=== PATIENT | female | born 1940 | race Caucasian/White ===

== ENCOUNTER → 2016-07-16 | Outpatient (CLI) | payer OTHER, MEDICARE ==
[~2016-07-16] MED LIST: AMLO-114 PO; ASPI81TA28 PO; ATOR-24 PO; CALC600T9 PO; CHOL100010 PO; CITA20TA4 PO; CYTRA PO; DIPH-437 PO; EPIN0.05 OPB; FLUT0.0529 NAE; MAGN250T16 PO; MELATAB2 PO; METO100T14 PO; MULT-506 PO; NUTR-706 PO; OXYBUTYNIN PO; OXYC7.5T78 PO; POTA2.5T PO; PRLSR20 PO
== END | disposition home or self-care (01) ==
LOC: C.LABBFT 12:59
PROVIDERS: ATTEND Internal Medicine
DX: R68.89 Other general symptoms and signs (principal)

== ENCOUNTER → 2016-07-18 | Outpatient (CLI) | payer OTHER, MEDICARE ==
[2016-07-18 13:26] LABS: URINE APPEARANCE CLEAR (CLEAR); URINE BILIRUBIN NEG (NEG); URINE COLOR YELLOW; URINE EPITHELIAL CELL AUTO 20-30 /lpf (0-5); URINE NITRITE NEG (NEG); URINE SPECIFIC GRAVITY 1.019 (1.000-1.030); UROBILINOGEN NEG (NEG); ZZUR CULT IF INDIC CLEAN CATCH YES
[2016-07-18 13:35] LABS: MANUAL MICROSCOPIC REQUIRED? NO; REVIEW REQ? NO
== END | disposition home or self-care (01) ==
LOC: C.PATHSPEC 12:20
PROVIDERS: ATTEND Internal Medicine
DX: R31.9 Hematuria, unspecified (principal); R68.89 Other general symptoms and signs

== ENCOUNTER → 2016-09-24 | Outpatient (CLI) | payer OTHER, MEDICARE ==
[~2016-09-24] MED LIST changes: -MAGN250T16 PO; -MELATAB2 PO
[2016-09-24 17:41] LABS: HEMATOCRIT 39.5 % (37-47); MEAN CELL VOLUME 92.7 fL (80-100); MEAN CORPUSCULAR HEMOGLOBIN 30.8 pg (25-34); MEAN CORPUSCULAR HGB CONC 33.2 g/dl (32-36); MEAN PLATELET VOLUME 11.7 fL (7.4-10.4); PLATELET COUNT 213 K/uL (130-400); RED BLOOD COUNT 4.26 M/uL (4.2-5.4); WHITE BLOOD COUNT 6.88 K/uL (4.8-10.8)
[2016-09-24 17:44] LABS: BLOOD UREA NITROGEN 21 mg/dl (7-18); BUN/CREATININE RATIO 16.1 (10-20); CALCIUM 9.4 mg/dl (8.5-10.1); CARBON DIOXIDE 31 mmol/L (21-32); CHLORIDE 103 mmol/L (98-107); GLUCOSE 119 mg/dl (70-99); MAGNESIUM 1.8 mg/dl (1.8-2.4); PHOSPHORUS 2.6 mg/dl (2.5-4.9); POTASSIUM 4.3 mmol/L (3.5-5.1); SODIUM 141 mmol/L (136-145); URIC ACID 5.5 mg/dl (2.6-7.2)
== END | disposition home or self-care (01) ==
LOC: C.LABBFT 13:45
PROVIDERS: ATTEND Internal Medicine Nephrology
DX: I10 Essential (primary) hypertension (principal); N18.3 Chronic kidney disease, stage 3 (moderate); N20.0 Calculus of kidney; E55.9 Vitamin D deficiency, unspecified

== ENCOUNTER → 2016-09-25 | Outpatient (CLI) | payer OTHER, MEDICARE ==
[2016-09-25 14:10] LABS: URINE APPEARANCE CLEAR (CLEAR); URINE BILIRUBIN NEG (NEG); URINE COLOR YELLOW; URINE NITRITE NEG (NEG); URINE PH 7.5 (4.5-7.5); URINE SPECIFIC GRAVITY 1.015 (1.000-1.030); UROBILINOGEN NEG (NEG)
[2016-09-25 14:14] LABS: MANUAL MICROSCOPIC REQUIRED? NO; REVIEW REQ? NO
[2016-09-25 14:31] LABS: URINE PROTIEN/CREAT RATIO 0.2 (0-0.2); URINE TOTAL PROTEIN 23.1 mg/dl (0-11.9)
== END | disposition home or self-care (01) ==
LOC: C.LABSPEC 13:12
PROVIDERS: ATTEND Internal Medicine Nephrology
DX: I12.9 Hypertensive chronic kidney disease with stage 1 through stage 4 chronic kidney disease, or unspecified chronic kidney disease (principal); N18.3 Chronic kidney disease, stage 3 (moderate); N20.0 Calculus of kidney; E55.9 Vitamin D deficiency, unspecified

== ENCOUNTER → 2016-09-28 | Day surgery (SDC) | payer OTHER, MEDICARE ==
[2016-08-30 11:46] VITALS: BMI 56.0
--- NOTE | 2016-08-30 12:36 | PAT Medication Instructions ---
Service Date Aug 30, 2016. Current Home Medication List Acetaminophen/Diphenhydramine (Tylenol Pm), 1 TAB PO HS PRN for Insomnia Amlodipine (Norvasc), 5 MG PO QAM Aspirin (Aspirin Ec), 81 MG PO HS Atorvastatin (Lipitor), 40 MG PO HS Calcium Carbonate-Vitamin D (Calcium + D), 1 TAB PO HS Cholecalciferol (Vitamin D), 2,000 INTER.UNIT PO QAM Citalopram Hydrobromide (Citalopram Hydrobromide), 20 MG PO QAM Enteral Nutrition Formula (Ensure), 1 DOSE PO QAM Epinastine Hcl (Ophth) (Elestat 0.05%), 2 DROPS OPB BID Fluticasone Propionate (Nasal) (Flonase), 2 SPRAY DANIELA QAM PRN for CONGESTION Metoprolol Tartrate (Lopressor) (Lopressor), 100 MG PO BID Multivitamin (Multivitamin), 1 TAB PO HS Omeprazole (Prilosec), 20 MG PO QAM Oxycodone/Acetaminophen 5MG/325MG (Percocet 5MG/325MG), 1-2 TABLETS PO Q4H PRN for Pain Potassium Gluconate (Potassium Gluconate), 1 TAB PO QAM [Cytra], 1 DOSE PO QID [Oxybutynin], 5 MG PO QPM Medication Instructions For Your Scheduled Surgery - Hold the following medications the morning of surgery: Potassium Gluconate (Potassium Gluconate), 1 TAB PO QAM Cytra 1 DOSE PO QID Enteral Nutrition Formula (Ensure), 1 DOSE PO QAM Cholecalciferol (Vitamin D), 2,000 INTER.UNIT PO QAM - Take the following medications the morning of surgery with a sip of water: Oxycodone/Acetaminophen 5MG/325MG (Percocet 5MG/325MG), 1-2 TABLETS PO Q4H PRN for Pain (can take up to four hours prior to surgery if needed) Omeprazole (Prilosec), 20 MG PO QAM Metoprolol Tartrate (Lopressor) (Lopressor), 100 MG PO BID Fluticasone Propionate (Nasal) (Flonase), 2 SPRAY DANIELA QAM PRN for CONGESTION Epinastine Hcl (Ophth) (Elestat 0.05%), 2 DROPS OPB BID Citalopram Hydrobromide (Citalopram Hydrobromide), 20 MG PO QAM Amlodipine (Norvasc), 5 MG PO QAM - Take the following medications as scheduled the night before surgery: Oxybutynin 5 MG PO QPM Cytra 1 DOSE PO QID Oxycodone/Acetaminophen 5MG/325MG (Percocet 5MG/325MG), 1-2 TABLETS PO Q4H PRN for Pain Multivitamin (Multivitamin), 1 TAB PO HS Metoprolol Tartrate (Lopressor) (Lopressor), 100 MG PO BID Epinastine Hcl (Ophth) (Elestat 0.05%), 2 DROPS OPB BID Aspirin (Aspirin Ec), 81 MG PO HS Atorvastatin (Lipitor), 40 MG PO HS Calcium Carbonate-Vitamin D (Calcium + D), 1 TAB PO HS Acetaminophen/Diphenhydramine (Tylenol Pm), 1 TAB PO HS PRN for Insomnia If you have any questions please call us at [phone] or [phone] ( [facility]) or [phone]
[2016-08-30 13:45] LABS: BASO % 0.4 %; BASO ABS # 0.04 K/uL (0-0.2); COMPLETE YES; HEMATOCRIT 41.5 % (37-47); IG% 0.2 %; LYMPH % 16.5 %; LYMPH ABS # 1.56 K/uL (1.2-3.4); MEAN CORPUSCULAR HEMOGLOBIN 31.6 pg (25-34); MEAN CORPUSCULAR HGB CONC 34.7 g/dl (32-36); MONO % 9.7 %; NEUT % 72.2 %; PLATELET COUNT 216 K/uL (130-400); RED BLOOD COUNT 4.56 M/uL (4.2-5.4); WHITE BLOOD COUNT 9.47 K/uL (4.8-10.8)
--- NOTE | 2016-08-30 13:52 | DIAGNOSTIC IMAGING REPORT ---
CHEST 2 VIEWS ROUTINE CLINICAL HISTORY: Preoperative chest COMPARISON STUDY: 12/31/2013 FINDINGS: Postsurgical changes are present within the cervical spine. There is a left-sided A-Port catheter. The heart is the upper limits of normal in size. There is no failure. There is no focal pulmonary consolidation. There is a prominent left cardiophrenic angle fat pad.[ IMPRESSION: No active disease in the chest. Electronically signed by: Cesar Bragg M.D. 08/30/2016 1:51 PM Dictated Date/Time: 08/30/2016 1:50 PM
[2016-08-30 14:05] LABS: BUN/CREATININE RATIO 21.5 (10-20); CALCIUM 9.5 mg/dl (8.5-10.1); POTASSIUM 4.2 mmol/L (3.5-5.1)
[2016-08-30 14:08] LABS: URINE APPEARANCE CLEAR (CLEAR); URINE BILIRUBIN NEG (NEG); URINE COLOR DK YELLOW; URINE EPITHELIAL CELL AUTO >30 /lpf (0-5); URINE NITRITE NEG (NEG); URINE PH 8.5 (4.5-7.5); URINE SPECIFIC GRAVITY 1.022 (1.000-1.030); UROBILINOGEN NEG (NEG)
[2016-08-30 14:13] LABS: ESTIMATED AVERAGE GLUCOSE 100 mg/dl; HA1C FLAG Normal (Normal)
[2016-08-30 14:16] LABS: MANUAL MICROSCOPIC REQUIRED? NO; REVIEW REQ? NO
[2016-08-30 14:17] LABS: SULFASALICYLIC ACID NEG (NEG)
--- NOTE | 2016-09-26 16:55 | HISTORY & PHYSICAL EXAMINATION ---
DATE OF ADMISSION: 09/28/2016 SUBJECTIVE AND CHIEF COMPLAINT: Left ankle pain. HISTORY OF PRESENT ILLNESS: This is a patient who has had a long history of traumatic arthritis of the left ankle after a closed reduction of a tib-fib fracture many years ago. She had been treated conservatively with bracing, anti-inflammatory medications, activity modification and corticosteroid injections. However, she has now failed all conservative management and she is being set up for a left ankle replacement. PAST MEDICAL HISTORY: Depression, history of low back pain, carotid artery stenosis, chronic kidney disease stage III, Crohn's disease, esophageal reflux, hypercholesterolemia, hypertension, urinary frequency, morbid obesity, history of kidney stones, and sleep apnea. PAST SURGICAL HISTORY: Appendectomy, cholecystectomy, history of D\T\C and exploratory laparotomy, hysterectomy, ileostomy and carpal tunnel release. FAMILY HISTORY: Noncontributory. SOCIAL HISTORY: The patient denies alcohol and tobacco use. She is retired and . CURRENT MEDICATIONS: Nasonex 50 mcg 2 sprays each nostril daily, aspirin 81 mg 1 p.o. daily, Cytra-2 at 500/334 mg per 5 mL solution 2 tablespoons by mouth after each meal at bedtime, citalopram 20 mg 1 p.o. daily, Artificial Tears 2 drops in each eye 4 times a day, epinastine 0.05% ophthalmic solution 1 drop each eye b.i.d., omeprazole 20 mg 1 p.o. daily, vitamin C 500 mg 1 p.o. daily, atorvastatin 40 mg 1 p.o. at bedtime, amlodipine 5 mg 1 p.o. daily, metoprolol 100 mg 1 p.o. b.i.d., Slow-Mag magnesium/calcium 64/106 mg 1 p.o. b.i.d., oxybutynin 5 mg 1 p.o. at bedtime, Percocet 5/325 mg 1-2 every 6 hours as needed for pain, potassium ER 50 mEq 1 p.o. daily, nitrofurantoin 100 mg 1 p.o. q. 12 hours, vitamin D 2000 units 1 p.o. daily, and melatonin tablets 1 p.o. at bedtime. ALLERGIES: BACTRIM. PHYSICAL EXAMINATION: GENERAL: The patient is alert and oriented x3. She is in no acute distress. She is a well-dressed and well-nourished 76-year-old female. Her affect is appropriate. CARDIOVASCULAR: Heart has a regular rhythm and rate without murmurs. LUNGS: Clear to auscultation bilaterally. Dorsalis pedis, posterior tib pulse +2/4. Cap refill is less than 2 seconds. LYMPHATIC: No evidence of any swollen lymph nodes. MUSCULOSKELETAL: The patient has an antalgic gait favoring the left lower extremity. On inspection of the left lower extremity, there is swelling noted at the left ankle. There is no ecchymosis and no erythema noted. The patient has decreased range of motion particularly with dorsiflexion. She also has limited plantar flexion. There is pain and crepitation noted with passive and active range of motion. On palpation, there is tenderness at the anterior and posterior aspect of the ankle joint. SKIN: There are no scars, rashes or ulcers noted. NEUROLOGIC: Sensation is normal and intact distally in the left lower extremity. X-RAY EXAM: Multiple views of left ankle demonstrate severe posttraumatic osteoarthritic changes of the tibiotalar ankle joint with complete loss of joint space and significant spurring anteriorly and posteriorly. There is an old well-healed mid shaft fracture of the tibia and fibula. ASSESSMENT AND DIAGNOSES: 1. Posttraumatic osteoarthritis of the left ankle. 2. Achilles contracture, left ankle. PLAN: Above assessment was discussed with the patient. At this time, it was recommended that the patient undergo a left ankle STAR total ankle arthroplasty with percutaneous tendo Achilles lengthening and application of platelet rich plasma. All potential risks, benefits, complications, alternatives and rehab have been discussed with the patient. At this time, she wishes to proceed with the surgery as indicated. She will be scheduled for the surgery on 09/28/2016 with aspirin 81 mg by mouth twice a day for 30 days as DVT prophylaxis.
[~2016-09-28] VITALS: Ht 152.4 cm; Wt 130.0 kg
[~2016-09-28] MED LIST changes: +ACETAMINOPHEN 500 MG TAB PO SCH; +ATROPINE SULFATE 0.1 MG/ML 5ML SYR IV PRN; +CeleBREX 200 MG CAP PO SCH; +DEXAMETHASONE 4 MG TAB PO SCH; +EpHEDrine SULFATE INJ 50 MG/ML AMP IV PRN; +FAMOTIDINE 20 MG TAB PO SCH; +FENTANYL CITRATE INJ 50 MCG/1 ML 2 ML VIAL ONE; +GABAPENTIN 300 MG CAP PO SCH; +GENERAL ORDER PROBLEM SCH; +HYDROmorphone INJ 2 MG/ML SYR/VIAL IV PRN; +KETAMINE HCL INJ 50 MG/ML 10 ML VIAL ONE; +LACTATED RINGER'S 1000ML 1,000 ML IV SCH; +LACTATED RINGER'S 1000ML IV SCH; +METOCLOPRAMIDE HCL 10 MG TAB PO SCH; +MIDAZOLAM HCL 1 MG/ML 2ML VIAL ONE; +ONDANSETRON INJ 2 MG/ML 2 ML VIAL IV PRN; +PHENYLEPHRINE 100MCG/ML 5ML SYR IV PRN; +ROPIVACAINE 0.5% 5 MG/ML 30 ML VIAL ONE; +ROPIVACAINE 5MG/ML 30 ML 150 MG, BUPIVACAINE/EPINEPHR 0.5% MPF 30 ML, KETOROLAC TROMETH... INFIL SCH; +SODIUM CHLORIDE 0.9% IV SCH; +VANCOMYCIN 1GM/270ML NSS 270 ML IV SCH; +VANCOMYCIN IV SCH
[2016-09-28 07:50] VITALS: BP 180/64; PULSE 59; TEMP 36.4; O2SAT 100; Ht 152.4 cm; Wt 130.0 kg
[2016-09-28 08:35] LABS: PROTHROMBIN TIME (PATIENT) 10.6 SECONDS (9.0-12.0)
--- NOTE | 2016-09-28 11:05 | History & Physical Bridge Note ---
H&P Re-Evaluation Bridge Note: I have examined the patient, reviewed the History & Physical and in the interval since the performance of the History & Physical I have noted the following changes of clinical significance: Patient attended physical therapy over the past few weeks for Pre-hab training. She had a significant reduction in her previously unrelenting ankle pain with a concomitant slight improvement in her ankle ROM. I suggested that the patient cancel her surgery today due to her unexpected improvement in symptoms. The patient and her were in agreement. Surgery cancelled.
--- NOTE | 2016-11-09 08:14 | CODING QUERY MEDICAL NECESSITY ---
CQSUPPORTING DIAGNOSIS NEEDED A supporting diagnosis is required for the test/procedure performed on this patient in order for us to be reimbursed by the patient's insurance. Please provide a supporting diagnosis for the following test/procedure listed below next to the test name along with your signature. *If there is no additional diagnosis for this patient that would support the following test/procedure please document that below next to the test/procedure. Test(s)/Procedure(s) that require a supporting diagnosis: DOS 08/30/16 GLYCATED HEMOGLOBIN TEST (ORDERED FOR PRESURGERY) Provider Signature: Date: Thank you Emma Machuca Health Information Management Once completed, please kindly fax back to [phone] For questions please call [phone]
== END | disposition home or self-care (01) ==
LOC: C.ACU 06:53
PROVIDERS: ATTEND Orthopaedic Surgery Sports Medicine
DX: M12.572 Traumatic arthropathy, left ankle and foot (principal); M67.02 Short Achilles tendon (acquired), left ankle; Z53.20 Procedure and treatment not carried out because of patient's decision for unspecified reasons; I65.29 Occlusion and stenosis of unspecified carotid artery; K21.9 Gastro-esophageal reflux disease without esophagitis; I10 Essential (primary) hypertension; E66.01 Morbid (severe) obesity due to excess calories; R35.0 Frequency of micturition; Z79.899 Other long term (current) drug therapy; Z01.812 Encounter for preprocedural laboratory examination

== ENCOUNTER → 2017-04-11 | Outpatient (CLI) | payer OTHER, MEDICARE ==
[~2017-04-11] MED LIST changes: -ACETAMINOPHEN 500 MG TAB PO SCH; -ATROPINE SULFATE 0.1 MG/ML 5ML SYR IV PRN; -CeleBREX 200 MG CAP PO SCH; -DEXAMETHASONE 4 MG TAB PO SCH; -EpHEDrine SULFATE INJ 50 MG/ML AMP IV PRN; -FAMOTIDINE 20 MG TAB PO SCH; -FENTANYL CITRATE INJ 50 MCG/1 ML 2 ML VIAL ONE; -GABAPENTIN 300 MG CAP PO SCH; -GENERAL ORDER PROBLEM SCH; -HYDROmorphone INJ 2 MG/ML SYR/VIAL IV PRN; -KETAMINE HCL INJ 50 MG/ML 10 ML VIAL ONE; -LACTATED RINGER'S 1000ML 1,000 ML IV SCH; -LACTATED RINGER'S 1000ML IV SCH; -METOCLOPRAMIDE HCL 10 MG TAB PO SCH; -MIDAZOLAM HCL 1 MG/ML 2ML VIAL ONE; -ONDANSETRON INJ 2 MG/ML 2 ML VIAL IV PRN; -PHENYLEPHRINE 100MCG/ML 5ML SYR IV PRN; -ROPIVACAINE 0.5% 5 MG/ML 30 ML VIAL ONE; -ROPIVACAINE 5MG/ML 30 ML 150 MG, BUPIVACAINE/EPINEPHR 0.5% MPF 30 ML, KETOROLAC TROMETH... INFIL SCH; -SODIUM CHLORIDE 0.9% IV SCH; -VANCOMYCIN 1GM/270ML NSS 270 ML IV SCH; -VANCOMYCIN IV SCH
[2017-04-11 17:31] LABS: HEMATOCRIT 43.6 % (37-47); MEAN CELL VOLUME 91.4 fL (80-100); MEAN CORPUSCULAR HEMOGLOBIN 30.4 pg (25-34); MEAN CORPUSCULAR HGB CONC 33.3 g/dl (32-36); MEAN PLATELET VOLUME 11.6 fL (7.4-10.4); PLATELET COUNT 220 K/uL (130-400); RED BLOOD COUNT 4.77 M/uL (4.2-5.4); WHITE BLOOD COUNT 6.77 K/uL (4.8-10.8)
[2017-04-11 18:04] LABS: ALKALINE PHOSPHATASE 92 U/L (45-117); AST/SGOT 23 U/L (15-37); BLOOD UREA NITROGEN 18 mg/dl (7-18); BUN/CREATININE RATIO 16.3 (10-20); CALCIUM 9.2 mg/dl (8.5-10.1); CARBON DIOXIDE 28 mmol/L (21-32); CHLORIDE 104 mmol/L (98-107); GLUCOSE 110 mg/dl (70-99); POTASSIUM 4.4 mmol/L (3.5-5.1); SODIUM 140 mmol/L (136-145)
[2017-04-11 18:07] LABS: ALB/GLOB RATIO 0.9 (0.9-2); ALT/SGPT 32 U/L (12-78); URIC ACID 5.9 mg/dl (2.6-7.2)
== END | disposition home or self-care (01) ==
LOC: C.LABBFT 13:37
PROVIDERS: ATTEND Internal Medicine Nephrology
DX: I12.9 Hypertensive chronic kidney disease with stage 1 through stage 4 chronic kidney disease, or unspecified chronic kidney disease (principal); N18.3 Chronic kidney disease, stage 3 (moderate); N20.0 Calculus of kidney; E55.9 Vitamin D deficiency, unspecified

== ENCOUNTER → 2017-04-12 | Outpatient (CLI) | payer OTHER, MEDICARE ==
[2017-04-12 12:30] LABS: URINE APPEARANCE CLEAR (CLEAR); URINE BILIRUBIN NEG (NEG); URINE COLOR YELLOW; URINE EPITHELIAL CELL AUTO >30 /lpf (0-5); URINE NITRITE NEG (NEG); URINE PH 7.5 (4.5-7.5); URINE SPECIFIC GRAVITY 1.019 (1.000-1.030); UROBILINOGEN NEG (NEG)
[2017-04-12 12:33] LABS: MANUAL MICROSCOPIC REQUIRED? NO; REVIEW REQ? NO
[2017-04-12 13:53] LABS: URINE PROTIEN/CREAT RATIO 0.1 (0-0.2); URINE TOTAL PROTEIN 8.1 mg/dl (0-11.9)
== END | disposition home or self-care (01) ==
LOC: C.LABSPEC 09:07
PROVIDERS: ATTEND Internal Medicine Nephrology
DX: I12.9 Hypertensive chronic kidney disease with stage 1 through stage 4 chronic kidney disease, or unspecified chronic kidney disease (principal); N18.3 Chronic kidney disease, stage 3 (moderate); N20.0 Calculus of kidney; E55.9 Vitamin D deficiency, unspecified

== ENCOUNTER → 2017-07-26 | Outpatient (CLI) | payer OTHER, MEDICARE ==
[~2017-07-26] MED LIST changes: +AMLO-110 PO; +CHOL20009 PO; +CYTRA 2 PO; +FLUT50SP45 NAE; +MAGN250T3 PO; +OXYB5TAB PO; +OXYC-643 PO
[2017-07-26 12:49] LABS: HEMOGLOBIN A1C 5.3 % (4.5-5.6)
== END | disposition home or self-care (01) ==
LOC: C.LABBFT 10:24
PROVIDERS: ATTEND Internal Medicine
DX: I65.29 Occlusion and stenosis of unspecified carotid artery (principal); R31.9 Hematuria, unspecified; R73.9 Hyperglycemia, unspecified; E78.00 Pure hypercholesterolemia, unspecified

== ENCOUNTER → 2017-07-29 | Day surgery (SDC) | payer OTHER, MEDICARE ==
[2017-07-26 11:42] VITALS: Ht 156.2 cm; Wt 129.6 kg
[~2017-07-29] VITALS: Ht 156.2 cm; Wt 129.6 kg
[~2017-07-29] MED LIST changes: -AMLO-114 PO; -CHOL100010 PO; -CYTRA PO; -DIPH-437 PO; -FLUT0.0529 NAE; +LIDOCAINE HCL 2% 2 ML VIAL (20MG/ML) ONE; -MULT-506 PO; -OXYBUTYNIN PO; -OXYC7.5T78 PO; +PROPOFOL IV EMULSION 10 MG/ML 20 ML VIAL IV ONE; +SODIUM CHLORIDE 0.9% 500ML 500 ML IV ONE
--- NOTE | 2017-07-29 09:10 | Endo History and Physical ---
History & Physical Date of Service: Jul 29, 2017. Chief Complaint: Dysphagia Referring Physician: Dr. Orourke History of Present Illness dysphagia Past Medical History Gastrointestinal Disorder, Anxiety, Reflux, Cancer, High Cholesterol, Sleep Apnea, Hypertension, Kidney Disease, Depression Past Surgical History Hx Cardiac Surgery: No Hx Internal Defibrillator: No Hx Pacemaker: No Hx Abdominal Surgery: Yes (MULTIPLE BOWEL RESECTIONS AND BLOCKAGES, ILEOSTOMY 1992, HERNIA REPAIR) Hx of Implantable Prosthesis: No Hx Post-Op Nausea and Vomiting: No Hx Cancer Surgery: No Hx Thoracic Surgery: No Hx Orthopedic: Yes (RT HAND GROWTH REMOVAL (BENIGN), TRIGGER FINGER REPAIR X3, LT/RT TKA) Hx Urinary Tract Surgery: No Family History None Social History Smoking Status: Never Smoker Hx Substance Use: No Hx Alcohol Use: No Allergies Coded Allergies: Dexamethasone (Verified Allergy, Unknown, ITCHING, 07/29/17) Sulfamethoxazole w/Trimethoprim (Verified Allergy, Unknown, ITCHING (?), ) Tobramycin (Verified Allergy, Unknown, ITCHING, 07/29/17) Current Medications Reported Home Medications Medications Dose Route/Sig Max Daily Dose Days Date Category Oxybutynin Chloride Er (Oxybutynin Chloride) 5 Mg Tab 1 Tab PO HS 07/26/17 Reported Oxycodone/Acetaminophen 5MG/325MG (Oxycodone/Acetaminophen) 1 Tab Tab 1 Tablet PO Q4H PRN 07/26/17 Reported [Cytra 2] 2 Tbs PO QID 07/26/17 Reported Allergy Nasal [place] [address] (Fluticasone Propionate (Nasal)) 50 Mcg/Act Spr 2 [place] DANIELA DAILY PRN 07/26/17 Reported Vitamin D (Cholecalciferol) 2,000 Unit Tab 1 Tab PO DAILY 07/26/17 Reported Magnesium 250 mg (Magnesium) 1 Tab Tab 1 Tab PO BID 07/26/17 Reported Norvasc (Amlodipine Besylate) 5 Mg Tab 5 Mg PO QPM 07/26/17 Reported Potassium Gluconate 550 Mg Tab 1 Tab PO QAM 08/30/16 Reported Ensure (Enteral Nutritional Formula) Liq 1 Dose PO QAM 10/20/15 Reported Calcium + D (Calcium Carbonate-Vitamin D) 1 Tab Tab 1 Tab PO DAILY 10/20/15 Reported Lopressor (Metoprolol Tartrate) 100 Mg Tab 100 Mg PO BID 10/20/15 Reported Elestat 0.05% (Epinastine Hcl (Ophth)) 0.05 % [place] 2 Drops OPB BID 04/20/14 Reported Prilosec (Omeprazole) 20 Mg Capcr 20 Mg PO QAM 04/20/14 Reported Lipitor (Atorvastatin Calcium) 40 Mg Tab 40 Mg PO QPM 04/20/14 Reported Citalopram Hydrobromide 20 Mg Tab 20 Mg PO QAM 12/31/13 Reported Aspirin Ec (Aspirin) 81 Mg Tab 81 Mg PO QPM 12/13/13 Reported Vital Signs Weight (Kilograms): 129.55 Height (Feet): 5 Height (Inches): 1.5 Date Time Temp Pulse Resp B/P (MAP) Pulse Ox O2 Delivery O2 Flow Rate FiO2 07/29/17 08:55 36.8 64 20 173/59 (97) 97 Room Air Physical Exam General Appearance: WD/WN, no apparent distress Assessment and Plan EGD today. Possible dilation.
--- NOTE | 2017-07-29 09:47 | GI REPORT ---
Procedure Date: 07/29/2017 9:36 AM Procedure: Upper GI endoscopy Indications: Dysphagia Medicines: Propofol per Anesthesia Complications: No immediate complications. Estimated blood loss: None. Estimated Blood Loss: Estimated blood loss: none. Procedure: Pre-Anesthesia Assessment: - Prior to the procedure, a History and Physical was performed, and patient medications, allergies and sensitivities were reviewed. The patient's tolerance of previous anesthesia was reviewed. - The risks and benefits of the procedure and the sedation options and risks were discussed with the patient. All questions were answered and informed consent was obtained. - Patient identification and proposed procedure were verified prior to the procedure by the physician and the nurse. The procedure was verified in the pre-procedure area in the procedure room. - Mental Status Examination: alert and oriented. Airway Examination: normal oropharyngeal airway and neck mobility. Respiratory Examination: clear to auscultation. CV Examination: normal. Abdominal Examination: bowel sounds present, abdomen soft and non-tender, no masses or organomegaly noted. - ASA Grade Assessment: III - A patient with severe systemic disease. After obtaining informed consent, the endoscope was passed under direct vision. Throughout the procedure, the patient's blood pressure, pulse, and oxygen saturations were monitored continuously. The Scope was introduced through the mouth, and advanced to the second part of duodenum. The upper GI endoscopy was accomplished without difficulty. The patient tolerated the procedure well. Findings: The examined esophagus was normal. A guidewire was placed and the scope was withdrawn. Dilation was performed with a Savary dilator with mild resistance at 54 Fr. The stomach was normal. The examined duodenum was normal. Impression: - Normal esophagus. No esophagitis. No stricture. Empirically dilated. - Normal stomach. - Normal examined duodenum. - No specimens collected. Recommendation: - Follow an antireflux regimen. - Continue present medications. - If symptoms persist, consider a video swallow evaluation. - Return to primary care physician as previously scheduled. - Discharge patient to home. Shanell Norman D.O. Shanell Norman, 07/29/2017 9:47:15 AM This report has been signed electronically. Note Initiated On: 07/29/2017 9:36 AM I attest to the content of the Intraoperative Record and orders documented therein, exceptions below
--- NOTE | 2017-07-29 09:48 | Discharge Instructions ---
Endoscopy Patient Instructions Date / Procedure(s) Performed Jul 29, 2017. EGD Allergy Information Coded Allergies: Dexamethasone (Verified Allergy, Unknown, ITCHING, 07/29/17) Sulfamethoxazole w/Trimethoprim (Verified Allergy, Unknown, ITCHING (?), ) Tobramycin (Verified Allergy, Unknown, ITCHING, 07/29/17) Discharge Date / Findings Jul 29, 2017. normal EGD; esophagus was dilated today Medication Instructions Stopped Medication(s): 81mg Aspirin taken on 07/28/16 Restart Stopped Medication(s): OK to resume all medications as above Provider Instructions Activity Restrictions - No exercising or heavy lifting for 24 hours. - Do not drink alcohol the day of the procedure. - Do not drive a car or operate machinery until the day after the procedure. - Do not make any important decisions or sign important papers in 24 hours after the procedure. Following Day: - Return to full activity which may include returning to work/school. Diet Start your diet with liquids and light foods (jello, soup, juice, toast). Then eat your usual diet if not nauseated. Treatment For Common After Affects For mild abdominal pain, bloating, or excessive gas: - Rest - Eat lightly - Lie on right side Follow-Up Information Follow-up with Dr. Orourke as scheduled Anesthesia Information What You Should Know You have had a procedure that required some medicine to reduce anxiety and discomfort. This treatment is called moderate sedation. After receiving the treatment, you may be sleepy, but you will be able to breathe on your own. The effects of the treatment may last for several hours. Follow these instructions along with Activity/Diet recommendations noted above: * Do NOT do anything where dizziness or clumsiness would be dangerous. * Rest quietly at home today, then you can be up and about tomorrow. * Have a responsible person stay with you the rest of today. * You may have had an I.V. today. If so, you may take the dressing off later today. Recommendations Call your doctor if: * Trouble breathing * Continuous vomiting for more than 24 hours * Temperature above 101 degrees * Severe abdominal pain or bloating * Pain not relieved by pain medicine ordered * There is increased drainage or redness from any incision * A large amount of rectal bleeding greater than 2-3 tablespoons. (If you had a polyp/s removed or have hemorrhoids, a small amount of blood - from the rectum is to be expected.) * You have any unanswered questions or concerns. IN THE EVENT OF A SERIOUS EMERGENCY, GO TO THE NEAREST EMERGENCY ROOM Your discharge instructions were prepared by provider Shanell Norman. Patient Instructions Signature Page Priya Tapia Patient (or Guardian) Signature/Date: I have read and understand the instructions given to me by my caregivers. Caregiver/RN/Doctor Signature/Date: The above-named patient and/or guardian has received patient instructions on this date. + Original Patient Signature Page (only) stays with chart. Please make copy for patient.
--- NOTE | 2017-07-29 10:15 | Anesthesiology Progress Note ---
Anesthesia Post Op Note Date & Time Jul 29, 2017 at 10:15 Vital Signs Pain Intensity: 0 Vital Signs Past 12 Hours Date Time Temp Pulse Resp B/P (MAP) Pulse Ox O2 Delivery O2 Flow Rate FiO2 07/29/17 10:04 60 20 150/60 (90) 96 Room Air 07/29/17 09:49 63 20 92/64 (73) 96 Room Air 07/29/17 08:55 36.8 64 20 173/59 (97) 97 Room Air Notes Mental Status: alert / awake / arousable, participated in evaluation Pt Amnestic to Procedure: Yes Nausea / Vomiting: adequately controlled Pain: adequately controlled Airway Patency, RR, SpO2: stable & adequate BP & HR: stable & adequate Hydration State: stable & adequate Anesthetic Complications: no major complications apparent
== END | disposition home or self-care (01) ==
LOC: C.GI 08:25
PROVIDERS: ATTEND Internal Medicine
DX: R13.10 Dysphagia, unspecified (principal); N18.3 Chronic kidney disease, stage 3 (moderate); I12.9 Hypertensive chronic kidney disease with stage 1 through stage 4 chronic kidney disease, or unspecified chronic kidney disease; G47.33 Obstructive sleep apnea (adult) (pediatric); E66.01 Morbid (severe) obesity due to excess calories; Z98.890 Other specified postprocedural states; E78.00 Pure hypercholesterolemia, unspecified; Z90.89 Acquired absence of other organs; Z96.653 Presence of artificial knee joint, bilateral; Z68.43 Body mass index [BMI] 50.0-59.9, adult; Z88.2 Allergy status to sulfonamides; Z88.1 Allergy status to other antibiotic agents

== ENCOUNTER → 2017-09-04 | Outpatient (CLI) | payer OTHER, MEDICARE ==
[~2017-09-04] MED LIST changes: -LIDOCAINE HCL 2% 2 ML VIAL (20MG/ML) ONE; -PROPOFOL IV EMULSION 10 MG/ML 20 ML VIAL IV ONE; -SODIUM CHLORIDE 0.9% 500ML 500 ML IV ONE
--- NOTE | 2017-09-04 14:29 | DIAGNOSTIC IMAGING REPORT ---
CERVICAL SPINE 2 OR 3 VIEWS HISTORY: Pain. Neuropathy. R20.0 COMPARISON: 08/30/2012 FINDINGS: The cervical spine is visualized from C1 through the superior endplate of T1. There is no fracture. No subluxation. Evidence for an anterior fusion from C4 through C7 with associated corpectomy. Alignment is anatomic. Prevertebral soft tissues are unremarkable. Prevertebral soft tissues and the atlantodens interval are intact. IMPRESSION: 1. Degenerative and postoperative change of the cervical spine. 2. Findings consistent with an anterior fusion from C4 through C5 C7 with an associated corpectomy. 3. No acute process. The above report was generated using voice recognition software. It may contain grammatical, syntax or spelling errors. Electronically signed by: Sai Harden M.D. 09/04/2017 2:28 PM Dictated Date/Time: 09/04/2017 2:26 PM
== END | disposition home or self-care (01) ==
LOC: C.RAD1850 14:03
PROVIDERS: ATTEND Physician Assistant Medical
DX: R20.0 Anesthesia of skin (principal); M47.812 Spondylosis without myelopathy or radiculopathy, cervical region

== ENCOUNTER → 2017-10-22 | Outpatient (CLI) | payer OTHER, MEDICARE ==
[2017-10-22 12:40] LABS: HEMATOCRIT 45.3 % (37-47); HEMOGLOBIN 15.5 g/dL (12.0-16.0); MEAN CELL VOLUME 91.3 fL (80-100); MEAN CORPUSCULAR HEMOGLOBIN 31.3 pg (25-34); MEAN CORPUSCULAR HGB CONC 34.2 g/dl (32-36); MEAN PLATELET VOLUME 11.6 fL (7.4-10.4); PLATELET COUNT 201 K/uL (130-400); RED CELL DISTRIBUTION WIDTH CV 13.2 % (11.5-14.5); RED CELL DISTRIBUTION WIDTH SD 43.9 fL (36.4-46.3); WHITE BLOOD COUNT 6.92 K/uL (4.8-10.8)
[2017-10-22 13:04] LABS: ALBUMIN 3.6 gm/dl (3.4-5.0); ALT/SGPT 27 U/L (12-78); AST/SGOT 20 U/L (15-37); BLOOD UREA NITROGEN 16 mg/dl (7-18); CALCIUM 9.6 mg/dl (8.5-10.1); CARBON DIOXIDE 29 mmol/L (21-32); CREATININE 1.12 mg/dl (0.60-1.20); GLUCOSE 133 mg/dl (70-99); POTASSIUM 4.2 mmol/L (3.5-5.1); SODIUM 140 mmol/L (136-145); URIC ACID 5.8 mg/dl (2.6-7.2)
[2017-10-22 13:07] LABS: ALKALINE PHOSPHATASE 97 U/L (45-117); TOTAL PROTEIN 7.8 gm/dl (6.4-8.2)
== END | disposition home or self-care (01) ==
LOC: C.LABBFT 09:57
PROVIDERS: ATTEND Internal Medicine Nephrology
DX: I12.9 Hypertensive chronic kidney disease with stage 1 through stage 4 chronic kidney disease, or unspecified chronic kidney disease (principal); E55.9 Vitamin D deficiency, unspecified; N18.3 Chronic kidney disease, stage 3 (moderate); R31.9 Hematuria, unspecified; K50.90 Crohn's disease, unspecified, without complications

== ENCOUNTER 2022-01-30 17:25 | Inpatient (IN) ==
--- NOTE | 2022-01-30 17:32 | ED Triage Note ---
Date of Service January 30, 2022 History of Present Illness This patient was briefly evaluated while in triage. An abbreviated physical exam was performed. This patient is a 81-year-old Female that presents to ED today with abd pain. Started about 2 hours ago. She feels as though the abdomen is hard. She notes dry heaves and nausea. No vomiting. She has a stoma. Last output this AM. Physical Exam GENERAL: 81 year old female. SKIN: No lesions or rashes. HEART: Regular rate and rhythm. LUNGS: Clear to auscultation. ABDOMEN: Bowel sounds normoactive. Mid and R sided abd TTP noted. Stoma without abnormality to inspection. Brown output noted. NEURO: Alert and oriented. No deficits. MUSCULOSKELETAL: No deformities to inspection of the extremities. PSYCH: Patient is pleasant and answers all questions appropriately. Initial orders for labs and / or imaging were placed and patient was placed in the waiting area until a bed is available. Please see further documentation for the full ED course.
[2022-01-30 18:55] LABS: Albumin Globulin Ratio 1.2 (0.9-2); Albumin Level 4.1 gm/dl (3.4-5.0); BUN Creatinine Ratio 19.6 (10-20); Bilirubin,Total 0.9 mg/dl (0.2-1.0); Calcium 9.7 mg/dl (8.5-10.1); Est GFR (African American) 40.3 ml/min; Est GFR (Non-African American) 34.7 ml/min; Globulin 3.4 gm/dl (2.5-4.0); Magnesium 1.4 mg/dl (1.7-2.4); Potassium 3.9 mmol/L (3.5-5.1); Total Protein 7.5 gm/dl (6.0-8.3); Troponin I High Sensitivity 17.9 pg/ml (0-14)
[2022-01-30] MEDS ORDERED: SODIUM CHLORIDE 0.9% 1000ML 1,000 ML IV ONE ×2 (18:58→20:38)
[2022-01-30] MEDS ORDERED: MoRPHine SULFATE 4 MG/ML 1 ML CARP\\VIAL IV STA (18:58)
[2022-01-30] MEDS ORDERED: MAGNESIUM SULFATE / D5W 1 GM/100 ML BAG IV STA (18:58)
[2022-01-30] MEDS ORDERED: ONDANSETRON INJ 2 MG/ML 2 ML VIAL IV STA ×2 (18:58→20:39)
[2022-01-30 19:08] LABS: Basophils # (auto) 0.02 K/uL (0-0.2); Basophils % (auto) 0.6 %; Eosinophils % (auto) 3.1 %; Hematocrit (blood only) 42.6 % (34.1-44.9); Immature Granulocytes # (auto) 0.17 K/uL (0.00-0.02); Immature Granulocytes % (auto) 5.2 %; Lymphocytes # (auto) 0.33 K/uL (1.2-3.4); Lymphocytes % (auto) 10.1 %; Mean Corpuscular Hemoglobin 30.6 pg (25.0-34.0); Mean Corpuscular Hgb Conc 32.9 g/dL (32.0-36.0); Mean Platelet Volume 10.8 fL (9.4-12.3); Monocytes # (auto) 0.02 K/uL (0.24-0.82); Monocytes % (auto) 0.6 %; Neutrophils # (auto) 2.63 K/uL (1.4-6.5); Neutrophils % (auto) 80.4 %; Nucleated RBC # (auto) 0.02 K/uL (0-0); Nucleated RBC % (auto) 0.6 %; Platelet Count 137 K/uL (130-400); RDW Coefficient of Variation 12.6 % (11.5-14.5); RDW Standard Deviation 42.8 fL (36.4-46.3); Red Blood Count 4.58 M/uL (3.93-5.22); Toxic Vacuolation 1+; White Blood Count 3.27 K/ul (4.8-10.8)
[2022-01-30] MEDS ORDERED: MoRPHine SULFATE 4 MG/ML 1 ML CARP\\VIAL IV PRN (19:08)
--- NOTE | 2022-01-30 19:13 | Emergency Department Note ---
Impression & Plan Right sided abdominal pain, Renal colic, Hydronephrosis, Elevated lactic acid level ED Provider Note NAME: HERO MELENDEZ AGE: 81 SEX: F : 1940 ARRIVES VIA: Walk-In INFORMANT: [Patient][] ED PROVIDER(S): [Jeremy Hair MD] CHIEF COMPLAINT: Abdominal pain HISTORY OF PRESENT ILLNESS: The patient is a 81-year-old female presents with 4 hours of severe abdominal pain. The patient states that she had a stomachache earlier today but it got severe in nature around 4 hours ago. She has had some nausea without vomiting. 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 She believes the pain is more so on the right and she did think she had a little bit of right lateral abdominal/flank discomfort as well. The patient denies any fever or chills. She did notice some urinary burning today, she thought maybe she had a UTI or was passing a kidney stone. The patient has had bowel obstructions before. This feels a bit similar to previous obstructions. Her pain is a 10/10. The patient states the pain is severe and then she seems to get spasms of even more intense discomfort. REVIEW OF SYSTEMS: See HPI for pertinent positives and negatives. A total of ten systems were reviewed and were otherwise negative. PMHx/PSHx: See Below SOCIAL HISTORY: See Below. PHYSICAL EXAM: GENERAL: Patient is in moderate distress from pain. HEENT: No acute trauma, normocephalic atraumatic, mucous membranes moist, no nasal congestion, no scleral icterus. NECK: No stridor, no adenopathy, no meningismus, trachea is midline. LUNGS: Clear to auscultation bilaterally, no wheeze, no rhonchi, breath sounds equal. HEART: Without murmurs gallops or rubs, regular rate and rhythm. ABDOMEN: Soft, obese. There is an ileostomy in the right upper quadrant. There is some dark liquidy stool present in the bag. She is tender about the e pigastric area and to the RUQ. There is some abdominal distention. Old surgical scars noted. EXTREMITIES: No cyanosis, moderate bilateral pedal edema, full range of motion of all the joints without pain or difficulty, no signs for acute trauma. NEUROLOGIC: Oriented x 3, no acute motor or sensory deficits, no focal weakness. SKIN: No rash, no jaundice, no diaphoresis. Pale. DIFFERENTIAL DIAGNOSIS: Appendicitis, ovarian cyst, ovarian torsion, diverticulitis, UTI, obstruction, mesenteric ischemia, aortic pathology, inflammatory bowel disease, renal colic, PUD, pancreatitis, biliary pathology, hernia, volvulus, constipation, as well as other pathologies. EMERGENCY DEPARTMENT COURSE/PROCEDURES: ECG: Indication was abdominal pain. The ECG shows a normal sinus rhythm with a rate of 87. There is no ST elevation, no PVCs. 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 QTC is 466. Continuous Cardiac Monitoring: An order was placed for continuous cardiac monitoring. The monitor shows a rate of 83 with normal sinus rhythm. MEDICAL DECISION MAKING: There is no leukocytosis. The patient does not have any anemia. There is a normal platelet count. Creatinine mildly elevated at 1.43. Lactic acid level was elevated at 4.3. This is consistent with dehydration and/or potentially infection. Bowel ischemia certainly was also thought possible with the higher lactic acid value. Magnesium was low at 1.4. Troponin very mildly elevated, this elevation could be consistent with demand mismatch and/or potentially cardiac ischemia. Cardiac enzyme testing x1 did not show any evidence for acute SC or for ST elevation. There was no pancreatitis. Urinalysis showed white cells and red cells, no bacteria was seen. COVID test returned negative. Abdominal and pelvis CT did not show any bowel obstruction or free air. There was a mid right ureteral stone with hydronephrosis. On exam, the patient appeared to be in significant pain. The patient and her were upset that they had to wait to be seen. He had presented at a time when the ED rooms were all full and there were multiple patients waiting to be seen in the ED waiting room. The patient was aggressively managed once seen. She received IV saline, 2 L. She was given IV Zofran for nausea, a second dose of Zofran was given. She received IV morphine for pain. She received IV Toradol for pain. She was given IV magnesium, she received IV ceftriaxone as empiric antibiotic coverage. Because of the findings on urinalysis and because of the right ureteral stone, I did speak with urology. No emergent urologic intervention felt necessary tonight. The patient is feeling improved, she is much more comfortable. I did speak with her and her , I spoke with case management. The on-call hospitalist was consulted. Past Med/Surg History Medical History Chronic kidney disease, stage II (mild) Hypertension Kidney stones Surgical History H/O colectomy H/O neck surgery History of creation of ostomy History of knee replacement Family History Mother Kidney failure Denies family history of Ovarian cancer Prostate cancer Myocardial infarction Breast cancer Colorectal cancer Social History Smoking Status: Never smoker Tobacco Type: Cigarettes Hx Alcohol Use: No Hx Substance Use: No Preferred Language: Bulgarian Visual Impairment: No Limitations Hearing Ability: Normal Feels Safe at Home: Yes Physical Activity Frequency: Does not Exercise Seatbelt Use: always Allergies Allergies Allergy/AdvReac Type Severity Reaction Status Date / Time dexamethasone Allergy Intermediate EYES Verified 01/30/22 20:32 BECAME RED AND ITCHY sulfamethoxazole Allergy Intermediate ITCHING Verified 01/30/22 20:32 tobramycin Allergy Intermediate EYES Verified 01/30/22 20:32 BECAME RED AND ITCHY trimethoprim Allergy Intermediate ITCHING Verified 01/30/22 20:32 Home Meds Home Medications Medication Instructions Recorded Confirmed ammonium lactate 12 % topical cream 1 appln topical BID PRN Skin 03/16/19 0 01/30/22 Cleansing cholecalciferol (vitamin D3) 50 2,000 units PO DAILY 03/16/19 01/30/22 mcg (2,000 unit) capsule clotrimazole-betamethasone 1 1 appln topical .COMPLEX 03/16/19 01/30/22 %-0.05 % topical cream aspirin 81 mg tablet,delayed 81 mg PO DAILY 12/23/19 01/30/22 release (Gallo Low Dose Aspirin) oxycodone-acetaminophen 5 mg-325 1 tab PO Q4H PRN Pain 12/23/19 01/30/22 mg tablet magnesium 250 mg tablet 250 mg PO BID 11/21/20 01/30/22 albuterol sulfate 90 mcg/actuation 1 inh inhalation QID PRN Shortness 12/04/21 01/30/22 aerosol inhaler (Ventolin HFA) Of Breath Or Wheezing meclizine 25 mg tablet 25 mg PO DAILY PRN Dizziness 12/04/21 01/30/22 melatonin 5 mg capsule 5 mg PO HS PRN Sleep 12/04/21 01/30/22 nystatin 100,000 unit/gram topical 1 applic topical TID PRN Skin 12/04/21 01/30/22 powder Irritation triamcinolone acetonide 0.1 % 1 applic topical DAILY PRN Skin 12/04/21 01/30/22 topical cream Irritation amlodipine 5 mg tablet 5 mg PO DAILY 01/30/22 01/30/22 camphor-methyl salicylate-menthol 1 patch topical DAILY PRN Pain 01/30/22 01/30/22 topical patch oxybutynin chloride 5 mg tablet 5 mg PO QPM 01/30/22 01/30/22 Previous Rx's Medication Instructions Recorded artifi.tears(hypromellose)(PF) 0.3 1 drp ophthalmic (eye) DAILY PRN 02/28/ % eye drops dry eye(s) #10 mL citalopram 20 mg tablet 20 mg PO DAILY #90 tabs 03/31/20 fluticasone propionate 50 2 spray intranasal DAILY PRN 05/06/20 mcg/actuation nasal allergy symptoms #48 grams spray,suspension atorvastatin 40 mg tablet 40 mg PO HS #90 tabs 05/19/20 omeprazole 20 mg capsule,delayed 20 mg PO DAILY #90 caps 06/16/20 release metoprolol tartrate 100 mg tablet 100 mg PO BID #60 tabs 02/14/21 sodium citrate-citric acid 500 45 ml PO BID #3,000 mL 10/19/21 mg-334 mg/5 mL oral solution Results & Data (ED) Vital Signs Vital Signs - 24 hr 01/30/22 17:28 01/30/22 18:36 01/30/22 20:00 Temperature 36.9 C Temperature Source Temporal Artery Scan Pulse Rate 88 Pulse Rate [Apical] 83 107 H Pulse Rhythm Regular Pulse Rhythm [Apical] Regular Regular Pulse Strength Normal Pulse Strength [Apical] Normal Respiratory Rate 24 18 16 Respiratory Effort / Characteristics Non-Labored Spontaneous Non-Labored Spontaneous Non-Labored Respiratory Depth Normal Normal Normal Respiratory Pattern Regular Regular Blood Pressure 159/73 H Blood Pressure [Right Arm] 202/90 H 192/102 H Blood Pressure Mean 101 Blood Pressure Mean [Right Arm] 127 132 Blood Pressure Position Sitting Blood Pressure Position [Right Arm] Lying Pulse Oximetry 98 96 96 Oxygen Delivery Method Room Air Room Air Room Air Sepsis Recent Fever Within 48 Hours No Sepsis New/Unexplained Change in Mental Status No Sepsis Action Taken by Nursing No Action Required 01/30/22 22:00 Temperature Temperature Source Pulse Rate Pulse Rate [Apical] 97 H Pulse Rhythm Pulse Rhythm [Apical] Regular Pulse Strength Pulse Strength [Apical] Respiratory Rate 16 Respiratory Effort / Characteristics Non-Labored Respiratory Depth Normal Respiratory Pattern Blood Pressure Blood Pressure [Right Arm] 132/60 Blood Pressure Mean Blood Pressure Mean [Right Arm] 84 Blood Pressure Position Blood Pressure Position [Right Arm] Pulse Oximetry 96 Oxygen Delivery Method Room Air Sepsis Recent Fever Within 48 Hours Sepsis New/Unexplained Change in Mental Status Sepsis Action Taken by Usp Medications Current Medication List: was personally reviewed by me Laboratory Data Attestation: I reviewed the patient's lab results. Result diagrams: 01/30/22 18:07 01/30/22 18:07 Lab Results 01/30/22 01/30/22 01/30/22 Range/Units 18:07 18:07 19:51 WBC 3.27 L (4.8-10.8) K/ul RBC 4.58 (3.93-5.22) M/uL Hgb 14.0 (12.0-16.0) g/dl Hct 42.6 (34.1-44.9) % MCV 93.0 (80.0-100.0) fL MCH 30.6 (25.0-34.0) pg MCHC 32.9 (32.0-36.0) g/dL RDW Std Deviation 42.8 (36.4-46.3) fL RDW Coeff of Nino 12.6 (11.5-14.5) % Plt Count 137 (130-400) K/uL MPV 10.8 (9.4-12.3) fL Immature Gran % (Auto) 5.2 % Neut % (Auto) 80.4 % Lymph % (Auto) 10.1 % [place] % (Auto) 0.6 % Eos % (Auto) 3.1 % Baso % (Auto) 0.6 % Neut # (Auto) 2.63 (1.4-6.5) K/uL Lymph # (Auto) 0.33 L (1.2-3.4) K/uL [place] # (Auto) 0.02 L (0.24-0.82) K/uL Eos # (Auto) 0.10 (0-0.50) K/uL Baso # (Auto) 0.02 (0-0.2) K/uL Immature Gran # (Auto) 0.17 H (0.00-0.02) K/uL Absolute Nucleated RBC 0.02 H (0-0) K/uL Nucleated RBC % (auto) 0.6 % Toxic Vacuolation 1+ Sodium 137 (136-145) mmol/L Potassium 3.9 (3.5-5.1) mmol/L Chloride 99 (98-107) mmol/L Carbon Dioxide 24 (21-32) mmol/L Anion Gap 14 H (3-11) BUN 28 H (6-23) mg/dl Creatinine 1.43 H (0.6-1.2) mg/dl Est Cr Clr Drug Dosing 41.0 ml/min Est GFR ( Amer) 40.3 ml/min Est GFR (Non-Af Amer) 34.7 ml/min BUN/Creatinine Ratio 19.6 (10-20) Glucose 117 H (70-99(Fasting)) mg/dl Lactate 4.3 H* (0.4-2.0) mmol/L Calcium 9.7 (8.5-10.1) mg/dl Magnesium 1.4 L (1.7-2.4) mg/dl Total Bilirubin 0.9 (0.2-1.0) mg/dl AST 18 (13-39) U/L ALT 17 (7-52) U/L Alkaline Phosphatase 80 (34-104) U/L Troponin I High Sens 17.9 H (0-14) pg/ml Total Protein 7.5 (6.0-8.3) gm/dl Albumin 4.1 (3.4-5.0) gm/dl Globulin 3.4 (2.5-4.0) gm/dl Albumin/Globulin Ratio 1.2 (0.9-2) Lipase 22 (11-82) U/L Urine Color Urine Appearance (Clear) Urine pH (4.5-7.5) Ur Specific [place] (1.000-1.030) Urine Protein (Negative) Urine Glucose (UA) (Negative) Urine Ketones (Negative) Urine Blood (Negative) Urine Nitrite (Negative) Urine Bilirubin (Negative) Urine Urobilinogen (Negative) Ur Leukocyte Esterase (Negative) Urine WBC (Auto) (0-5) /hpf Urine RBC (Auto) (0-4) /hpf U Hyaline Cast (Auto) (0-5) /lpf U Epithel Cells (Auto) (0-5) /lpf Urine Bacteria (Auto) (Negative) SARS-CoV-2, RNA, NAAT (NEGATIVE) 01/30/22 01/30/22 01/30/22 Range/Units 20:00 21:43 Unknown WBC (4.8-10.8) K/ul RBC (3.93-5.22) M/uL Hgb (12.0-16.0) g/dl Hct (34.1-44.9) % MCV (80.0-100.0) fL MCH (25.0-34.0) pg MCHC (32.0-36.0) g/dL RDW Std Deviation (36.4-46.3) fL RDW Coeff of Nino (11.5-14.5) % Plt Count (130-400) K/uL MPV (9.4-12.3) fL Immature Gran % (Auto) % Neut % (Auto) % Lymph % (Auto) % [place] % (Auto) % Eos % (Auto) % Baso % (Auto) % Neut # (Auto) (1.4-6.5) K/uL Lymph # (Auto) (1.2-3.4) K/uL [place] # (Auto) (0.24-0.82) K/uL Eos # (Auto) (0-0.50) K/uL Baso # (Auto) (0-0.2) K/uL Immature Gran # (Auto) (0.00-0.02) K/uL Absolute Nucleated RBC (0-0) K/uL Nucleated RBC % (auto) % Toxic Vacuolation Sodium (136-145) mmol/L Potassium (3.5-5.1) mmol/L Chloride (98-107) mmol/L Carbon Dioxide (21-32) mmol/L Anion Gap (3-11) BUN (6-23) mg/dl Creatinine (0.6-1.2) mg/dl Est Cr Clr Drug Dosing ml/min Est GFR ( Amer) ml/min Est GFR (Non-Af Amer) ml/min BUN/Creatinine Ratio (10-20) Glucose (70-99(Fasting)) mg/dl Lactate 3.7 H* (0.4-2.0) mmol/L Calcium (8.5-10.1) mg/dl Magnesium (1.7-2.4) mg/dl Total Bilirubin (0.2-1.0) mg/dl AST (13-39) U/L ALT (7-52) U/L Alkaline Phosphatase (34-104) U/L Troponin I High Sens (0-14) pg/ml Total Protein (6.0-8.3) gm/dl Albumin (3.4-5.0) gm/dl Globulin (2.5-4.0) gm/dl Albumin/Globulin Ratio (0.9-2) Lipase (11-82) U/L Urine Color Yellow Urine Appearance Cloudy A (Clear) Urine pH 5.0 (4.5-7.5) Ur Specific [place] 1.020 (1.000-1.030) Urine Protein 2+ H (Negative) Urine Glucose (UA) Negative (Negative) Urine Ketones Negative (Negative) Urine Blood 3+ H (Negative) Urine Nitrite Negative (Negative) Urine Bilirubin Negative (Negative) Urine Urobilinogen Negative (Negative) Ur Leukocyte Esterase 2+ H (Negative) Urine WBC (Auto) >30 H (0-5) /hpf Urine RBC (Auto) >30 H (0-4) /hpf U Hyaline Cast (Auto) 1-5 (0-5) /lpf U Epithel Cells (Auto) 5-10 H (0-5) /lpf Urine Bacteria (Auto) Negative (Negative) SARS-CoV-2, RNA, NAAT NEGATIVE (NEGATIVE) Administered Medications Morphine Sulfate (Morphine Sulfate 4 Mg/Ml 1 Ml Carp\Vial) 4 mg IV Q15M PRN PRN Reason: Pain Stop: 02/13/22 19:07 Last Admin: 01/30/22 19:36 Dose: 4 mg Documented By: KV Discontinued Medications Sodium Chloride (Nss 1000ml) 1,000 mls @ 999 mls/hr IV .Q1H1M ONE Stop: 01/30/22 19:58 Last Infusion: 01/30/22 20:40 Dose: 0 mls/hr Documented By: Admin: 01/30/22 19:04 Dose: 999 mls/hr Documented By: IRLANDA Magnesium Sulfate/Dextrose (Magnesium Sulfate / D5w) 1 gm in 100 mls @ 100 mls/hr IV NOW STA Stop: 01/30/22 19:57 Last Infusion: 01/30/22 20:40 Dose: 0 mls/hr Documented By: Admin: 01/30/22 19:04 Dose: 100 mls/hr Documented By: IRLANDA Sodium Chloride (Nss 1000ml) 1,000 mls @ 999 mls/hr IV .Q1H1M ONE Stop: 01/30/22 21:38 Last Infusion: 01/30/22 22:33 Dose: 0 mls/hr Documented By: Admin: 01/30/22 20:49 Dose: 999 mls/hr Documented By: IRLANDA Ceftriaxone Sodium (Rocephin) 2,000 mg in 70 mls @ 140 mls/hr IV NOW STA Stop: 01/30/22 21:56 Last Admin: 01/30/22 22:32 Dose: 140 mls/hr Documented By: IRLANDA Ioversol (Optiray 320 100ml) 92 ml IV ONCE ONE Stop: 01/30/22 19:28 Last Admin: 01/30/22 19:31 Dose: 92 ml Documented By: APOLONIA Ketorolac Tromethamine (Ketorolac Tromethamine 15 Mg/Ml Vial) 10 mg IV NOW ONE Stop: 01/30/22 20:27 Last Admin: 01/30/22 20:50 Dose: 10 mg Documented By: IRLANDA Morphine Sulfate (Morphine Sulfate 4 Mg/Ml 1 Ml Carp\Vial) 4 mg IV NOW STA Stop: 01/30/22 18:59 Last Admin: 01/30/22 19:04 Dose: 4 mg Documented By: IRLANDA Ondansetron HCl (Ondansetron Inj 2 Mg/Ml 2 Ml Vial) 4 mg IV NOW STA Stop: 01/30/22 18:59 Last Admin: 01/30/22 19:04 Dose: 4 mg Documented By: IRLANDA Ondansetron HCl (Ondansetron Inj 2 Mg/Ml 2 Ml Vial) 4 mg IV NOW STA Stop: 01/30/22 20:40 Last Admin: 01/30/22 20:50 Dose: 4 mg Documented By: Imaging Data Radiologist's Impression: Abdomen/Pelvis CT 01/30/22 18:58 CT SCAN OF THE ABDOMEN AND PELVIS WITH IV CONTRAST CLINICAL HISTORY: Generalized abdominal pain. COMPARISON STUDY: Abdominal CT dated 10/18/2015. TECHNIQUE: Following the IV administration of 92 cc of Optiray 320, CT scan of the abdomen and pelvis is performed from the lung bases to the proximal femora. Images are reviewed in the axial, sagittal, and coronal planes. IV contrast was administered without complication. A dose lowering technique was utilized adhering to the principles of ALARA. CT DOSE: 1512.34 mGy.cm FINDINGS: Lung bases: The heart is normal in size and without pericardial effusion. There are coronary artery calcifications. The mitral annulus is densely calcified. A tiny hiatal hernia is noted. The lung bases are clear noting bibasilar scarring/atelectasis. Liver: The contrast-enhanced liver is normal in size, contour, and attenuation. There is minimal central intrahepatic biliary ductal dilatation. The hepatic veins and portal veins are patent. Gallbladder: Surgically absent. Spleen: Normal in size and attenuation. Pancreas: Moderately atrophic and grossly unremarkable. Adrenal glands: Unremarkable. Kidneys: The contrast enhanced kidneys demonstrate cortical atrophy. There is a 4 mm obstructing calculus in the mid right ureter seen on image #224 at the level of L5. This causes moderate right hydroureteronephrosis. There is associated right-sided perinephric stranding and trace fluid. Urothelial thickening and enhancement is noted in the right proximal ureter. There are least 4 additional nonobstructing right renal calculi which measure up to 5 mm. There are least 2 nonobstructing left renal calculi which measure up to 4 mm. There is no left-sided hydronephrosis. A 1.6 cm cyst is noted in the interpolar right kidney. Additional subcentimeter cortical hypodensities also likely represent cysts but are too small for definitive characterization. Renal sinus cysts are noted on the left. Abdominal vasculature: The abdominal aorta is normal in course and caliber noting moderate atherosclerotic calcification. Bowel: There is postoperative change from proctocolectomy with right lower quadrant ileostomy. No bowel obstruction is identified. A small parastomal hernia contains nonobstructed small bowel loops. Peritoneum: There is no intraperitoneal free air or abdominal ascites. Postsurgical change is noted in the ventral abdominal wall with diastases of the rectus musculature. Lymphadenopathy: None. Pelvic viscera: Submucosal fat deposition is noted in the bladder wall. The bladder wall is mildly thickened with surrounding infiltration. The uterus and adnexa are normal as visualized. Skeletal structures: The skeletal structures are osteopenic. There is moderate lumbosacral spondylosis. Sclerotic change is noted in the sacroiliac joints. No lytic or blastic lesions are seen. IMPRESSION: 1. There is a 4 mm obstructing calculus in mid right ureter. This causes moderate right hydroureteronephrosis. 2. Additional nonobstructing calculi are seen in both kidneys. 3. There is postoperative change from proctocolectomy with right lower quadrant ileostomy. No bowel obstruction is seen. 4. The bladder wall appears mildly thickened and there is pericystic infiltration. Correlate with clinical findings and urinalysis. 5. Additional findings as above. ACT 112: Negative or not required by law. Electronically signed by: Jeremy Carr M.D. 01/30/2022 8:54 PM Discharge Plan Visit Data Chief Complaint: Abdominal Pain Stated Complaint: ABDOMINAL PAIN ED Provider: Jeremy Hair Discharge Problem: Right sided abdominal pain, Renal colic, Hydronephrosis, Elevated lactic acid level Patient Disposition: Admitted As Inpatient Condition: Fair Forms Stand Alone Forms: [facility] [employer] [place] [employer] Prescriptions Prescriptions: No Action citalopram 20 mg tablet 20 mg PO DAILY Qty: 90 3RF fluticasone propionate 50 mcg/actuation spray,suspension 2 spray intranasal DAILY PRN (Reason: allergy symptoms) Qty: 48 1RF atorvastatin 40 mg tablet 40 mg PO HS Qty: 90 1RF omeprazole 20 mg capsule,delayed release(DR/EC) 20 mg PO DAILY Qty: 90 1RF metoprolol tartrate 100 mg tablet 100 mg PO BID Qty: 60 0RF sodium citrate-citric acid 500-334 mg/5 mL solution 45 ml PO BID Qty: 3000 5RF magnesium 250 mg tablet 250 mg PO BID meclizine 25 mg tablet 25 mg PO DAILY PRN (Reason: Dizziness) melatonin 5 mg capsule 5 mg PO HS PRN (Reason: Sleep) nystatin 100,000 unit/gram powder 1 applic topical TID PRN (Reason: Skin Irritation) triamcinolone acetonide 0.1 % cream 1 applic topical DAILY PRN (Reason: Skin Irritation) albuterol sulfate [Ventolin HFA] 90 mcg/actuation HFA aerosol inhaler 1 inh inhalation QID PRN (Reason: Shortness Of Breath Or Wheezing) artifi.tears(hypromellose)(PF) 0.3 % drops 1 drp ophthalmic (eye) DAILY PRN (Reason: dry eye(s)) Qty: 10 0RF ammonium lactate 12 % cream 1 appln topical BID PRN (Reason: Skin Cleansing) clotrimazole-betamethasone 1-0.05 % cream 1 appln topical .COMPLEX Label Comments: 1 applic topical apply and rub in a thin film to affected areas 2-3 times daily Rx Instructions: 1 applic topical apply and rub in a thin film to affected areas 2-3 times daily cholecalciferol (vitamin D3) 2,000 unit capsule 2,000 units PO DAILY aspirin [Gallo Low Dose Aspirin] 81 mg Tablet,Delayed Release (Dr/Ec) 81 mg PO DAILY oxycodone-acetaminophen 5-325 mg Tablet 1 tab PO Q4H PRN (Reason: Pain) amlodipine 5 mg tablet 5 mg PO DAILY Salonpas Adhesive Patch,Medicated 1 patch TOPICAL DAILY PRN (Reason: Pain) oxybutynin chloride 5 mg tablet 5 mg PO QPM Rx Instructions: 5 mg PO 1-2 hours before bedtime Referrals Referrals: Sai Soler MD [Primary Care Provider] -
[2022-01-30] MEDS ORDERED: OPTIRAY 320 100ml IV ONE (19:27)
[2022-01-30] MEDS ORDERED: KETOROLAC TROMETHAMINE 15 MG/ML VIAL IV ONE (20:26)
--- NOTE | 2022-01-30 20:57 | CT Scan Report ---
CT SCAN OF THE ABDOMEN AND PELVIS WITH IV CONTRAST CLINICAL HISTORY: Generalized abdominal pain. COMPARISON STUDY: Abdominal CT dated 10/18/2015. TECHNIQUE: Following the IV administration of 92 cc of Optiray 320, CT scan of the abdomen and pelvi s is performed from the lung bases to the proximal femora. Images are reviewed in the axial, sagittal , and coronal planes. IV contrast was administered without complication. A dose lowering technique wa s utilized adhering to the principles of ALARA. CT DOSE: 1512.34 mGy.cm FINDINGS: Lung bases: The heart is normal in size and without pericardial effusion. There are coronary artery c alcifications. The mitral annulus is densely calcified. A tiny hiatal hernia is noted. The lung bases are clear noting bibasilar scarring/atelectasis. Liver: The contrast-enhanced liver is normal in size, contour, and attenuation. There is minimal cent ral intrahepatic biliary ductal dilatation. The hepatic veins and portal veins are patent. Gallbladder: Surgically absent. Spleen: Normal in size and attenuation. Pancreas: Moderately atrophic and grossly unremarkable. Adrenal glands: Unremarkable. Kidneys: The contrast enhanced kidneys demonstrate cortical atrophy. There is a 4 mm obstructing calc ulus in the mid right ureter seen on image #224 at the level of L5. This causes moderate right hydrou reteronephrosis. There is associated right-sided perinephric stranding and trace fluid. Urothelial th ickening and enhancement is noted in the right proximal ureter. There are least 4 additional nonobstr ucting right renal calculi which measure up to 5 mm. There are least 2 nonobstructing left renal calc eula which measure up to 4 mm. There is no left-sided hydronephrosis. A 1.6 cm cyst is noted in the in terpolar right kidney. Additional subcentimeter cortical hypodensities also likely represent cysts bu t are too small for definitive characterization. Renal sinus cysts are noted on the left. Abdominal vasculature: The abdominal aorta is normal in course and caliber noting moderate atheroscle rotic calcification. Bowel: There is postoperative change from proctocolectomy with right lower quadrant ileostomy. No bow el obstruction is identified. A small parastomal hernia contains nonobstructed small bowel loops. Peritoneum: There is no intraperitoneal free air or abdominal ascites. Postsurgical change is noted i n the ventral abdominal wall with diastases of the rectus musculature. Lymphadenopathy: None. Pelvic viscera: Submucosal fat deposition is noted in the bladder wall. The bladder wall is mildly th ickened with surrounding infiltration. The uterus and adnexa are normal as visualized. Skeletal structures: The skeletal structures are osteopenic. There is moderate lumbosacral spondylosi s. Sclerotic change is noted in the sacroiliac joints. No lytic or blastic lesions are seen. IMPRESSION: 1. There is a 4 mm obstructing calculus in mid right ureter. This causes moderate right hydroureteron ephrosis. 2. Additional nonobstructing calculi are seen in both kidneys. 3. There is postoperative change from proctocolectomy with right lower quadrant ileostomy. No bowel o bstruction is seen. 4. The bladder wall appears mildly thickened and there is pericystic infiltration. Correlate with cli nical findings and urinalysis. 5. Additional findings as above. ACT 112: Negative or not required by law. Electronically signed by: Jeremy Carr M.D. 01/30/2022 8:54 PM
[2022-01-30 21:24] LABS: Appearance Urine Cloudy (Clear); Bacteria Urine Automated Negative (Negative); Bilirubin Urine Negative (Negative); Blood Urine 3+ (Negative); Color Urine Yellow; Glucose Urine UA Negative (Negative); Ketones Urine Negative (Negative); Leukocyte Esterase Urine 2+ (Negative); Nitrite Urine Negative (Negative); Protein Urine 2+ (Negative); RBC Urine Automated >30 /hpf (0-4); Urobilinogen Urine Negative (Negative); WBC Urine Automated >30 /hpf (0-5)
[2022-01-30] MEDS ORDERED: cefTRIAXone SODIUM 2,000 MG/70 ML BAG IV STA (21:27)
[2022-01-31] MEDS ORDERED: POLYETHYLENE (MIRALAX) 17 GM PACK PO PRN (00:14)
[2022-01-31] MEDS ORDERED: CLOTRIMAZOLE/BETAMETHASONE CR 15 GM TUBE EXT PRN (00:14)
[2022-01-31] MEDS ORDERED: HYDROmorphone INJ 0.5 MG/0.5 ML SYR IV PRN (00:14)
[2022-01-31] MEDS ORDERED: NYSTATIN POWDER 15GM BTL EXT PRN (00:14)
[2022-01-31] MEDS ORDERED: NITROGLYCERIN SL 0.4 MG/TAB TAB SL PRN (00:14)
[2022-01-31] MEDS ORDERED: ALBUTEROL HFA 8 GM INHALER INH PRN (00:14)
[2022-01-31] MEDS ORDERED: FLUTICASONE PROPIONATE NA SPR 16 GM BTL PRN (00:14)
[2022-01-31] MEDS ORDERED: MECLIZINE HCL 25 MG TAB PO PRN (00:14)
[2022-01-31] MEDS ORDERED: ONDANSETRON INJ 2 MG/ML 2 ML VIAL IV PRN ×2 (00:14→12:18)
[2022-01-31] MEDS ORDERED: ARTIFICIAL TEARS OP PRN (00:34)
[2022-01-31] MEDS: SODIUM CHLORIDE 0.9% 1000ML 1,000 ML IV SCH ×2 (01:28→15:13)
--- NOTE | 2022-01-31 02:26 | History and Physical Report ---
DATE OF ADMISSION: 01/30/2022. CHIEF COMPLAINT: Abdominal pain. HISTORY OF PRESENT ILLNESS: This is a 81-year-old female with past medical history significant for prediabetes, chronic rhinitis, hypertension, history of questionable Crohn's disease, status post colectomy with ileostomy, history of pulmonary sarcoidosis, lesion on chest CT, no hypercalcemia, not on therapy urge incontinence, stress incontinence, chronic kidney disease stage III, history of sicca syndrome, history of nonmelanoma skin cancer, who lives at home, presents with abdominal pain. The patient states her pain got worse around 4 p.m., mostly in the right lower abdomen around the colostomy bag associated with some dry heaves. In the ER, she was given pain medications and CAT scan showed a 4 mm obstructing calculus in the mid right ureter with moderate right hydroureteronephrosis. No small bowel obstruction seen. Currently, resting comfortably, says she has a burning micturition earlier. She says that she had severe headache earlier that has resolved now. Denies any blurred visions, no runny nose, no sore throat, no cough, no earaches, no chest pain, no shortness of breath, afebrile. Ambulates with a walker. Ileostomy is working okay. ALLERGIES: DEXAMETHASONE, SULFAMETHOXAZOLE, TOBRAMYCIN, TRIMETHOPRIM. PAST MEDICAL HISTORY: As mentioned above. PAST SURGICAL HISTORY: Bilateral knee replacements, bilateral carpal tunnel surgery, colonoscopy, cystoscopy, dilatation and curettage, EGDs, exploration of abdomen, neck surgery, revision of ileostomy, lysis of adhesions and repair of parastomal hernia, colectomy with ileostomy in 1991. MEDICATIONS: The patient is on albuterol inhalation one inhalation q.i.d. p.r.n., amlodipine 5 mg p.o. daily, artificial tears ophthalmic daily p.r.n., aspirin 81 mg p.o. daily, atorvastatin 40 mg p.o. at bedtime, vitamin D 2000 units p.o. daily, citalopram 20 mg p.o. daily, Flonase 2 sprays intranasally daily p.r.n., magnesium 250 mg p.o. b.i.d., meclizine 25 mg p.o. daily p.r.n., melatonin 5 mg p.o. at bedtime p.r.n., metoprolol tartrate 100 mg p.o. b.i.d., nystatin topical t.i.d. p.r.n., omeprazole 20 mg p.o. daily, oxybutynin chloride 5 mg p.o. p.m., oxycodone/acetaminophen 1 tablet p.o. q. 4 hours p.r.n., triamcinolone p.r.n. FAMILY HISTORY: Significant for father has heart disorder, AAA. Mother has kidney failure. SOCIAL HISTORY: . No smoking, no alcohol, no drug use. REVIEW OF SYSTEMS: As per HPI. Rest of the review of systems is negative. PHYSICAL EXAMINATION: GENERAL: The patient is obese, not in acute distress. VITAL SIGNS: Temperature 36.9, pulse 97, respiratory rate 16, blood pressure 132/60, oxygen 96% on room air. HEENT: Pupils equal, round and reactive to light. Oral mucosa moist. NECK: No JVD. No neck masses. CARDIOVASCULAR: S1 and S2 heard. Regular rate and rhythm. No murmur, no gallop. RESPIRATORY SYSTEM: Normal AP diameter. No accessory muscle use. No wheezing, no crackles. ABDOMEN: Soft, bowel sounds present. Mild discomfort. Ileostomy site is okay. CENTRAL NERVOUS SYSTEM: Cranial nerves II through XII grossly intact, nonfocal. EXTREMITIES: Lower extremity edema present, no erythema seen. LABORATORY DATA: WBC 3.2, hemoglobin 14, hematocrit 42.6, platelets 137. Sodium 137, potassium 3.9, chloride 99, bicarbonate 24, BUN 20, creatinine 1.4, serum glucose 117, lactate 4.3, repeat is 3.7, calcium 9.7, magnesium 1.4, total bilirubin 0.9, AST 18, ALT 17, alkaline phosphatase 80. Troponin I high sensitivity 17.9 Lipase 20. Urinalysis, +2 leukocyte esterase. SARS-CoV-2 rapid test negative. IMAGING DATA: CT of abdomen and pelvis with IV contrast, 4 mm obstructing calculus in the mid right ureter. This causes a moderate right hydroureteronephrosis. No bowel obstruction seen. Bladder wall appears mildly thickened and there is pericystic infiltration. EKG: Normal sinus rhythm at a rate of 87, nonspecific T-wave abnormality in lateral leads. ASSESSMENT AND PLAN: This is a 81-year-old female who presents with abdominal pain and found to have 4 mm right kidney stone. 1. Right renal colic. A 4 mm obstructing mid ureteral kidney stone with hydroureteronephrosis. Urology notified by ER. Alin, IV fluids. Follow the cultures. 2. Possible UTI. Follow the cultures. Continue Rocephin. Keep n.p.o. 3. Lactic acidosis, improving, which was 4.3, repeat is 3.7. Getting fluids and antibiotics. We will follow the repeat labs. 4. Hypomagnesemia. We will replace. 5. Acute kidney injury. Creatinine 1.4, baseline serum creatinine 1.2. Getting fluids, avoid nephrotoxins and follow the repeat labs in the a.m. 6. History of chronic kidney disease, stage III. Follow repeat labs. 7. History of pulmonary sarcoidosis. Follow up with pulmonology. 8. Prediabetes: Follow HbA1c levels. 9. Hypertension: On amlodipine with holding parameters. 10. Hyperlipidemia. On statin. 11. Depression. Citalopram. 12. Urge incontinence. Continue oxybutynin. 13.Ileostomy status. 14. Deep venous thrombosis prophylaxis: Sequential compression devices for now. DISPOSITION: Closely monitor in the med tele. PT/OT prior to discharge. Social service to help with discharge planning. Job ID: [id number] [facility]ITAL[facility]ane
[2022-01-31] MEDS: oxyCODONE/ACETAMINOPHEN 5mg/325mg TAB PO PRN ×2 (03:43→16:22)
--- NOTE | 2022-01-31 05:56 | Urology Consultation ---
Date of Consultation January 31, 2022 Assessment & Plan (1) Renal colic: Patient has been admitted on the hospitalist service. Recommend proceeding as follows: Provide analgesics Provide antiemetics Continue resuscitation with intravenous fluids Follow serial labs Patient has been started on Rocephin due to concern for urinary tract infection. Urine culture has been sent and the results should be followed at which time antibiotics can be tailored based on the results of this We will keep the patient n.p.o. the patient will be reevaluated later this morning to determine if she will require cystoscopic intervention History of Present Illness Reason for Consultation: Nephrolithiasis Attending Physician: Lou Walls MD History of Present Illness This is a 81-year-old female who presented to the emergency department secondary to right-sided abdominal pain along with right-sided flank pain. She notes that the pain began yesterday evening. She reports that she did have a history of kidney stones in the past but did not require any surgical intervention and is always passed them on her own. She felt as though the pain was similar to that and thought she may have been passing a kidney stone. She had nausea without vomiting. She denied any fevers but did have occasional chills. She notes dysuria and urinary frequency but denies hematuria. She does have a history of a proctocolectomy and has an ostomy which she says is functioning appropriately. Because of her symptoms she presented to the emergency department. In the emergency department the patient had labs and imaging which I independent reviewed. She had a CT scan of the abdomen and pelvis that showed the patient had a 4 mm obstructing stone in the mid right ureter causing right hydronephrosis. She did have several other nonobstructing calculi noted in both kidneys. No evidence of bowel obstruction. Pericystic inflammation as well as thickened bladder wall. Labs include a CBC her white blood cell count was 3.2. Hemoglobin, hematocrit, and platelet count were normal. Chemistry profile showed sodium and potassium were normal. Her BUN and creatinine were both elevated at 28 and 1.4. (Her baseline creatinine appears to run between 1.0 and 1.2) lactic acid level was initially elevated at 3.7. Magnesium was 1.4. Uri nalysis revealed cloudy urine which was negative for nitrites. It was noted to have 2+ leukocyte esterase, greater than 30 white blood cells per high-power field, but no bacteria. A COVID test was noted be negative. At the time of my interview the patient was resting comfortably in bed and she was in no distress. Allergies Allergy/AdvReac Type Severity Reaction Status Date / Time dexamethasone Allergy Intermediate EYES Verified 01/30/22 20:32 BECAME RED AND ITCHY sulfamethoxazole Allergy Intermediate ITCHING Verified 01/30/22 20:32 tobramycin Allergy Intermediate EYES Verified 01/30/22 20:32 BECAME RED AND ITCHY trimethoprim Allergy Intermediate ITCHING Verified 01/30/22 20:32 Home Medications Medication Instructions Recorded Confirmed Type ammonium lactate 12 % topical cream 1 appln topical BID PRN Skin 03/16/19 01/30/22 History Cleansing cholecalciferol (vitamin D3) 50 2,000 units PO DAILY 03/16/19 01/30/22 History mcg (2,000 unit) capsule clotrimazole-betamethasone 1 1 appln topical .COMPLEX 03/16/19 01/30/22 History %-0.05 % topical cream aspirin 81 mg tablet,delayed 81 mg PO DAILY 12/23/19 01/30/22 History release (Gallo Low Dose Aspirin) oxycodone-acetaminophen 5 mg-325 1 tab PO Q4H PRN Pain 12/23/19 01/30/22 History mg tablet artifi.tears(hypromellose)(PF) 0.3 1 drp ophthalmic (eye) DAILY PRN 02/29/20 01/30/22 Rx % eye drops dry eye(s) #10 mL citalopram 20 mg tablet 20 mg PO DAILY #90 tabs 03/31/20 01/30/22 Rx fluticasone propionate 50 2 spray intranasal DAILY PRN 05/06/20 01/30/22 Rx mcg/actuation nasal allergy symptoms #48 grams spray,suspension atorvastatin 40 mg tablet 40 mg PO HS #90 tabs 05/19/20 01/30/22 Rx omeprazole 20 mg capsule,delayed 20 mg PO DAILY #90 caps 06/16/20 01/30/22 Rx release magnesium 250 mg tablet 250 mg PO BID 11/21/20 01/30/22 History metoprolol tartrate 100 mg tablet 100 mg PO BID #60 tabs 02/14/21 01/30/22 Rx sodium citrate-citric acid 500 45 ml PO BID #3,000 mL 10/19/21 01/30/22 Rx mg-334 mg/5 mL oral solution albuterol sulfate 90 mcg/actuation 1 inh inhalation QID PRN Shortness 12/04/21 01/30/22 History aerosol inhaler (Ventolin HFA) Of Breath Or Wheezing meclizine 25 mg tablet 25 mg PO DAILY PRN Dizziness 12/04/21 01/30/22 History melatonin 5 mg capsule 5 mg PO HS PRN Sleep 12/04/21 01/30/22 History nystatin 100,000 unit/gram topical 1 applic topical TID PRN Skin 12/04/21 01/30/22 History powder Irritation triamcinolone acetonide 0.1 % 1 applic topical DAILY PRN Skin 12/04/21 01/30/22 History topical cream Irritation amlodipine 5 mg tablet 5 mg PO DAILY 01/30/22 01/30/22 History camphor-methyl salicylate-menthol 1 patch topical DAILY PRN Pain 01/30/22 01/30/22 History topical patch oxybutynin chloride 5 mg tablet 5 mg PO QPM 01/30/22 01/30/22 History Patient History Medical History Chronic kidney disease, stage II (mild) Hypertension Kidney stones Surgical History H/O colectomy H/O neck surgery History of creation of ostomy History of knee replacement Family History Mother Kidney failure Denies family history of Ovarian cancer Prostate cancer Myocardial infarction Breast cancer Colorectal cancer Social History Smoking Status: Never smoker Tobacco Type: Cigarettes Hx Alcohol Use: No Hx Substance Use: No Preferred Language: Congolese Visual Impairment: No Limitations Hearing Ability: Normal Feels Safe at Home: Yes Physical Activity Frequency: Does not Exercise Seatbelt Use: always Review of Systems Constitutional: + chills; no fever Eyes: + corrective lenses Ear, Nose, Mouth, Throat: no ear pain Respiratory: no cough and no dyspnea Cardiovascular: no chest pain Gastrointestinal: + abdominal pain and + nausea; no vomiting Genitourinary: as per Subjective / HPI and + dysuria Musculoskeletal: + back pain (Right flank) Integumentary: no rash Neurologic: no localized weakness Physical Exam Constitutional: WD/WN, vitals as above Eyes: no conjunctival abnormality ENMT: Ears: no hearing impairment and no external ear abnormality Mouth: no oropharynx abnormality Neck: trachea midline Respiratory: normal respiratory effort; no respiratory distress and no labored breathing Cardiovascular: Rate/Rhythm: regular rate and regular rhythm Gastrointestinal (Abdomen): Abdomen is rotund. It is soft and nondistended. There is pain with palpation noted in the right side of her abdomen near her stoma. Her stoma appears to be patent with a large amount of liquid material in the collection bag. No rebound tenderness or guarding is noted on abdominal exam. Musculoskeletal: No calf tenderness Skin: no rashes Neurologic: moves all extremities Psychiatric: A+Ox3, euthymic affect Genitourinary: no CVA tenderness Results & Data ([facility]) Vital Signs (Past 12 Hours) Vital Signs Pulse Resp BP Pulse Ox Pulse Ox O2 Del Method O2 Del Method 01/31/22 03:19 95 Room Air 01/31/22 03:18 80 16 98/50 L 95 01/30/22 23:00 91 H 16 93/50 L 93 01/30/22 22:00 97 H 16 132/60 96 Room Air 01/30/22 20:00 107 H 16 192/102 H 96 Room Air 01/30/22 18:36 83 18 202/90 H 96 Room Air PG Care Time/CCT Total # of Minutes Spent Total Time Spent with Patient: Total time spent is greater than 50% in coordination of care (as documented) at patient's floor/unit and/or counseling patient: Coding Level of Care Code 94153 Inpt Consult Level 5 Diagnoses Renal colic N23
[2022-01-31 07:19] LABS: Hematocrit (blood only) 39.2 % (34.1-44.9); Hemoglobin 12.8 g/dl (12.0-16.0); Mean Corpuscular Hemoglobin 30.5 pg (25.0-34.0); Mean Corpuscular Hgb Conc 32.7 g/dL (32.0-36.0); Mean Corpuscular Volume 93.6 fL (80.0-100.0); Mean Platelet Volume 10.8 fL (9.4-12.3); Platelet Count 87 K/uL (130-400); RDW Coefficient of Variation 13.3 % (11.5-14.5); RDW Standard Deviation 45.3 fL (36.4-46.3); Red Blood Count 4.19 M/uL (3.93-5.22); White Blood Count 22.05 K/ul (4.8-10.8)
[2022-01-31 07:21] LABS: Basophils # (auto) 0.05 K/uL (0-0.2); Basophils % (auto) 0.2 %; Eosinophils # (auto) 0.01 K/uL (0-0.50); Immature Granulocytes # (auto) 0.77 K/uL (0.00-0.02); Immature Granulocytes % (auto) 3.5 %; Lymphocytes # (auto) 0.16 K/uL (1.2-3.4); Lymphocytes % (auto) 0.7 %; Monocytes # (auto) 0.64 K/uL (0.24-0.82); Monocytes % (auto) 2.9 %; Neutrophils # (auto) 20.42 K/uL (1.4-6.5); Neutrophils % (auto) 92.7 %; Platelet Estimate Decreased (Normal)
[2022-01-31 07:22] LABS: Estimated Average Glucose 108 mg/dl; Hemoglobin A1C 5.4 % (4.5-5.6)
[2022-01-31 07:41] LABS: Calcium 7.9 mg/dl (8.5-10.1); Creatinine Clr Calc Pharmacy 27.4 ml/min; Est GFR (African American) 24.7 ml/min; Est GFR (Non-African American) 21.3 ml/min; Magnesium 1.5 mg/dl (1.7-2.4); Potassium 3.8 mmol/L (3.5-5.1)
--- NOTE | 2022-01-31 08:57 | Urology Progress Note ---
Date of Service January 31, 2022 Assessment & Plan (1) Renal colic: (2) Hydronephrosis: (3) Elevated lactic acid level: Plan Although urinalysis is not floridly positive, her clinical picture raises concern for urinary tract infection superimposed on an obstructing ureteral stone. I recommended right ureteral stent placement to allow decompression of the right kidney. We discussed the risks and benefits of the surgery including risk of bleeding, infection, injury to the urinary tract, inability to place a stent, need for additional procedures to manage the stone in the future. She expressed understanding and would like to proceed with surgery. Plan: To the OR for right ureteral stent placement Admission and Anticipated Discharge Date Admission Date: January 30, 2022 Subjective Feeling okay this morning, still feels some bloating of the abdomen. Having some right-sided flank pain and urinary symptoms. No fevers. Reports having some shaking chills over the last 2 days. Using some supplemental oxygen because she was hypoxic overnight. Review of Systems Review of Systems: 14 point review of systems negative except for otherwise indicated. Physical Exam Physical Exam: NAD, resting in bed Respiratory: Supplemental oxygen by nasal cannula Gastrointestinal (Abdomen): Obese, ostomy in right upper quadrant with dark brown output. Results & Data ([facility]) Vital Signs (Past 12 Hours) Vital Signs Pulse Resp BP Pulse Ox Pulse Ox O2 Del Method O2 Del Method 01/31/22 06:14 75 16 94/52 L 94 01/31/22 03:19 95 Room Air 01/31/22 03:18 80 16 98/50 L 95 01/30/22 23:00 91 H 16 93/50 L 93 01/30/22 22:00 97 H 16 132/60 96 Room Air PG Care Time/CCT Total # of Minutes Spent Total Time Spent with Patient: Total time spent is greater than 50% in coordination of care (as documented) at patient's floor/unit and/or counseling patient: Coding Level of Care Code None Diagnoses Renal colic N23 Hydronephrosis N13.2 Hydronephrosis type: with renal calculous obstruction Elevated lactic acid level R79.89 (1) Hydronephrosis Hydronephrosis type: with renal calculous obstruction Qualified Code(s): N13.2 - Hydronephrosis with renal and ureteral calculous obstruction
--- NOTE | 2022-01-31 10:19 | Electrocardiogram Report ---
Test Reason : Blood Pressure : / mmHG Vent. Rate : 087 BPM Atrial Rate : 087 BPM P-R Int : 186 ms QRS Dur : 080 ms QT Int : 388 ms P-R-T Axes : 076 022 054 degrees QTc Int : 466 ms Normal sinus rhythm Incomplete right bundle branch block Abnormal ECG When compared with ECG of 30-AUG-2016 13:27, Vent. rate has increased BY 29 BPM Nonspecific T wave abnormality now evident in Anterior leads Confirmed by Sawyer Hendrickson ([id number]) on 01/31/2022 10:19:12 AM Referred By: REFERRED SELF Confirmed By:Akil Hendrickson
[2022-01-31] MEDS: amLODIPine BESYLATE 5 MG TAB PO SCH (10:30)
[2022-01-31] MEDS: CHOLECALCIFEROL 1,000 UNITS 25 MCG TAB PO SCH (10:30)
[2022-01-31] MEDS: PANTOprazole 40 MG TAB PO SCH (10:30)
[2022-01-31] MEDS: METOPROLOL TARTRATE 100 MG TAB PO SCH ×2 (10:30→20:48)
[2022-01-31] MEDS: MAGNESIUM OXIDE 400 MG TAB PO SCH ×2 (10:30→20:47)
[2022-01-31] MEDS: ASPIRIN 81 MG ECTAB PO SCH (10:30)
[2022-01-31] MEDS: CITALOPRAM 20 MG TAB PO SCH (10:30)
--- NOTE | 2022-01-31 11:47 | XRay Report ---
TWO VIEW CHEST CLINICAL HISTORY: Preoperative examination. Nephrolithiasis. FINDINGS: AP semierect and lateral chest radiographs are compared to study dated 09/02/2012. A left sub clavian central venous infusion port is unchanged in position. The cardiomediastinal silhouette is to p normal for projection. There is bibasilar scarring/atelectasis. The lungs and pleural spaces are ot herwise clear. There is no pneumothorax. The skeletal structures are osteopenic. The bony thorax appe ars intact. Degenerative change is noted in the shoulders and thoracic spine. Fusion hardware is note d in the lower cervical spine. IMPRESSION: No active disease in the chest. ACT 112: Negative or not required by law. Electronically signed by: Jeremy Carr M.D. 01/31/2022 11:45 AM
[2022-01-31] MEDS ORDERED: LIDOCAINE 2% MPF LOCAL 5 ML VIAL INFIL ONE (12:01)
[2022-01-31] MEDS ORDERED: PROPOFOL IV EMULSION 10 MG/ML 20 ML VIAL IV ONE ×2 (12:01→12:46)
[2022-01-31] MEDS ORDERED: fentaNYL citrate 100 MCG/2 ML VIAL ONE (12:03)
--- NOTE | 2022-01-31 12:15 | Anesthesiology Consultation ---
Date of Service January 31, 2022 Assessment & Plan Chart Review Chart Review: Acceptable Risk for Surgery Consults Requested none ASA ASA3 Proposed Anesthesia Anesthesia Type: MAC (with GA if needed) History Surgery Operation Date: 01/31/22 07:00 Proposed Procedures p Cystoscopy Retrograde Pyelogram Right Stent Placement - Tejas Bruce MD Height/Weight Height: 5 ft 1 in Weight: 132 kg Allergies Allergy/AdvReac Type Severity Reaction Status Date / Time dexamethasone Allergy Intermediate EYES Verified 01/30/22 20:32 BECAME RED AND ITCHY sulfamethoxazole Allergy Intermediate ITCHING Verified 01/30/22 20:32 tobramycin Allergy Intermediate EYES Verified 01/30/22 20:32 BECAME RED AND ITCHY trimethoprim Allergy Intermediate ITCHING Verified 01/30/22 20:32 Medications Home Medications Medication Instructions Recorded Confirmed Last Taken ammonium lactate 12 % topical cream 1 appln topical BID PRN Skin 03/16/19 01/30/22 Unknown Cleansing cholecalciferol (vitamin D3) 50 2,000 units PO DAILY 03/16/19 01/30/22 01/30/22 mcg (2,000 unit) capsule clotrimazole-betamethasone 1 1 appln topical .COMPLEX 03/16/19 01/30/22 01/30/22 %-0.05 % topical cream aspirin 81 mg tablet,delayed 81 mg PO DAILY 12/23/19 01/30/22 01/30/22 release (Gallo Low Dose Aspirin) oxycodone-acetaminophen 5 mg-325 1 tab PO Q4H PRN Pain 12/23/19 01/30/22 12/23/19 mg tablet artifi.tears(hypromellose)(PF) 0.3 1 drp ophthalmic (eye) DAILY PRN 02/29/20 01/30/22 Unknown % eye drops dry eye(s) #10 mL citalopram 20 mg tablet 20 mg PO DAILY #90 tabs 03/31/20 01/30/22 01/30/22 fluticasone propionate 50 2 spray intranasal DAILY PRN 05/06/20 01/30/22 Unknown mcg/actuation nasal allergy symptoms #48 grams spray,suspension atorvastatin 40 mg tablet 40 mg PO HS #90 tabs 05/19/20 01/30/22 01/29/22 omeprazole 20 mg capsule,delayed 20 mg PO DAILY #90 caps 06/16/20 01/30/22 01/30/22 release magnesium 250 mg tablet 250 mg PO BID 11/21/20 01/30/22 01/30/22 08:00 metoprolol tartrate 100 mg tablet 100 mg PO BID #60 tabs 02/14/21 01/30/22 01/30/22 08:00 sodium citrate-citric acid 500 45 ml PO BID #3,000 mL 10/19/21 01/30/22 01/30/22 08:00 mg-334 mg/5 mL oral solution albuterol sulfate 90 mcg/actuation 1 inh inhalation QID PRN Shortness 12/04/21 01/30/22 Unknown aerosol inhaler (Ventolin HFA) Of Breath Or Wheezing meclizine 25 mg tablet 25 mg PO DAILY PRN Dizziness 12/04/21 01/30/22 Unknown melatonin 5 mg capsule 5 mg PO HS PRN Sleep 12/04/21 01/30/22 Unknown nystatin 100,000 unit/gram topical 1 applic topical TID PRN Skin 12/04/21 01/30/22 Unknown powder Irritation triamcinolone acetonide 0.1 % 1 applic topical DAILY PRN Skin 12/04/21 01/30/22 Unknown topical cream Irritation amlodipine 5 mg tablet 5 mg PO DAILY 01/30/22 01/30/22 01/30/22 camphor-methyl salicylate-menthol 1 patch topical DAILY PRN Pain 01/30/22 01/30/22 Unknown topical patch oxybutynin chloride 5 mg tablet 5 mg PO QPM 01/30/22 01/30/22 01/29/22 Active Medications Generic Name Dose Route Start Last Admin Trade Name Freq PRN Reason Stop Dose Admin Amlodipine Besylate 5 mg 01/31/22 09:00 01/31/22 10:30 Amlodipine Besylate 5 Mg Tab PO 03/02/22 08:59 Not Given DAILY CRISTINA Aspirin 81 mg 01/31/22 09:00 01/31/22 10:30 Aspirin 81 Mg Ectab PO 03/02/22 08:59 Not Given DAILY CRISTINA Citalopram Hydrobromide 20 mg 01/31/22 09:00 01/31/22 10:30 Citalopram 20 Mg Tab PO 03/02/22 08:59 Not Given DAILY CRISTINA Sodium Chloride 1,000 mls @ 100 mls/hr 01/31/22 00:14 01/31/22 01:28 Nss 1000ml IV 03/02/22 00:13 100 mls/hr .Q10H CRISTINA Administration Magnesium Oxide 400 mg 01/31/22 09:00 01/31/22 10:30 Magnesium Oxide 400 Mg Tab PO 03/02/22 08:59 Not Given BID CRISTINA Metoprolol Tartrate 100 mg 01/31/22 09:00 01/31/22 10:30 Metoprolol Tartrate 100 Mg Tab PO 03/02/22 08:59 Not Given BID CRISTINA Oxycodone/Acetaminophen 1 tab 01/31/22 00:14 01/31/22 03:43 Oxycodone/Acetaminophen 5mg/325mg Tab PO 02/14/22 00:13 1 tab Q4H PRN Administration Pain Pantoprazole Sodium 40 mg 01/31/22 09:00 01/31/22 10:30 Pantoprazole 40 Mg Tab PO 03/02/22 08:59 Not Given DAILY CRISTINA Vitamin D 2,000 units 01/31/22 09:00 01/31/22 10:30 Cholecalciferol 1,000 Units 25 Mcg Tab PO 03/02/22 08:59 Not Given DAILY CRISTINA NPO Date Last Intake of Fluids: 01/30/22 Time Last Intake of Fluids: 08:00 Date Last Intake of Solids: 01/30/22 Time Last Intake of Solids: 14:00 Past Medical History Medical History Chronic kidney disease, stage II (mild) Hypertension Kidney stones Past Family History Family History Mother Kidney failure Denies family history of Ovarian cancer Prostate cancer Myocardial infarction Breast cancer Colorectal cancer Past Surgical History Surgical History H/O colectomy H/O neck surgery History of creation of ostomy History of knee replacement Social History Smoking Status: Never smoker Do You Dip or Chew Tobacco: No Hx Alcohol Use: No Hx Substance Use: No Physical Exam Vital Signs Last Vital Signs Temp 37.3 C 01/31/22 10:56 Pulse 92 H 01/31/22 12:07 Resp 18 01/31/22 12:07 BP 89/50 L 01/31/22 12:07 Pulse Ox 93 01/31/22 12:07 O2 Del Method 01/31/22 12:07 O2 Flow Rate 2 01/31/22 12:07 Testing Laboratory Results 01/31/22 06:43 01/31/22 06:43 Hemoglobin A1c 5.4 % (4.5-5.6) 01/31/22 06:43 Urine Color Yellow 01/30/22 20:00 Urine Appearance Cloudy (Clear) A 01/30/22 20:00 Urine pH 5.0 (4.5-7.5) 01/30/22 20:00 Ur Specific [place] 1.020 (1.000-1.030) 01/30/22 20:00 Urine Protein 2+ (Negative) H 01/30/22 20:00 Urine Glucose (UA) Negative (Negative) 01/30/22 20:00 Urine Ketones Negative (Negative) 01/30/22 20:00 Urine Nitrite Negative (Negative) 01/30/22 20:00 Ur Leukocyte Esterase 2+ (Negative) H 01/30/22 20:00 Urine WBC (Auto) >30 /hpf (0-5) H 01/30/22 20:00 Urine RBC (Auto) >30 /hpf (0-4) H 01/30/22 20:00 U Hyaline Cast (Auto) 1-5 /lpf (0-5) 01/30/22 20:00 U Epithel Cells (Auto) 5-10 /lpf (0-5) H 01/30/22 20:00 Urine Bacteria (Auto) Negative (Negative) 01/30/22 20:00
[2022-01-31] MEDS ORDERED: fentaNYL citrate 100 MCG/2 ML VIAL IV PRN ×2 (12:18→13:21)
[2022-01-31] MEDS ORDERED: PROMETHAZINE HCL 12.5 MG in SODIUM CHLORIDE 0.9% 50 ML IV PRN (12:18)
[2022-01-31] MEDS ORDERED: ATROPINE SULFATE 0.1 MG/ML 10ML SYR IV PRN ×2 (12:18→13:21)
[2022-01-31] MEDS ORDERED: HYDROmorphone INJ 2 MG/ML SYR/VIAL IV PRN (12:18)
[2022-01-31] MEDS ORDERED: ePHEDrine sulfate 50 MG/ML AMP IV PRN ×2 (12:18→13:21)
[2022-01-31] MEDS ORDERED: ONDANSETRON INJ 2 MG/ML 2 ML VIAL ONE (12:37)
[2022-01-31] MEDS ORDERED: DIATRIZOATE MEGLUMINE 30% 100ML VIAL INSTIL ONE (12:44)
--- NOTE | 2022-01-31 12:54 | Operative Report ---
PG Post Operative Report Pre & Post Diagnosis Operation Date: 01/31/22 07:00 Pre-Op Diagnosis: Right ureteral stone Post-Op Diagnosis: Right ureteral stone I identified the patient and participated in the time-out.: Yes Procedure Operation Date: 01/31/22 07:00 Actual Procedures p Cystoscopy, Retrograde Pyelogram, Right Stent Placement(Right) - Tejas Bruce MD Surgeon Tejas Bruce MD [employer] none Estimated Blood Loss 0 Findings Consistent with Post-Op Diagnosis Specimens none Drains 6 Fr x 24 cm double-J ureteral stent in right ureter Anesthesia Type MAC Complications none Disposition Disposition: Recovery Room Indications This is a 81 yo female who presented to the ED on 01/30/22 with right flank pain and was found to have a right ureteral stone as well as suspicion for a UTI. She is being brought to the OR for right ureteral stent placement for maximal renal drainage. Description of Procedure The patient was identified in the holding area and informed consent was confirmed. She was marked on the right side, then were taken to the operating room where anesthesia was initiated. She was placed in the dorsal lithotomy position with all pressure points appropriately padded. She was prepped and draped in the usual sterile fashion and a preoperative timeout was performed. A well-lubricated cystoscope was inserted per urethra and panendoscopy was performed. The urethra was normal in appearance. The bladder was of normal size with ureteral orifices in orthotopic position. The bladder appeared irrit ated and friable. The right ureteral orifice was identified and cannulated with a 5 Portuguese open- ended catheter. A retrograde pyelogram was performed demonstrating mild hydronephrosis of the right kidney. A 0.038" ZIPwire was advanced to the level of the kidney under fluoroscopic guidance. The stone seen on CT scan was not clearly visualized. Over the wire, a 6 Portuguese x 24 centimeter double-J ureteral stent was advanced. When the wire was removed, the proximal curl was visualized in the kidney with x-ray, and the distal curl visualized in the bladder with the cystoscope. At this point the bladder was drained and all instrumentation was removed. The patient was then awakened from anesthesia and was brought to the PACU in stable condition. I attest to the content of the Intraoperative Record and any orders documented therein. Any exceptions are noted below.
--- NOTE | 2022-01-31 14:18 | Anesthesiology Progress Note ---
Date of Service January 31, 2022 Anesthesia Post Procedure Vital Signs Vital Signs: Temp Pulse Pulse Resp BP BP Pulse Ox 01/31/22 13:50 95 H 22 94/40 L 98 01/31/22 13:40 38.1 C H 97 H 18 109/49 L 93 01/31/22 13:30 89 24 109/49 L 93 01/31/22 13:20 91 H 19 103/53 L 99 01/31/22 13:10 95 H 15 93/60 L 99 01/31/22 14:00 92 H 17 92/43 L 97 01/31/22 13:00 36.5 C 99 H 12 112/48 L 99 01/31/22 12:07 92 H 18 89/50 L 93 01/31/22 11:00 84 15 93 01/31/22 11:00 106/50 L 01/31/22 10:51 108/45 L 01/31/22 10:51 85 19 96 01/31/22 10:56 37.3 C 84 20 108/45 L 96 01/31/22 10:00 81 15 94 01/31/22 10:00 100/42 L 01/31/22 09:51 107/50 L 01/31/22 09:51 86 97 01/31/22 02:00 80 16 01/31/22 02:00 98/50 L 01/31/22 01:05 72/51 L 01/31/22 10:00 37.3 C 01/31/22 06:14 75 16 94/52 L 94 01/31/22 03:19 01/31/22 03:18 80 16 98/50 L 95 01/30/22 23:00 91 H 16 93/50 L 93 01/30/22 22:00 97 H 16 132/60 96 01/30/22 20:00 107 H 16 192/102 H 96 01/30/22 18:36 83 18 202/90 H 96 01/30/22 17:28 36.9 C 88 24 159/73 H 98 Pulse Ox O2 Del Method O2 Del Method O2 Flow Rate 01/31/22 13:50 Nasal Cannula 2 01/31/22 13:40 Nasal Cannula 2 01/31/22 13:30 Nasal Cannula 2 01/31/22 13:20 Oxymask 4 01/31/22 13:10 Oxymask 6 01/31/22 14:00 Nasal Cannula 2 01/31/22 13:00 Oxymask 6 01/31/22 12:07 Nasal Cannula 2 01/31/22 11:00 01/31/22 11:00 01/31/22 10:51 01/31/22 10:51 01/31/22 10:56 Nasal Cannula 2 01/31/22 10:00 01/31/22 10:00 01/31/22 09:51 01/31/22 09:51 01/31/22 02:00 01/31/22 02:00 01/31/22 01:05 01/31/22 10:00 01/31/22 06:14 01/31/22 03:19 95 Room Air 01/31/22 03:18 01/30/22 23:00 01/30/22 22:00 Room Air 01/30/22 20:00 Room Air 01/30/22 18:36 Room Air 01/30/22 17:28 Room Air Pain Intensity Left Lower Abdomen: Pain Intensity: 7 Transfer of Care Handoff Completed per policy Notes Mental Status: alert / awake / arousable and participated in evaluation Patient Amnestic to Procedure: Yes Nausea / Vomiting: adequately controlled Pain: adequately controlled Airway Patency, RR, SpO2: stable & adequate BP & HR: stable & adequate Hydration State: stable & adequate Anesthetic Complications: no major complications apparent
--- NOTE | 2022-01-31 15:58 | Fluoroscopy Report ---
INTRAOPERATIVE RADIOGRAPHS CLINICAL HISTORY: Right ureteral stent placement. Fluoroscopy time: 11 seconds. FINDINGS: 3 spot fluoroscopic views of the right abdomen are correlated with abdominal CT dated 022. The initial images show contrast opacification of the distal right ureter which is normal in richard iber. The final image shows the proximal end of a right ureteral stent projecting over the right jermaine l pelvis. IMPRESSION: Intraoperative images from a right ureteral stent placement procedure as above. Electronically signed by: Jeremy Carr M.D. 01/31/2022 3:57 PM
[2022-01-31] MEDS: LIDOCAINE 5% 1 PATCH TD SCH (16:46)
[2022-01-31] MEDS ORDERED: HEPARIN 100 UNIT/ML 5ML FLUSH FLUSH PRN (16:58)
--- NOTE | 2022-01-31 17:04 | Hospitalist Progress Note ---
Date of Service January 31, 2022 Assessment & Plan (1) Right sided abdominal pain: (2) Renal colic: (3) Hydronephrosis: (4) Elevated lactic acid level: (5) Nephrolithiasis: Plan: MILI on CKD 3 CT abd/Pelvis showed 4mm obstructing calculus in mid ureter, moderate right hydroureteronephrosis. Other nonobstructing renal calculi b/l Cr 1.43 on admission, increased 2.14 today UA suggestive of possible UTI WBC increased from 3 to 22K Elevated lactate Hence sepsis is a possibility Continue ceftriaxone Follow up Urine culture Blood culture Monitor renal function Continue IVF. Monitor UO S/p cystoscopy and right stent placement today by urology Incentive spirometry Wean off oxygen (6) Hypertension: Plan: BP stable Continue amlodipine Plan Depression Continue citalopram DVT ppx-SCD for today. Plan to start pharmacological agent tomorrow Admission and Anticipated Discharge Date Admission Date: January 30, 2022 Subjective Patient seen and examined on return from OR Report right-sided neck pain and back pain [chronic] Reports right-sided abdominal pain is improved as above for 10, not referred. Denies nausea, vomiting, diarrhea constipation Per RN, had 5 days urine in recovery after procedure Patient denies any chest pain, cough, shortness of breath. Physical Exam Constitutional: + well hydrated and + obese; no acute distress Eyes: PERRL, conjunctivae normal, anicteric sclerae ENMT: external ear and nose normal, oropharynx normal Respiratory: normal respiratory effort, lungs clear to auscultation Cardiovascular: Rate/Rhythm: regular rate and regular rhythm S1 S2 Gastrointestinal (Abdomen): Soft, no tenderness, normal bowel sounds, Ileostomy bag in situ Musculoskeletal: +trace pedal edema Neurologic: PERRL, EOMI, accommodation nl, no face palsy, no dysarthria Psychiatric: A+Ox3, euthymic affect Results & Data Results & Data ([facility]) Vital Signs (Past 12 Hours) Vital Signs Temp Pulse Pulse Resp BP BP Pulse Ox 01/31/22 16:00 36.7 C 109 H 20 119/64 91 01/31/22 15:00 93 H 01/31/22 15:30 36.8 C 94 H 22 121/77 97 01/31/22 15:09 36.8 C 94 H 18 108/64 99 01/31/22 14:30 95 H 20 119/67 94 01/31/22 13:50 95 H 22 94/40 L 98 01/31/22 13:40 38.1 C H 97 H 18 109/49 L 93 01/31/22 13:30 89 24 109/49 L 93 01/31/22 13:20 91 H 19 103/53 L 99 01/31/22 13:10 95 H 15 93/60 L 99 01/31/22 14:15 94 H 15 100/53 L 99 01/31/22 14:00 92 H 17 92/43 L 97 01/31/22 13:00 36.5 C 99 H 12 112/48 L 99 01/31/22 12:07 92 H 18 89/50 L 93 01/31/22 11:00 84 15 93 01/31/22 11:00 106/50 L 01/31/22 10:51 108/45 L 01/31/22 10:51 85 19 96 01/31/22 10:56 37.3 C 84 20 108/45 L 96 01/31/22 10:00 81 15 94 01/31/22 10:00 100/42 L 01/31/22 09:51 107/50 L 01/31/22 09:51 86 97 01/31/22 10:00 37.3 C 01/31/22 06:14 75 16 94/52 L 94 O2 Del Method O2 Flow Rate 01/31/22 16:00 Nasal Cannula 2 01/31/22 15:00 01/31/22 15:30 Nasal Cannula 2 01/31/22 15:09 Nasal Cannula 1 01/31/22 14:30 Nasal Cannula 2 01/31/22 13:50 Nasal Cannula 2 01/31/22 13:40 Nasal Cannula 2 01/31/22 13:30 Nasal Cannula 2 01/31/22 13:20 Oxymask 4 01/31/22 13:10 Oxymask 6 01/31/22 14:15 Nasal Cannula 2 01/31/22 14:00 Nasal Cannula 2 01/31/22 13:00 Oxymask 6 01/31/22 12:07 Nasal Cannula 2 01/31/22 11:00 01/31/22 11:00 01/31/22 10:51 01/31/22 10:51 01/31/22 10:56 Nasal Cannula 2 01/31/22 10:00 01/31/22 10:00 01/31/22 09:51 01/31/22 09:51 01/31/22 10:00 01/31/22 06:14 Laboratory Results Abnormal lab results 01/30/22 01/30/22 01/30/22 Range/Units 18:07 18:07 19:51 WBC 3.27 L (4.8-10.8) K/ul Plt Count (130-400) K/uL Neut # (Auto) (1.4-6.5) K/uL Lymph # (Auto) 0.33 L (1.2-3.4) K/uL Lucas # (Auto) 0.02 L (0.24-0.82) K/uL Immature Gran # (Auto) 0.17 H (0.00-0.02) K/uL Absolute Nucleated RBC 0.02 H (0-0) K/uL Platelet Estimate (Normal) Carbon Dioxide (21-32) mmol/L Anion Gap 14 H (3-11) BUN 28 H (6-23) mg/dl Creatinine 1.43 H (0.6-1.2) mg/dl Glucose 117 H (70-99(Fasting)) mg/dl Lactate 4.3 H* (0.4-2.0) mmol/L Calcium (8.5-10.1) mg/dl Magnesium 1.4 L (1.7-2.4) mg/dl Troponin I High Sens 17.9 H (0-14) pg/ml Urine Appearance (Clear) Urine Protein (Negative) Urine Blood (Negative) Ur Leukocyte Esterase (Negative) Urine WBC (Auto) (0-5) /hpf Urine RBC (Auto) (0-4) /hpf U Epithel Cells (Auto) (0-5) /lpf 01/30/22 01/30/22 01/31/22 Range/Units 20:00 21:43 06:43 WBC 22.05 H D (4.8-10.8) K/ul Plt Count 87 L (130-400) K/uL Neut # (Auto) 20.42 H (1.4-6.5) K/uL Lymph # (Auto) 0.16 L (1.2-3.4) K/uL Lucas # (Auto) (0.24-0.82) K/uL Immature Gran # (Auto) 0.77 H (0.00-0.02) K/uL Absolute Nucleated RBC (0-0) K/uL Platelet Estimate Decreased L (Normal) Carbon Dioxide (21-32) mmol/L Anion Gap (3-11) BUN (6-23) mg/dl Creatinine (0.6-1.2) mg/dl Glucose (70-99(Fasting)) mg/dl Lactate 3.7 H* (0.4-2.0) mmol/L Calcium (8.5-10.1) mg/dl Magnesium (1.7-2.4) mg/dl Troponin I High Sens (0-14) pg/ml Urine Appearance Cloudy A (Clear) Urine Protein 2+ H (Negative) Urine Blood 3+ H (Negative) Ur Leukocyte Esterase 2+ H (Negative) Urine WBC (Auto) >30 H (0-5) /hpf Urine RBC (Auto) >30 H (0-4) /hpf U Epithel Cells (Auto) 5-10 H (0-5) /lpf 01/31/22 01/31/22 01/31/22 Range/Units 06:43 06:43 06:43 WBC (4.8-10.8) K/ul Plt Count (130-400) K/uL Neut # (Auto) (1.4-6.5) K/uL Lymph # (Auto) (1.2-3.4) K/uL Lucas # (Auto) (0.24-0.82) K/uL Immature Gran # (Auto) (0.00-0.02) K/uL Absolute Nucleated RBC (0-0) K/uL Platelet Estimate (Normal) Carbon Dioxide 20 L (21-32) mmol/L Anion Gap (3-11) BUN 32 H (6-23) mg/dl Creatinine 2.14 H D (0.6-1.2) mg/dl Glucose (70-99(Fasting)) mg/dl Lactate 3.4 H* (0.4-2.0) mmol/L Calcium 7.9 L (8.5-10.1) mg/dl Magnesium 1.5 L (1.7-2.4) mg/dl Troponin I High Sens 29.7 H D (0-14) pg/ml Urine Appearance (Clear) Urine Protein (Negative) Urine Blood (Negative) Ur Leukocyte Esterase (Negative) Urine WBC (Auto) (0-5) /hpf Urine RBC (Auto) (0-4) /hpf U Epithel Cells (Auto) (0-5) /lpf (1) Hydronephrosis Hydronephrosis type: with renal calculous obstruction Qualified Code(s): N13.2 - Hydronephrosis with renal and ureteral calculous obstruction
[2022-01-31] MEDS: OXYBUTYNIN CHLORIDE 5 MG TAB PO SCH (20:47)
[2022-01-31] MEDS: ATORVASTATIN 40 MG TAB PO SCH (20:48)
[2022-01-31] MEDS: cefTRIAXone SODIUM 2,000 MG in DEXTROSE 5% 50 ML IV SCH (20:48)
[2022-01-31] MEDS: ACETAMINOPHEN 325 MG TAB PO PRN (20:51)
[2022-01-31] MEDS ORDERED: SODIUM CHLORIDE 0.9% 500 ML IV SCH (23:45)
[2022-02-01] MEDS: SODIUM CHLORIDE 0.9% 1000ML 1,000 ML IV SCH ×2 (01:11→11:21)
[2022-02-01] MEDS: ACETAMINOPHEN 325 MG TAB PO PRN (06:14)
[2022-02-01] MEDS: amLODIPine BESYLATE 5 MG TAB PO SCH (08:05)
[2022-02-01] MEDS: PANTOprazole 40 MG TAB PO SCH (08:05)
[2022-02-01] MEDS: CHOLECALCIFEROL 1,000 UNITS 25 MCG TAB PO SCH (08:05)
[2022-02-01] MEDS: ASPIRIN 81 MG ECTAB PO SCH (08:05)
[2022-02-01] MEDS: CITALOPRAM 20 MG TAB PO SCH (08:05)
[2022-02-01] MEDS: MAGNESIUM OXIDE 400 MG TAB PO SCH ×2 (08:06→20:43)
[2022-02-01] MEDS: METOPROLOL TARTRATE 100 MG TAB PO SCH ×2 (08:06→20:44)
[2022-02-01] MEDS: LIDOCAINE 5% 1 PATCH TD SCH (08:06)
[2022-02-01 08:19] LABS: Hematocrit (blood only) 32.7 % (34.1-44.9); Hemoglobin 10.7 g/dl (12.0-16.0); Mean Corpuscular Hemoglobin 30.8 pg (25.0-34.0); Mean Corpuscular Hgb Conc 32.7 g/dL (32.0-36.0); Mean Corpuscular Volume 94.2 fL (80.0-100.0); Mean Platelet Volume 11.5 fL (9.4-12.3); Platelet Count 61 K/uL (130-400); RDW Coefficient of Variation 13.8 % (11.5-14.5); RDW Standard Deviation 47.1 fL (36.4-46.3); Red Blood Count 3.47 M/uL (3.93-5.22); White Blood Count 19.84 K/ul (4.8-10.8)
[2022-02-01 09:19] LABS: Albumin Globulin Ratio 1.1 (0.9-2); Albumin Level 2.8 gm/dl (3.4-5.0); BUN Creatinine Ratio 19.2 (10-20); Bilirubin,Total 0.7 mg/dl (0.2-1.0); Calcium 7.2 mg/dl (8.5-10.1); Creatinine Clr Calc Pharmacy 25.1 ml/min; Est GFR (African American) 22.2 ml/min; Est GFR (Non-African American) 19.2 ml/min; Globulin 2.5 gm/dl (2.5-4.0); Potassium 4.5 mmol/L (3.5-5.1); Total Protein 5.3 gm/dl (6.0-8.3)
--- NOTE | 2022-02-01 10:02 | Hospitalist Progress Note ---
Date of Service February 01, 2022 Assessment & Plan (1) Right sided abdominal pain: (2) Renal colic: (3) Hydronephrosis: (4) Elevated lactic acid level: (5) Nephrolithiasis: Plan: MILI on CKD 3 CT abd/Pelvis showed 4mm obstructing calculus in mid ureter, moderate right hydroureteronephrosis. Other nonobstructing renal calculi b/l Cr 1.43 on admission S/p cystoscopy and right stent placement by urology on 01/31/22 Cr still trending up With increasing Cr and reduced urine output, will get renal USS and consult nephrology Continue IVF for now UA suggestive of possible UTI though urine culture from 01/30/22 is negative Leukocytosis Elevated lactate. Repeat today Hence sepsis is a possibility Continue ceftriaxone for now Follow up blood culture (6) Hypertension: Plan: BP stable Continue amlodipine Plan Depression Continue citalopram DVT ppx-Hep sq PT/OT eval Admission and Anticipated Discharge Date Admission Date: January 30, 2022 Subjective Patient seen and examined Reports neck and back pain are significantly improved Reports abd pain has significantly improved since after procedure. Just occasional mild discomfort. Denied any fevers, chills, nausea, vomiting Denied any dysuria, freq,urgency Very low urine output since yesterday despite being on IVF Physical Exam Constitutional: + well hydrated and + obese; no acute distress Eyes: PERRL, conjunctivae normal, anicteric sclerae ENMT: external ear and nose normal, oropharynx normal Respiratory: normal respiratory effort, lungs clear to auscultation Cardiovascular: Rate/Rhythm: regular rate and regular rhythm S1 S2 Gastrointestinal (Abdomen): normal bowel sounds, soft, nontender, no hepatosplenomegaly Ileostomy in situ Musculoskeletal: Trace pedal edema Neurologic: PERRL, EOMI, accommodation nl, no face palsy, no dysarthria Psychiatric: A+Ox3, euthymic affect Results & Data Results & Data ([facility]) Vital Signs (Past 12 Hours) Vital Signs Temp Pulse Pulse Resp BP Pulse Ox O2 Del Method 02/01/22 08:05 37.3 C 108 H 16 114/47 L 96 Room Air 02/01/22 07:39 102 H 02/01/22 03:39 36.8 C 101 H 18 110/66 93 Nasal Cannula 01/31/22 23:21 37 C 102 H 20 101/44 L 96 Nasal Cannula 01/31/22 22:20 104 H O2 Flow Rate 02/01/22 08:05 02/01/22 07:39 02/01/22 03:39 1 01/31/22 23:21 1 01/31/22 22:20 Laboratory Results Abnormal lab results 02/01/22 02/01/22 Range/Units 07:30 07:30 WBC 19.84 H (4.8-10.8) K/ul RBC 3.47 L (3.93-5.22) M/uL Hgb 10.7 L (12.0-16.0) g/dl Hct 32.7 L (34.1-44.9) % RDW Std Deviation 47.1 H (36.4-46.3) fL Plt Count 61 L (130-400) K/uL Sodium 134 L (136-145) mmol/L BUN 45 H (6-23) mg/dl Creatinine 2.34 H (0.6-1.2) mg/dl Calcium 7.2 L (8.5-10.1) mg/dl AST 53 H (13-39) U/L ALT 65 H (7-52) U/L Total Protein 5.3 L D (6.0-8.3) gm/dl Albumin 2.8 L (3.4-5.0) gm/dl (1) Hydronephrosis Hydronephrosis type: with renal calculous obstruction Qualified Code(s): N13.2 - Hydronephrosis with renal and ureteral calculous obstruction
--- NOTE | 2022-02-01 13:41 | Ultrasound Report ---
ULTRASOUND KIDNEYS AND BLADDER CLINICAL HISTORY: Nephrolithiasis. COMPARISON STUDY: Abdominal CT dated 01/30/2022. TECHNIQUE: Real-time, grayscale, and color flow sonography of the kidneys and bladder is performed. I mages are reviewed in the transverse and longitudinal planes. The examination is degraded by large katie dy habitus and inability of the patient to breath-hold. FINDINGS: Kidneys: The kidneys demonstrate cortical atrophy. Echotexture is normal. The right kidney measures 1 1.1 cm in length and the left kidney measures 11.4 cm in length. There is no hydronephrosis. Small r enal calculi seen by CT were not visualized. There is no sonographic evidence of contour deforming re nal mass lesion. No perinephric fluid is identified. Bladder: The bladder is decompressed and could not be assessed. IMPRESSION: 1. The kidneys are atrophic and without hydronephrosis. 2. The bladder was decompressed and could not be assessed. ACT 112: Negative or not required by law. Electronically signed by: Jeremy Carr M.D. 02/01/2022 1:38 PM
[2022-02-01] MEDS: HEPARIN SOD 5,000 UNIT/0.5 ML VIAL SQ SCH ×2 (15:18→20:42)
--- NOTE | 2022-02-01 15:19 | Urology Progress Note ---
Date of Service February 01, 2022 Assessment & Plan (1) Renal colic: (2) Hydronephrosis: Plan 81yo F admitted with intractable right flank pain and suspected UTI and found to have a 4mm obstructing calculus in mid ureter, moderate right hydroureteronephrosis. POD #1 s/p cystoscopy, retrograde pyelogram, right ureteral stent placement. Afebrile and hemodynamically stable. Labs reviewedWBC 19.84, creatinine 2.34 - Continue to trend. Urine culture 01/30 final no growth; blood cultures pending. Continues on IV ceftriaxone, follow cultures. Voiding spontaneously, continue to monitor. Bladder scan as needed. Continue supportive care and antibiotic therapy. Urology will follow. Admission and Anticipated Discharge Date Admission Date: January 30, 2022 Supervising Physician Co-Signing Physician Notes Rounded with RADHA on patient. Agree with the note above. Subjective Pt examined at bedside this afternoon. Awake, resting in bed on arrival. No acute distress. Reports feeling "very tired." Denies significant pain. Voiding spontaneously, has external catheter in place. Offered no additional complaints at time of exam. Review of Systems Constitutional: as per Subjective / HPI Genitourinary: as per Subjective / HPI Physical Exam Constitutional: + obese; no acute distress Respiratory: no respiratory distress and no labored breathing Neurologic: awake Psychiatric: Orientation: alert and oriented x 3 Results & Data ([facility]) Vital Signs (Past 12 Hours) Vital Signs Temp Pulse Pulse Resp BP Pulse Ox O2 Del Method 02/01/22 12:03 02/01/22 08:05 37.3 C 108 H 16 114/47 L 96 Room Air 02/01/22 07:39 102 H 02/01/22 03:39 36.8 C 101 H 18 110/66 93 Nasal Cannula O2 Flow Rate 02/01/22 12:03 2 02/01/22 08:05 02/01/22 07:39 02/01/22 03:39 1 PG Care Time/CCT Total # of Minutes Spent Total Time Spent with Patient: Total time spent is greater than 50% in coordination of care (as documented) at patient's floor/unit and/or counseling patient: Coding Level of Care Code 83531 Subseq Hosp Care Lvl 2 Diagnoses Renal colic N23 Hydronephrosis N13.2 Hydronephrosis type: with renal calculous obstruction (1) Hydronephrosis Hydronephrosis type: with renal calculous obstruction Qualified Code(s): N13.2 - Hydronephrosis with renal and ureteral calculous obstruction
--- NOTE | 2022-02-01 16:36 | Nephrology Consultation ---
Date of Consultation February 01, 2022 Assessment & Plan (1) Acute kidney injury: * MILI/CKD likely due to obstruction and IV contrast administration * Patient is not on any nephrotoxic medication * Patient is nonoliuric * Agree w/ cystoscopy and R ureteral stent * Continue supportive care, monitor PRP (2) Chronic kidney disease, stage II (mild): * CKD stage G2/A2 (mild impairment) w/ baseline Cr 1.1 w/ EGFR 67 cc/minute. Urinalysis has been positive for blood (kidney stones), UPCR 0.1. Renal impairment is due to chronic intravascular volume contraction associated with Crohn's disease/chronic diarrhea (3) Kidney stones: * Outpatient evaluation has revealed low free water intake, low urinary citrate, low urine pH and high ss Uric Acid * Await formal stone analysis * Lithotripsy may be necessary due to bilateral kidney stones and difficulty maintaining adequate hydration related to Crohn's disease/chronic diarrhea * Await further input from Urology History of Present Illness Reason for Consultation: MILI/CKD Attending Physician: Lou Walls MD History of Present Illness Mrs. Tapia is a 81 year old white female who is seen at the request of the hospitalist service to assist in the evaluation and management of MILI/CKD. Medical records in the EMR were reviewed today and are summarized as follows: Mrs. Tapia has CKD stage G2/A2 (mild impairment) w/ baseline Cr 1.1 w/ EGFR 67 cc/minute. Urinalysis has been positive for blood (kidney stones), UPCR 0.1. Renal impairment is due to chronic intravascular volume contraction associated with Crohn's disease/chronic diarrhea. Mrs. Tapia's medical history is also significant for colectomy w/ ileostomy, pulmonary sarcoidosis (granulomatous lesions on chest CT, no hypercalcemia, not on steroid therapy), obesity, HTN, h/o long-standing NSAID use (discontinued due to renal impairment). Mrs. Tapia also has a h/o kidney stones. Prior evaluation revealed low urine citrate, low pH and increased risk of uric acid stones. She has difficulty absorbing tablets. She has been on oral citrate solution 3 TBS po BID but sometimes misses doses. She has difficulty maintaining 2.5 - 3 L free water intake/day due to diarrhea. Mrs. Tapia presented to [facility] yesterday for evaluation of R flank discomfort. Abdominal CT with IV contrast revealed an obstructing R mid- ureteral stone, 4 R renal calculi and 2 L renal calculi. Cystoscopy w/ R ureteral stent placement was performed. Cr has risen to 2.3. Patient is nonoliguric. She is receiving IV hydration and empiric IV Ceftriaxone. Allergies Allergy/AdvReac Type Severity Reaction Status Date / Time dexamethasone Allergy Intermediate EYES Verified 01/30/22 20:32 BECAME RED AND ITCHY sulfamethoxazole Allergy Intermediate ITCHING Verified 01/30/22 20:32 tobramycin Allergy Intermediate EYES Verified 01/30/22 20:32 BECAME RED AND ITCHY trimethoprim Allergy Intermediate ITCHING Verified 01/30/22 20:32 Home Medications Medication Instructions Recorded Confirmed Type ammonium lactate 12 % topical cream 1 appln topical BID PRN Skin 03/16/19 01/30/22 History Cleansing cholecalciferol (vitamin D3) 50 2,000 units PO DAILY 03/16/19 01/30/22 History mcg (2,000 unit) capsule clotrimazole-betamethasone 1 1 appln topical .COMPLEX 03/16/19 01/30/22 History %-0.05 % topical cream aspirin 81 mg tablet,delayed 81 mg PO DAILY 12/23/19 01/30/22 History release (Gallo Low Dose Aspirin) oxycodone-acetaminophen 5 mg-325 1 tab PO Q4H PRN Pain 12/23/19 01/30/22 History mg tablet artifi.tears(hypromellose)(PF) 0.3 1 drp ophthalmic (eye) DAILY PRN 02/29/20 01/30/22 Rx % eye drops dry eye(s) #10 mL citalopram 20 mg tablet 20 mg PO DAILY #90 tabs 03/31/20 01/30/22 Rx fluticasone propionate 50 2 spray intranasal DAILY PRN 05/06/20 01/30/22 Rx mcg/actuation nasal allergy symptoms #48 grams spray,suspension atorvastatin 40 mg tablet 40 mg PO HS #90 tabs 05/19/20 01/30/22 Rx omeprazole 20 mg capsule,delayed 20 mg PO DAILY #90 caps 06/16/20 01/30/22 Rx release magnesium 250 mg tablet 250 mg PO BID 11/21/20 01/30/22 History metoprolol tartrate 100 mg tablet 100 mg PO BID #60 tabs 02/14/21 01/30/22 Rx sodium citrate-citric acid 500 45 ml PO BID #3,000 mL 10/19/21 01/30/22 Rx mg-334 mg/5 mL oral solution albuterol sulfate 90 mcg/actuation 1 inh inhalation QID PRN Shortness 12/04/21 01/30/22 History aerosol inhaler (Ventolin HFA) Of Breath Or Wheezing meclizine 25 mg tablet 25 mg PO DAILY PRN Dizziness 12/04/21 01/30/22 History melatonin 5 mg capsule 5 mg PO HS PRN Sleep 12/04/21 01/30/22 History nystatin 100,000 unit/gram topical 1 applic topical TID PRN Skin 12/04/21 01/30/22 History powder Irritation triamcinolone acetonide 0.1 % 1 applic topical DAILY PRN Skin 12/04/21 01/30/22 History topical cream Irritation amlodipine 5 mg tablet 5 mg PO DAILY 01/30/22 01/30/22 History camphor-methyl salicylate-menthol 1 patch topical DAILY PRN Pain 01/30/22 01/30/22 History topical patch oxybutynin chloride 5 mg tablet 5 mg PO QPM 01/30/22 01/30/22 History Patient History Medical History Chronic kidney disease, stage II (mild) Hypertension Kidney stones Surgical History H/O colectomy H/O neck surgery History of creation of ostomy History of knee replacement Family History Mother Kidney failure Denies family history of Ovarian cancer Prostate cancer Myocardial infarction Breast cancer Colorectal cancer Social History Smoking Status: Never smoker Tobacco Type: Cigarettes Second Hand Exposure: No; Hx Alcohol Use: No Hx Substance Use: No Preferred Language: Greek Communication Ability: Effective Visual Impairment: No Limitations Hearing Ability: Normal Ski Patrol Director Required: No Beliefs That Will Affect Care: None marital status: Current Living Situation: Spouse Feels Safe at Home: Yes Physical Activity Frequency: Does not Exercise Seatbelt Use: always Assistive Devices: Cane, Scooter/Electric Scooter and Walker Review of Systems Constitutional: no fever Eyes: no problem reported Respiratory: no dyspnea Cardiovascular: no chest pain Gastrointestinal: no abdominal pain Genitourinary: + dysuria Physical Exam Constitutional: + overweight Eyes: PERRL, conjunctivae normal, anicteric sclerae ENMT: external ear and nose normal, oropharynx normal Neck: trachea midline, no thyromegaly Respiratory: normal respiratory effort, lungs clear to auscultation Cardiovascular: RRR, no murmur, no edema Gastrointestinal (Abdomen): normal bowel sounds, soft, nontender, no hepatosplenomegaly Musculoskeletal: Extremities: no cyanosis Skin: no rashes, warm and dry Neurologic: awake; not confused Results & Data ([facility]) Vital Signs (Past 12 Hours) Vital Signs Temp Pulse Pulse Resp BP Pulse Ox O2 Del Method 02/01/22 15:42 36.7 C 102 H 16 103/62 92 Room Air 02/01/22 12:03 02/01/22 08:05 37.3 C 108 H 16 114/47 L 96 Room Air 02/01/22 07:39 102 H O2 Flow Rate 02/01/22 15:42 02/01/22 12:03 2 02/01/22 08:05 02/01/22 07:39 Laboratory Results Laboratory Tests 12/18/21 01/30/22 01/31/22 00:00 20:00 06:43 WBC 22.05 H D Hgb 12.8 Hct Plt Count Sodium Potassium Chloride Carbon Dioxide BUN Creatinine 1.2 Glucose Calcium Albumin Urine Color Yellow Urine Appearance Cloudy A Ur Specific [place] 1.020 Urine Protein 2+ H Urine Blood 3+ H Urine WBC (Auto) >30 H Urine RBC (Auto) >30 H Urine Bacteria (Auto) Negative 01/31/22 02/01/22 02/01/22 06:43 07:30 07:30 WBC 19.84 H Hgb 10.7 L Hct 32.7 L Plt Count 61 L Sodium 134 L Potassium 4.5 Chloride 106 Carbon Dioxide 21 BUN 45 H Creatinine 2.14 H D 2.34 H Glucose 77 Calcium 7.2 L Albumin 2.8 L Urine Color Urine Appearance Ur Specific [place] Urine Protein Urine Blood Urine WBC (Auto) Urine RBC (Auto) Urine Bacteria (Auto) 01/30/22 Urine culture: NGTD Diagnostic Findings 01/31/[address]: The contrast enhanced kidneys demonstrate cortical atrophy. There is a 4 mm obstructing calculus in the mid right ureter seen on image #[id number] at the level of L5. This causes moderate right hydroureteronephrosis. There is associated right-sided perinephric stranding and trace fluid. Urothelial thickening and enhancement is noted in the right proximal ureter. There are least 4 additional nonobstructing right renal calculi which measure up to 5 mm. There are least 2 nonobstructing left renal calculi which measure up to 4 mm. There is no left-sided hydronephrosis. A 1.6 cm cyst is noted in the interpolar right kidney. Additional subcentimeter cortical hypodensities also likely represent cysts but are too small for definitive characterization. Renal sinus cysts are noted on the left. 02/01/22 Renal US: Kidneys: The kidneys demonstrate cortical atrophy. Echotexture is normal. The right kidney measures 11.1 cm in length and the left kidney measures 11.4 cm in length. There is no hydronephrosis. Small renal calculi seen by CT were not visualized. There is no sonographic evidence of contour deforming renal mass lesion. No perinephric fluid is identified. Bladder: The bladder is decompressed and could not be assessed. PG Care Time/CCT Total # of Minutes Spent Total Time Spent with Patient: Total time spent is greater than 50% in coordination of care (as documented) at patient's floor/unit and/or counseling patient: Coding Level of Care Code 31856 Inpt Consult Level 5 Diagnoses Acute kidney injury N17.9 Chronic kidney disease, stage II (mild) N18.2 Kidney stones N20.0
[2022-02-01] MEDS: OXYBUTYNIN CHLORIDE 5 MG TAB PO SCH (20:43)
[2022-02-01] MEDS: ATORVASTATIN 40 MG TAB PO SCH (20:43)
[2022-02-01] MEDS: cefTRIAXone SODIUM 2,000 MG in DEXTROSE 5% 50 ML IV SCH (20:50)
[2022-02-02] MEDS: SODIUM CHLORIDE 0.9% 1000ML 1,000 ML IV SCH ×2 (00:04→10:12)
[2022-02-02] MEDS ORDERED: QUEtiapine FUMARATE 25 MG TABLET PO STA (00:11)
[2022-02-02] MEDS ORDERED: OLANZapine ZYDIS 5 MG ORALLY DIS. TAB PO STA (00:12)
[2022-02-02] MEDS ORDERED: OLANZapine 10 MG/2.1 ML SDV IM STA (00:14)
[2022-02-02] MEDS: HEPARIN SOD 5,000 UNIT/0.5 ML VIAL SQ SCH ×2 (06:09→13:18)
--- NOTE | 2022-02-02 08:40 | Nephrology Progress Note ---
Date of Service February 02, 2022 Assessment & Plan (1) Acute kidney injury: Plan: * MILI/CKD likely due to obstruction and IV contrast administration * Agree w/ cystoscopy and R ureteral stent * Patient is not on any nephrotoxic medication * Patient is nonoliuric * Heplock IV and encourage oral hydration * Cr is nearing baseline and electrolyte balance is acceptable. No further Nephrology testing is indicated. Will sign off. Please have patient follow up in my office 1 - 2 weeks following discharge from the hospital (Dr. Cintron ) (2) Chronic kidney disease, stage II (mild): Plan: * CKD stage G2/A2 (mild impairment) w/ baseline Cr 1.1 w/ EGFR 67 cc/minute. Urinalysis has been positive for blood (kidney stones), UPCR 0.1. Renal impairment is due to chronic intravascular volume contraction associated with Crohn's disease/chronic diarrhea (3) Kidney stones: Plan: * Outpatient evaluation has revealed low free water intake, low urinary citrate, low urine pH and high ss Uric Acid * Await formal stone analysis * Lithotripsy may be necessary due to bilateral kidney stones and difficulty m aintaining adequate hydration related to Crohn's disease/chronic diarrhea * Await further input from Urology (4) Delirium: Plan: * Advance activity, minimize pain medications/sedatives Admission and Anticipated Discharge Date Admission Date: January 30, 2022 Subjective Mrs. Tapia was evaluated in her hospital room this morning. She was delirious ("spent the night in the basement of the hospital near the fish tank") and repeatedly requested to go home Review of Systems Constitutional: no fever Eyes: no problem reported Respiratory: no dyspnea Cardiovascular: no chest pain Gastrointestinal: no abdominal pain Genitourinary: + dysuria Physical Exam Constitutional: + overweight Eyes: PERRL, conjunctivae normal, anicteric sclerae ENMT: external ear and nose normal, oropharynx normal Neck: trachea midline, no thyromegaly Respiratory: normal respiratory effort, lungs clear to auscultation Cardiovascular: RRR, no murmur, no edema Gastrointestinal (Abdomen): normal bowel sounds, soft, nontender, no hepatosplenomegaly Musculoskeletal: Extremities: no cyanosis Skin: no rashes, warm and dry Neurologic: awake; not confused Results & Data ([facility]) Vital Signs (Past 12 Hours) Vital Signs Temp Pulse Pulse Resp BP Pulse Ox O2 Del Method 02/02/22 08:15 36.8 C 116 H 17 118/64 94 Nasal Cannula 02/02/22 08:05 116 H 02/01/22 22:15 100 H 02/02/22 04:00 94 Nasal Cannula 02/02/22 03:59 37.4 C 111 H 24 132/75 86 L Room Air 02/02/22 03:07 36.6 C 74 18 141/69 H 91 Room Air 02/01/22 21:00 Room Air O2 Flow Rate 02/02/22 08:15 2 02/02/22 08:05 02/01/22 22:15 02/02/22 04:00 2 02/02/22 03:59 02/02/22 03:07 02/01/22 21:00 Laboratory Results Laboratory Tests 02/02/22 08:20 Sodium 138 Potassium 4.2 Chloride 110 H Carbon Dioxide 21 BUN 43 H Creatinine 1.63 H D Glucose 78 Calcium 8.1 L Albumin 2.9 L PG Care Time/CCT Total # of Minutes Spent Total Time Spent with Patient: Total time spent is greater than 50% in coordination of care (as documented) at patient's floor/unit and/or counseling patient: Coding Level of Care Code 43125 Subseq Hosp Care Lvl 3 Diagnoses Acute kidney injury N17.9 Chronic kidney disease, stage II (mild) N18.2 Kidney stones N20.0 Delirium R41.0
[2022-02-02] MEDS: amLODIPine BESYLATE 5 MG TAB PO SCH (08:43)
[2022-02-02] MEDS: ASPIRIN 81 MG ECTAB PO SCH (08:44)
[2022-02-02] MEDS: CITALOPRAM 20 MG TAB PO SCH (08:44)
[2022-02-02] MEDS: MAGNESIUM OXIDE 400 MG TAB PO SCH ×2 (08:44→20:14)
[2022-02-02] MEDS: PANTOprazole 40 MG TAB PO SCH (08:44)
[2022-02-02] MEDS: METOPROLOL TARTRATE 100 MG TAB PO SCH ×2 (08:44→20:13)
[2022-02-02] MEDS: CHOLECALCIFEROL 1,000 UNITS 25 MCG TAB PO SCH (08:44)
[2022-02-02] MEDS: LIDOCAINE 5% 1 PATCH TD SCH (08:45)
[2022-02-02 09:03] LABS: Hemoglobin 11.2 g/dl (12.0-16.0); Mean Corpuscular Hemoglobin 30.1 pg (25.0-34.0); Mean Corpuscular Volume 94.1 fL (80.0-100.0); Mean Platelet Volume 12.5 fL (9.4-12.3); Platelet Count 72 K/uL (130-400); RDW Coefficient of Variation 13.7 % (11.5-14.5); RDW Standard Deviation 46.5 fL (36.4-46.3); Red Blood Count 3.72 M/uL (3.93-5.22); White Blood Count 21.01 K/ul (4.8-10.8)
[2022-02-02 09:30] LABS: Albumin Level 2.9 gm/dl (3.4-5.0); BUN Creatinine Ratio 26.4 (10-20); Bilirubin,Total 0.8 mg/dl (0.2-1.0); Calcium 8.1 mg/dl (8.5-10.1); Creatinine Clr Calc Pharmacy 35.9 ml/min; Est GFR (African American) 34.4 ml/min; Est GFR (Non-African American) 29.7 ml/min; Potassium 4.2 mmol/L (3.5-5.1); Total Protein 5.9 gm/dl (6.0-8.3)
--- NOTE | 2022-02-02 11:32 | Hospitalist Progress Note ---
Date of Service February 02, 2022 Assessment & Plan (1) Right sided abdominal pain: (2) Renal colic: (3) Hydronephrosis: (4) Elevated lactic acid level: (5) Nephrolithiasis: Plan: MILI on CKD 3 CT abd/Pelvis showed 4mm obstructing calculus in mid ureter, moderate right hydroureteronephrosis. Other nonobstructing renal calculi b/l Cr 1.43 on admission S/p cystoscopy and right stent placement by urology on 01/31/22 Cr went up to 2.34 yesterday and trending down today. Cr is 1.63 MILI likely from obstructive uropathy with other contributors including dehydration and contrast patient got on admission with CT ab/P Financial Aid Officer on board UA suggestive of possible UTI though urine culture from 01/30/22 is negative Leukocytosis persists Elevated lactate on admission now resolved Hence sepsis is a possibility Continue ceftriaxone for now Follow up blood culture Get peripheral smear (6) Afib: Plan: Patient flipped into Afib yesterday from sinus Per chart review, I did not see h/o Afib CHADVASC is 4. Will start hep gtt for now. Monitor Hb and platelet Cardiology consulted. Get TTE Had delirium overnight. Was confused at the time of my evaluation No focal neurological deficit on exam. However, will get CT head w/o co prior to starting hep gtt. (7) Hypertension: Plan: BP stable Continue amlodipine Plan Depression Continue citalopram PT/OT eval Admission and Anticipated Discharge Date Admission Date: January 30, 2022 Subjective Patient seen and examined Patient is alert, oriented to person, knows she is in a hospital but does not recall name However, she was confused stating she was taken to the basement Patient was reported to have been delirious overnight and required zyprexa. Denied any headache, blurry vision Denied any shortness of breath, cough, palpitations, chest pain Reports abd pain is almost completely resolved Denied any focal weakness Physical Exam Constitutional: + well hydrated and + obese; no acute distress Eyes: PERRL, conjunctivae normal, anicteric sclerae ENMT: external ear and nose normal, oropharynx normal Cardiovascular: Rate/Rhythm: + irregularly irregular S1 S2 Gastrointestinal (Abdomen): normal bowel sounds, soft, nontender, no hepatosplenomegaly Neurologic: PERRL, EOMI, accommodation nl, no face palsy, no dysarthria Psychiatric: Confused Results & Data Results & Data ([facility]) Vital Signs (Past 12 Hours) Vital Signs Temp Pulse Pulse Resp BP Pulse Ox O2 Del Method 02/02/22 08:15 36.8 C 116 H 17 118/64 94 Nasal Cannula 02/02/22 08:05 116 H 02/02/22 04:00 94 Nasal Cannula 02/02/22 03:59 37.4 C 111 H 24 132/75 86 L Room Air 02/02/22 03:07 36.6 C 74 18 141/69 H 91 Room Air O2 Flow Rate 02/02/22 08:15 2 02/02/22 08:05 02/02/22 04:00 2 02/02/22 03:59 02/02/22 03:07 Laboratory Results Abnormal lab results 02/02/22 02/02/22 Range/Units 08:20 08:20 WBC 21.01 H (4.8-10.8) K/ul RBC 3.72 L (3.93-5.22) M/uL Hgb 11.2 L (12.0-16.0) g/dl RDW Std Deviation 46.5 H (36.4-46.3) fL Plt Count 72 L (130-400) K/uL MPV 12.5 H (9.4-12.3) fL Chloride 110 H (98-107) mmol/L BUN 43 H (6-23) mg/dl Creatinine 1.63 H D (0.6-1.2) mg/dl BUN/Creatinine Ratio 26.4 H (10-20) Calcium 8.1 L (8.5-10.1) mg/dl Alkaline Phosphatase 112 H (34-104) U/L Total Protein 5.9 L (6.0-8.3) gm/dl Albumin 2.9 L (3.4-5.0) gm/dl (1) Hydronephrosis Hydronephrosis type: with renal calculous obstruction Qualified Code(s): N13.2 - Hydronephrosis with renal and ureteral calculous obstruction
--- NOTE | 2022-02-02 12:13 | Urology Progress Note ---
Date of Service February 02, 2022 Assessment & Plan (1) Renal colic: (2) Hydronephrosis: Plan 81yo F admitted with intractable right flank pain and suspected UTI and found to have a 4mm obstructing calculus in mid ureter, moderate right hydroureteronephrosis. POD #2 s/p cystoscopy, retrograde pyelogram, right ureteral stent placement. Afebrile, Labs reviewedWBC 21.01, creatinine down to 1.63 - Continue to trend. Urine culture 8/2 negative; blood cultures NGTD. Continues on IV ceftriaxone, follow cultures. External urinary catheter in place. Continue to monitor, bladder scan as needed. Continue supportive care and antibiotic therapy. Will arrange outpatient follow-up with our service for definitive stone treatment. Urology will sign-off for now. Please contact us with any further questions, concerns, or changes in patient status. Admission and Anticipated Discharge Date Admission Date: January 30, 2022 Subjective Patient examined at bedside this AM. Awake, resting comfortably in bed on arrival. No acute distress. External urinary catheter in place. Denied any significant pain. Reports feeling tired. Review of Systems Constitutional: as per Subjective / HPI Genitourinary: as per Subjective / HPI Physical Exam Constitutional: + obese; no acute distress Respiratory: no respiratory distress and no labored breathing Neurologic: awake Psychiatric: Orientation: alert and oriented to person Genitourinary: Pure[place] external urinary catheter in place Results & Data ([facility]) Vital Signs (Past 12 Hours) Vital Signs Temp Pulse Pulse Resp BP Pulse Ox O2 Del Method 02/02/22 08:15 36.8 C 116 H 17 118/64 94 Nasal Cannula 02/02/22 08:05 116 H 02/02/22 04:00 94 Nasal Cannula 02/02/22 03:59 37.4 C 111 H 24 132/75 86 L Room Air 02/02/22 03:07 36.6 C 74 18 141/69 H 91 Room Air O2 Flow Rate 02/02/22 08:15 2 02/02/22 08:05 02/02/22 04:00 2 02/02/22 03:59 02/02/22 03:07 PG Care Time/CCT Total # of Minutes Spent Total Time Spent with Patient: Total time spent is greater than 50% in coordination of care (as documented) at patient's floor/unit and/or counseling patient: Coding Level of Care Code 89199 Subseq Hosp Care Lvl 2 Diagnoses Renal colic N23 Hydronephrosis N13.2 Hydronephrosis type: with renal calculous obstruction (1) Hydronephrosis Hydronephrosis type: with renal calculous obstruction Qualified Code(s): N13.2 - Hydronephrosis with renal and ureteral calculous obstruction
[2022-02-02] MEDS ORDERED: Heparin IV Adult Wt-Based Low-Dose WITH Bolus Protocol IV SCH (14:15)
[2022-02-02] MEDS ORDERED: HEPARIN SOD (PORCINE) 1000 UNIT/ML IV ONE (14:30)
[2022-02-02 14:55] LABS: Hematocrit (blood only) 33.9 % (34.1-44.9); Hemoglobin 11.3 g/dl (12.0-16.0); Mean Corpuscular Hgb Conc 33.3 g/dL (32.0-36.0); Mean Corpuscular Volume 92.9 fL (80.0-100.0); Mean Platelet Volume 12.5 fL (9.4-12.3); Platelet Count 68 K/uL (130-400); RDW Coefficient of Variation 13.8 % (11.5-14.5); RDW Standard Deviation 46.8 fL (36.4-46.3); Red Blood Count 3.65 M/uL (3.93-5.22); White Blood Count 22.29 K/ul (4.8-10.8)
--- NOTE | 2022-02-02 15:07 | CT Scan Report ---
CT head/brain wo con CLINICAL HISTORY: 81 years-old Female with Altered mental status. Rule out CVA. Acutely altered ment al status TECHNIQUE: Multiple axial CT images of the head were obtained without contrast. A dose lowering tech nique was utilized adhering to the principles of ALARA. CT DOSE: 1624.50 mGy.cm COMPARISON: 12/31/2013 FINDINGS: No acute intracranial hemorrhage, midline shift, intra-axial mass, hydrocephalus, territorial ischemi a or abnormal extra-axial collection. Mild white matter hypodensities suggestive of chronic microvasc ular ischemic disease. Lipoma of the falx cerebri. Study is mildly motion degraded. The calvarium is intact. Hyperostosis frontalis interna. The paranasal sinuses, mastoid air cells, an d middle ear cavities are clear. IMPRESSION: No acute intracranial abnormality. ACT 112: Negative or not required by law. The above report was generated using voice recognition software. It may contain grammatical, syntax o r spelling errors. Electronically signed by: Isai Charles M.D. 02/02/2022 3:06 PM
[2022-02-02 15:08] LABS: INR 1.1 (0.9-1.1); Partial Thromboplastin Ratio 1.4; Partial Thromboplastin Time 37.7 Seconds (21.0-31.0); Prothrombin Time 11.4 Seconds (9.0-12.0)
[2022-02-02 15:16] LABS: Basophils # (auto) 0.07 K/uL (0-0.2); Basophils % (auto) 0.3 %; Dohle Bodies 1+; Eosinophils # (auto) 0.35 K/uL (0-0.50); Eosinophils % (auto) 1.6 %; Immature Granulocytes # (auto) 0.08 K/uL (0.00-0.02); Immature Granulocytes % (auto) 0.4 %; Lymphocytes # (auto) 0.65 K/uL (1.2-3.4); Lymphocytes % (auto) 2.9 %; Monocytes # (auto) 0.53 K/uL (0.24-0.82); Monocytes % (auto) 2.4 %; Neutrophils # (auto) 20.61 K/uL (1.4-6.5); Neutrophils % (auto) 92.4 %
[2022-02-02] MEDS: HEPARIN SODIUM/DEXTROSE 25,000 UNITS/500 ML BAG IV SCH (15:25)
--- NOTE | 2022-02-02 15:29 | Cardiology Consultation ---
Date of Consultation February 02, 2022 Assessment & Plan (1) Renal colic: (2) Acute kidney injury: (3) Hydronephrosis: (4) Nephrolithiasis: (5) Afib: Plan I agree with the current treatment. Patient is asymptomatic in regard to the atrial fibrillation. Currently it is rate controlled with metoprolol. I will continue this medication. She is also on IV heparin for anticoagulation. The best case scenario would be if she spontaneously converted back to normal sinus rhythm. Uncertain if that will occur. Patient will have an echocardiogram which we we will review. History of Present Illness Attending Physician: Lou Walls MD History of Present Illness This is a morbidly obese 81-year-old female with no significant cardiac history. She was admitted with renal colic and found to have hydronephrosis and renal calculi of the right kidney. She had a ureteral stent placed to clear the obstruction. She was admitted in sinus rhythm but sometime late yesterday she developed persistent atrial fibrillation with a controlled heart rate. The arrhythmia is completely asymptomatic. She has a history of hypertension. No history of diabetes. Allergies Allergy/AdvReac Type Severity Reaction Status Date / Time dexamethasone Allergy Intermediate EYES Verified 01/30/22 20:32 BECAME RED AND ITCHY sulfamethoxazole Allergy Intermediate ITCHING Verified 01/30/22 20:32 tobramycin Allergy Intermediate EYES Verified 01/30/22 20:32 BECAME RED AND ITCHY trimethoprim Allergy Intermediate ITCHING Verified 01/30/22 20:32 Home Medications Medication Instructions Recorded Confirmed Type ammonium lactate 12 % topical cream 1 appln topical BID PRN Skin 03/16/19 01/30/22 History Cleansing cholecalciferol (vitamin D3) 50 2,000 units PO DAILY 03/16/19 01/30/22 History mcg (2,000 unit) capsule clotrimazole-betamethasone 1 1 appln topical .COMPLEX 03/16/19 01/30/22 History %-0.05 % topical cream aspirin 81 mg tablet,delayed 81 mg PO DAILY 12/23/19 01/30/22 History release (Gallo Low Dose Aspirin) oxycodone-acetaminophen 5 mg-325 1 tab PO Q4H PRN Pain 12/23/19 01/30/22 History mg tablet artifi.tears(hypromellose)(PF) 0.3 1 drp ophthalmic (eye) DAILY PRN 02/29/20 01/30/22 Rx % eye drops dry eye(s) #10 mL citalopram 20 mg tablet 20 mg PO DAILY #90 tabs 03/31/20 01/30/22 Rx fluticasone propionate 50 2 spray intranasal DAILY PRN 05/06/20 01/30/22 Rx mcg/actuation nasal allergy symptoms #48 grams spray,suspension atorvastatin 40 mg tablet 40 mg PO HS #90 tabs 05/19/20 01/30/22 Rx omeprazole 20 mg capsule,delayed 20 mg PO DAILY #90 caps 06/16/20 01/30/22 Rx release magnesium 250 mg tablet 250 mg PO BID 11/21/20 01/30/22 History metoprolol tartrate 100 mg tablet 100 mg PO BID #60 tabs 02/14/21 01/30/22 Rx sodium citrate-citric acid 500 45 ml PO BID #3,000 mL 10/19/21 01/30/22 Rx mg-334 mg/5 mL oral solution albuterol sulfate 90 mcg/actuation 1 inh inhalation QID PRN Shortness 12/04/21 01/30/22 History aerosol inhaler (Ventolin HFA) Of Breath Or Wheezing meclizine 25 mg tablet 25 mg PO DAILY PRN Dizziness 12/04/21 01/30/22 History melatonin 5 mg capsule 5 mg PO HS PRN Sleep 12/04/21 01/30/22 History nystatin 100,000 unit/gram topical 1 applic topical TID PRN Skin 12/04/21 01/30/22 History powder Irritation triamcinolone acetonide 0.1 % 1 applic topical DAILY PRN Skin 12/04/21 01/30/22 History topical cream Irritation amlodipine 5 mg tablet 5 mg PO DAILY 01/30/22 01/30/22 History camphor-methyl salicylate-menthol 1 patch topical DAILY PRN Pain 01/30/22 01/30/22 History topical patch oxybutynin chloride 5 mg tablet 5 mg PO QPM 01/30/22 01/30/22 History Patient History Medical History Chronic kidney disease, stage II (mild) Hypertension Kidney stones Surgical History H/O colectomy H/O neck surgery History of creation of ostomy History of knee replacement Family History Mother Kidney failure Denies family history of Ovarian cancer Prostate cancer Myocardial infarction Breast cancer Colorectal cancer Social History Smoking Status: Never smoker Tobacco Type: Cigarettes Second Hand Exposure: No; Hx Alcohol Use: No Hx Substance Use: No Preferred Language: Iraqi Communication Ability: Effective Visual Impairment: No Limitations Hearing Ability: Normal Production Sorter Required: No Beliefs That Will Affect Care: None marital status: Current Living Situation: Spouse Feels Safe at Home: Yes Physical Activity Frequency: Does not Exercise Seatbelt Use: always Assistive Devices: Cane, Scooter/Electric Scooter and Walker Review of Systems Review of Systems: Review of Systems: See HPI for pertinent positives. All other 10 point review of systems are negative. Physical Exam Physical Exam: General: no acute distress and stated age Head: normocephalic, no masses, lesions, tenderness or abnormalities Eyes: conjunctiva are pink and non-injected, sclera clear Neck: supple, no adenopathy, no bruits, normal jugular venous pulse, no hepatojugular reflux Chest: normal shape and normal respiratory effort Lungs: clear to auscultation and percussion Cardiac Exam: - irregular rate & rhythm, no murmurs gallops or rubs - normal S1, normal S2 Pulses: 2(+) throughout Abdomen: abdomen soft, non-tender, no abnormal masses and no hepatosplenomegaly Musculoskeletal: no gait disturbance, no joint inflammation, no deforming arthritis Extremities: no edema and no cyanosis Neuro: grossly normal exam Results & Data ([facility]) Vital Signs (Past 12 Hours) Vital Signs Temp Pulse Pulse Resp BP Pulse Ox O2 Del Method 02/02/22 13:25 68 20 93 Nasal Cannula 02/02/22 12:12 36.8 C 99 H 18 115/59 L 93 Nasal Cannula 02/02/22 08:15 36.8 C 116 H 17 118/64 94 Nasal Cannula 02/02/22 08:05 116 H 02/02/22 04:00 94 Nasal Cannula 02/02/22 03:59 37.4 C 111 H 24 132/75 86 L Room Air O2 Flow Rate 02/02/22 13:25 2 02/02/22 12:12 3 02/02/22 08:15 2 02/02/22 08:05 02/02/22 04:00 2 02/02/22 03:59 Laboratory Results Laboratory Results - last 24 hr 02/02/22 02/02/22 02/02/22 08:20 08:20 14:40 WBC 21.01 H RBC 3.72 L Hgb 11.2 L Hct 35.0 MCV 94.1 MCH 30.1 MCHC 32.0 RDW Std Deviation 46.5 H RDW Coeff of Nino 13.7 Plt Count 72 L MPV 12.5 H Immature Gran % (Auto) Neut % (Auto) Lymph % (Auto) [place] % (Auto) Eos % (Auto) Baso % (Auto) Neut # (Auto) Lymph # (Auto) [place] # (Auto) Eos # (Auto) Baso # (Auto) Immature Gran # (Auto) Dohle Bodies Peripher Smr Path Cons PT 11.4 INR 1.1 APTT 37.7 H PTT Ratio 1.4 Sodium 138 Potassium 4.2 Chloride 110 H Carbon Dioxide 21 Anion Gap 7 BUN 43 H Creatinine 1.63 H D Est Cr Clr Drug Dosing 35.9 Est GFR ( Amer) 34.4 Est GFR (Non-Af Amer) 29.7 BUN/Creatinine Ratio 26.4 H Glucose 78 Calcium 8.1 L Total Bilirubin 0.8 AST 35 ALT 50 Alkaline Phosphatase 112 H Total Protein 5.9 L Albumin 2.9 L Globulin 3.0 Albumin/Globulin Ratio 1.0 02/02/22 14:40 WBC 22.29 H RBC 3.65 L Hgb 11.3 L Hct 33.9 L MCV 92.9 MCH 31.0 MCHC 33.3 RDW Std Deviation 46.8 H RDW Coeff of Nino 13.8 Plt Count 68 L MPV 12.5 H Immature Gran % (Auto) 0.4 Neut % (Auto) 92.4 Lymph % (Auto) 2.9 [place] % (Auto) 2.4 Eos % (Auto) 1.6 Baso % (Auto) 0.3 Neut # (Auto) 20.61 H Lymph # (Auto) 0.65 L [place] # (Auto) 0.53 Eos # (Auto) 0.35 Baso # (Auto) 0.07 Immature Gran # (Auto) 0.08 H Dohle Bodies 1+ Peripher Smr Path Cons Pending PT INR APTT PTT Ratio Sodium Potassium Chloride Carbon Dioxide Anion Gap BUN Creatinine Est Cr Clr Drug Dosing Est GFR ( Amer) Est GFR (Non-Af Amer) BUN/Creatinine Ratio Glucose Calcium Total Bilirubin AST ALT Alkaline Phosphatase Total Protein Albumin Globulin Albumin/Globulin Ratio Medications Administered Current Inpatient Medications Acetaminophen (Acetaminophen 325 Mg Tab) 650 mg PO Q4H PRN PRN Reason: Pain or Fever Stop: 03/02/22 00:13 Last Admin: 02/01/22 06:14 Dose: 650 mg Albuterol (Albuterol Hfa 8 Gm Inhaler) 1 puffs INH QID PRN PRN Reason: Shortness Of Breath Or Wheezing Stop: 03/02/22 00:13 Last Admin: 02/02/22 13:25 Dose: 1 puffs Amlodipine Besylate (Amlodipine Besylate 5 Mg Tab) 5 mg PO DAILY [facility] Stop: 03/02/22 08:59 Last Admin: 02/02/22 08:43 Dose: 5 mg Artificial Tears (Artificial Tears) 1 drops OP DAILY PRN PRN Reason: dry eye(s) Stop: 03/02/22 00:33 Aspirin (Aspirin 81 Mg Ectab) 81 mg PO DAILY [facility] Stop: 03/02/22 08:59 Last Admin: 02/02/22 08:44 Dose: 81 mg Atorvastatin Calcium (Atorvastatin 40 Mg Tab) 40 mg PO HS [facility] Stop: 03/02/22 20:59 Last Admin: 02/01/22 20:43 Dose: 40 mg Betamethasone/Clotrimazole (Clotrimazole/Betamethasone Cr 15 Gm Tube) 1 appln EXT TID PRN PRN Reason: DIRECTED Stop: 03/02/22 00:13 Citalopram Hydrobromide (Citalopram 20 Mg Tab) 20 mg PO DAILY [facility] Stop: 03/02/22 08:59 Last Admin: 02/02/22 08:44 Dose: 20 mg Fluticasone Propionate (Fluticasone Propionate Na Spr 16 Gm Btl) 2 sprays NA DAILY PRN PRN Reason: allergy symptoms Stop: 03/02/22 00:13 Heparin Sodium (Porcine) (Heparin 100 Unit/Ml 5ml Flush) 5 ml FLUSH PRN PRN PRN Reason: Flush Stop: 03/02/22 16:57 Heparin Sodium (Porcine) (Heparin Sod 5,000 Unit/0.5 Ml Vial) 5,000 units SQ Q8 [facility] Stop: 03/03/22 13:59 Last Admin: 02/02/22 13:18 Dose: 5,000 units Ceftriaxone Sodium 2,000 mg/ (Dextrose) 70 mls @ 100 mls/hr IV Q24H [facility]; Protocol Stop: 02/10/22 20:59 Last Infusion: 02/01/22 21:35 Dose: Infused Heparin Sodium/Dextrose (Heparin Sodium/Dextrose) 25,000 units in 500 mls @ 19 mls/hr IV .Q24H [facility]; Protocol Stop: 03/04/22 14:29 Lidocaine (Lidocaine 5% 1 Patch) 1 patch TD QAM [facility] Stop: 03/02/22 16:29 Last Admin: 02/02/22 08:45 Dose: 1 patch Magnesium Oxide (Magnesium Oxide 400 Mg Tab) 400 mg PO BID [facility] Stop: 03/02/22 08:59 Last Admin: 02/02/22 08:44 Dose: 400 mg Meclizine HCl (Meclizine Hcl 25 Mg Tab) 25 mg PO DAILY PRN PRN Reason: Dizziness Stop: 03/02/22 00:13 Melatonin (Melatonin 3 Mg Tab) 4.5 mg PO HS PRN PRN Reason: Sleep Stop: 03/02/22 00:13 Metoprolol Tartrate (Metoprolol Tartrate 100 Mg Tab) 100 mg PO BID [facility] Stop: 03/02/22 08:59 Last Admin: 02/02/22 08:44 Dose: 100 mg Miscellaneous (Remove Lidoderm Patch) 1 each N/A DAILY@2100 [facility] Stop: 03/02/22 20:59 Last Admin: 02/01/22 20:44 Dose: 1 each Nitroglycerin (Nitroglycerin Sl 0.4 Mg/Tab Tab) 0.4 mg SL UD PRN PRN Reason: Chest Pain Stop: 03/02/22 00:13 Nystatin (Nystatin Powder 15gm Btl) 1 appln EXT TID PRN PRN Reason: Skin Irritation Stop: 03/02/22 00:13 Ondansetron HCl (Ondansetron Inj 2 Mg/Ml 2 Ml Vial) 4 mg IV Q6H PRN PRN Reason: Nausea Stop: 03/02/22 00:13 Oxybutynin Chloride (Oxybutynin Chloride 5 Mg Tab) 5 mg PO QPM [facility] Stop: 03/02/22 20:59 Last Admin: 02/01/22 20:43 Dose: 5 mg Oxycodone/Acetaminophen (Oxycodone/Acetaminophen 5mg/325mg Tab) 1 tab PO Q4H PRN PRN Reason: Pain Stop: 02/14/22 00:13 Last Admin: 01/31/22 16:22 Dose: 1 tab Pantoprazole Sodium (Pantoprazole 40 Mg Tab) 40 mg PO DAILY [facility] Stop: 03/02/22 08:59 Last Admin: 02/02/22 08:44 Dose: 40 mg Polyethylene Glycol (Polyethylene (Miralax) 17 Gm Pack) 17 gm PO DAILY PRN PRN Reason: Constipation Stop: 03/02/22 00:13 Vitamin D (Cholecalciferol 1,000 Units 25 Mcg Tab) 2,000 units PO DAILY [facility] Stop: 03/02/22 08:59 Last Admin: 02/02/22 08:44 Dose: 2,000 units (1) Hydronephrosis Hydronephrosis type: with renal calculous obstruction Qualified Code(s): N13.2 - Hydronephrosis with renal and ureteral calculous obstruction
--- NOTE | 2022-02-02 17:06 | XRay Report ---
XR chest 1V portable HISTORY: 81 years-old Female Shortness of breath acute shortness of breath COMPARISON: Chest radiograph 01/31/2022 TECHNIQUE: Portable AP view the chest FINDINGS: Cardiac silhouette is enlarged. Pulmonary vascular congestion. Left subclavian [id number] catheter is unchanged in positioning. No pneumothorax, large pleural effusion or lobar airspace consolidation . Cervical spinal fusion hardware. Degenerative changes of the shoulders and spine. IMPRESSION: Cardiomegaly with pulmonary vascular congestion. ACT 112: Negative or not required by law. The above report was generated using voice recognition software. It may contain grammatical, syntax o r spelling errors. Electronically signed by: Isai Charles M.D. 02/02/2022 5:04 PM
[2022-02-02] MEDS ORDERED: ALBUTEROL 0.083% NEBU SOLN 3 ML VIAL NEB PRN (17:37)
[2022-02-02] MEDS ORDERED: methylPREDNISolone 20 MG in SYRINGE 0 ML IV STA (19:43)
[2022-02-02 19:57] LABS: Base Excess ABG -6.6 mEq/L (-9-1.8); HCO3 ABG 19 mmol/L (19-24); Oxygen Saturation ABG 98.4 % (90-95); PCO2 ABG 35 mmHg (35-46); PO2 ABG 83 mmHg (80-95); pH ABG 7.33 (7.35-7.45)
[2022-02-02 19:59] LABS: Allen Test POS (Pos)
[2022-02-02] MEDS: cefTRIAXone SODIUM 2,000 MG in DEXTROSE 5% 50 ML IV SCH (20:12)
[2022-02-02] MEDS: ATORVASTATIN 40 MG TAB PO SCH (20:13)
[2022-02-02] MEDS: OXYBUTYNIN CHLORIDE 5 MG TAB PO SCH (20:13)
[2022-02-02] MEDS: oxyCODONE/ACETAMINOPHEN 5mg/325mg TAB PO PRN (20:14)
[2022-02-02] MEDS: MELATONIN 3 MG TAB PO PRN (20:14)
[2022-02-02 22:09] LABS: Partial Thromboplastin Ratio 4.1
[2022-02-02 22:15] LABS: Partial Thromboplastin Time 113.7 Seconds (21.0-31.0)
[2022-02-03] MEDS ORDERED: OLANZapine 10 MG/2.1 ML SDV IM STA (00:05)
[2022-02-03] MEDS ORDERED: OLANZapine 10 MG/2.1 ML SDV IM ONE (00:27)
[2022-02-03 05:46] LABS: Hematocrit (blood only) 35.2 % (34.1-44.9); Hemoglobin 11.4 g/dl (12.0-16.0); Mean Corpuscular Hemoglobin 30.4 pg (25.0-34.0); Mean Corpuscular Hgb Conc 32.4 g/dL (32.0-36.0); Mean Corpuscular Volume 93.9 fL (80.0-100.0); Mean Platelet Volume 12.6 fL (9.4-12.3); Platelet Count 78 K/uL (130-400); RDW Coefficient of Variation 13.8 % (11.5-14.5); RDW Standard Deviation 47.8 fL (36.4-46.3); Red Blood Count 3.75 M/uL (3.93-5.22); White Blood Count 13.81 K/ul (4.8-10.8)
[2022-02-03 05:58] LABS: Partial Thromboplastin Ratio 1.4; Partial Thromboplastin Time 38.7 Seconds (21.0-31.0)
[2022-02-03 06:04] LABS: BUN Creatinine Ratio 26.3 (10-20); Calcium 8.3 mg/dl (8.5-10.1); Creatinine Clr Calc Pharmacy 38.5 ml/min; Est GFR (African American) 37.4 ml/min; Est GFR (Non-African American) 32.3 ml/min
[2022-02-03] MEDS: ASPIRIN 81 MG ECTAB PO SCH (08:36)
[2022-02-03] MEDS: CHOLECALCIFEROL 1,000 UNITS 25 MCG TAB PO SCH (08:36)
[2022-02-03] MEDS: MAGNESIUM OXIDE 400 MG TAB PO SCH ×2 (08:36→21:06)
[2022-02-03] MEDS: METOPROLOL TARTRATE 100 MG TAB PO SCH ×2 (08:36→21:06)
[2022-02-03] MEDS: amLODIPine BESYLATE 5 MG TAB PO SCH (08:36)
[2022-02-03] MEDS: CITALOPRAM 20 MG TAB PO SCH (08:36)
[2022-02-03] MEDS: PANTOprazole 40 MG TAB PO SCH (08:37)
[2022-02-03] MEDS: LIDOCAINE 5% 1 PATCH TD SCH (08:37)
[2022-02-03 11:43] LABS: Partial Thromboplastin Ratio 1.6; Partial Thromboplastin Time 44.5 Seconds (21.0-31.0)
--- NOTE | 2022-02-03 12:03 | Hospitalist Progress Note ---
Date of Service February 03, 2022 Assessment & Plan (1) Right sided abdominal pain: (2) Renal colic: (3) Hydronephrosis: (4) Elevated lactic acid level: (5) Nephrolithiasis: Plan: MILI on CKD 3 CT abd/Pelvis showed 4mm obstructing calculus in mid ureter, moderate right hydroureteronephrosis. Other nonobstructing renal calculi b/l Cr 1.43 on admission S/p cystoscopy and right stent placement by urology on 01/31/22 Cr peaked 2.34 and trending down. 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 Rate controlled on metoprolol Continue hep drip Cards eval noted. TTE noted mild conc LVH, EF 60-65, LA mild dilated, mild MR Had delirium overnight. Was confused at the time of my evaluation No focal neurological deficit on exam. However, will get CT head w/o co prior to starting hep gtt. (7) Delirium: Plan: Delirious episodes who was at bedside reported she has had similar episodes in the past CT head is negative for any acute abnormalities Redirect as needed also reports patient has h/o CARISSA but quit using CPAP a while ago. Patient stated she is willing to try it in the hospital. CPAP HS (8) Hypertension: Plan: BP stable Continue amlodipine Plan Depression Continue citalopram PT/OT eval- rehab recommended Admission and Anticipated Discharge Date Admission Date: January 30, 2022 Subjective Patient seen and examined Patient is alert, oriented to person and time, not sure where she is Some confusion Was agitated overnight Currently denied any chest pain, shortness of breath Denied any shortness of breath, cough, palpitations, chest pain Reports right sided abd pain only when she coughs. Denied any fevers, chills, nausea, vomiting Physical Exam Constitutional: + well hydrated and + obese; no acute distress Eyes: PERRL, conjunctivae normal, anicteric sclerae ENMT: external ear and nose normal, oropharynx normal Respiratory: normal respiratory effort; no respiratory distress +wheeze Cardiovascular: Rate/Rhythm: + irregularly irregular S1 S2 Gastrointestinal (Abdomen): normal bowel sounds, soft, nontender, no hepatosplenomegaly Musculoskeletal: No pedal edema Neurologic: PERRL, EOMI, accommodation nl, no face palsy, no dysarthria Psychiatric: Alert and oriented to person and date, not to place. +confused Results & Data Results & Data ([facility]) Vital Signs (Past 12 Hours) Vital Signs Temp Pulse Pulse Resp BP Pulse Ox O2 Del Method 02/03/22 09:00 Nasal Cannula 02/03/22 11:24 36.5 C 71 19 134/85 97 Nasal Cannula 02/03/22 08:51 77 02/03/22 06:44 36.5 C 77 20 138/80 95 02/03/22 00:09 36.6 C 56 L 18 177/67 H 96 Room Air O2 Flow Rate 02/03/22 09:00 2 02/03/22 11:24 2 02/03/22 08:51 02/03/22 06:44 2 02/03/22 00:09 Laboratory Results Abnormal lab results 02/02/22 02/02/22 02/02/22 Range/Units 14:40 14:40 19:48 WBC 22.29 H (4.8-10.8) K/ul RBC 3.65 L (3.93-5.22) M/uL Hgb 11.3 L (12.0-16.0) g/dl Hct 33.9 L (34.1-44.9) % RDW Std Deviation 46.8 H (36.4-46.3) fL Plt Count 68 L (130-400) K/uL MPV 12.5 H (9.4-12.3) fL Neut # (Auto) 20.61 H (1.4-6.5) K/uL Lymph # (Auto) 0.65 L (1.2-3.4) K/uL Immature Gran # (Auto) 0.08 H (0.00-0.02) K/uL APTT 37.7 H (21.0-31.0) Seconds ABG pH 7.33 L (7.35-7.45) ABG O2 Saturation 98.4 H (90-95) % Chloride (98-107) mmol/L BUN (6-23) mg/dl Creatinine (0.6-1.2) mg/dl BUN/Creatinine Ratio (10-20) Glucose (70-99(Fasting)) mg/dl Calcium (8.5-10.1) mg/dl 02/02/22 02/03/22 02/03/22 Range/Units 21:24 05:29 05:29 WBC 13.81 H (4.8-10.8) K/ul RBC 3.75 L (3.93-5.22) M/uL Hgb 11.4 L (12.0-16.0) g/dl Hct (34.1-44.9) % RDW Std Deviation 47.8 H (36.4-46.3) fL Plt Count 78 L (130-400) K/uL MPV 12.6 H (9.4-12.3) fL Neut # (Auto) (1.4-6.5) K/uL Lymph # (Auto) (1.2-3.4) K/uL Immature Gran # (Auto) (0.00-0.02) K/uL APTT 113.7 H* 38.7 H (21.0-31.0) Seconds ABG pH (7.35-7.45) ABG O2 Saturation (90-95) % Chloride (98-107) mmol/L BUN (6-23) mg/dl Creatinine (0.6-1.2) mg/dl BUN/Creatinine Ratio (10-20) Glucose (70-99(Fasting)) mg/dl Calcium (8.5-10.1) mg/dl 02/03/22 02/03/22 Range/Units 05:29 11:11 WBC (4.8-10.8) K/ul RBC (3.93-5.22) M/uL Hgb (12.0-16.0) g/dl Hct (34.1-44.9) % RDW Std Deviation (36.4-46.3) fL Plt Count (130-400) K/uL MPV (9.4-12.3) fL Neut # (Auto) (1.4-6.5) K/uL Lymph # (Auto) (1.2-3.4) K/uL Immature Gran # (Auto) (0.00-0.02) K/uL APTT 44.5 H (21.0-31.0) Seconds ABG pH (7.35-7.45) ABG O2 Saturation (90-95) % Chloride 111 H (98-107) mmol/L BUN 40 H (6-23) mg/dl Creatinine 1.52 H (0.6-1.2) mg/dl BUN/Creatinine Ratio 26.3 H (10-20) Glucose 139 H (70-99(Fasting)) mg/dl Calcium 8.3 L (8.5-10.1) mg/dl (1) Hydronephrosis Hydronephrosis type: with renal calculous obstruction Qualified Code(s): N13.2 - Hydronephrosis with renal and ureteral calculous obstruction
--- NOTE | 2022-02-03 12:28 | Cardiology Progress Note ---
Date of Service February 03, 2022 Assessment & Plan (1) Afib: (2) Acute kidney injury: Plan: 81 year old chronically ill female. BMI 55 kg/m2. Has port (chronically) for IV access, h/o difficulty finding veins for blood draws. s/p cystoscopy, Retrograde Pyelogram, Right Stent Placement 01/31/22. Creatinine of 2.14 on admission 01/31 , down to 1.52. Atrial fibrillation is a new diagnosis for her. Continue chronic metoprolol for rate control. On heparin infusion for stroke prophylaxis. Transition to oral medication complicated by factors of acute kidney injury , obesity, and difficulty with obtaining blood samples. Continue heparin infusion for now. Admission and Anticipated Discharge Date Admission Date: January 30, 2022 Subjective Patient seen in follow up. Resting comfortably. Son, Pola, is at bedside and state she was agitated yesterday. He spoke to her on the phone this am and felt she was much improved. Telemetry reveals rate controlled AF in the 70s. Review of Systems Review of Systems: Unobtainable due to reduced consciousness Physical Exam Physical Exam: Temp Pulse Resp BP Pulse Ox O2 Del Method O2 Flow Rate 36.5 C 71 19 134/85 97 2 02/03/22 11:24 02/03/22 11:24 02/03/22 11:24 02/03/22 11:24 02/03/22 11:24 02/03/22 11:24 02/03/22 11:24 Constitutional: + morbidly obese Respiratory: normal respiratory effort, lungs clear to auscultation Cardiovascular: irregular rhythm, no murmurs, exam limited due to patient characteristics Gastrointestinal (Abdomen): normal bowel sounds, soft, nontender, no hepatosplenomegaly Results & Data ([facility]) Vital Signs (Past 12 Hours) Vital Signs Temp Pulse Pulse Resp BP Pulse Ox O2 Del Method 02/03/22 09:00 Nasal Cannula 02/03/22 11:24 36.5 C 71 19 134/85 97 Nasal Cannula 02/03/22 08:51 77 02/03/22 06:44 36.5 C 77 20 138/80 95 O2 Flow Rate 02/03/22 09:00 2 02/03/22 11:24 2 02/03/22 08:51 02/03/22 06:44 2 Laboratory Results Coagulation 02/02/22 02/02/2222 Range/Units 14:40 21:24 05:29 PT 11.4 (9.0-12.0) Seconds APTT 37.7 H 113.7 H* 38.7 H (21.0-31.0) Seconds 02/03/22 Range/Units 11:11 PT (9.0-12.0) Seconds APTT 44.5 H (21.0-31.0) Seconds CBC 02/02/22 02/03/22 Range/Units 14:40 05:29 WBC 22.29 H 13.81 H (4.8-10.8) K/ul RBC 3.65 L 3.75 L (3.93-5.22) M/uL Hgb 11.3 L 11.4 L (12.0-16.0) g/dl Hct 33.9 L 35.2 (34.1-44.9) % Plt Count 68 L 78 L (130-400) K/uL Neut # (Auto) 20.61 H (1.4-6.5) K/uL Lymph # (Auto) 0.65 L (1.2-3.4) K/uL [place] # (Auto) 0.53 (0.24-0.82) K/uL Eos # (Auto) 0.35 (0-0.50) K/uL Baso # (Auto) 0.07 (0-0.2) K/uL Comprehensive Metabolic Panel 02/03/22 Range/Units 05:29 Sodium 138 (136-145) mmol/L Potassium 5.0 (3.5-5.1) mmol/L Chloride 111 H (98-107) mmol/L Carbon Dioxide 21 (21-32) mmol/L BUN 40 H (6-23) mg/dl Creatinine 1.52 H (0.6-1.2) mg/dl Glucose 139 H (70-99(Fasting)) mg/dl Calcium 8.3 L (8.5-10.1) mg/dl Diagnostic Findings Echocardiogram performed 02/02: mild concentric LVH Normal wall motion LVEF 60-65% Moderate mitral annular calcification mild MR
[2022-02-03] MEDS: HEPARIN SODIUM/DEXTROSE 25,000 UNITS/500 ML BAG IV SCH ×2 (15:27→21:04)
[2022-02-03 20:37] LABS: Partial Thromboplastin Ratio 1.7
[2022-02-03 20:43] LABS: Partial Thromboplastin Time 46.4 Seconds (21.0-31.0)
[2022-02-03] MEDS: ATORVASTATIN 40 MG TAB PO SCH (21:06)
[2022-02-03] MEDS: OXYBUTYNIN CHLORIDE 5 MG TAB PO SCH (21:06)
[2022-02-03] MEDS: cefTRIAXone SODIUM 2,000 MG in DEXTROSE 5% 50 ML IV SCH (21:13)
[2022-02-04 07:01] LABS: Basophils # (auto) 0.05 K/uL (0-0.2); Basophils % (auto) 0.3 %; Eosinophils # (auto) 0.03 K/uL (0-0.50); Eosinophils % (auto) 0.2 %; Hematocrit (blood only) 33.9 % (34.1-44.9); Hemoglobin 11.4 g/dl (12.0-16.0); Immature Granulocytes # (auto) 0.33 K/uL (0.00-0.02); Immature Granulocytes % (auto) 2.2 %; Lymphocytes # (auto) 1.11 K/uL (1.2-3.4); Lymphocytes % (auto) 7.3 %; Mean Corpuscular Hemoglobin 30.9 pg (25.0-34.0); Mean Corpuscular Hgb Conc 33.6 g/dL (32.0-36.0); Mean Corpuscular Volume 91.9 fL (80.0-100.0); Mean Platelet Volume 12.8 fL (9.4-12.3); Monocytes # (auto) 1.19 K/uL (0.24-0.82); Monocytes % (auto) 7.9 %; Neutrophils # (auto) 12.42 K/uL (1.4-6.5); Neutrophils % (auto) 82.1 %; Platelet Count 101 K/uL (130-400); RDW Coefficient of Variation 13.4 % (11.5-14.5); RDW Standard Deviation 45.5 fL (36.4-46.3); Red Blood Count 3.69 M/uL (3.93-5.22); White Blood Count 15.13 K/ul (4.8-10.8)
[2022-02-04 07:17] LABS: Partial Thromboplastin Ratio 1.5; Partial Thromboplastin Time 41.4 Seconds (21.0-31.0)
[2022-02-04] MEDS: amLODIPine BESYLATE 5 MG TAB PO SCH (08:47)
[2022-02-04] MEDS: CHOLECALCIFEROL 1,000 UNITS 25 MCG TAB PO SCH (08:49)
[2022-02-04] MEDS: MAGNESIUM OXIDE 400 MG TAB PO SCH ×2 (08:49→21:26)
[2022-02-04] MEDS: LIDOCAINE 5% 1 PATCH TD SCH (08:49)
[2022-02-04] MEDS: CITALOPRAM 20 MG TAB PO SCH (08:49)
[2022-02-04] MEDS: METOPROLOL TARTRATE 100 MG TAB PO SCH ×2 (08:49→21:25)
[2022-02-04] MEDS: ASPIRIN 81 MG ECTAB PO SCH (08:49)
[2022-02-04] MEDS: PANTOprazole 40 MG TAB PO SCH (08:50)
[2022-02-04 09:31] LABS: BUN Creatinine Ratio 33.9 (10-20); Calcium 9.1 mg/dl (8.5-10.1); Creatinine Clr Calc Pharmacy 46.1 ml/min; Est GFR (African American) 46.5 ml/min; Est GFR (Non-African American) 40.1 ml/min; Potassium 4.3 mmol/L (3.5-5.1)
--- NOTE | 2022-02-04 10:22 | Hospitalist Progress Note ---
Date of Service February 04, 2022 Assessment & Plan (1) Right sided abdominal pain: (2) Renal colic: (3) Hydronephrosis: (4) Elevated lactic acid level: (5) Nephrolithiasis: Plan: MILI on CKD 3 CT abd/Pelvis showed 4mm obstructing calculus in mid ureter, moderate right hydroureteronephrosis. Other nonobstructing renal calculi b/l Cr 1.43 on admission S/p cystoscopy and right stent placement by urology on 01/31/22 MILI likely from obstructive uropathy with other contributors including dehydration and contrast patient got on admission with CT ab/P Radiation Therapy Technician eval/recs noted Cr peaked 2.34 and trending down. Cr is 1.27 today UA suggestive of possible UTI though urine culture from 01/30/22 is negative Leukocytosis improving Elevated lactate on admission now resolved Hence sepsis is a possibility Continue ceftriaxone to complete treatment Blood culture negative so far (6) Afib: Plan: Patient flipped into Afib on 02/01/22 from sinus New Afib CHADVASC is 4. Rate controlled on metoprolol Currently on hep drip Cards eval noted. TTE noted mild conc LVH, EF 60-65, LA mild dilated, mild MR Renal function improving. Warfarin v DOAC. Will assess affordability and coverage of eliquis tomorrow (7) Delirium: Plan: Delirious episodes Improved who was at bedside reported she has had similar episodes in the past CT head is negative for any acute abnormalities Redirect as needed also reports patient has h/o CARISSA but quit using CPAP a while ago. Trial of CPAP HS if patient agrees (8) Hypertension: Plan: BP trending up Monitor Continue amlodipine Plan Depression Continue citalopram PT/OT eval- rehab recommended CM notified Admission and Anticipated Discharge Date Admission Date: January 30, 2022 Subjective Patient seen and examined Patient is alert, oriented to person, place or time Currently not confused and has better insight than past 2 days Denied any shortness of breath, cough, palpitations, chest pain Denied any fevers, chills, nausea, vomiting, abd pain Denied any headache, dizziness Physical Exam Constitutional: + well hydrated and + obese; no acute distress Eyes: PERRL, conjunctivae normal, anicteric sclerae ENMT: external ear and nose normal, oropharynx normal Respiratory: normal respiratory effort; no respiratory distress Diminished breath sounds Cardiovascular: Rate/Rhythm: + irregularly irregular S1 S2 Gastrointestinal (Abdomen): normal bowel sounds, soft, nontender, no hepatosplenomegaly Ileostomy bag in place Musculoskeletal: No pedal edema Neurologic: PERRL, EOMI, accommodation nl, no face palsy, no dysarthria Psychiatric: A+Ox3, euthymic affect Results & Data Results & Data ([facility]) Vital Signs (Past 12 Hours) Vital Signs Temp Pulse Pulse Resp BP BP Pulse Ox 02/04/22 08:49 36.9 C 81 18 153/71 H 98 02/04/22 07:49 78 02/04/22 04:20 36.8 C 85 20 152/86 H 99 02/03/22 23:57 85 02/03/22 23:57 36.4 C L 92 H 20 157/81 H 99 O2 Del Method O2 Flow Rate 02/04/22 08:49 Nasal Cannula 2 02/04/22 07:49 02/04/22 04:20 Nasal Cannula 2 02/03/22 23:57 02/03/22 23:57 Nasal Cannula 2 Laboratory Results Abnormal lab results 02/03/22 02/04/22 02/04/22 Range/Units 20:00 06:26 06:26 WBC 15.13 H (4.8-10.8) K/ul RBC 3.69 L (3.93-5.22) M/uL Hgb 11.4 L (12.0-16.0) g/dl Hct 33.9 L (34.1-44.9) % Plt Count 101 L (130-400) K/uL MPV 12.8 H (9.4-12.3) fL Neut # (Auto) 12.42 H (1.4-6.5) K/uL Lymph # (Auto) 1.11 L (1.2-3.4) K/uL [place] # (Auto) 1.19 H (0.24-0.82) K/uL Immature Gran # (Auto) 0.33 H (0.00-0.02) K/uL APTT 46.4 H* 41.4 H (21.0-31.0) Seconds Chloride (98-107) mmol/L BUN (6-23) mg/dl Creatinine (0.6-1.2) mg/dl BUN/Creatinine Ratio (10-20) // Range/Units 06:34 WBC (4.8-10.8) K/ul RBC (3.93-5.22) M/uL Hgb (12.0-16.0) g/dl Hct (34.1-44.9) % Plt Count (130-400) K/uL MPV (9.4-12.3) fL Neut # (Auto) (1.4-6.5) K/uL Lymph # (Auto) (1.2-3.4) K/uL [place] # (Auto) (0.24-0.82) K/uL Immature Gran # (Auto) (0.00-0.02) K/uL APTT (21.0-31.0) Seconds Chloride 113 H (98-107) mmol/L BUN 43 H (6-23) mg/dl Creatinine 1.27 H (0.6-1.2) mg/dl BUN/Creatinine Ratio 33.9 H (10-20) (1) Hydronephrosis Hydronephrosis type: with renal calculous obstruction Qualified Code(s): N13.2 - Hydronephrosis with renal and ureteral calculous obstruction
--- NOTE | 2022-02-04 12:56 | Cardiology Progress Note ---
Date of Service February 04, 2022 Assessment & Plan (1) Afib: (2) Delirium: (3) Acute kidney injury: (4) Hydronephrosis: Plan: (1) Afib: -Pt noted to develop rate controlled AF after cystocopy. -Continue metoprolol and heparin. -Creatinine down to 1.27. No symptoms of AF. Choosing an oral anticoagulant complicated in the setting of morbid obesity and MILI. Also longstanding h/o difficulty with blood draws and therefore has an indwelling port for access. Given obesity with BMI of 55 kg/m2 warfarin favored over DOAC. Anticipate however that obtaining routine INRs will be challenging. Perhaps Eliquis would be acceptable if renal function continues to improve and is affordable. (2) Delirium: -Mental status improved today, 02/04. (3) Acute kidney injury: Improving (4) Hydronephrosis: s/p cystoscopy, Retrograde Pyelogram, Right Stent Placement 01/31/22. Creatinine of 2.14 on admission 01/31 , down to 1.27 mg/dl. (5) HTN BP has trended up. Continue amlodipine, metoprolol, Will follow up repeat BP. Admission and Anticipated Discharge Date Admission Date: January 30, 2022 Subjective Pt seen in cardiology follow up of newly recognized atrial fibrillation. She is more alert today and is conversant. No subjective complaints. Telemetry reveals rate controlled atrial fibrillation in the 70s. Physical Exam Physical Exam: Temp Pulse Resp BP Pulse Ox O2 Del Method O2 Flow Rate 36.8 C 70 96 H 190/80 H 96 2 02/04/22 11:39 02/04/22 11:39 02/04/22 11:39 02/04/22 11:39 02/04/22 11:39 02/04/22 11:39 02/04/22 11:39 Constitutional: + morbidly obese Respiratory: normal respiratory effort, lungs clear to auscultation Gastrointestinal (Abdomen): normal bowel sounds, soft, nontender, no hepatosplenomegaly Results & Data ([facility]) Vital Signs (Past 12 Hours) Vital Signs Temp Pulse Pulse Resp BP BP Pulse Ox 02/04/22 11:39 36.8 C 70 96 H 190/80 H 96 02/04/22 08:49 36.9 C 81 18 153/71 H 98 02/04/22 07:49 78 02/04/22 04:20 36.8 C 85 20 152/86 H 99 O2 Del Method O2 Flow Rate 02/04/22 11:39 Nasal Cannula 2 02/04/22 08:49 Nasal Cannula 2 02/04/22 07:49 02/04/22 04:20 Nasal Cannula 2 Laboratory Results Coagulation 02/03/22 02/03/22 02/04/22 Range/Units 17:55 20:00 06:26 APTT Cancelled 46.4 H* 41.4 H CBC 02/04/22 Range/Units 06:26 WBC 15.13 H (4.8-10.8) K/ul RBC 3.69 L (3.93-5.22) M/uL Hgb 11.4 L (12.0-16.0) g/dl Hct 33.9 L (34.1-44.9) % Plt Count 101 L (130-400) K/uL Neut # (Auto) 12.42 H (1.4-6.5) K/uL Lymph # (Auto) 1.11 L (1.2-3.4) K/uL [place] # (Auto) 1.19 H (0.24-0.82) K/uL Eos # (Auto) 0.03 (0-0.50) K/uL Baso # (Auto) 0.05 (0-0.2) K/uL Comprehensive Metabolic Panel 02/04/22 Range/Units 06:34 Sodium 141 (136-145) mmol/L Potassium 4.3 (3.5-5.1) mmol/L Chloride 113 H (98-107) mmol/L Carbon Dioxide 21 (21-32) mmol/L BUN 43 H (6-23) mg/dl Creatinine 1.27 H (0.6-1.2) mg/dl Glucose 95 (70-99(Fasting)) mg/dl Calcium 9.1 (8.5-10.1) mg/dl Intake and Output 02/03/22 02/04/22 02/04/22 22:59 06:59 14:59 Intake Total 367.133 / 558.600 100 / 558.600 188.7 / 188.7 Output Total 750 / 1600 550 / 1600 Balance -382.867 / -1041.400 -450 / -1041.400 188.7 / 188.7 Intake: IV 217.133 / 308.600 188.7 / 188.7 Heparin Sodium/Dextrose 25,000 163.8 / 255.267 188.7 / 188.7 units In 500 ml @ 900 UNITS/HR 18 mls/hr IV .Q24H [facility] Rx#: [id number] cefTRIAXone SODIUM 2,000 mg In 53.333 / 53.333 Dextrose 5% 50 ml @ 100 mls/hr IV Q24H [facility] Rx#:[id number] Oral 150 / 250 100 / 250 Output: Urine Amount (Catheter) 450 / 1200 450 / 1200 External 450 / 1200 450 / 1200 Gastric Drainage 300 / 400 100 / 400 Ileostomy/Colostomy 300 / 400 100 / 400 (1) Hydronephrosis Hydronephrosis type: with renal calculous obstruction Qualified Code(s): N13.2 - Hydronephrosis with renal and ureteral calculous obstruction
[2022-02-04 18:02] LABS: Partial Thromboplastin Ratio 1.2; Partial Thromboplastin Time 33.6 Seconds (21.0-31.0)
[2022-02-04] MEDS ORDERED: HEPARIN SOD (PORCINE) 1000 UNIT/ML IV ONE (18:15)
[2022-02-04] MEDS: OXYBUTYNIN CHLORIDE 5 MG TAB PO SCH (21:25)
[2022-02-04] MEDS: ATORVASTATIN 40 MG TAB PO SCH (21:26)
[2022-02-04] MEDS: cefTRIAXone SODIUM 2,000 MG in DEXTROSE 5% 50 ML IV SCH (21:26)
[2022-02-04] MEDS: MELATONIN 3 MG TAB PO PRN (21:35)
[2022-02-04] MEDS: ACETAMINOPHEN 325 MG TAB PO PRN (22:04)
[2022-02-05 01:00] LABS: Partial Thromboplastin Ratio 1.4; Partial Thromboplastin Time 37.7 Seconds (21.0-31.0)
[2022-02-05] MEDS: HEPARIN SODIUM/DEXTROSE 25,000 UNITS/500 ML BAG IV SCH (01:04)
[2022-02-05] MEDS ORDERED: HEPARIN SOD (PORCINE) 1000 UNIT/ML IV ONE (01:30)
[2022-02-05 08:23] LABS: Hematocrit (blood only) 37.4 % (34.1-44.9); Hemoglobin 12.1 g/dl (12.0-16.0); Mean Corpuscular Hemoglobin 30.1 pg (25.0-34.0); Mean Corpuscular Hgb Conc 32.4 g/dL (32.0-36.0); RDW Coefficient of Variation 13.7 % (11.5-14.5); RDW Standard Deviation 47.1 fL (36.4-46.3); Red Blood Count 4.02 M/uL (3.93-5.22); White Blood Count 10.62 K/ul (4.8-10.8)
[2022-02-05] MEDS: MAGNESIUM OXIDE 400 MG TAB PO SCH (08:27)
[2022-02-05] MEDS: PANTOprazole 40 MG TAB PO SCH (08:27)
[2022-02-05] MEDS: CHOLECALCIFEROL 1,000 UNITS 25 MCG TAB PO SCH (08:27)
[2022-02-05] MEDS: METOPROLOL TARTRATE 100 MG TAB PO SCH (08:27)
[2022-02-05] MEDS: ASPIRIN 81 MG ECTAB PO SCH (08:27)
[2022-02-05] MEDS: CITALOPRAM 20 MG TAB PO SCH (08:27)
[2022-02-05] MEDS: amLODIPine BESYLATE 5 MG TAB PO SCH (08:27)
[2022-02-05] MEDS: LIDOCAINE 5% 1 PATCH TD SCH (08:28)
[2022-02-05 08:47] LABS: Mean Platelet Volume 13.2 fL (9.4-12.3); Platelet Count 118 K/uL (130-400)
[2022-02-05 08:51] LABS: Partial Thromboplastin Ratio 2.1
[2022-02-05 08:53] LABS: Partial Thromboplastin Time 57.5 Seconds (21.0-31.0)
--- NOTE | 2022-02-05 08:58 | Cardiology Progress Note ---
Date of Service February 05, 2022 Assessment & Plan (1) Afib: (2) Delirium: (3) Acute kidney injury: (4) Hydronephrosis: (5) HTN (hypertension): Plan Atrial fibrillation. Develop rate controlled atrial fibrillation after cystoscopy. Asymptomatic, chronically prescribed metoprolol tartrate 100 mg twice a day. Continue metoprolol tartrate as prescribed for rate control. Recommend transitioning IV heparin to oral Coumadin. Coumadin recommended over a DOAC due to GI history, obesity, renal impairment. Patient notably lives [address] Soler's Office and the [facility] for fingerstick INR's Hypertension. Blood pressure uncontrolled. LVH on echo this admission. Continue metoprolol and amlodipine. ? OK to add ACEI/ARB at this point. Delirium: Seemingly much improved. Back to baseline. Acute kidney injury: Improved. Followed by Nephrology Hydronephrosis:Status post cystoscopy, retrograde pyelogram, right stent placement 01/31/22. Creatinine improved. Sleep apnea. Untreated. Obesity: BMI 56.0 Admission and Anticipated Discharge Date Admission Date: January 30, 2022 Supervising Physician Co-Signing Physician Notes Supervising Physician Attestation: I have personally performed a history and physical examination on the patient. I agree with the physician assistant field hockey coach's findings and plan as documented with the following additions. Subjective: No subjective complaints from a cardiology perspective. Rate controlled atrial fibrillation noted on telemetry. Exam: Cardiovascular: Irregular rhythm, rate controlled Data: Hemoglobin 12. 1 Assessment and Plan: Persistent atrial fibrillation -As noted, rate controlled metoprolol -Start Coumadin, which is felt to be anticoagulant of choice given recent renal insufficiency, and obesity. Patient with difficulty with regards to phlebotomy, difficulty obtaining samples, but as an outpatient, lives close by to the [facility] anticoagulation clinic for fingerstick INR measurements can be obtained. Patient stable from a cardiology perspective to transition to rehab. Can complete Coumadin loading there. Continue heparin infusion while hospitali zed. DVT prophylaxis: On heparin to Coumadin Abilio Underwood, Subjective Patient seen and examined. Chart, medications, and telemetry reviewed. at bedside. Mild right sided epistaxis earlier this morning. Blood pressure elevated the last two days. Patient unaware of the atrial fibrillation (new diagnosis this admission). Chronic intermittent lower extremity edema, on amlodipine Patient specifically denies palpitations, new or worsening shortness of breath, chest pain, PND, dizziness, or near syncope. Review of Systems Review of Systems: Complete Review of Systems is as stated above, negative, or noncontributory. Physical Exam Physical Exam: Examined in a bed with the head elevated at 45 degrees General: A&Ox3. NAD. Elevated BMI HENT: Oxygen via NC. Mild blood right nares. Normocephalic. Atraumatic. Eyes: PER. Conjunctiva pink, sclera clear. Neck: No carotid bruits. No JVD. Chest: Left sided port Heart: Distant heart sounds. Irregularly irregular in the 70's. No murmur appreciated. Lungs: Clear to auscultation. Abdomen: +iliostomy. Extremities: Thick. Lymphedematous changes. Mild edema. No clubbing. No cyanosis. Limited neurological examination is without focal deficits. Pulses: 1/4. Results & Data ([facility]) Vital Signs (Past 12 Hours) Vital Signs Temp Pulse Pulse Resp BP Pulse Ox O2 Del Method 02/05/22 07:36 73 02/05/22 07:34 36.8 C 20 144/75 H 95 02/05/22 04:00 37.0 C 82 20 144/79 H 92 Nasal Cannula 02/04/22 22:25 84 02/04/22 23:00 37.1 C 93 H 20 161/84 H 95 Nasal Cannula O2 Flow Rate 02/05/22 07:36 02/05/22 07:34 2 02/05/22 04:00 2 02/04/22 22:25 02/04/22 23:00 2 Laboratory Results Laboratory Results - last 24 hr 02/04/22 02/04/22 02/05/22 06:34 17:36 00:20 WBC RBC Hgb Hct MCV MCH MCHC RDW Std Deviation RDW Coeff of Nino Plt Count MPV APTT 33.6 H 37.7 H PTT Ratio 1.2 1.4 Sodium 141 Potassium 4.3 Chloride 113 H Carbon Dioxide 21 Anion Gap 7 BUN 43 H Creatinine 1.27 H Est Cr Clr Drug Dosing 46.1 Est GFR ( Amer) 46.5 Est GFR (Non-Af Amer) 40.1 BUN/Creatinine Ratio 33.9 H Glucose 95 Calcium 9.1 02/05/22 02/05/22 02/05/22 06:47 07:01 07:01 WBC 10.62 RBC 4.02 Hgb 12.1 Hct 37.4 MCV 93.0 MCH 30.1 MCHC 32.4 RDW Std Deviation 47.1 H RDW Coeff of Nino 13.7 Plt Count 118 L MPV 13.2 H APTT 57.5 H* PTT Ratio 2.1 Sodium 141 Potassium 4.7 Chloride 112 H Carbon Dioxide 22 Anion Gap 7 BUN 41 H Creatinine 1.16 Est Cr Clr Drug Dosing 51.2 Est GFR ( Amer) 51.9 Est GFR (Non-Af Amer) 44.7 BUN/Creatinine Ratio 35.3 H Glucose 84 Calcium 9.0 Diagnostic Findings Telemetry: Atrial fibrillation with a controlled ventricular response, rates typically in the 60's and 70's. February 03, 2022 TTE Interpretation Summary ([facility], Dr. Underwood): Technically adequate. Atrial fibrillation with mildly elevated ventricular rate was present at the time of the echocardiogram. There is mild concentric left ventricular hypertrophy. No regional wall motion abnormalities noted. The LV ejection fraction is 60-65%. The left atrial is mildly dilated. There is moderate mitral annular calcification. There is mild mitral regurgitation. (1) Hydronephrosis Hydronephrosis type: with renal calculous obstruction Qualified Code(s): N13.2 - Hydronephrosis with renal and ureteral calculous obstruction
[2022-02-05 08:59] LABS: BUN Creatinine Ratio 35.3 (10-20); Creatinine Clr Calc Pharmacy 51.2 ml/min; Est GFR (African American) 51.9 ml/min; Est GFR (Non-African American) 44.7 ml/min; Potassium 4.7 mmol/L (3.5-5.1)
--- NOTE | 2022-02-05 12:46 | Hospitalist Progress Note ---
Date of Service February 05, 2022 Assessment & Plan Admission and Anticipated Discharge Date Admission Date: January 30, 2022 Results & Data Results & Data ([facility]) Vital Signs (Past 12 Hours) Vital Signs Temp Pulse Pulse Resp BP Pulse Ox O2 Del Method 02/05/22 11:43 Nasal Cannula 02/05/22 11:00 36.4 C L 83 20 147/72 H 98 Nasal Cannula 02/05/22 07:36 73 02/05/22 07:34 36.8 C 20 144/75 H 95 02/05/22 04:00 37.0 C 82 20 144/79 H 92 Nasal Cannula O2 Flow Rate 02/05/22 11:43 2 02/05/22 11:00 2 02/05/22 07:36 02/05/22 07:34 2 02/05/22 04:00 2
--- NOTE | 2022-02-05 15:02 | Discharge Summary ---
Date of Service February 05, 2022 Admission HPI Per Admitting Provider This is a 81-year-old female with past medical history significant for prediabetes, chronic rhinitis, hypertension, history of questionable Crohn's disease, status post colectomy with ileostomy, history of pulmonary sarcoidosis, lesion on chest CT, no hypercalcemia, not on therapy urge incontinence, stress incontinence, chronic kidney disease stage III, history of sicca syndrome, history of nonmelanoma skin cancer, who lives at home, presents with abdominal pain. The patient states her pain got worse around 4 p.m., mostly in the right lower abdomen around the colostomy bag associated with some dry heaves. In the ER, she was given pain medications and CAT scan showed a 4 mm obstructing calculus in the mid right ureter with moderate right hydroureteronephrosis. No small bowel obstruction seen. Currently, resting comfortably, says she has a burning micturition earlier. She says that she had severe headache earlier that has resolved now. Denies any blurred visions, no runny nose, no sore throat, no cough, no earaches, no chest pain, no shortness of breath, afebrile. Ambulates with a walker. Ileostomy is working okay Admission Exam Per Admitting Provider GENERAL: The patient is obese, not in acute distress. VITAL SIGNS: Temperature 36.9, pulse 97, respiratory rate 16, blood pressure 132/60, oxygen 96% on room air. HEENT: Pupils equal, round and reactive to light. Oral mucosa moist. NECK: No JVD. No neck masses. CARDIOVASCULAR: S1 and S2 heard. Regular rate and rhythm. No murmur, no gallop. RESPIRATORY SYSTEM: Normal AP diameter. No accessory muscle use. No wheezing, no crackles. ABDOMEN: Soft, bowel sounds present. Mild discomfort. Ileostomy site is okay. CENTRAL NERVOUS SYSTEM: Cranial nerves II through XII grossly intact, nonfocal. EXTREMITIES: Lower extremity edema present, no erythema seen. Principal Diagnosis Acute on chronic kidney disease stage II Kidney stones and Ureteric stone status post stent placement New onset Atrial fibrillation Delirium Discharge Exam Constitutional + well hydrated and + obese; no acute distress Eyes PERRL, conjunctivae normal, anicteric sclerae ENMT external ear and nose normal, oropharynx normal Respiratory normal respiratory effort, lungs clear to auscultation Cardiovascular Rate/Rhythm: + irregularly irregular S1 S2 Gastrointestinal (Abdomen) normal bowel sounds, soft, nontender, no hepatosplenomegaly Ileostomy bag in situ Musculoskeletal Trace pedal edema Neurologic PERRL, EOMI, accommodation nl, no face palsy, no dysarthria Psychiatric A+Ox3, euthymic affect Discharge Data Allergies Allergy/AdvReac Type Severity Reaction Status Date / Time dexamethasone Allergy Intermediate EYES Verified 01/30/22 20:32 BECAME RED AND ITCHY sulfamethoxazole Allergy Intermediate ITCHING Verified 01/30/22 20:32 tobramycin Allergy Intermediate EYES Verified 01/30/22 20:32 BECAME RED AND ITCHY trimethoprim Allergy Intermediate ITCHING Verified 01/30/22 20:32 Consultations 01/30/22 21:53 ED Decision to Admit Stat 01/31/22 08:00 Consult Urology Routine 02/01/22 11:56 Consult Nephrology Routine 02/02/22 13:59 Consult Cardiology Routine Procedures Performed Operation Date: 01/31/22 07:00 Actual Procedures p Cystoscopy Retrograde Pyelogram Right Stent Placement(Right) - Tejas Bruce MD Ordered Studies 01/30/22 18:58 CT abd pelvis IV con only Stat Lung bases: The heart is normal in size and without pericardial effusion. There are coronary artery calcifications. The mitral annulus is densely calcified. A tiny hiatal hernia is noted. The lung bases are clear noting bibasilar scarring/atelectasis. Liver: The contrast-enhanced liver is normal in size, contour, and attenuation. There is minimal central intrahepatic biliary ductal dilatation. The hepatic veins and portal veins are patent. Gallbladder: Surgically absent. Spleen: Normal in size and attenuation. Pancreas: Moderately atrophic and grossly unremarkable. Adrenal glands: Unremarkable. Kidneys: The contrast enhanced kidneys demonstrate cortical atrophy. There is a 4 mm obstructing calculus in the mid right ureter seen on image #224 at the level of L5. This causes moderate right hydroureteronephrosis. There is associated right-sided perinephric stranding and trace fluid. Urothelial thickening and enhancement is noted in the right proximal ureter. There are least 4 additional nonobstructing right renal calculi which measure up to 5 mm. There are least 2 nonobstructing left renal calculi which measure up to 4 mm. There is no left-sided hydronephrosis. A 1.6 cm cyst is noted in the interpolar right kidney. Additional subcentimeter cortical hypodensities also likely represent cysts but are too small for definitive characterization. Renal sinus cysts are noted on the left. Abdominal vasculature: The abdominal aorta is normal in course and caliber noting moderate atherosclerotic calcification. Bowel: There is postoperative change from proctocolectomy with right lower quadrant ileostomy. No bowel obstruction is identified. A small parastomal hernia contains nonobstructed small bowel loops. Peritoneum: There is no intraperitoneal free air or abdominal ascites. Postsurgical change is noted in the ventral abdominal wall with diastases of the rectus musculature. Lymphadenopathy: None. Pelvic viscera: Submucosal fat deposition is noted in the bladder wall. The bladder wall is mildly thickened with surrounding infiltration. The uterus and adnexa are normal as visualized. Skeletal structures: The skeletal structures are osteopenic. There is moderate lumbosacral spondylosis. Sclerotic change is noted in the sacroiliac joints. No lytic or blastic lesions are seen. IMPRESSION: 1. There is a 4 mm obstructing calculus in mid right ureter. This causes moderate right hydroureteronephrosis. 2. Additional nonobstructing calculi are seen in both kidneys. 3. There is postoperative change from proctocolectomy with right lower quadrant ileostomy. No bowel obstruction is seen. 4. The bladder wall appears mildly thickened and there is pericystic infiltration. Correlate with clinical findings and urinalysis. 5. Additional findings as above. 01/31/22 FL retrograde includes kub Routine 02/01/22 11:56 US Renal Bladder [US renal/blad retro comp] Urgent Kidneys: The kidneys demonstrate cortical atrophy. Echotexture is normal. The right kidney measures 11.1 cm in length and the left kidney measures 11.4 cm in length. There is no hydronephrosis. Small renal calculi seen by CT were not visualized. There is no sonographic evidence of contour deforming renal mass lesion. No perinephric fluid is identified. Bladder: The bladder is decompressed and could not be assessed. IMPRESSION: 1. The kidneys are atrophic and without hydronephrosis. 2. The bladder was decompressed and could not be assessed. 02/02/22 14:11 CT head/brain wo con Stat No acute intracranial hemorrhage, midline shift, intra-axial mass, hydrocephalus, territorial ischemia or abnormal extra-axial collection. Mild white matter hypodensities suggestive of chronic microvascular ischemic disease. Lipoma of the falx cerebri. Study is mildly motion degraded. The calvarium is intact. Hyperostosis frontalis interna. The paranasal sinuses, mastoid air cells, and middle ear cavities are clear. IMPRESSION: No acute intracranial abnormality. Hospital Course (1) Right sided abdominal pain: (2) Renal colic: (3) Hydronephrosis: (4) Elevated lactic acid level: (5) Nephrolithiasis: Patient presented with abdominal pain and was found to have acute kidney injury MILI on CKD 3 CT abd/Pelvis showed 4mm obstructing calculus in mid ureter, moderate right hydroureteronephrosis. Other nonobstructing renal calculi b/l Cr 1.43 on admission S/p cystoscopy and right stent placement by urology on 01/31/22 MILI likely from obstructive uropathy Cr peaked 2.34 and trending down. Cr is 1.16 today UA suggestive of possible UTI though urine culture from 01/30/22 is negative Elevated lactate on admission now resolved Hence sepsis is a possibility Was treated with empirical ceftriaxone while inpatient Infectious workup negative. (6) Afib: Patient flipped into Afib on 02/01/22 from sinus rhythm New Afib CHADVASC is 4. Rate controlled on metoprolol Was started on heparin drip and evaluated by Cardiology TTE noted mild conc LVH, EF 60-65, LA mild dilated, mild MR Was started on warfarin 5mg daily today for anticoagulation Educated patient and about warfarin and need to monitor INR with goal of 2-3 Patient to follow up with anticoagulation MTM (7) Delirium: Had delirious episodes while inpatient who was at bedside reported she has had similar episodes in the past CT head is negative for any acute abnormalities also reports patient has h/o CARISSA but quit using CPAP a while ago. Required oxygen while inpatient. Does not use oxygen at home. Will continue to wean off at rehab (8) Hypertension: Continue home antihypertensives Depression Continue citalopram Patient discharged to [facility] for rehab She is to follow up with PCP, Nephrology and Urology Total Time Total Time Spent Total Time Spent (In Minutes): 60 Total Time Includes: Examination of the Patient, Discharge Planning and Medication Reconciliation Discharge Plan Discharge Items Patient Disposition: Transfer Inpatient Rehab Fac Reason For Visit: ABDOMINAL PAIN Discharge Diagnosis: Acute on chronic kidney disease stage II Kidney stones and Ureteric stone status post stent placement New onset Atrial fibrillation Delirium Condition on Discharge: Fair Activity: As commented below Activity Comment: Per Physical therapist recommendations Non-emergency contact: Primary Care Provider, Pocket Setter and Urologist Call non-emergency contact if: you have any medication questions and your symptoms worsen Follow-up/Referrals: Ambrosio Cintron MD [Physician] - 02/06/22 1:00 pm Sai Soler MD [Primary Care Provider] - ( ) Diet: Heart Healthy Ambulatory Orders: Prothrombin Time INR (Routine) Timeframe: 2 Days Location: Determined by Patient Ordered By: Lou Reno Attending Provider Instructions: Mrs Tapia You came to the hospital complaining of abdominal pain. You were evaluated and found to have obstructing kidney stone and acute kidney injury. You had a procedure by the Urologist with stent placement. Your acute kidney injury resolved. You also developed an abnormal heart rhythm called Atrial fibrillation while in the hospital. You were started on a blood thinner called warfarin or coumadin to reduce the risk of stroke associated with this abnormal rhythm. Warfarin increases the risk of bleeding. Hence you have to be mindful of this with any surgical or dental procedure in the future. While one is on warfarin, you will require regular blood test called INR which shows how thin your blood is. Your goal INR is 2-3 as we discussed. INR levels can be affected by medications (such as antibiotics) and diet. Please ensure your doctors know you are on warfarin when being prescribed any new medications. You are being discharged to rehab. They will continue to monitor your INR over there and wean you off oxygen if possible. Please ensure follow up with your Primary Doctor, Pocket Setter and Urologist. It was a pleasure taking care of you. Pending Studies at Discharge: No Stand-Alone Forms: My [facility] Skilled Items Patient informed of condition?: Yes DNR: No Discharge Level of Care: Acute rehab Communicable Disease: No Discharge Prognosis: Stable Lines: None Urinary Catheter: No Medications and DC Order Prescriptions: New warfarin 5 mg Tablet 5 mg PO DAILY@1600 Qty: 30 0RF Continued citalopram 20 mg tablet 20 mg PO DAILY Qty: 90 3RF fluticasone propionate 50 mcg/actuation spray,suspension 2 spray intranasal DAILY PRN (Reason: allergy symptoms) Qty: 48 1RF atorvastatin 40 mg tablet 40 mg PO HS Qty: 90 1RF omeprazole 20 mg capsule,delayed release(DR/EC) 20 mg PO DAILY Qty: 90 1RF metoprolol tartrate 100 mg tablet 100 mg PO BID Qty: 60 0RF sodium citrate-citric acid 500-334 mg/5 mL solution 45 ml PO BID Qty: 3000 5RF magnesium 250 mg tablet 250 mg PO BID meclizine 25 mg tablet 25 mg PO DAILY PRN (Reason: Dizziness) melatonin 5 mg capsule 5 mg PO HS PRN (Reason: Sleep) nystatin 100,000 unit/gram powder 1 applic topical TID PRN (Reason: Skin Irritation) triamcinolone acetonide 0.1 % cream 1 applic topical DAILY PRN (Reason: Skin Irritation) albuterol sulfate [Ventolin HFA] 90 mcg/actuation HFA aerosol inhaler 1 inh inhalation QID PRN (Reason: Shortness Of Breath Or Wheezing) artifi.tears(hypromellose)(PF) 0.3 % drops 1 drp ophthalmic (eye) DAILY PRN (Reason: dry eye(s)) Qty: 10 0RF ammonium lactate 12 % cream 1 appln topical BID PRN (Reason: Skin Cleansing) clotrimazole-betamethasone 1-0.05 % cream 1 appln topical .COMPLEX Label Comments: 1 applic topical apply and rub in a thin film to affected areas 2-3 times daily Rx Instructions: 1 applic topical apply and rub in a thin film to affected areas 2-3 times daily cholecalciferol (vitamin D3) 2,000 unit capsule 2,000 units PO DAILY aspirin [Gallo Low Dose Aspirin] 81 mg Tablet,Delayed Release (Dr/Ec) 81 mg PO DAILY oxycodone-acetaminophen 5-325 mg Tablet 1 tab PO Q4H PRN (Reason: Pain) amlodipine 5 mg tablet 5 mg PO DAILY oxybutynin chloride 5 mg tablet 5 mg PO QPM Rx Instructions: 5 mg PO 1-2 hours before bedtime Discontinued Salonpas Adhesive Patch,Medicated 1 patch TOPICAL DAILY PRN (Reason: Pain) Discharge Orders: Discharge Order (Routine); Ordered 02/05/22 Ordered By: Lou Rivera/Other Patient Handouts: What to Know When TakingWarfarin Admission Data Admit Date/Time: 01/30/22 22:55 Attending Provider: Lou Walls I. Admit Provider: Augustus Medellin Primary Care Provider: Sai Soler Other Providers: Augustus Medellin ; Sawyer Stanford ; Abmrosio Cintron ; Curry Carter ; [facility] Other Interventions: Discharge Summary Assessment (RN) Last Done: 02/05/22 14:44
[2022-02-05] MEDS ORDERED: WARFARIN SOD 5 MG TAB PO SCH (16:00)
--- NOTE | 2022-02-12 06:34 | Coding Query ---
SEPSIS To promote full compliance with coding requirements relating to patient care, physician participation is requested in all cases of wire border assembler uncertainty. Please assist us with the question(s) below: In responding to this query, please exercise your independent professional judgement. The fact that a question is asked does not imply that any particular answer is desired or expected. We appreciate your clarification on this issue. Throughout the medical record, you have clearly documented a localized infection and your patient has clinical evidence of a generalized sepsis or severe sepsis. The term urosepsis is a nonspecific entity and is coded as an UTI. If the patient has sepsis, severe sepsis, from an urinary source or some other source, please clarify in your response below. The medical record reflects the following clinical findings: Pt adm with obstructive calculus of kidney/ureter. Ureteral stent during admission. Discharge Summary :" Sepsis possible, elevation of lactic acid "- antibiotic given during IP stay. WBC 02/02 22 02/03 13 , 02/04 15 . Please document below, if applicable. Thanks for your help. [facility] ____ ( )Bacteremia (Nonspecific laboratory finding of bacteria in the blood) Specify Organism ( ) Present on Admission ( ) Not present on admission ( ) Unable to clinically determine ( ) Septicemia (Systemic disease associated with the presence of pathogenic microorganisms in the blood): Specify Organism ( ) Present on Admission ( ) Not present on admission ( ) Unable to clinically determine ( ) Sepsis Specify Organism Specify Associated Condition/Diagnosis ( ) Present on Admission ( ) Not present on admission ( ) Unable to clinically determine ( ) Severe Sepsis (Sepsis associated with acute organ dysfunction) Specify Organism Specify Associated Condition/Diagnosis ( ) Present on Admission ( ) Not present on admission ( ) Unable to clinically determine ( ) Septic Shock (Severe sepsis with acute circulatory failure, unexplained by other causes) ( ) Present on Admission ( ) Not present on admission ( ) Unable to clinically determine ( x) Other, patient has: Patient did meet SIRS criteria at some point during her stay. Hence Sepsis is possible. Possible etiology may be urinary tract. Though urinary culture is negative, patient was treated with antibiotics MTDD
== END 2022-02-05 16:50 | DRG 659 ==
LOC: ED 17:25 → EDINP 22:55 → 2N 01-31 14:58
DX: E86.0 Dehydration; E87.2 Acidosis; I12.9 Hypertensive chronic kidney disease with stage 1 through stage 4 chronic kidney disease, or unspecified chronic kidney disease; N39.41 Urge incontinence; Z88.2 Allergy status to sulfonamides; E83.42 Hypomagnesemia; R73.03 Prediabetes; N18.30 Chronic kidney disease, stage 3 unspecified; Z79.82 Long term (current) use of aspirin; Z68.43 Body mass index [BMI] 50.0-59.9, adult; D86.0 Sarcoidosis of lung; N13.6 Pyonephrosis; A41.9 Sepsis, unspecified organism; Z93.2 Ileostomy status; I48.19 Other persistent atrial fibrillation; N17.9 Acute kidney failure, unspecified; R41.0 Disorientation, unspecified; E66.01 Morbid (severe) obesity due to excess calories

== ENCOUNTER 2024-04-01 20:49 | Inpatient (IN) ==
[2024-04-01] MEDS: HYDROmorphone INJ 0.5 MG/0.5 ML SYR IV PRN (21:16)
[2024-04-01] MEDS: ONDANSETRON INJ 2 MG/ML 2 ML VIAL IV STA (21:16)
[2024-04-01 21:22] LABS: Basophils # (auto) 0.04 K/uL (0.00-0.20); Basophils % (auto) 0.4 %; Eosinophils # (auto) 0.17 K/uL (0.00-0.50); Eosinophils % (auto) 1.5 %; Hematocrit (blood only) 38.4 % (37.0-47.0); Hemoglobin 12.4 g/dl (12.0-16.0); Immature Granulocytes # (auto) 0.04 K/uL (0.01-0.20); Immature Granulocytes % (auto) 0.4 %; Lymphocytes # (auto) 1.45 K/uL (1.20-3.40); Mean Corpuscular Hemoglobin 30.5 pg (25.0-34.0); Mean Corpuscular Hgb Conc 32.3 g/dL (32.0-36.0); Mean Corpuscular Volume 94.3 fL (80.0-100.0); Mean Platelet Volume 11.6 fL (9.4-12.4); Monocytes # (auto) 0.99 K/uL (0.11-0.59); Monocytes % (auto) 8.9 %; Neutrophils # (auto) 8.47 K/uL (1.40-6.50); Neutrophils % (auto) 75.8 %; Platelet Count 177 K/uL (130-400); RDW Coefficient of Variation 13.2 % (11.5-14.5); RDW Standard Deviation 45.6 fL (36.4-46.3); Red Blood Count 4.07 M/uL (4.20-5.40); White Blood Count 11.16 K/ul (4.8-10.8)
[2024-04-01 21:38] LABS: Albumin Globulin Ratio 1.2 (0.9-2); Albumin Level 3.8 gm/dl (3.4-5.0); BUN Creatinine Ratio 20.1 (10-20); Bilirubin,Total 0.5 mg/dl (0.2-1.0); Calcium 9.1 mg/dl (8.6-10.3); Creatinine Clr Calc Pharmacy 33.1 ml/min; Globulin 3.1 gm/dl (2.5-4.0); Potassium 4.1 mmol/L (3.5-5.1); Total Protein 6.9 gm/dl (6.0-8.3)
[2024-04-01 21:49] LABS: INR 4.7 (0.9-1.1); Prothrombin Time 44.8 Seconds (9.0-12.0)
[2024-04-02] MEDS: ACETAMINOPHEN 500 MG TAB PO STA (00:09)
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
[2024-04-02] MEDS ORDERED: HYDROmorphone INJ 0.5 MG/0.5 ML SYR IV PRN (01:31)
[2024-04-02] MEDS ORDERED: PROMETHAZINE 6.25 MG/50.25 ML BAG IV PRN (01:31)
--- NOTE | 2024-04-02 01:34 | History & Physical Report ---
Date of Service April 02, 2024 Assessment & Plan (1) Ambulatory dysfunction: Plan: Secondary to bilateral lower extremity trauma secondary to fall Bilateral LE bruising secondary to Coumadin coagulopathy, history of A-fib chronic diastolic heart failure, patient euvolemic hypertension, stable hyperlipidemia, on statin Rx hx PVD pulmonary sarcoidosis, no [place] [facility] [place] Crohn's disease status post surgery, patient with ostomy CRI, creatinine at baseline prediabetes, hemoglobin A1c of 5.03 October 2023 [facility] Follow official LE x-ray results Appropriate to hold aspirin and Coumadin for now given LE ecchymosis, oral vitamin K 2.5 mg given coagulopathy with LE/mucosal bruising PT OT eval DVT prophylaxis. SCDs while Coumadin on hold if INR less than 2 Full code Patient daughter requesting updates providers. Shy Tapia, contact #[phone]. Text document was generated using [employer] voice recognition software. It may contain grammatical or spelling errors. Kindly contact undersigned for clarification of any documentation item in question. History of Present Illness Chief Complaint: Fall Primary Care Provider: Sai Soler MD History obtained from patient, family, and records. Medical history significant for chronic diastolic heart failure, PAF on Coumadin, hypertension, hyperlipidemia, PVD, pulmonary sarcoidosis, CARISSA, GERD, Crohn's disease status post surgery, CRI (baseline creatinine 1.6), prediabetes, skin cancer status post surgery, urge incontinence as per records, mood disorder, sicca syndrome. 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 Patient found to have new onset A-fib during confinement. Discharged on Coumadin course. Patient was riding her scooter when she fell off her porch. Patient landed on both knees. No head trauma. Achy knee pain and leg bruising. No unusual headache symptoms. Denies chest pain, SOB, abdominal pain. Patient brought to ER for evaluation. Spontaneous bleeding from the lips noted at the ER as per daughter. 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 Allergies Allergy/AdvReac Type Severity Reaction Status Date / Time dexamethasone Allergy Intermediate EYES Verified 09/25/23 11:01 BECAME RED AND ITCHY sulfamethoxazole Allergy Intermediate ITCHING Verified 09/25/23 11:01 tobramycin Allergy Intermediate EYES Verified 09/25/23 11:01 BECAME RED AND ITCHY trimethoprim Allergy Intermediate ITCHING Verified 09/25/23 11:01 Home Medications Medication Instructions Recorded Confirmed Type ammonium lactate 12 % topical cream 1 appln topical BID PRN Skin 03/16/19 04/02/24 History Cleansing cholecalciferol (vitamin D3) 50 2,000 units PO QAM 03/16/19 09/25/23 History mcg (2,000 unit) capsule clotrimazole-betamethasone 1 1 appln topical .COMPLEX 03/16/19 09/25/23 History %-0.05 % topical cream aspirin 81 mg tablet,delayed 81 mg PO QAM 12/23/19 04/02/24 History release (Gallo Low Dose Aspirin) oxycodone-acetaminophen 5 mg-325 1 tab PO Q4H PRN Pain 12/23/19 04/02/24 History mg tablet artifi.tears(hypromellose)(PF) 0.3 1 drp ophthalmic (eye) DAILY PRN 02/29/20 09/25/23 Rx % eye drops dry eye(s) #10 mL fluticasone propionate 50 2 spray intranasal DAILY PRN 05/06/20 09/25/23 Rx mcg/actuation nasal allergy symptoms #48 grams spray,suspension atorvastatin 40 mg tablet 40 mg PO HS #90 tabs 05/19/20 04/02/24 Rx magnesium 250 mg tablet 250 mg PO QAM 11/21/20 09/25/23 History albuterol sulfate 90 mcg/actuation 1 inh inhalation QID PRN Shortness 12/04/21 04/02/24 History aerosol inhaler (Ventolin HFA) Of Breath Or Wheezing meclizine 25 mg tablet 25 mg PO DAILY PRN Dizziness 12/04/21 09/25/23 History melatonin 5 mg capsule 5 mg PO HS PRN Sleep 12/04/21 09/25/23 History nystatin 100,000 unit/gram topical 1 applic topical TID PRN Skin 12/04/21 09/25/23 History powder Irritation triamcinolone acetonide 0.1 % 1 applic topical DAILY PRN Skin 12/04/21 09/25/23 History topical cream Irritation amlodipine 5 mg tablet 5 mg PO QAM 01/30/22 04/02/24 History oxybutynin chloride 5 mg tablet 5 mg PO QPM 01/30/22 04/02/24 History citalopram 20 mg tablet 30 mg PO QAM 02/20/22 04/02/24 History metoprolol tartrate 100 mg tablet 100 mg PO BID 02/20/22 04/02/24 History omeprazole 20 mg capsule,delayed 20 mg PO QAM 02/20/22 04/02/24 History release warfarin 5 mg tablet 5 mg PO DIRECTED 02/20/22 04/02/24 History sodium citrate-citric acid 500 45 ml PO BID #3,000 mL 08/21/23 04/02/24 Rx mg-334 mg/5 mL oral solution buspirone 10 mg tablet 10 mg PO BID 04/02/24 04/02/24 History Past Med/Surg History Problem List (Updated 04/02/24 @ 00:51 by Amol Pierre MD) Supratherapeutic INR (Acute) Ambulatory dysfunction (Acute) Right ankle sprain (Acute) Contusion of left knee (Acute) Contusion of right knee (Acute) Fall (Acute) Chronic kidney disease with active medical management without dialysis, stage 3 (moderate) Encounter for pre-operative examination Cervical strain (Acute) Head injury (Acute) Fall (Acute) Cervical strain (Acute) Fall (Acute) Obese (Chronic) Lumbar strain (Acute) Lumbar strain (Acute) Vitamin D deficiency (Acute) Urinary incontinence (Acute) Trigger ring finger of left hand (Acute) Spinal stenosis (Acute) Sleep apnea (Acute) Shortness of breath (Acute) Pyelonephritis, unspecified (Acute) Postmenopausal bleeding (Acute) Peritoneal adhesions (Acute) Numbness of fingers of both hands (Acute) Nephrolithiasis (Acute) Morbid obesity (Acute) Intestinal occlusion (Acute) Intertrigo (Acute) Hypomagnesemia (Acute) Hypocalcemia (Acute) Hypertension (Acute) Hyperlipemia (Acute) Hypercholesterolemia (Acute) Right sided abdominal pain (Acute) Renal colic (Acute) Hydronephrosis (Acute) Elevated lactic acid level (Acute) Acute kidney injury Delirium Afib HTN (hypertension) Kidney stones (Chronic) Hypertension (Chronic) Chronic kidney disease, stage II (mild) (Chronic) Medical History Crohn's disease Encounter for insertion of venous access port Atrial fibrillation Sleep apnea Kidney stones Hypertension Chronic kidney disease, stage II (mild) Surgical History History of knee replacement History of creation of ostomy H/O neck surgery H/O colectomy Family History Mother Kidney failure Denies family history of Ovarian cancer Prostate cancer Myocardial infarction Breast cancer Colorectal cancer Social History Smoking Status: Never smoker Tobacco Type: Cigarettes Second Hand Exposure: No; Do You Dip or Chew Tobacco: No; Hx Alcohol Use: No Hx Substance Use: No Preferred Language: Pashto Communication Ability: Effective Visual Impairment: No Limitations Hearing Ability: Normal [facility] Licensed Practical Nurse Required: No Beliefs That Will Affect Care: None marital status: Current Living Situation: Spouse current occupational status: retired Other Information That Helps Us Care for You: No Feels Safe at Home: Yes Safety Concerns: Feels Safe At This Time Diet: other Diet Comment: watching calories and portions caffeine: No Physical Activity Frequency: Does not Exercise Seatbelt Use: always Assistive Devices: Cane, Glasses, Scooter/Electric Scooter and Walker Review of Systems Review of Systems: As per HPI, all other systems reviewed and negative Physical Exam Physical Exam: GENERAL: Comfortable, slightly anxious, morbidly obese, no respiratory distress SKIN: Normal color, warm HEENT: [place] palpebral conjunctivae, no ptosis, dried blood over lip NECK : Supple, short neck, no tenderness CHEST : Decreased breath sounds, no tenderness HEART : RRR, no obvious murmurs ABDOMEN: Some distention, ostomy in place EXTREMITIES : Bilateral LE swelling with ecchymoses with minimal tenderness, no other conspicuous deformities noted NEUROLOGIC : Coherent, no facial asymmetry, no other gross focality Results & Data Results & Data Vital Signs (Past 12 Hours) Vital Signs Temp Pulse Pulse Resp BP BP Pulse Ox 04/02/24 00:52 66 18 128/53 L 97 04/02/24 00:00 66 18 124/84 98 04/01/24 22:07 66 16 154/97 H 100 04/01/24 21:13 74 18 98 04/01/24 20:57 82 04/01/24 20:55 36.8 C 73 23 170/103 H 97 04/01/24 20:55 96 04/01/24 20:55 36.8 C 71 22 170/103 H 96 04/01/24 20:55 36.8 C 74 15 170/103 H 97 04/01/24 20:55 36.8 C 78 24 170/103 H 98 O2 Del Method 04/02/24 00:52 Room Air 04/02/24 00:00 Room Air 04/01/24 22:07 Room Air 04/01/24 21:13 Room Air 04/01/24 20:57 04/01/24 20:55 Room Air 04/01/24 20:55 Room Air 04/01/24 20:55 Room Air 04/01/24 20:55 Room Air 04/01/24 20:55 Room Air Laboratory Results Laboratory Results WBC 11.16 K/ul (4.8-10.8) H 04/01/24 21:03 RBC 4.07 M/uL (4.20-5.40) L 04/01/24 21:03 Hgb 12.4 g/dl (12.0-16.0) 04/01/24 21:03 Hct 38.4 % (37.0-47.0) 04/01/24 21:03 MCV 94.3 fL (80.0-100.0) 04/01/24 21:03 MCH 30.5 pg (25.0-34.0) 04/01/24 21:03 MCHC 32.3 g/dL (32.0-36.0) 04/01/24 21:03 RDW Std Deviation 45.6 fL (36.4-46.3) 04/01/24 21:03 RDW Coeff of Nino 13.2 % (11.5-14.5) 04/01/24 21:03 Plt Count 177 K/uL (130-400) 04/01/24 21:03 MPV 11.6 fL (9.4-12.4) 04/01/24 21:03 Immature Gran % (Auto) 0.4 % 04/01/24 21: Neut % (Auto) 75.8 % 04/01/24 21:03 Lymph % (Auto) 13.0 % 04/01/24 21:03 [place] % (Auto) 8.9 % 04/01/24 21:03 Eos % (Auto) 1.5 % 04/01/24 21:03 Baso % (Auto) 0.4 % 04/01/24 21:03 Neut # (Auto) 8.47 K/uL (1.40-6.50) H 04/01/24 21:03 Lymph # (Auto) 1.45 K/uL (1.20-3.40) 04/01/24 21:03 [place] # (Auto) 0.99 K/uL (0.11-0.59) H 04/01/24 21:03 Eos # (Auto) 0.17 K/uL (0.00-0.50) 04/01/24 21:03 Baso # (Auto) 0.04 K/uL (0.00-0.20) 04/01/24 21:03 Immature Gran # (Auto) 0.04 K/uL (0.01-0.20) 04/01/24 21: PT 44.8 Seconds (9.0-12.0) H 04/01/24 21:03 INR 4.7 (0.9-1.1) H 04/01/24 21:03 Sodium 142 mmol/L (136-145) 04/01/24 21: Potassium 4.1 mmol/L (3.5-5.1) 04/01/24 21: Chloride 107 mmol/L (98-107) 04/01/24 21:03 Carbon Dioxide 27 mmol/L (21-32) 04/01/24 21:03 Anion Gap 8 (3-11) 04/01/24 21: BUN 32 mg/dl (6-23) H 04/01/24 21:03 Creatinine 1.59 mg/dl (0.6-1.2) H 04/01/24 21:03 Est Cr Clr Drug Dosing 33.1 ml/min 04/01/24 21:03 eGFR 32.44 04/01/24 21:03 BUN/Creatinine Ratio 20.1 (10-20) H 04/01/24 21:03 Glucose 131 mg/dl (70-99(Fasting)) H 04/01/24 21:03 Calcium 9.1 mg/dl (8.6-10.3) 04/01/24 21:03 Total Bilirubin 0.5 mg/dl (0.2-1.0) 04/01/24 21:03 AST 17 U/L (13-39) 04/01/24 21:03 ALT 16 U/L (7-52) 04/01/24 21:03 Alkaline Phosphatase 67 U/L (34-104) 04/01/24 21:03 Total Protein 6.9 gm/dl (6.0-8.3) 04/01/24 21:03 Albumin 3.8 gm/dl (3.4-5.0) 04/01/24 21:03 Globulin 3.1 gm/dl (2.5-4.0) 04/01/24 21:03 Albumin/Globulin Ratio 1.2 (0.9-2) 04/01/24 21:03 Diagnostic Findings Chest x-ray as per my interpretation cardiomegaly, atelectasis Code Status & VTE Plan VTE Prophylaxis Plan VTE Prophylaxis will be ordered: Yes
[2024-04-02] MEDS: PHYTONADIONE 5 MG TAB PO STA (02:41)
[2024-04-02] MEDS: traMADol HCL 50 MG TABLET PO PRN (03:56)
[2024-04-02] MEDS: ACETAMINOPHEN 325 MG TAB PO PRN (05:27)
--- NOTE | 2024-04-02 06:48 | XRay Report ---
XR knee RT 1 or 2V routine HISTORY: 83 years-old Female fall acute right knee pain status post fall COMPARISON: None TECHNIQUE: 2 views of the right knee FINDINGS: Total joint arthroplasty and patellar resurfacing. Moderate size joint effusion. Prominent marginal s purring of the knee. No acute fracture, dislocation or osseous erosion. Arterial calcifications. IMPRESSION: Joint effusion without acute fracture or dislocation identified. ACT 112: Negative or not required by law. The above report was generated using voice recognition software. It may contain grammatical, syntax o r spelling errors. Electronically signed by: Isai Charles M.D. 04/02/2024 6:47 AM
--- NOTE | 2024-04-02 06:56 | XRay Report ---
XR ankle RT min 3V routine HISTORY: 83 years-old Female fall acute pain of the right ankle status post fall COMPARISON: None TECHNIQUE: 3 views of the right ankle FINDINGS: Osteoarthritis of the foot and ankle. There is moderate circumferential soft tissue swelling of the a nkle. No acute fracture, dislocation or osteochondral defect. Cortical thickening of the posterior an d medial malleoli appears chronic. Arterial calcifications. IMPRESSION: Soft tissue swelling without acute fracture or dislocation. ACT 112: Negative or not required by law. The above report was generated using voice recognition software. It may contain grammatical, syntax o r spelling errors. Electronically signed by: Isai Charles M.D. 04/02/2024 6:54 AM
[2024-04-02 07:08] LABS: Basophils # (auto) 0.03 K/uL (0.00-0.20); Basophils % (auto) 0.3 %; Eosinophils # (auto) 0.17 K/uL (0.00-0.50); Eosinophils % (auto) 1.7 %; Hematocrit (blood only) 31.9 % (37.0-47.0); Hemoglobin 10.5 g/dl (12.0-16.0); Immature Granulocytes # (auto) 0.02 K/uL (0.01-0.20); Immature Granulocytes % (auto) 0.2 %; Lymphocytes # (auto) 1.51 K/uL (1.20-3.40); Lymphocytes % (auto) 15.4 %; Mean Corpuscular Hemoglobin 31.1 pg (25.0-34.0); Mean Corpuscular Hgb Conc 32.9 g/dL (32.0-36.0); Mean Corpuscular Volume 94.4 fL (80.0-100.0); Mean Platelet Volume 11.5 fL (9.4-12.4); Monocytes % (auto) 12.2 %; Neutrophils # (auto) 6.87 K/uL (1.40-6.50); Neutrophils % (auto) 70.2 %; Platelet Count 143 K/uL (130-400); RDW Coefficient of Variation 13.2 % (11.5-14.5); RDW Standard Deviation 45.4 fL (36.4-46.3); Red Blood Count 3.38 M/uL (4.20-5.40)
--- NOTE | 2024-04-02 07:08 | XRay Report ---
LEFT KNEE 2 VIEWS CLINICAL HISTORY: Fall. FINDINGS: AP and crosstable lateral views of the left knee are obtained. No prior studies are availab le for comparison at the time of dictation. The skeletal structures are osteopenic. There is no radio graphic evidence of acute fracture. Chronic deformity of the distal tibial shaft is partially visuali zed. A left knee arthroplasty is in near anatomic alignment. No periprosthetic lucency is seen. There has been undersurface remodeling of the patella. No large joint effusion is seen. There is suprapate llar bony overgrowth along the course of the hamstrings tendon. A calcified fabella is incidentally n oted. Mild soft tissue swelling is suggested in the distal thigh. IMPRESSION: 1. No acute bony abnormality is identified. 2. A left knee arthroplasty is in near anatomic alignment. Electronically signed by: Jeremy Carr M.D. 04/02/2024 7:06 AM
[2024-04-02 07:33] LABS: Calcium 8.8 mg/dl (8.6-10.3); Potassium 4.2 mmol/L (3.5-5.1)
[2024-04-02 07:34] LABS: INR 4.8 (0.9-1.1); Prothrombin Time 45.5 Seconds (9.0-12.0)
--- NOTE | 2024-04-02 07:35 | XRay Report ---
SINGLE VIEW CHEST CLINICAL HISTORY: Acute renal failure. FINDINGS: An AP, portable, upright chest radiograph is compared to study dated 02/02/2022. A left subcl sosa central venous infusion port is unchanged in position. The heart is enlarged noting atheroscler otic calcification of the thoracic aorta. The pulmonary vasculature is noncongested. Chronic intersti tial thickening is similar to previous. There is bibasilar scarring/atelectasis. No airspace consolid ation or large pleural effusion is identified. No pneumothorax is seen. The skeletal structures are o steopenic. The bony thorax is grossly intact. Arthritic change is seen in the shoulders and spine. Fu gianna hardware is noted in the lower cervical spine. IMPRESSION: Cardiomegaly with no active disease in the chest. ACT 112: Negative or not required by law. Electronically signed by: Jeremy Carr M.D. 04/02/2024 7:34 AM
[2024-04-02 07:39] LABS: BUN Creatinine Ratio 24.3 (10-20); Creatinine Clr Calc Pharmacy 36.5 ml/min
--- NOTE | 2024-04-02 07:48 | XRay Report ---
LEFT ANKLE 3 VIEWS CLINICAL HISTORY: Fall. Left ankle pain. FINDINGS: 3 views of the left ankle are compared to study dated 12/14/2011. The skeletal structures ar e osteopenic. There is chronic posttraumatic deformity of the tibial and fibular shafts. No acute fra cture is seen at the ankle joint. The ankle mortise is intact noting moderate to severe osteoarthriti c change at the tibiotalar articulation. There is also arthritic change of the subtalar joints. Degen erative spurring is seen along the dorsal osteophyte of the tarsal bones. There is a large plantar he el spur. Soft tissue edema is seen throughout the left lower extremity. There are soft tissue calcifi cations in the posterior calf, as well as along the course of the Achilles tendon. Atherosclerotic ca lcification is observed in the regional arteries. IMPRESSION: 1. Soft tissue swelling with no radiographic evidence of acute fracture. 2. Osteopenia with chronic posttraumatic and degenerative changes as above. Electronically signed by: Jeremy Carr M.D. 04/02/2024 7:46 AM
[2024-04-02] MEDS: CITRIC ACID/SODIUM CITRATE 15 ML UDC PO SCH (09:11)
[2024-04-02] MEDS: busPIRone 5 MG TAB PO SCH (09:11)
[2024-04-02] MEDS: CITALOPRAM 20 MG TAB PO SCH (09:12)
[2024-04-02] MEDS: PANTOprazole 40 MG TAB PO SCH (09:12)
--- OUTSIDE RECORDS SUMMARY | 2024-04-02 10:28 | External Medical Summary | Summary of Care ---
Author Name Unknown Organization [facility] Address [address] [place] [address] Phone [phone] Care Team Providers Care Recharger Name Role Phone Sai Soler MD Primary Care Provider [phone] Reason for Visit * Reason Comments Follow Up Encounter Details Date Type Department Care Team (Late st Contact Info) Description 04/01/2024 8:15 AM EDT [facility] [address] [place], [place] [id number] Amol Espino MD [address] [place] [address] Parastomal hernia without obstruction or gangrene* Allergies Active Allergy Reactions Criticality Noted Date Comments Dexamethasone High 01/30/2022 Other reaction(s): EYES BECAME RED AND ITCHY Other - Drugs 07/04/2007 An eye ointment for blephritis, name unknown Sulfamethoxazole-Trimethoprim High 2015 Other reaction(s): Itching Tobramycin-Dexamethasone 09/04/2012 Eyes become red and itchy documented as of this encounter (statuses as of 04/01/2024) Medications Medication Sig Dispensed Refills Start Date End Date Status ASPIRIN 81 MG PO TABS 1 x daily Active Cholecalciferol (VITAMIN D) 2000 UNITS Tablet 1 tablet daily Active Ostomy Supplies (OSTOMY DRAINABLE POUCH/FLANGE) MISC Ostomy Drainable Pouch/Flange Miscellaneous USE DIRECTED. Quantity: 30; Refills: 12 Sawyer Orourke M.D.; Started 18-May-2011 Active 05/18/2011 Active Magnesium 250 MG Tablet Take by mouth daily. 1 twice daily Active Artificial Tear Solution (SOOTHE XP XTRA PROTECTION) SOLN Instill into eye. 1-2 drops per eye as needed Active Clotrimazole 1 % External Cream (Lotrimin)Indicatio ns:Yeast dermatitis Apply to affected areas (suspect for yeast infection) once or twice daily until resolved 45 g 5 07/21/2020 Active Additional Information Patient not taking.Reported on 09/10/2023 Triamcinolone Acetonide 0.1 % External Cream (Aristocort)Indicat ions:Venous stasis dermatitis of left lower extremity Apply to rash on the left lower leg twice daily as needed for flares and itching. 80 g 3 11/11/2020 Active Melatonin 5 MG Oral Tablet Chewable Take 10 mg by mouth daily as needed. Active Fluticasone Propionate 50 MCG/ACT Nasal Suspension (Flonase)Indication s:Seasonal allergic rhinitis, unspecified trigger 1 spray each nopstril 2 times daily 48 mL 3 05/15/2021 Active Meclizine HCl 25 MG Oral Tablet (Antivert)Indicatio ns:Benign paroxysmal positional vertigo, unspecified laterality Take 0.5-1 Tablets by mouth 3 times a day as needed for Dizziness. 30 Tablet 1 05/15/2021 Active Sod Citrate-Citric Acid 500-334 MG/5ML Oral Solution (Bicitra) 45 ML BY MOUTH TWICE DAILY 10/20/2021 Active Potassium 99 MG Oral Tablet Take 1 Tablet by mouth in the morning. Active oxyCODONE-Acetamino phen 5-325 MG Oral Tablet (Percocet)Indicatio ns:Generalized osteoarthritis Take 1 Tablet by mouth every 4 hours as needed for Pain, Moderate. 20 Tablet 05/14/2023 Active Ventolin HFA 108 (90 Base) MCG/ACT Inhalation Aerosol SolutionIndications :Acute URI,SOB (shortness of breath),Wheezing Inhale 2 Puffs by mouth every 4 hours as needed for Wheezing or Dyspnea. 1 g 1 07/12/2023 Active oxyBUTYnin Chloride 5 MG Oral Tablet (Ditropan)Indicatio ns:PERCY (stress urinary incontinence, female) TAKE 1 TABLET AT BEDTIME 90 Tablet 3 09/04/2023 Active Warfarin Sodium 5 MG Oral Tablet (Coumadin)Indicatio ns:Paroxysmal atrial fibrillation (HCC) Take 1/2 tablet by mouth every day or as directed by anticoagulation clinic 15 Tablet 5 11/01/2023 Active Tylenol PM Extra Strength 500-25 MG Oral Tablet (diphenhydrAMINE-AP AP (sleep)) Take 2 Tablets by mouth at bedtime as needed for Sleep. Active amLODIPine Besylate 5 MG Oral Tablet (Norvasc)Indication s:HTN, goal below 140/90 TAKE 1 TABLET EVERY DAY 90 Tablet 1 01/27/2024 Active Atorvastatin Calcium 40 MG Oral Tablet (Lipitor) TAKE 1 TABLET EVERY EVENING 90 Tablet 1 01/27/2024 Active Metoprolol Tartrate 100 MG Oral Tablet (Lopressor)Indicati ons:Paroxysmal atrial fibrillation (HCC) TAKE 1 TABLET IN THE MORNING AND 1 TABLET BEFORE BEDTIME. 180 Tablet 1 01/27/2024 Active Citalopram Hydrobromide 20 MG Oral Tablet (CeleXA)Indications :JO ANN (generalized anxiety disorder) TAKE 1 AND 1/2 TABLETS EVERY DAY 135 Tablet 1 01/27/2024 Active Heparin Sod (Pork) Lock Flush 10 UNIT/ML Intravenous Solution Administer intravenously. 02/14/2024 Active busPIRone HCl 10 MG Oral Tablet (Buspar)Indications :Adjustment disorder with anxiety Take 1 Tablet by mouth 2 times a day as needed for Anxiety. 30 Tablet 5 03/10/2024 Active LORazepam 0.5 MG Oral Tablet (Ativan)Indications :Grief Take 1 Tablet by mouth at bedtime as needed for Anxiety or Sleep. 20 Tablet 03/10/2024 Active Additional Information Patient not taking.Reported on 03/13/2024 Ammonium Lactate 12 % External Lotion (Lac-Hydrin)Indicat ions:Dermatitis Apply topically to affected area as needed for Dry Skin. Apply to body twice daily 222 mL 11 03/13/2024 Active Nystatin 590591 UNIT/GM External Powder (Nystop)Indications :Cutaneous candidiasis Apply topically to affected area 3 times a day. 30 g 3 03/13/2024 Active Omeprazole 20 MG Oral Capsule Delayed Release (PriLOSEC)Indicatio ns:Gastroesophageal reflux disease without esophagitis Take 1 Capsule by mouth in the morning. 90 Capsule 2 03/20/2024 Active documented as of this encounter (statuses as of 04/01/2024) Active Problems Problem Noted Date Diagnosed Date Chronic kidney disease, stage 3b 11/11/2023 Overview: Per CKD protocol Anticoagulation management encounter 10/21/2023 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 LDL less than 100 05/2024 supervisor intermediates current use of anticoagulant therapy 0 09/10/2023 Paroxysmal atrial fibrillation 02/16/2022 Pulmonary sarcoidosis 06/23/2020 Chronic rhinitis 06/23/2020 Sicca syndrome 06/23/2020 History of nonmelanoma skin cancer 05/31/2016 Overview: BCC right hand 04/13 Linh right knuckle 12/14 Controlled substance agreement signed 05/15/2016 Morbid obesity with BMI of 50.0-59.9, adult 01/29 Urge incontinence of urine 02/15/2016 Urinary incontinence without sensory awareness 0 02/15/2016 PERCY (stress urinary incontinence, female) 2015 Parastomal hernia with obstruction and without g angrene 12/22/2013 HTN, GOAL BELOW 140/90 05/23/2009 Overview: Modified per HTN protocol #16. Abdominal pain, other specified site 07/18/2007 Dehydration 07/18/2007 Ileostomy status 05/19/2007 Allergic rhinitis other Overview: obessive compulsive thoughts Regional enteritis of small intestine with large intestine documented as of this encounter (statuses as of 04/01/2024) Resolved Problems Problem Noted Date Diagnosed Date Resolved Date Chronic kidney disease, stage 3a 06/12/2021 11/13/2023 Overview: Per CKD protocol Chronic diastolic heart failure 06/23/2020 11/13/2021 Prediabetes 04/11/2020 12/13/2022 Overview: Per Prediabetes protocol HTN, goal to be determined 07/23/2008 Overview: Modified per HTN protocol #16. documented as of this encounter (statuses as of 04/01/2024) Immunizations Name Administration Dates Next Due COVID-19 mRNA, LNP-s, No Pre serve, 2-Dose Series (Moderna) 08/31/2020,08/04/2020 COVID-19, mRNA, LNP-s, PF, B ooster, 100mcg/0.5mg (Moderna) 01/11/2022,06/01/2021 H1N1 2009 Influenza, IM 09/28/2009 Pneumococcal Conjugate Vacc, 13 Valent (Prevnar) 05/18/2015 Pneumococcal Polysaccharide PPV23 (Pneumovax) Seasonal Influenza, PF, 6 M & above, IM , (FluLaval or Fluzone) 03/15/2020 Seasonal Influenza, Quadrivalent Hd (Fluzone Hd) 05/09/2022,03/18/2021 Seasonal Influenza, Trivalent, (IIV3), PF, (Fluz one) 05/18/2015 Seasonal Influenza, Trivalen t, Adjuvanted, 65+ YRS, PF, (Fluad) 04/13/2019 TD, Preservative Free 08/10/1996 TDAP (age 10 and older)(Boostrix) 07/12/2020 Varicella Zoster Vaccine (Adult) 10/30/2008 documented as of this encounter Social History Tobacco Use Types Packs/Day Years Used Date Smoking Tobacco: Never Smokeless Tobacco: Never Alcohol Use Standard Drinks/Week Comments No 0 (1 standard drink = 0.6 oz pur e alcohol) PHQ-2 Answer Date Recorded PHQ Adult Total Score 4 02/19/2022 Hunger Vital Sign Answer Date Recorded Within the past 12 months, y ou worried that your food would run out before you got the money to buy more. Never true 02/20/20 22 Within the past 12 months, t he food you bought just didn't last and you didn't have money to get more. Never true 02/19/2022 Sex and Gender Information Value Date Recorded Sex Assigned at Not on file Gender Identity Female 02/19/2022 1:41 PM EDT Sexual Orientation Straight 10/20/2021 2: 53 PM EDT Job Start Date Occupation Industry Not on file Not on file Not on file documented as of this encounter Functional Status Functional Status Response Date of Assess ment Are you deaf or do you have serious difficulty h earing? No 10/09/2015 Are you blind or do you have serious difficulty seeing, even when wearing glasses? No 10/09/2015 Do you have serious difficul ty walking or climbing stairs? (5 years old or older) No 10/09/2015 Do you have difficulty dress ing or bathing? (5 years old or older) No 10/09/2015 Because of a physical, menta l, or emotional condition, do you have difficulty doing errands alone such as visiting a doctor s office or shopping? (15 years old or older) No 10/09/19 16 Cognitive Status Response Date of Assessm ent Because of a physical, menta l, or emotional condition, do you have serious difficulty concentrating, remembering, or making decisions? (5 years old or older) No 10/09/2015 documented as of this encounter Progress Notes * Amol Espino MD - 04/01/2024 8:12 AM EDT After connecting to the patient via telephone, the patient was identified by name and date of . Patient was then informed that this was a telephone call only visit. The patient agreed to participate. Visit Disposition: Routine follow-up Total call duration was 5 minutes. The patient's committed suicide. Her ostomy is functioning. She denies any pain. The ostomyis functioning. PLAN- will follow up in 3 months. Amol Espino MD documented in this encounter Plan of Treatment Upcoming Encounters Date Type Department Care Team (Late st Contact Info) Description 04/06/2024 9:30 AM EDT [facility] [place] [address] [facility] [address] [facility] [address] [facility] [address] 04/08/2024 3:00 PM EDT Cardiac Studies Cardiac Studies, [address] [place] [address] 07/31/2024 2:00 PM EST Office Visit Cardiology, [address] [place] [address] Sai Lovelace PA-C [address] [place] [address] 09/23/2024 2:00 PM EDT Office Visit [facility] [address] [facility], [place] [phone] Sai Soler MD [address] [facility], [place] [address] Health Maintenance Due Date Last Done Comments Zoster Vaccines (2 of 3) 12/25/2008 10/30/2008 Adult Wellness Visit 02/19/2023 02/19/2022, 02/17/20 21 COVID-19 Vaccine ( season) 2024 05/09/2023, 01/11/2022, 06/01/2021, Additional history exists Influenza Vaccine (FLU shot) (#1) 2024 04/10/2023, 05/09/2022, 03/18/2021, Additional history exists GFR 04/21/2024 10/21/2023, 04/01, 10/22/2022, Additional history exists Depression Screening 09/09/2024 09/10/2023 Albumin/Creatinine Ratio 10/20/2024 10/21/2023 CKD HGB USE SMARTSET 02271 10/20/202410/20, 04/25/2023, 10/22/2022, Additional history exists CKD PHOS USE SMARTSET 19922 10/20/202409/30, 12/28/2013, 12/27/2013, Additional history exists DXA Scan 08/01/2026 08/01/2022, 08/01/2022 DTap/Tdap Vaccines (2 - Td or Tdap) 07/12/2030 07/12/2020, 08/10/1996 Pneumococcal Vaccine: 65+ Years Completed 01/11/2022, 05/18/2015, 07/27/2014 HPV (Gardasil) Vaccine Aged Out No lo nger eligible based on patient's age to complete this topic Hepatitis B Vaccine Aged Out No longe r eligible based on patient's age to complete this topic MENINGOCOCCAL (MENACTRA/MENVEO) Aged Out No longer eligible based on patient's age to complete this topic documented as of this encounter Medical Devices Not on filedocumented as of this encounter Visit Diagnoses Diagnosis Parastomal hernia without obstruction or gangrene- Primary Hernia of unspecified site of abdominal cavity without mention of obstruction or gangrene documented in this encounter Advance Directives * Full Code (Latest Code Status on File) Date Activated Date Inactivated Comments 01/05/2015 12:44 PM 01/05/2015 6:36 PM This order re flects the patients wishes and were consensually agreed upon. * Full Code Date Activated Date Inactivated Comments 01/05/2015 10:38 AM 01/05/2015 12:44 PM This order r eflects the patients wishes and were consensually agreed upon. * Full Code Date Activated Date Inactivated Comments 12/16/2013 7:43 AM 12/28/2013 4:24 PM This order r eflects the patients wishes and were consensually agreed upon. Question Answer Comments Discussion of Advance Directives occurred with: Not Discussed Does the patient have a Living Will? No Does the patient have Health Care Power of Attor pk? No * No Code Date Activated Date Inactivated Comments 09/03/2012 12:21 AM 09/08/2012 9:58 PM This order r eflects the patients wishes and were consensually agreed upon. Question Answer Comments Discussion of Advance Directives occurred with: Patient Does the patient have a Living Will? No Does the patient have Health Care Power of Attor pk? No * Full Code Date Activated Date Inactivated Comments 07/09/2007 2:42 PM 07/11/2007 2:07 PM Care Teams Recharger Relationship Specialty Start Date End Date Sai Soler MD [address] [place] [address] PCP - General Family Medicine 03/15/20 documented as of this encounter
--- OUTSIDE RECORDS SUMMARY | 2024-04-02 10:28 | External Medical Summary | Summary of Care ---
Author Name Unknown Organization [facility] Address [address] [place] [address] Phone [phone] Care Team Providers Care Group Controller Name Role Phone Sai Soler MD Primary Care Provider [phone] Reason for Visit * Reason Onset Date Comments Advice 03/26/2024 Handicap form ne eded Forms Request 03/26/2024 Encounter Details Date Type Department Care Team (Late st Contact Info) Description 03/26/2024 Telephone [facility] [address] [place] [address] Sai Soler MD [address] [place] [address] Advice (Handicap form needed ); Forms Request Allergies Active Allergy Reactions Criticality Noted Date Comments Dexamethasone High 01/30/2022 Other reaction(s): EYES BECAME RED AND ITCHY Other - Drugs 07/04/2007 An eye ointment for blephritis, name unknown Sulfamethoxazole-Trimethoprim High 2015 Other reaction(s): Itching Tobramycin-Dexamethasone 09/04/2012 Eyes become red and itchy documented as of this encounter (statuses as of 03/27/2024) Medications Medication Sig Dispensed Refills Start Date End Date Status ASPIRIN 81 MG PO TABS 1 x daily Active Cholecalciferol (VITAMIN D) 2000 UNITS Tablet 1 tablet daily Active Ostomy Supplies (OSTOMY DRAINABLE POUCH/FL[facility]) [facility]/Flange Miscellaneous USE DIRECTED. Quantity: [...] daily 222 mL 11 03/13/2024 Active Nystatin 514082 UNIT/GM External Powder (Nystop)Indications :Cutaneous candidiasis Apply topically to affected area 3 times a day. 30 g 3 03/13/2024 Active Omeprazole 20 MG Oral Capsule Delayed Release (PriLOSEC)Indicatio ns:Gastroesophageal reflux disease without esophagitis Take 1 Capsule by mouth in the morning. 90 Capsule 2 03/20/2024 Active documented as of this encounter (statuses as of 03/27/2024) Active Problems Problem Noted Date Diagnosed Date Chronic kidney disease, stage 3b 11/11/2023 Overview: Per CKD protocol Anticoagulation management encounter 10/21/2023 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 LDL less than 100 05/2024 alf current use of anticoagulant therapy 0 09/10/2023 [...] as of this encounter (statuses as of 03/27/2024) Resolved Problems Problem Noted Date Diagnosed Date Resolved Date Chronic kidney disease, stage 3a 06/12/2021 11/13/2023 Overview: Per CKD protocol Chronic diastolic heart failure 06/23/2020 11/13/2021 Prediabetes 04/11/2020 12/13/2022 Overview: Per Prediabetes protocol HTN, goal to be determined 1 07/23/2008 Overview: Modified per HTN protocol #16. documented as of this encounter (statuses as of 03/27/2024) Immunizations Name Administration Dates Next Due COVID-19 [...] No 10/09/2015 documented as of this encounter Miscellaneous Notes * Telephone Encounter - Gabi Melchor LPN - 03/27/2024 10:22 AM EDT Called and spoke with patient and informed her patient the form is here ready for leaf size picker. Placed out front for leaf size picker. * Telephone Encounter - Vivian Nguyen LPN - 03/26/2024 6:05 PM EDT Placed disability parking placard in provider's folder to review and sign if appreciate. * Telephone Encounter - Christin Guthrie OSA - 03/26/2024 3:31 PM EDT Shy is calling for her mother Priya. Can she get a handicap sign for her mother? Please call either Shy at [phone] or Priya [phone] documented in this encounter Plan of Treatment Upcoming Encounters Date Type Department Care Team (Late st Contact Info) Description 04/01/2024 8:15 AM EDT Telemedicine General Surgery, [place] [address] [place] [address] Amol Espino MD [address] [place] [address] 04/06/2024 9:30 AM EDT Anticoagulation Pharmacy, [place] [address] [place] [address] [facility] [address] [place] [address] 04/08/2024 3:00 PM EDT Cardiac Studies Cardiac Studies, [facility] [address] [place] [address] 07/31/2024 2:00 PM EST Office Visit Cardiology, [facility] [address] [place] [address] Sai Lovelace PA-C [address] [place] [address] 09/23/2024 2:00 PM EDT Office Visit Family Practice, [place] [address] [place] [phone] Sai Soler MD [address] [place] [address] Health Maintenance Due Date Last Done Comments [...] Ratio 10/20/2024 10/21/2023 CKD HGB USE SMARTSET 65175 10/20/202410/20, 04/25/2023, 10/22/2022, Additional history exists CKD PHOS USE SMARTSET 58290 10/20/202409/30, 12/28/2013, 12/27/2013, Additional history exists DXA [...] Not on filedocumented as of this encounter Advance Directives * Full Code [...] 2:42 PM 07/11/2007 2:07 PM Care Teams Group Controller Relationship Specialty Start Date End Date Sai Soler MD [address] [place] [address] PCP - General Family Medicine 03/15/20 documented as of this encounter
--- OUTSIDE RECORDS SUMMARY | 2024-04-02 10:28 | External Medical Summary | Summary of Care ---
Author Name Unknown Organization [facility] Address [address] [place] [address] Phone [phone] Care Team Providers Care Campus Safety Officer Name Role Phone Kassie Soler MD Primary Care Provider [phone] Reason for Visit * Reason Onset Date Comments Medication Refill 03/19/2024 Encounter Details Date Type Department Care Team (Late st Contact Info) Description 03/19/2024 Refill [facility] [address] [place] [address] Kassie Soler MD [address] [place] [address] Gastroesophageal reflux disease without esophagitis Allergies Active Allergy Reactions Criticality Noted Date Comments Dexamethasone High 01/30/2022 Other reaction(s): EYES BECAME RED AND ITCHY Other - Drugs 07/04/2007 An eye ointment for blephritis, name unknown Sulfamethoxazole-Trimethoprim High 2015 Other reaction(s): Itching Tobramycin-Dexamethasone 09/04/2012 Eyes become red and itchy documented as of this encounter (statuses as of 03/20/2024) Medications Medication Sig Dispensed Refills Start Date End Date Status ASPIRIN 81 MG PO TABS 1 x daily Active Cholecalciferol (VITAMIN D) 2000 UNITS Tablet 1 tablet daily Active Ostomy Supplies (OSTOMY DRAINABLE POUCH/FLANGE) MISC Ostomy Drainable Pouch/Flange Miscellaneous USE DIRECTED. Quantity: 30; Refills: 12 Sawyer Orourke M.D.; Started 18-May-2011 Active 1 Active Magnesium 250 MG Tablet Take by mouth daily. 1 twice daily Active Artificial Tear Solution (SOOTHE XP XTRA PROTECTION) SOLN Instill into eye. 1-2 drops per eye as needed Active Clotrimazole 1 % External Cream (Lotrimin)Indicati ons:Yeast dermatitis Apply to affected areas (suspect for yeast infection) once or twice daily until resolved 45 g 5 1 Active Additional Information Patient not taking.Reported on 09/10/2023 Triamcinolone Acetonide 0.1 % External Cream (Aristocort)Indica tions:Venous stasis dermatitis of left lower extremity Apply to rash on the left lower leg twice daily as needed for flares and itching. 80 g 3 1 Active Melatonin 5 MG Oral Tablet Chewable Take 10 mg by mouth daily as needed. Active Fluticasone Propionate 50 MCG/ACT Nasal Suspension (Flonase)Indicatio ns:Seasonal allergic rhinitis, unspecified trigger 1 spray each nopstril 2 times daily 48 mL 3 1 Active Meclizine HCl 25 MG Oral Tablet (Antivert)Indicati ons:Benign paroxysmal positional vertigo, unspecified laterality Take 0.5-1 Tablets by mouth 3 times a day as needed for Dizziness. 30 Tablet 1 1 Active Sod Citrate-Citric Acid 500-334 MG/5ML Oral Solution (Bicitra) 45 ML BY MOUTH TWICE DAILY 2 Active Potassium 99 MG Oral Tablet Take 1 Tablet by mouth in the morning. Active oxyCODONE-Acetamin ophen 5-325 MG Oral Tablet (Percocet)Indicati ons:Generalized osteoarthritis Take 1 Tablet by mouth every 4 hours as needed for Pain, Moderate. 20 Tablet 3 Active Ventolin HFA 108 (90 Base) MCG/ACT Inhalation Aerosol SolutionIndication s:Acute URI,SOB (shortness of breath),Wheezing Inhale 2 Puffs by mouth every 4 hours as needed for Wheezing or Dyspnea. 1 g 1 4 Active oxyBUTYnin Chloride 5 MG Oral Tablet (Ditropan)Indicati ons:PERCY (stress urinary incontinence, female) TAKE 1 TABLET AT BEDTIME 90 Tablet 3 4 Active Warfarin Sodium 5 MG Oral Tablet (Coumadin)Indicati ons:Paroxysmal atrial fibrillation (HCC) Take 1/2 tablet by mouth every day or as directed by anticoagulation clinic 15 Tablet 5 4 Active Tylenol PM Extra Strength 500-25 MG Oral Tablet (diphenhydrAMINE-A PAP (sleep)) Take 2 Tablets by mouth at bedtime as needed for Sleep. Active amLODIPine Besylate 5 MG Oral Tablet (Norvasc)Indicatio ns:HTN, goal below 140/90 TAKE 1 TABLET EVERY DAY 90 Tablet 1 4 Active Atorvastatin Calcium 40 MG Oral Tablet (Lipitor) TAKE 1 TABLET EVERY EVENING 90 Tablet 1 4 Active Metoprolol Tartrate 100 MG Oral Tablet (Lopressor)Indicat ions:Paroxysmal atrial fibrillation (HCC) TAKE 1 TABLET IN THE MORNING AND 1 TABLET BEFORE BEDTIME. 180 Tablet 1 4 Active Citalopram Hydrobromide 20 MG Oral Tablet (CeleXA)Indication s:JO ANN (generalized anxiety disorder) TAKE 1 AND 1/2 TABLETS EVERY DAY 135 Tablet 1 4 Active Heparin Sod (Pork) Lock Flush 10 UNIT/ML Intravenous Solution Administer intravenously. 4 Active busPIRone HCl 10 MG Oral Tablet (Buspar)Indication s:Adjustment disorder with anxiety Take 1 Tablet by mouth 2 times a day as needed for Anxiety. 30 Tablet 5 4 Active LORazepam 0.5 MG Oral Tablet (Ativan)Indication s:Grief Take 1 Tablet by mouth at bedtime as needed for Anxiety or Sleep. 20 Tablet 4 Active Additional Information Patient not taking.Reported on 03/13/2024 Ammonium Lactate 12 % External Lotion (Lac-Hydrin)Indica tions:Dermatitis Apply topically to affected area as needed for Dry Skin. Apply to body twice daily 222 mL 11 4 Active Nystatin 376292 UNIT/GM External Powder (Nystop)Indication s:Cutaneous candidiasis Apply topically to affected area 3 times a day. 30 g 3 4 Active Omeprazole 20 MG Oral Capsule Delayed Release (PriLOSEC)Indicati ons:Gastroesophage al reflux disease without esophagitis Take 1 Capsule by mouth in the morning. 90 Capsule 2 4 Active Omeprazole 20 MG Oral Capsule Delayed Release (PriLOSEC)Indicati ons:Gastroesophage al reflux disease without esophagitis TAKE 1 CAPSULE EVERY MORNING ONE HOUR BEFORE THE FIRST MEAL OF THE DAY 90 Capsule 2 3 03/19/20 Discontinu ed(Refill) documented as of this encounter (statuses as of 03/20/2024) Active Problems Problem Noted Date Diagnosed Date Chronic kidney disease, stage 3b 11/11/2023 Overview: Per CKD protocol Anticoagulation management encounter 10/21/2023 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 LDL less than 100 05/2024 custodial current use of anticoagulant therapy 0 09/10/2023 [...] as of this encounter (statuses as of 03/20/2024) Resolved Problems Problem Noted Date Diagnosed Date Resolved Date Chronic kidney disease, stage 3a 06/12/2021 11/13/2023 Overview: Per CKD protocol Chronic diastolic heart failure 06/23/2020 11/13/2021 Prediabetes 04/11/2020 12/13/2022 Overview: Per Prediabetes protocol HTN, goal to be determined 1 07/23/2008 Overview: Modified per HTN protocol #16. documented as of this encounter (statuses as of 03/20/2024) Immunizations Name Administration Dates Next Due COVID-19 [...] money to buy more. Never true 02/20/20 Within the past 12 months, t he [...] encounter Miscellaneous Notes * Telephone Encounter - Tejas Mcmahon RP - 03/20/2024 9:47 AM EDT Signed Prescriptions: Disp Refills Omeprazole 20 MG Oral Capsule Delayed Rele*90 Cap*2 Sig: Take 1 Capsule by mouth in the morning. Authorizing Provider: KASSIE SOLER Ordering User: TEJAS MCMAHON * Telephone Encounter - Ketty Persaud CPhT - 03/19/2024 10:06 AM EDT Did you pend patient's preferred pharmacy and medication before forwarding?yes Pharmacy: [facility] Pending Prescriptions: Disp Refills Omeprazole 20 MG Oral Capsule Delayed Rel*90 Cap*2 Sig: Take 1 Capsule by mouth in the morning. Last Visit: 03/13/2024 (in office), Visit date not found (telemedicine) Next Visit: 09/23/2024 If no future appointments scheduled, and last appointment is greater than a year ago, please schedule patient for a follow-up appointment Last date the medication was ordered: 09/30/22 Is this request for a controlled substance?No Urine Drug Screen:No results found for this or any previous visit. Patient Phone Numbers Labs: Lab Results Component Value Date/Time CREAT 1.5 (H) 10/21/2023 09:56 AM CREAT 1.69 (A) 04/25/2023 12:00 AM CREAT 1.1 (H) 03/15/2020 10:38 AM POTASSIUM 4.4 10/21/2023 09:56 AM POTASSIUM 4.8 04/25/2023 12:00 AM POTASSIUM 4.7 03/15/2020 10:38 AM TSH 2.76 11/11/2020 02:59 PM TSH 1.67 03/15/2020 10:38 AM LDL 67 10/21/2023 09:56 AM LDL 100 03/15/2020 10:38 AM ALT 23 10/21/2023 09:56 AM ALT 26 03/15/2020 10:38 AM HGBA1C 5.4 10/21/2023 09:56 AM HGBA1C 5.8 (H) 03/15/2020 10:38 AM documented in this encounter Plan of Treatment Upcoming Encounters Date Type Department Care Team (Late st Contact Info) Description 04/01/2024 8:15 AM EDT Telemedicine General Surgery, [place] [address] [place] [address] Amol Espino MD [address] [place] [facility] [place] [place] [address] 04/06/2024 9:30 AM EDT Anticoagulation Pharmacy, [address] [id number] [facility] [address] [place] [address] 04/08/2024 3:00 PM EDT Cardiac Studies Cardiac Studies, [facility] [address] [facility] [place] [address] 07/31/2024 2:00 PM EST Office Visit Cardiology, [facility] [address] [facility] [place] [address] Kassie Lovelace, PA-C [address] [place] [address] 09/23/2024 2:00 PM EDT Office Visit Family [facility], [place] [address] [place] [facility] [place] [phone] Kassie Soler MD [address] [place] [address] Health Maintenance Due Date Last Done Comments [...] Ratio 10/20/2024 10/21/2023 CKD HGB USE SMARTSET 95902 10/20/202410/20, 04/25/2023, 10/22/2022, Additional history exists CKD PHOS USE SMARTSET 38263 10/20/202409/30, 12/28/2013, 12/27/2013, Additional history exists DXA [...] as of this encounter Visit Diagnoses Diagnosis Gastroesophageal reflux disease without esophagitis Esophageal reflux documented in this encounter Advance Directives * [...] 2:42 PM 07/11/2007 2:07 PM Care Teams Campus Safety Officer Relationship Specialty Start Date End Date Kassie Soler MD [address] [place] [address] PCP - General Family Medicine 03/15/20 documented as of this encounter
--- OUTSIDE RECORDS SUMMARY | 2024-04-02 10:28 | External Medical Summary | Summary of Care ---
Author Name Unknown Organization [facility] Address [address] [place] [address] Phone [phone] Care Team Providers Care Carbon Plant Grinder Name Role Phone Sai Soler MD Primary Care Provider [phone] Reason for Visit * Reason Onset Date Comments Advice 03/26/2024 Handicap form ne eded Forms Request 03/26/2024 Encounter Details Date Type Department Care Team (Late st Contact Info) Description 03/26/[address] [facility] [address] [place] [address] Sai Soler MD [address] [place] [address] Advice (Handicap form needed ); [...] daily Active Ostomy Supplies (OSTOMY DRAINABLE POUCH/FLANGE) [facility] Ost[facility] Drainable Pouch/Flange Miscellaneous USE DIRECTED. Quantity: [...] daily 222 mL 11 03/13/2024 Active Nystatin 904935 UNIT/GM External Powder (Nystop)Indications :Cutaneous candidiasis Apply [...] with target LDL less than 100 05/2024 jail current use of anticoagulant therapy 0 09/10/2023 [...] encounter Miscellaneous Notes * Telephone Encounter - Vivian Nguyen LPN - 03/26/2024 6:05 PM EDT Placed disability parking placard in provider's folder to review and sign if appreciate. * Telephone Encounter - Christin Guthrie OSA - 03/26/2024 3:31 PM EDT Shy is calling for her mother Priya. Can she get a handicap sign for her mother? Please call either Shy at [phone] or Priya [phone] documented in this encounter Plan of Treatment Upcoming Encounters Date Type Department Care Team (Late st Contact Info) Description 04/01/2024 8:15 AM EDT Telemedicine General Surgery, [place] [address] [place] [address] Amol Espino MD [address] [place] [address] 04/06/2024 9:30 AM EDT Anticoagulation [address] [place] [address] [facility] [address] [place] [facility] [place] [address] 04/08/2024 3:00 PM EDT Cardiac Studies Card[facility] Studies, [facility] [address] [facility] [address] 07/31/2024 2:00 PM EST Office Visit Cardiology, [facility] [address] [facility] [address] Sai Lovelace PA-C [address] [facility] [place] [address] 09/23/2024 2:00 PM EDT Office Visit Family [facility] [place] [address] [place] [facility] [place] [address] Sai Soler MD [address] [place] [facility] [place] [address] Health Maintenance Due Date Last Done Comments [...] Ratio 10/20/2024 10/21/2023 CKD HGB USE SMARTSET 24597 10/20/202410/20, 04/25/2023, 10/22/2022, Additional history exists CKD PHOS USE SMARTSET 43525 10/20/202409/30, 12/28/2013, 12/27/2013, Additional history exists DXA [...] 2:42 PM 07/11/2007 2:07 PM Care Teams Carbon Plant Grinder Relationship Specialty Start Date End Date Sai Soler MD [address] [facility] [place] [id number] PCP - General Family Medicine 03/15/20 documented as of this encounter
--- OUTSIDE RECORDS SUMMARY | 2024-04-02 10:28 | External Medical Summary | Summary of Care ---
Author Name Unknown Organization [facility] Address [address] [place] [address] Phone [phone] Care Team Providers Care Supervisor Spinning Name Role Phone Sai Soler MD Primary Care Provider [phone] Reason for Visit * Reason Onset Date Comments Advice 03/26/2024 Handicap form ne eded Forms Request 03/26/2024 Encounter Details Date Type Department Care Team (Late st Contact Info) Description 03/26/2024 Telephone [facility] [address] [place] [address] Sai Soler MD [address] [place] [address] Advice (Handicap form needed ); Forms Request Allergies Active Allergy Reactions Criticality Noted Date Comments Dexamethasone High 01/30/2022 Other reaction(s): EYES BECAME RED AND ITCHY Other - Drugs 07/04/2007 An eye ointment for blephritis, name unknown Sulfamethoxazole-Trimethoprim High 2015 Other reaction(s): Itching Tobramycin-Dexamethasone 09/04/2012 Eyes become red and itchy documented as of this encounter (statuses as of 03/26/2024) Medications Medication Sig Dispensed Refills Start Date End Date Status ASPIRIN 81 MG PO TABS 1 x daily Active Cholecalciferol (VITAMIN D) 2000 UNITS Tablet 1 tablet daily Active Ostomy Supplies (OSTOMY DRAINABLE POUCH/FLANGE) [facility] Ost[facility] Drainable Pouch/Flange Miscellaneous USE DIRECTED. [...] daily 222 mL 11 03/13/2024 Active Nystatin 737365 UNIT/GM External Powder (Nystop)Indications :Cutaneous candidiasis Apply topically to affected area 3 times a day. 30 g 3 03/13/2024 Active Omeprazole 20 MG Oral Capsule Delayed Release (PriLOSEC)Indicatio ns:Gastroesophageal reflux disease without esophagitis Take 1 Capsule by mouth in the morning. 90 Capsule 2 03/20/2024 Active documented as of this encounter (statuses as of 03/26/2024) Active Problems Problem Noted Date Diagnosed Date Chronic kidney disease, stage 3b 11/11/2023 Overview: Per CKD protocol Anticoagulation management encounter 10/21/2023 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 LDL less than 100 05/2024 [facility]DC current use of anticoagulant therapy 0 09/10/2023 [...] as of this encounter (statuses as of 03/26/2024) Resolved Problems Problem Noted Date Diagnosed Date Resolved Date Chronic kidney disease, stage 3a 06/12/2021 11/13/2023 Overview: Per CKD protocol Chronic diastolic heart failure 06/23/2020 11/13/2021 Prediabetes 04/11/2020 12/13/2022 Overview: Per Prediabetes protocol HTN, goal to be determined 1 07/23/2008 Overview: Modified per HTN protocol #16. documented as of this encounter (statuses as of 03/26/2024) Immunizations Name Administration Dates Next Due COVID-19 [...] encounter Miscellaneous Notes * Telephone Encounter - Christin Guthrie OSA - 03/26/2024 3:31 PM EDT Shy is calling for her mother Priya. Can she get a handicap sign for her mother? Please call either Shy at [phone] or Priya [phone] documented in this encounter Plan of Treatment Upcoming Encounters Date Type Department Care Team (Late st Contact Info) Description 04/01/2024 8:15 AM EDT Telemedicine General Surgery, [place] [address] [place] [address] Amol Espino MD [address] [place] [address] 04/06/2024 9:30 AM EDT Anticoagulation Pharmacy, [place] [address] [place] [address] [facility] [address] [place] [address] 04/08/2024 3:00 PM EDT Cardiac Studies Cardiac Studies, [facility] [address] [facility] [place] [address] 07/31/2024 2:00 PM EST Office Visit Cardiology, [facility] [address] [facility] [place] [address] Sai Lovelace, PA-C [address] [place] [address] 09/23/2024 2:00 PM EDT Office Visit [facility] [address] [place] [phone] Sai Soler MD [address] [place] [address] Health Maintenance Due Date Last Done Comments [...] Ratio 10/20/2024 10/21/2023 CKD HGB USE SMARTSET 08771 10/20/202410/20, 04/25/2023, 10/22/2022, Additional history exists CKD PHOS USE SMARTSET 91134 10/20/202409/30, 12/28/2013, 12/27/2013, Additional history exists DXA [...] 2:42 PM 07/11/2007 2:07 PM Care Teams Supervisor Spinning Relationship Specialty Start Date End Date Sai Soler MD [address] [place] [address] PCP - General Family Medicine 03/15/20 documented as of this encounter
--- OUTSIDE RECORDS SUMMARY | 2024-04-02 10:28 | External Medical Summary | Summary of Care ---
Author Name Unknown Organization [facility] Address [address] [place] [address] Phone [phone] Care Team Providers Care Behavioral Services Tech Name Role Phone Sai Soler MD Primary Care Provider [phone] Reason for Visit * Reason Onset Date Comments Advice 03/26/2024 Handicap form ne eded Forms Request 03/26/2024 Encounter Details Date Type Department Care Team (Late st Contact Info) Description 03/26/2024 Telephone [facility] [address] [place] [address] Sai Soler MD [address] [place] [address] Advice (Handicap form needed ); [...] daily Active Ostomy Supplies (OSTOMY DRAINABLE POUCH/FLANGE) [facility] Ostomy Drainable Pouch/Flange Miscellaneous USE DIRECTED. [...] daily 222 mL 11 03/13/2024 Active Nystatin 678103 UNIT/GM External Powder (Nystop)Indications :Cutaneous candidiasis Apply [...] her mother? Please call either Shy at [phone] or Priya [phone] documented in this encounter Plan of Treatment Upcoming Encounters Date Type Department Care Team (Late st Contact Info) Description 04/01/2024 8:15 AM EDT Telemedicine General Surgery, [place] [address] [place] [address] Amol Espino MD [address] [place] [address] 04/06/2024 9:30 AM EDT Anticoagulation [address] [place] [address] [facility] [address] [place] [facility] [place] [address] 04/08/2024 3:00 PM EDT Cardiac Studies Cardiac Studies, [facility] [address] [facility] [address] 07/31/2024 2:00 PM EST Office Visit Cardiology, [facility] [address] [facility] [place] [address] Sai Lovelace PA-C [address] [facility] [place] [address] 09/23/2024 2:00 PM EDT Office Visit Family [facility] [place] [address] [place] [facility] [place] [phone] Sai Soler MD [address] [place] [address] Health Maintenance Due Date Last Done Comments [...] Ratio 10/20/2024 10/21/2023 CKD HGB USE SMARTSET 43814 10/20/202410/20, 04/25/2023, 10/22/2022, Additional history exists CKD PHOS USE SMARTSET 26767 10/20/202409/30, 12/28/2013, 12/27/2013, Additional history exists DXA [...] 2:42 PM 07/11/2007 2:07 PM Care Teams Behavioral Services Tech Relationship Specialty Start Date End Date Sai Soler MD [address] [facility] [place] [phone] PCP - General Family Medicine 03/15/20 documented as of this encounter
--- OUTSIDE RECORDS SUMMARY | 2024-04-02 10:28 | External Medical Summary | Summary of Care ---
Author Name Unknown Organization [facility] Address [address] [place] [address] Phone [phone] Care Team Providers Care Supervisor Research Kennel Name Role Phone Sai Soler MD Primary Care Provider [phone] Reason for Visit * Reason Onset Date Comments Advice 03/26/2024 Handicap form ne eded Forms Request 03/26/2024 Encounter Details Date Type Department Care Team (Late st Contact Info) Description 03/26/2024 Telephone [facility] [address] [place] [address] Sai Sloer MD [address] [place] [address] Advice (Handicap form needed ); [...] daily Active Ostomy Supplies (OSTOMY DRAINABLE POUCH/FLANGE) [facility] Ostomy Drainable Pouch/Flange Miscellaneous USE DIRECTED. Quantity: [...] daily 222 mL 11 03/13/2024 Active Nystatin 625740 UNIT/GM External Powder (Nystop)Indications :Cutaneous candidiasis Apply [...] with target LDL less than 100 05/2024 correction current use of anticoagulant therapy 0 09/10/2023 [...] her mother? Please call either Shy at [phone] or Priya [phone] documented in this encounter Plan of Treatment Upcoming Encounters Date Type Department Care Team (Late st Contact Info) Description 04/01/2024 8:15 AM EDT Telemedicine General Surgery, [place] [address] [place] [address] Amol Espino MD [address] [place] [address] 04/06/2024 9:30 AM EDT Anticoagulation Pharmacy, [place] [address] [place] [address] [facility] [address] [place] [address] 04/08/2024 3:00 PM EDT Cardiac Studies Cardiac Studies, [facility] [address] [facility] [place] [address] 07/31/2024 2:00 PM EST Office Visit Cardiology, [facility] [address] [facility] [place] [address] Sai Lovelace, PA-C [address] [place] [address] 09/23/2024 2:00 PM EDT Office Visit [facility] [address] [place] [phone] Sai Soler MD [address] [place] [address] Health Maintenance Due Date Last Done Comments [...] Ratio 10/20/2024 10/21/2023 CKD HGB USE SMARTSET 35226 10/20/202410/20, 04/25/2023, 10/22/2022, Additional history exists CKD PHOS USE SMARTSET 14702 10/20/202409/30, 12/28/2013, 12/27/2013, Additional history exists DXA [...] PM 07/11/2007 2:07 PM Care Teams Supervisor Research Kennel Relationship Specialty Start Date End Date Sai Soler MD [address] [place] [address] PCP - General Family Medicine 03/15/20 documented as of this encounter
--- OUTSIDE RECORDS SUMMARY | 2024-04-02 10:29 | External Medical Summary | Summary of Care ---
Author Name Unknown Organization [facility] Address [address] [place] [address] Phone [phone] Care Team Providers Care Sheet Metal Worker Name Role Phone Sai Soler MD Primary Care Provider [phone] Reason for Visit * Reason Comments Follow Up Encounter Details Date Type Department Care Team (Late st Contact Info) Description 02/13/2024 11:15 AM EDT [facility] [address], [place] [id number] Amol Espino MD [address] [place] [address] Parastomal hernia without obstruction or gangrene* Allergies Active Allergy Reactions Criticality Noted Date Comments Dexamethasone High 01/30/2022 Other reaction(s): EYES BECAME RED AND ITCHY Other - Drugs 07/04/2007 An eye ointment for blephritis, name unknown Sulfamethoxazole-Trimethoprim High 2015 Other reaction(s): Itching Tobramycin-Dexamethasone 09/04/2012 Eyes become red and itchy documented as of this encounter (statuses as of 02/13/2024) Medications Medication Sig Dispensed Refills Start Date [...] 1-2 drops per eye as needed Active Nystatin 528026 UNIT/GM External Powder (Nystop)Indications :Cutaneous candidiasis Apply topically to affected area 3 times a day. 30 g 3 07/12/2020 Active Clotrimazole 1 % External Cream (Lotrimin)Indicatio [...] ML BY MOUTH TWICE DAILY 10/20/2021 Active Omeprazole 20 MG Oral Capsule Delayed Release (PriLOSEC)Indicatio ns:Gastroesophageal reflux disease without esophagitis TAKE 1 CAPSULE EVERY MORNING ONE HOUR BEFORE THE FIRST MEAL OF THE DAY 90 Capsule 2 09/30/2022 Active Potassium 99 MG Oral Tablet Take 1 Tablet by mouth in the morning. Active oxyCODONE-Acetamino phen 5-325 MG Oral Tablet (Percocet)Indicatio ns:Generalized osteoarthritis Take 1 Tablet by mouth every 4 hours as needed for Pain, Moderate. 20 Tablet 05/14/2023 Active busPIRone HCl 10 MG Oral Tablet (Buspar)Indications :Adjustment disorder with anxiety Take 1 Tablet by mouth 2 times a day as needed for Anxiety. 30 Tablet 5 05/14/2023 Active Ammonium Lactate 12 % External Lotion (Lac-Hydrin) Apply topically to affected area as needed for Dry Skin. 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 documented as of this encounter (statuses as of 02/13/2024) Immunizations Name Administration Dates Next Due COVID-19 mRNA, LNP-s, No Pre serve, 2-Dose Series (Moderna) 08/31/2020,08/04/2020 COVID-19, mRNA, LNP-s, PF, B ooster, 100mcg/0.5mg (Moderna) 01/11/2022,06/01/2021 H1N1 2009 Influenza, IM 09/28/2009 Pneumococcal Conjugate Vacc, 13 Valent (Prevnar) 05/18/2015 Pneumococcal Polysaccharide PPV23 (Pneumovax) Seasonal Influenza, PF, 6 M & above, IM , (FluLaval or Fluzone) 03/15/2020 Seasonal Influenza, Quadrivalent Hd (Fluzone Hd) 05/09/2022,03/18/2021 Seasonal Influenza, Split, IIV3, No Preserve, In j 05/18/2015 Seasonal Influenza, Trivalent, Adjuvanted, 65+ y rs 04/13/2019 TD, Preservative Free 08/10/1996 TDAP (age [...] Progress Notes * Amol Espino MD - 02/13/2024 11:01 AM EDT After connecting to the patient via telephone, the patient was identified by name and date of . Patient was then informed that this was a telephone call only visit. The patient agreed to participate. Visit Disposition: Routine follow-up Total call duration was 5 minutes. The patient is following up for a parastomal hernia. She notes her stool is thicker. She denies anypain. Her is in the hospital. PLAN- will follow up in 2 months. Amol Espino MD documented in this encounter Plan of Treatment Upcoming Encounters Date Type Department Care Team (Late st Contact Info) Description 02/24/2024 9:30 AM EDT Anticoagulation Pharmacy, [place] [address] [place] [address] [place] [facility] [address] [place] [address] 03/13/2024 2:00 PM EDT Office Visit [facility] [place] [address] [address] Sai Soler MD [address] [place] [facility] [place] [address] 04/08/2024 3:00 PM EDT Cardiac Studies Cardiac Studies, [facility] [address] [facility] [place] [address] 07/31/2024 2:00 PM EST Office Visit Cardiology, [facility] [address] [place] [address] Sai Lovelace PA-C [address] [place] [address] Health Maintenance Due Date Last Done Comments Zoster Vaccines (2 of 3) 12/25/2008 10/30/2008 Adult Wellness Visit 02/19/2023 02/19/2022, 02/17/20 21 COVID-19 Vaccine ( season) 2023 05/09/2023, 01/11/2022, 06/01/2021, Additional history exists Influenza Vaccine (FLU shot) (#1) 2024 04/10/2023, 05/09/2022, 03/18/2021, Additional history exists GFR 04/21/2024 10/21/2023, 04/01, 10/22/2022, Additional history exists Depression Screening 09/09/2024 09/10/2023 Albumin/Creatinine Ratio 10/20/2024 10/21/2023 CKD HGB USE SMARTSET 07972 10/20/202410/20, 04/25/2023, 10/22/2022, Additional history exists CKD PHOS USE SMARTSET 95845 10/20/202409/30, 12/28/2013, 12/27/2013, Additional history exists DXA Scan 08/01/2026 08/01/2022, 08/01/2022 DTaP,Tdap,and Td Vaccines (2 - Td or Tdap) 07/12/2030 [...] 2:42 PM 07/11/2007 2:07 PM Care Teams Sheet Metal Worker Relationship Specialty Start Date End Date Sai Soler MD [address] [place] [address] PCP - General Family Medicine 03/15/20 documented as of this encounter
--- OUTSIDE RECORDS SUMMARY | 2024-04-02 10:29 | External Medical Summary | Summary of Care ---
Author Name Unknown Organization [facility] Address [address] [place] [address] Phone [phone] Care Team Providers Care Case Investigator Name Role Phone Sai Soler MD Primary Care Provider [phone] Encounter Details Date Type Department Care Team (Late st Contact Info) Description 01/07/2024 Telephone [facility] [address] [place] [address] Sai Soler MD [address] [place] [address] Allergies Active Allergy Reactions Criticality Noted Date Comments Dexamethasone High 01/30/2022 Other reaction(s): EYES BECAME RED AND ITCHY Other - Drugs 07/04/2007 An eye ointment for blephritis, name unknown Sulfamethoxazole-Trimethoprim High 2015 Other reaction(s): Itching Tobramycin-Dexamethasone 09/04/2012 Eyes become red and itchy documented as of this encounter (statuses as of 01/15/2024) Medications Medication Sig Dispensed Refills Start Date [...] drops per eye as needed Active Nystatin 789111 UNIT/GM External Powder (Nystop)Indications :Cutaneous candidiasis Apply [...] Tablet by mouth in the morning. Active Citalopram Hydrobromide 20 MG Oral Tablet (CeleXA)Indications :JO ANN (generalized anxiety disorder) TAKE 1 AND 1/2 TABLETS EVERY DAY 135 Tablet 2 04/30/2023 Active oxyCODONE-Acetamino phen 5-325 MG Oral Tablet [...] or Dyspnea. 1 g 1 07/12/2023 Active amLODIPine Besylate 5 MG Oral Tablet (Norvasc)Indication s:HTN, goal below 140/90 TAKE 1 TABLET EVERY DAY 90 Tablet 1 09/04/2023 Active Metoprolol Tartrate 100 MG Oral Tablet (Lopressor)Indicati ons:Paroxysmal atrial fibrillation (HCC) TAKE 1 TABLET IN THE MORNING AND 1 TABLET BEFORE BEDTIME. 180 Tablet 1 09/04/2023 Active oxyBUTYnin Chloride 5 MG Oral Tablet (Ditropan)Indicatio ns:PERCY (stress urinary incontinence, female) TAKE 1 TABLET AT BEDTIME 90 Tablet 3 09/04/2023 Active Atorvastatin Calcium 40 MG Oral Tablet (Lipitor) TAKE 1 TABLET EVERY EVENING 90 Tablet 1 09/04/2023 Active Warfarin Sodium 5 MG Oral Tablet (Coumadin)Indicatio ns:Paroxysmal atrial fibrillation (HCC) Take 1/2 tablet by mouth every day or as directed by anticoagulation clinic 15 Tablet 5 11/01/2023 Active documented as of this encounter (statuses as of 01/15/2024) Active Problems Problem Noted Date Diagnosed Date Chronic kidney disease, stage 3b 11/11/2023 Overview: Per CKD protocol Anticoagulation management encounter 10/21/2023 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 LDL less than 100 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 documented as of this encounter (statuses as of 01/15/2024) Immunizations Name Administration Dates Next Due COVID-19 [...] encounter Miscellaneous Notes * Telephone Encounter - Marisa Lara LPN - 01/07/2024 3:07 PM EDT [facility] is requesting a new order for patient to have her port flushed at theirfacility. Current order expires on February 01, 2024 documented in this encounter Plan of Treatment Upcoming Encounters Date Type Department Care Team (Late st Contact Info) Description 01/23/2024 1:30 PM EDT Office Visit Cardiology, [facility] [address] [place] [address] Sai Lovelace PA-C [address] [place] [address] 02/06/2024 1:15 PM EDT [facility] [address] [place] [address] Amol Espino MD [address] [place] [address] 02/24/2024 9:30 AM EDT Anticoagulation Pharmacy, [place] [address] [place] [address] [facility] [address] [place] [address] 03/13/2024 2:00 PM EDT Office Visit Family Practice, [place] [address] [place] [facility] [place] [id number] Sai Soler MD [address] [place] [address] Health Maintenance Due Date Last Done Comments Zoster Vaccines (2 of 3) 12/25/2008 10/30/2008 COVID-19 Vaccine ( season) 2023 05/09/2023, 01/11/2022, 06/01/2021, Additional history exists Influenza Vaccine (FLU shot) (#1) 2024 04/10/2023, 05/09/2022, 03/18/2021, Additional history exists GFR 04/21/2024 10/21/2023, 04/01, 10/22/2022, Additional history exists Depression Screening 09/09/2024 09/10/2023 Albumin/Creatinine Ratio 10/20/2024 10/21/2023 CKD HGB USE SMARTSET 47785 10/20/202410/20, 04/25/2023, 10/22/2022, Additional history exists CKD PHOS USE SMARTSET 52799 10/20/202409/30, 12/28/2013, 12/27/2013, Additional history exists DXA [...] as of this encounter Visit Diagnoses Diagnosis Pulmonary sarcoidosis (HCC)- Primary Sarcoidosis Crohn's disease of both small and large intestine without complications (HCC) documented in this encounter Advance Directives * [...] 2:42 PM 07/11/2007 2:07 PM Care Teams Case Investigator Relationship Specialty Start Date End Date Sai Soler MD [address] [place] [address] PCP - General Family Medicine 03/15/20 documented as of this encounter
--- OUTSIDE RECORDS SUMMARY | 2024-04-02 10:29 | External Medical Summary | Summary of Care ---
Author Name Unknown Organization [facility] Address [address] [place] [address] Phone [phone] Care Team Providers Care Cylinder Devalver Name Role Phone Sai Soler MD Primary Care Provider [phone] Reason for Visit * Reason Onset Date Comments Med Request 01/31/2024 Encounter Details Date Type Department Care Team (Late st Contact Info) Description 01/31/[address] [facility] [address] [place] [address] Sai Soler MD [address] [place] [address] Med Request Allergies Active Allergy Reactions Criticality Noted Date Comments Dexamethasone High 01/30/2022 Other reaction(s): EYES BECAME RED AND ITCHY Other - Drugs 07/04/2007 An eye ointment for blephritis, name unknown Sulfamethoxazole-Trimethoprim High 2015 Other reaction(s): Itching Tobramycin-Dexamethasone 09/04/2012 Eyes become red and itchy documented as of this encounter (statuses as of 01/31/2024) Medications Medication Sig Dispensed Refills Start Date [...] drops per eye as needed Active Nystatin 436506 UNIT/GM External Powder (Nystop)Indications :Cutaneous candidiasis Apply [...] as of this encounter (statuses as of 01/31/2024) Active Problems Problem Noted Date Diagnosed Date Chronic kidney disease, stage 3b 11/11/2023 Overview: Per CKD protocol Anticoagulation management encounter 10/21/2023 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 LDL less than 100 05/2024 assisted current use of anticoagulant therapy 0 09/10/2023 [...] as of this encounter (statuses as of 01/31/2024) Resolved Problems Problem Noted Date Diagnosed Date Resolved Date Chronic kidney disease, stage 3a 06/12/2021 11/13/2023 Overview: Per CKD protocol Chronic diastolic heart failure 06/23/2020 11/13/2021 Prediabetes 04/11/2020 12/13/2022 Overview: Per Prediabetes protocol HTN, goal to be determined 1 07/23/2008 Overview: Modified per HTN protocol #16. documented as of this encounter (statuses as of 01/31/2024) Immunizations Name Administration Dates Next Due COVID-19 [...] Miscellaneous Notes * Telephone Encounter - Christin Aguirre CPhT - 01/31/2024 3:52 PM EDT Pt calling to request Buspar. Informed pt that RX is available at their pharmacy. Pt verbalized understanding and stated they will check with their pharmacy regarding this medication. Thank you, Christin Aguirre CPhT Certified Real Estate Appraiser [facility] 01/31/2024,3:53 PM documented in this encounter Plan of Treatment Upcoming Encounters Date Type Department Care Team (Late st Contact Info) Description 02/13/2024 11:15 AM EDT [facility] [address] [place] [address] Amol Espino MD [address] [place] [address] 02/24/2024 9:30 AM EDT Anticoagulation Pharmacy, [place] [address] [place] [address] [place], [facility] [address] [place] [address] 03/13/2024 2:00 PM EDT Office Visit Family Practice, [place] [address] [place] [phone] Sai Soler MD [address] [place] [address] 04/08/2024 3:00 PM EDT Cardiac Studies Cardiac Studies, [facility] [address] [place] [address] 07/31/2024 2:00 PM EST [facility] [place] [address] [place] [address] Sai Lovelace PA-C [address] [place] [address] Health Maintenance Due Date Last Done Comments Zoster Vaccines (2 of 3) 12/25/2008 10/30/2008 COVID-19 Vaccine (2022- season) 2023 05/09/2023, 01/11/2022, 06/01/2021, Additional history exists Influenza Vaccine (FLU shot) (#1) 2024 04/10/2023, 05/09/2022, 03/18/2021, Additional history exists GFR 04/21/2024 10/21/2023, 04/01, 10/22/2022, Additional history exists Depression Screening 09/09/2024 09/10/2023 Albumin/Creatinine Ratio 10/20/2024 10/21/2023 CKD HGB USE SMARTSET 37135 10/20/202410/20, 04/25/2023, 10/22/2022, Additional history exists CKD PHOS USE SMARTSET 17205 10/20/202409/30, 12/28/2013, 12/27/2013, Additional history exists DXA [...] 2:42 PM 07/11/2007 2:07 PM Care Teams Cylinder Devalver Relationship Specialty Start Date End Date Sai Soler MD [address] [place] [address] PCP - General Family Medicine 03/15/20 documented as of this encounter
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
--- OUTSIDE RECORDS SUMMARY | 2024-04-02 10:29 | External Medical Summary | Summary of Care ---
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 Kassie Soler MD Primary Care Provider [phone] Reason for Visit * Reason Comments eRx-Medication Refill Encounter Details Date Type Department Care Team (Late st Contact Info) Description 01/27/2024 Refill [facility] [address] [place] [address] Kassie Soler MD [address] [place] [address] HTN, goal below 140/90; Paroxysmal atrial fibrillation (HCC); JO ANN (generalized anxiety disorder) Allergies Active Allergy Reactions Criticality Noted Date Comments Dexamethasone High 01/30/2022 Other reaction(s): EYES BECAME RED AND ITCHY Other - Drugs 07/04/2007 An eye ointment for blephritis, name unknown Sulfamethoxazole-Trimethoprim High 2015 Other reaction(s): Itching Tobramycin-Dexamethasone 09/04/2012 Eyes become red and itchy documented as of this encounter (statuses as of 01/27/2024) Medications Medication Sig Dispensed Refills Start Date End Date Status ASPIRIN 81 MG PO TABS 1 x daily Active Cholecalciferol (VITAMIN D) 2000 UNITS Tablet 1 tablet daily Active Ostomy Supplies (OSTOMY DRAINABLE POUCH/FLANGE) MISC Ostomy Drainable Pouch/Flange Miscellaneous USE DIRECTED. Quantity: 30; Refills: 12 Sawyer Orourke M.D.; Started 18-May-2011 Active 05/18/20 11 Active Magnesium 250 MG Tablet Take by mouth daily. 1 twice daily Active Artificial Tear Solution (SOOTHE XP XTRA PROTECTION) SOLN Instill into eye. 1-2 drops per eye as needed Active Nystatin 705539 UNIT/GM External Powder (Nystop)Indication s:Cutaneous candidiasis Apply topically to affected area 3 times a day. 30 g 3 07/12/19 21 Active Clotrimazole 1 % External Cream (Lotrimin)Indicati ons:Yeast dermatitis Apply to affected areas (suspect for yeast infection) once or twice daily until resolved 45 g 5 07/21/19 21 Active Additional Information Patient not taking.Reported on 09/10/2023 Triamcinolone Acetonide 0.1 % External Cream (Aristocort)Indica tions:Venous stasis dermatitis of left lower extremity Apply to rash on the left lower leg twice daily as needed for flares and itching. 80 g 3 11/12/19 21 Active Melatonin 5 MG Oral Tablet Chewable Take 10 mg by mouth daily as needed. Active Fluticasone Propionate 50 MCG/ACT Nasal Suspension (Flonase)Indicatio ns:Seasonal allergic rhinitis, unspecified trigger 1 spray each nopstril 2 times daily 48 mL 3 05/15/20 21 Active Meclizine HCl 25 MG Oral Tablet (Antivert)Indicati ons:Benign paroxysmal positional vertigo, unspecified laterality Take 0.5-1 Tablets by mouth 3 times a day as needed for Dizziness. 30 Tablet 1 05/15/20 21 Active Sod Citrate-Citric Acid 500-334 MG/5ML Oral Solution (Bicitra) 45 ML BY MOUTH TWICE DAILY 10/21/19 22 Active Omeprazole 20 MG Oral Capsule Delayed Release (PriLOSEC)Indicati ons:Gastroesophage al reflux disease without esophagitis TAKE 1 CAPSULE EVERY MORNING ONE HOUR BEFORE THE FIRST MEAL OF THE DAY 90 Capsule 2 10/01/19 23 Active Potassium 99 MG Oral Tablet Take 1 Tablet by mouth in the morning. Active oxyCODONE-Acetamin ophen 5-325 MG Oral Tablet (Percocet)Indicati ons:Generalized osteoarthritis Take 1 Tablet by mouth every 4 hours as needed for Pain, Moderate. 20 Tablet 05/14/20 23 Active busPIRone HCl 10 MG Oral Tablet (Buspar)Indication s:Adjustment disorder with anxiety Take 1 Tablet by mouth 2 times a day as needed for Anxiety. 30 Tablet 5 05/14/20 23 Active Ammonium Lactate 12 % External Lotion (Lac-Hydrin) Apply topically to affected area as needed for Dry Skin. Apply to body twice daily 222 mL 11 06/07/20 23 Active Ventolin HFA 108 (90 Base) MCG/ACT Inhalation Aerosol SolutionIndication s:Acute URI,SOB (shortness of breath),Wheezing Inhale 2 Puffs by mouth every 4 hours as needed for Wheezing or Dyspnea. 1 g 1 07/12/19 24 Active oxyBUTYnin Chloride 5 MG Oral Tablet (Ditropan)Indicati ons:PERCY (stress urinary incontinence, female) TAKE 1 TABLET AT BEDTIME 90 Tablet 3 09/04/19 24 Active Warfarin Sodium 5 MG Oral Tablet (Coumadin)Indicati ons:Paroxysmal atrial fibrillation (HCC) Take 1/2 tablet by mouth every day or as directed by anticoagulation clinic 15 Tablet 5 11/01/19 24 Active Tylenol PM Extra Strength 500-25 MG Oral Tablet (diphenhydrAMINE-A PAP (sleep)) Take 2 Tablets by mouth at bedtime as needed for Sleep. Active amLODIPine Besylate 5 MG Oral Tablet (Norvasc)Indicatio ns:HTN, goal below 140/90 TAKE 1 TABLET EVERY DAY 90 Tablet 1 01/27/20 24 Active Atorvastatin Calcium 40 MG Oral Tablet (Lipitor) TAKE 1 TABLET EVERY EVENING 90 Tablet 1 01/27/20 24 Active Metoprolol Tartrate 100 MG Oral Tablet (Lopressor)Indicat ions:Paroxysmal atrial fibrillation (HCC) TAKE 1 TABLET IN THE MORNING AND 1 TABLET BEFORE BEDTIME. 180 Tablet 1 01/27/20 24 Active Citalopram Hydrobromide 20 MG Oral Tablet (CeleXA)Indication s:JO ANN (generalized anxiety disorder) TAKE 1 AND 1/2 TABLETS EVERY DAY 135 Tablet 1 01/27/20 24 Active Citalopram Hydrobromide 20 MG Oral Tablet (CeleXA)Indication s:JO ANN (generalized anxiety disorder) TAKE 1 AND 1/2 TABLETS EVERY DAY 135 Tablet 2 04/30/20 23 024 Discontinued amLODIPine Besylate 5 MG Oral Tablet (Norvasc)Indicatio ns:HTN, goal below 140/90 TAKE 1 TABLET EVERY DAY 90 Tablet 1 09/04/19 24 024 Discontinued Metoprolol Tartrate 100 MG Oral Tablet (Lopressor)Indicat ions:Paroxysmal atrial fibrillation (HCC) TAKE 1 TABLET IN THE MORNING AND 1 TABLET BEFORE BEDTIME. 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 documented as of this encounter (statuses as of 01/27/2024) Immunizations Name Administration Dates Next Due COVID-19 [...] encounter Miscellaneous Notes * Telephone Encounter - Jennifer Crystal [facility] - 01/27/2024 4:03 PM EDTSigned Prescriptions: Disp Refills amLODIPine Besylate 5 MG Oral Tablet (Norv*90 Tab*1 Sig: TAKE 1 TABLET EVERY DAYAuthorizing Provider: KASSIE SOLER User: JENNIFER CRYSTAL Atorvastatin Asscjua55 MG Oral Tablet (Li*90 Tab*1 Sig: TAKE 1 TABLET EVERY EVENINGAuthorizing Provider: KASSIE SOLER User: JENNIFER CRYSTAL Metoprolol Tartrate 100 MG Oral Tablet (Lo*180 Ta*1 Sig: TAKE 1 TABLETIN THE MORNING AND 1 TABLET BEFORE BEDTIME.Authorizing Provider: KASSIE SOLER User: JENNIFER CRYSTAL Citalopram Hydrobromide 20 MG Oral Tablet *135 Ta*1 Sig: TAKE 1 AND 1/2 TABLETS EVERY DAYAuthorizing Provider: KASSIE SOLER User: JENNIFER CRYSTAL documented in this encounter Plan of Treatment Upcoming Encounters Date Type Department Care Team (Late st Contact Info) Description 02/13/2024 11:15 AM EDT Telemedicine General Surgery, [place] [address] [place] [address] Amol Espino MD [address] [place] [address] 02/24/2024 9:30 AM EDT Anticoagulation Pharmacy, [place] [address] [place] [address] [facility] [address] [place] [address] 03/13/2024 2:00 PM EDT Office Visit Family [facility], [place] [address] [place] [id number] Kassie Soler MD [address] [place] [address] 04/08/2024 3:00 PM EDT Cardiac Studies Cardiac Studies, [facility] [address] [facility] [place] [address] 07/31/2024 2:00 PM EST Office Visit Cardiology, [facility] [address] [facility] [place] [id number] Kassie Lovelace, PA-C [address] [place] [address] Health Maintenance Due Date Last Done Comments Zoster Vaccines (2 of 3) 12/25/2008 10/30/2008 COVID-19 Vaccine ( season) 2023 05/09/2023, 01/11/2022, 06/01/2021, Additional history exists Influenza Vaccine (FLU shot) (#1) 2024 04/10/2023, 05/09/2022, 03/18/2021, Additional history exists GFR 04/21/2024 10/21/2023, 04/01, 10/22/2022, Additional history exists Depression Screening 09/09/2024 09/10/2023 Albumin/Creatinine Ratio 10/20/2024 10/21/2023 CKD HGB USE SMARTSET 58512 10/20/202410/20, 04/25/2023, 10/22/2022, Additional history exists CKD PHOS USE SMARTSET 65850 10/20/202409/30, 12/28/2013, 12/27/2013, Additional history exists DXA [...] as of this encounter Visit Diagnoses Diagnosis HTN, goal below 140/90 Unspecified essential hypertension Paroxysmal atrial fibrillation (HCC) Atrial fibrillation JO ANN (generalized anxiety disorder) Generalized anxiety disorder documented in this encounter Advance Directives * [...] 2:42 PM 07/11/2007 2:07 PM Care 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
--- OUTSIDE RECORDS SUMMARY | 2024-04-02 10:29 | External Medical Summary | Summary of Care ---
Author Name Unknown Organization [facility] Address [address] [place] [address] Phone [phone] Care Team Providers Care Pressure Vessel Inspector Name Role Phone Sai Soler MD Primary Care Provider [phone] Reason for Referral * Evaluate & Treat - Unlimited Visits (Within 30 days (routine)) - Authorized Specialty Diagnoses / Procedures Referred By Madhu herrmann Referred To Contact Psychology Diagnoses Sai Lantigua MD [address] [place] [address] Referral ID Status Reason Start Date Expiration Date Visits Requested Visits Authorized [id number] Authorized Specialty Services Required 03/13/[phone] Question Answer Referral Priority Within 30 days (routine) Where should this appointment be scheduled? [facility] Is this referral for medication management? No Reason for Referral: Adjustment/Stress/Grief * Medication Prior Authorization - Closed Specialty Diagnoses / Procedures Referred By Madhu herrmann Referred To Contact Diagnoses Cutaneous candidiasis Sai Soler MD [address] [place] [address] Referral ID Status Reason Start Date Expiration Date Visits Re quested Visits Authorized [id number] Closed [phone] Reason for Visit * Reason Comments Follow Up Patient is here toda y for a follow up visit. Patient states she needs a prescription for dry skin on her arms. Encounter Details Date Type Department Care Team (Late st Contact Info) Description 03/13/2024 2:00 PM EDT Office Visit [facility] [address] [place] [address] Sai Soler MD [address] [place] [address] Need for prophylactic vaccination and inoculation against influenza*; Cutaneous candidiasis; Grief; Dermatitis; Ileostomy status (HCC); Crohn's disease of small and large intestines with complication (HCC); Anticoagulation management encounter; Chronic kidney disease, stage 3b ([facility]) Allergies Active Allergy Reactions Criticality Noted Date Comments Dexamethasone High 01/30/2022 Other reaction(s): EYES BECAME RED AND ITCHY Other - Drugs 07/04/2007 An eye ointment for blephritis, name unknown Sulfamethoxazole-Trimethoprim High 2015 Other reaction(s): Itching Tobramycin-Dexamethasone 09/04/2012 Eyes become red and itchy documented as of this encounter (statuses as of 03/13/2024) Medications Medication Sig Dispensed Refills Start Date [...] ML BY MOUTH TWICE DAILY 2 Active Omeprazole 20 MG Oral Capsule Delayed Release (PriLOSEC)Indicati ons:Gastroesophage al reflux disease without esophagitis TAKE 1 CAPSULE EVERY MORNING ONE HOUR BEFORE THE FIRST MEAL OF THE DAY 90 Capsule 2 3 Active Potassium 99 MG Oral Tablet Take [...] daily 222 mL 11 4 Active Nystatin 474378 UNIT/GM External Powder (Nystop)Indication s:Cutaneous candidiasis Apply topically to affected area 3 times a day. 30 g 3 4 Active Nystatin 947436 UNIT/GM External Powder (Nystop)Indication s:Cutaneous candidiasis Apply topically to affected area 3 times a day. 30 g 3 1 03/13/20 24 Discontinu ed(Refill) Ammonium Lactate 12 % External Lotion (Lac-Hydrin) Apply topically to affected area as needed for Dry Skin. 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 documented as of this encounter (statuses as of 03/13/2024) Immunizations Name Administration Dates Next Due COVID-19 [...] Sign Reading Time Taken Comments Blood Pressure 136/72 03/13/2024 1:57 PM EDT Pulse 80 03/13/2024 1:57 PM EDT Temperature 36.3 C (97.3 F) 03/13/2024 1:57 PM ED T Respiratory Rate 16 03/13/2024 1:57 PM EDT Oxygen Saturation 96% 03/13/2024 1:57 PM EDT Inhaled Oxygen Concentration - - Weight 115.7 kg (255 lb) 03/13/2024 1:57 PM EDT Height 152.4 cm (5') 03/13/2024 1:57 PM EDT Body Mass Index 49.8 03/13/2024 1:57 PM EDT documented in this encounter Functional Status Functional [...] of this encounter Progress Notes * Sai Soler MD - 03/13/2024 2:06 PM EDT Subjective: Priya Tapia is a 83 year old female. Chief Complaint Patient presents with Follow Up Patient is here today for a follow up visit. Patient states she needs a prescription for dry skin on her arms. HPI: 83-year-old seen today for regular scheduled visit but even more so relating to her 's just a few days ago. She did see Dr. Judge on March 10 following her 's suicide. Yadira recommended that she do grief counseling in at that time said she was not ready. He encouraged her to follow up for her regular appointment with me. She notes that her has been has been struggling with metastatic prostate cancer in sounds as if it has been a gradual downhill course. Wants March 09 he took his own life shooting himself. He did this on their front porch. She was inside at the time but walked out to the porch in saw him in now can not get that picture out of her head. Apparently front porch was a place where the 2 of them spent a lot of time in it was pleasant and relaxed time spent. She now realizes that he will never be the same. She is not quite ready for counseling although she did tell me that she would think about when she gets through the burial in 3 days time. She does have support from both son and daughter who live locally. Um 1 of the 2 of them are with her every night in plan to continue do that for awhile. She plans to remain in the same house. Unfortunately the only entrance and exit apparently is the front porch. She remains on citalopram a total of 30 mg daily. She now has both BuSpar 10 mg to use twice daily as needed for severe grief/anxiety symptoms. She also has lorazepam 0.5 mg to use on rare occasion if BuSpar is not helpful. She is not suicidal. She does follow with Nephrology. 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 30 Tablet 1 Omeprazole 20 MG Oral Capsule Delayed Release (PriLOSEC) TAKE 1 CAPSULE EVERY MORNING ONE HOUR BEFORE THE FIRST MEAL OF THE DAY 90 Capsule 2 Potassium 99 MG Oral Tablet Take 1 Tablet by mouth in the morning. oxyCODONE-Acetaminophen 5-325 MG Oral Tablet (Percocet) Take 1 Tablet by mouth every 4 hours as needed for Pain, Moderate. 20 Tablet 0 Ventolin HFA 108 (90 Base) MCG/ACT Inhalation Aerosol Solution Inhale 2 Puffs by mouth every 4 hours as needed for Wheezing or Dyspnea. 1 g 1 oxyBUTYnin Chloride 5 MG Oral Tablet (Ditropan) TAKE 1 TABLET AT BEDTIME 90 Tablet 3 Warfarin Sodium 5 MG Oral Tablet (Coumadin) Take 1/2 tablet by mouth every day or as directed by anticoagulation clinic 15 Tablet 5 Tylenol PM Extra Strength 500-25 MG Oral Tablet (diphenhydrAMINE-APAP (sleep)) Take 2 Tablets by mouth at bedtime as needed for Sleep. amLODIPine Besylate 5 MG Oral Tablet (Norvasc) TAKE 1 TABLET EVERY DAY 90 Tablet 1 Atorvastatin Calcium 40 MG Oral Tablet (Lipitor) TAKE 1 TABLET EVERY EVENING 90 Tablet 1 Metoprolol Tartrate 100 MG Oral Tablet (Lopressor) TAKE 1 TABLET IN THE MORNING AND 1 TABLET BEFOREBEDTIME. 180 Tablet 1 Citalopram Hydrobromide 20 MG Oral Tablet (CeleXA) TAKE 1 AND 1/2 TABLETS EVERY DAY 135 Tablet 1 Heparin Sod (Pork) Lock Flush 10 UNIT/ML Intravenous Solution Administer intravenously. busPIRone HCl 10 MG Oral Tablet (Buspar) Take 1 Tablet by mouth 2 times a day as needed for Anxiety. 30 Tablet 5 Ammonium Lactate 12 % External Lotion (Lac-Hydrin) Apply topically to affected area as needed for Dry Skin. Apply to body twice daily 222 mL 11 Nystatin 686283 UNIT/GM External Powder (Nystop) Apply topically to affected area 3 times a day. 30g 3 Clotrimazole 1 % External Cream (Lotrimin) Apply to affected areas (suspect for yeast infection) once or twice daily until resolved (Patient not taking: Reported on 09/10/2023) 45 g 5 Sod Citrate-Citric Acid 500-334 MG/5ML Oral Solution (Bicitra) 45 ML BY MOUTH TWICE DAILY (Patient not taking: Reported on 03/10/2024) LORazepam 0.5 MG Oral Tablet (Ativan) Take 1 Tablet by mouth at bedtime as needed for Anxiety or Sleep. (Patient not taking: Reported on 03/13/2024) 20 Tablet 0 No current facility-administered medications for this visit. Review of patient's allergies indicates: Allergen Reactions Dexamethasone Other reaction(s): EYES BECAME RED AND ITCHY Sulfamethoxazole-Trimethoprim Other reaction(s): Itching Other - Drugs An eye ointment for blephritis, name unknown Tobramycin-Dexamethasone Eyes become red and itchy Objective: BP 136/72 | Pulse 80 | Temp 36.3 C (97.3 F) (Tympanic) | Resp 16 | Ht 1.524 m (5') | Wt 115.7 kg (255 lb) | SpO2 96% | BMI 49.80 kg/m | BSA 2.21 m Physical Exam: CONST: alert, pleasant, no acute distress HEAD: normocephalic, atraumatic NECK: supple, soft, no adenopathy EARS: canals normal, TMs normal NARES: clear Eyes - PERRLA, EOM'I OROPHARYNX: clear, no swelling or erythema, moist CV: regular rate and rhythm, no murmur CHEST: clear to auscultation bilaterally, no rales or wheezing ABD: soft, non tender, non distended, no masses or hepatosplenomegaly. She has a long-term ostomy right abdomen. EXT: 1+ bilateral lower leg edema, no joint swelling or deformities, MENTAL STATUS: no evidence of thought disorder, no delusional thought, no evidence of paranoia, thought is non-tangential. She was tearful at times. Clearly devastated. ASSESSMENT/PLAN: Cutaneous candidiasis - Nystatin 843720 UNIT/GM External Powder (Nystop); Apply topically to affected area 3 times a day. Grief - ADULT/PEDS PSYCHOLOGY REFERRAL OP Continue citalopram 30 mg daily. BuSpar 10 mg twice daily p.r.n. or lorazepam 0.5 mg at bedtime as needed Dermatitis - Ammonium Lactate 12 % External Lotion (Lac-Hydrin); Apply topically to affected area as needed for Dry Skin. Apply to body twice daily Ileostomy status (HCC)-she does excellent job in the care for the ostomy Crohn's disease of small and large intestines with complication (HCC)-this is non active Anticoagulation management encounter-continue warfarin as managed per [facility] Chronic kidney disease, stage 3b (HCC) - NON-COVERED ITEM OR SERVICE-order for 8 port flushes to be done cancer unit at [facility] on regular basis per their usual protocol. Follow-up: Return in about 6 months (around 09/10/2024). | Check-out note: Pt will schedule apt withpsychologist . She was given a list of psychologists in the area. Of note is that her daughter works with a psychologist in there may be some ability to coordinate an appointment for Priya. Sai Soler MD documented in this encounter Nursing Notes * Gabi Melchor LPN - 03/13/2024 2:02 PM EDT The patient has been properly identified by confirmation of name and date of . Chief Complaint Patient presents with Follow Up Patient is here today for a follow up visit. Patient states she needs a prescription for dry skin on her arms. documented in this encounter Plan of Treatment Upcoming Encounters Date Type Department Care Team (Late st Contact Info) Description 04/01/2024 8:15 AM EDT Telemedicine General Surgery, [place] [address] [place] [address] Amol Espino MD [address] [place] [address] 04/06/2024 9:30 AM EDT Anticoagulation Pharmacy, [place] [address] [place] [address] [place] [facility] [address] [place] [facility] [place] [address] 04/08/2024 3:00 PM EDT Cardiac Studies Cardiac Studies, [facility] [address] [facility] [place] [address] 07/31/2024 2:00 PM EST Office Visit Cardiology, [facility] [address] [facility] [place] [address] Sai Lovelace PA-Giselle [address] [facility] [place] [address] 09/23/2024 2:00 PM EDT Office Visit Family Practice, [place] [address] [facility] [place] [phone] Sai Soler MD [address] [place] [facility] [place] [address] Scheduled Referrals Name Type Priority Associated Diagnoses Orde r Schedule ADULT/PEDS PSYCHOLOGY REFERRAL OP Referral Within 30 days (routine) Grief Ordered: 03/13/2024 Health Maintenance Due Date Last Done Comments [...] Ratio 10/20/2024 10/21/2023 CKD HGB USE SMARTSET 01843 10/20/202410/20, 04/25/2023, 10/22/2022, Additional history exists CKD PHOS USE SMARTSET 49272 10/20/202409/30, 12/28/2013, 12/27/2013, Additional history exists DXA [...] as of this encounter Visit Diagnoses Diagnosis Need for prophylactic vaccination and inoculation against influenza- Primary Cutaneous candidiasis Candidiasis of skin and nails Grief Adjustment disorder with depressed mood Dermatitis Contact dermatitis and other eczema, due to unspecified cause Ileostomy status (HCC) Ileostomy status Crohn's disease of small and large intestines with complication (HCC) Anticoagulation management encounter Encounter for therapeutic drug monitoring Chronic kidney disease, stage 3b (HCC) documented in this encounter Advance Directives [...] 2:42 PM 07/11/2007 2:07 PM Care Teams Pressure Vessel Inspector Relationship Specialty Start Date End Date Sai Soler MD [address] [place] [address] PCP - General Family Medicine 03/15/20 documented as of this encounter"
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
--- OUTSIDE RECORDS SUMMARY | 2024-04-02 10:29 | External Medical Summary ---
Author Name Unknown Address Unknown Organization : Laboratory Report Ordering Provider Test Date Status ROSARIO KIMBALL 02/24/2024 09:34:23 Final Therapeutic ranges for non-o perative patients:
Prophylaxsis/treatment of DVT: (Range:2.0-3.0)
Treatment of pulmonary embolism:(Range:2.0-3.0)
Prevention of systemic embolism from:
-tissue heart valves
-acute myocardial infarction
-valvular heart disease
-atrial fibrillation
(Range: 2.0-3.0)
Mechanical prosthetic valves: (Range: 2.5-3.5) Observation Date Value Abnormality Reference (Units ) Status INR in Capillary blood by Coagulation assay 02/24/2024 09:34:23 2.0 (INR) Final Performing Location
--- OUTSIDE RECORDS SUMMARY | 2024-04-02 10:29 | External Medical Summary | Summary of Care ---
Author Name Unknown Organization [facility] Address [address] [place] [address] Phone [phone] Care Team Providers Care Pier Worker Name Role Phone Sai Soler MD Primary Care Provider [phone] Reason for Visit * Reason Comments Dosage Adjustment In Person (Anticoag Cl inic) Encounter Details Date Type Department Care Team (Latest Contact Info) Description 02/24/2024 9:30 AM EDT Anticoagulation Pharmacy, [place] [address] [place] [address] [facility] [address] [place] [address] Anticoagulation management encounter*; Paroxysmal atrial fibrillation (HCC) Allergies Active Allergy Reactions Criticality Noted Date Comments Dexamethasone High 01/30/2022 Other reaction(s): EYES BECAME RED AND ITCHY Other - Drugs 07/04/2007 An eye ointment for blephritis, name unknown Sulfamethoxazole-Trimethoprim High 2015 Other reaction(s): Itching Tobramycin-Dexamethasone 09/04/2012 Eyes become red and itchy documented as of this encounter (statuses as of 02/24/2024) Medications Medication Sig Dispensed Refills Start Date [...] drops per eye as needed Active Nystatin 840229 UNIT/GM External Powder (Nystop)Indications :Cutaneous candidiasis Apply [...] TAKE 1 TABLET EVERY EVENING 90 Tablet 01/27/2024 Active Metoprolol Tartrate 100 MG Oral Tablet (Lopressor)Indicati ons:Paroxysmal atrial fibrillation (HCC) TAKE 1 TABLET IN THE MORNING AND 1 TABLET BEFORE BEDTIME. 180 Tablet 1 01/27/2024 Active Citalopram Hydrobromide 20 MG Oral Tablet (CeleXA)Indications :JO ANN (generalized anxiety disorder) TAKE 1 AND 1/2 TABLETS EVERY DAY 135 Tablet 1 01/27/2024 Active documented as of this encounter (statuses as of 02/24/2024) Active Problems Problem Noted Date Diagnosed Date Chronic kidney disease, stage 3b 11/11/2023 Overview: Per CKD protocol Anticoagulation management encounter 10/21/2023 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 LDL less than 100 05/2024 intermediate current use of anticoagulant therapy 0 09/10/2023 [...] as of this encounter (statuses as of 02/24/2024) Resolved Problems Problem Noted Date Diagnosed Date Resolved Date Chronic kidney disease, stage 3a 06/12/2021 11/13/2023 Overview: Per CKD protocol Chronic diastolic heart failure 06/23/2020 11/13/2021 Prediabetes 04/11/2020 12/13/2022 Overview: Per Prediabetes protocol HTN, goal to be determined 1 07/23/2008 Overview: Modified per HTN protocol #16. documented as of this encounter (statuses as of 02/24/2024) Immunizations Name Administration Dates Next Due COVID-19 [...] as of this encounter Progress Notes * Ciara Mart RPh - 02/24/2024 9:27 AM EDT Medication Therapy Disease Management - Anticoagulation Patient: Priya Tapia | : 1940 Subjective Patient-Reported Symptoms: Patient Findings Negatives: Signs/symptoms of thrombosis, Signs/symptoms of bleeding, Change in health, Change in alcohol use, Change in activity, Upcoming invasive procedure, Missed doses, Extra doses, Change in medications, Change in diet/appetite, Bruising Objective Current Warfarin Dose As of 02/24/2024 Warfarin maintenance plan: 5 mg (5 mg x 1) every Mon; 2.5 mg (5 mg x 0.5) all other days INR Result As of 02/24/2024 INR goal: 2.0-3.0 INR used for dosin.0 (02/24/2024) Assessment & Plan Warfarin Plan As of 02/24/2024 Full warfarin instructions: 5 mg every Mon; 2.5 mg all other days No change documented: Ciara Mart RPh Next INR check: 04/03/2024 Repeat PT/INR in 6 week(s) Weekly dose: not changed Additional Dosing Information: Description Spoke to patient about DOAC therapy 01/13/24 - provided [facility] number for her to call and requested she look into it prior to her appt with cardiology on 01/22 I spent a total of 10-19 minutes (exact time 10 mins) on the date of service in preparation, delivery, and documentation of the care provided to Priya Tapia excluding any time spent in the performance of separately billed services or time spent by another provider/QHP. Ciara Mart RPh Clinical Pharmacist 02/24/2024, 9:28 AM documented in this encounter Plan of Treatment Upcoming Encounters Date Type Department Care Team (Late st Contact Info) Description 03/13/2024 2:00 PM EDT Office Visit [facility], [place] [address] [place] [facility] [place] [phone] Sai Soler MD [address] [place] [address] 04/01/2024 8:15 AM EDT Telemedicine General Surgery, [place] [address] [place] [address] Amol Espino MD [address] [place] [address] 04/06/2024 9:30 AM EDT Anticoagulation Pharmacy, [place] [address] [place] [address] [facility] [address] [place] [address] 04/08/2024 3:00 PM EDT Cardiac Studies Cardiac Studies, [facility] [address] [facility] [place] [address] 07/31/2024 2:00 PM EST Office Visit Cardiology, [facility] [address] [facility] [place] [address] Sai Lovelace PA-C [address] [facility] [place] [address] Health Maintenance Due Date Last Done Comments [...] Ratio 10/20/2024 10/21/2023 CKD HGB USE SMARTSET 13268 10/20/202410/20, 04/25/2023, 10/22/2022, Additional history exists CKD PHOS USE SMARTSET 90089 10/20/202409/30, 12/28/2013, 12/27/2013, Additional history exists DXA [...] Procedure Name Priority Date/Time Associated Diagnosis Comments INR FINGERSTICK, POINT OF CARE STAT 02/24/2024 9:34 AM EDT Paroxysmal atrial fibrillation (HCC) Anticoagulation management encounter documented in this encounter Results * INR FINGERSTICK, POINT OF CARE (02/24/2024 9:34 AM EDT) Fingerstick INR 2.0 INR 9:35 AM EDT [facility]01 Blood 02/24/2024 9:34 AM EDT 02/24/2024 9:35 AM EDT Narrative [facility]- - 02/24/2024 9:35 AM EDT Therapeutic ranges for non-operative patients: Prophylaxsis/treatment of DVT: (Range:2.0-3.0) Treatment of pulmonary embolism:(Range:2.0-3.0) Prevention of systemic embolism from: -tissue heart valves -acute myocardial infarction -valvular heart disease -atrial fibrillation (Range: 2.0-3.0) Mechanical prosthetic valves: (Range: 2.5-3.5) Ciara Rosamaria [facility] POINT OF CARE TEST DOCKED DEVICE UNSOLICITED RESULTS [facility] [address] [place] [address] documented in this encounter Visit Diagnoses Diagnosis Anticoagulation management encounter- Primary Encounter for therapeutic drug monitoring Paroxysmal atrial fibrillation (HCC) Atrial fibrillation documented in this encounter Advance Directives * [...] 2:42 PM 07/11/2007 2:07 PM Care Teams Pier Worker Relationship Specialty Start Date End Date Sai Soler MD [address] [place] [address] PCP - General Family Medicine 03/15/20 documented as of this encounter"
--- OUTSIDE RECORDS SUMMARY | 2024-04-02 10:30 | External Medical Summary | Summary of Care ---
Author Name Unknown Organization [facility] Address [address] [place] [address] Phone [phone] Care Team Providers Care Heat Engineering Teacher Name Role Phone Sai Soler MD Primary Care Provider [phone] Reason for Visit * Reason Onset Date Comments Order Request 01/13/2024 Port flush Encounter Details Date Type Department Care Team (Late st Contact Info) Description 01/13/2024 Telephone [facility] [address] [place] [address] Sai Soler MD [address] [place] [address] Order Request (Port flush) Allergies Active Allergy Reactions Criticality Noted Date Comments Dexamethasone High 01/30/2022 Other reaction(s): EYES BECAME RED AND ITCHY Other - Drugs 07/04/2007 An eye ointment for blephritis, name unknown Sulfamethoxazole-Trimethoprim High 2015 Other reaction(s): Itching Tobramycin-Dexamethasone 09/04/2012 Eyes become red and itchy documented as of this encounter (statuses as of 01/13/2024) Medications Medication Sig Dispensed Refills Start Date [...] drops per eye as needed Active Nystatin 444194 UNIT/GM External Powder (Nystop)Indications :Cutaneous candidiasis Apply [...] as of this encounter (statuses as of 01/13/2024) Active Problems Problem Noted Date Diagnosed Date Chronic kidney disease, stage 3b 11/11/2023 Overview: Per CKD protocol Anticoagulation management encounter 10/21/2023 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 LDL less than 100 05/2024 penitentiary current use of anticoagulant therapy 0 09/10/2023 [...] as of this encounter (statuses as of 01/13/2024) Resolved Problems Problem Noted Date Diagnosed Date Resolved Date Chronic kidney disease, stage 3a 06/12/2021 11/13/2023 Overview: Per CKD protocol Chronic diastolic heart failure 06/23/2020 11/13/2021 Prediabetes 04/11/2020 12/13/2022 Overview: Per Prediabetes protocol HTN, goal to be determined 1 07/23/2008 Overview: Modified per HTN protocol #16. documented as of this encounter (statuses as of 01/13/2024) Immunizations Name Administration Dates Next Due COVID-19 [...] encounter Miscellaneous Notes * Telephone Encounter - Sai Soler MD - 01/13/2024 10:10 AM EDT Please note "miscellaneous " order 01/07/24 in chart. Maybe it needs sent to [facility] * Telephone Encounter - Vivian Nguyen LPN - 01/13/2024 9:47 AM EDT Pt needs a new order for a port flush in her chart so she can get them at the cancer trejo at [facility]. Pt would like a call when done thanks. documented in this encounter Plan of Treatment Upcoming Encounters Date Type Department Care Team (Late st Contact Info) Description 01/23/2024 1:30 PM EDT Office Visit Cardiology, [facility] [address] [place] [address] Sai Lovelace, PA-C [address] [place] [address] 02/06/2024 1:15 PM EDT Telemedicine General Surgery, [place] [address] [place] [address] Amol Espino MD [address] [place] [address] 02/24/2024 9:30 AM EDT Anticoagulation Pharmacy, [place] [address] [place] [address] [place] [address] [place] [address] 03/13/2024 2:00 PM EDT Office Visit [facility] [address] [place] [facility] [place] [address] Sai Soler MD [address] [place] [address] Health Maintenance Due Date Last Done Comments Zoster Vaccines (2 of 3) 12/25/2008 10/30/2008 COVID-19 Vaccine (2022- season) 2023 05/09/2023, 01/11/2022, 06/01/2021, Additional history exists Influenza Vaccine (FLU shot) (#1) 2024 04/10/2023, 05/09/2022, 03/18/2021, Additional history exists GFR 04/21/2024 10/21/2023, 04/01, 10/22/2022, Additional history exists Depression Screening 09/09/2024 09/10/2023 Albumin/Creatinine Ratio 10/20/2024 10/21/2023 CKD HGB USE SMARTSET 76278 10/20/202410/20, 04/25/2023, 10/22/2022, Additional history exists CKD PHOS USE SMARTSET 80025 10/20/202409/30, 12/28/2013, 12/27/2013, Additional history exists DXA [...] 2:42 PM 07/11/2007 2:07 PM Care Teams Heat Engineering Teacher Relationship Specialty Start Date End Date Sai Soler MD [address] [place] [address] PCP - General Family Medicine 03/15/20 documented as of this encounter
--- OUTSIDE RECORDS SUMMARY | 2024-04-02 10:30 | External Medical Summary | Summary of Care ---
Author Name Unknown Organization [facility] Address [address] [place] [address] Phone [phone] Care Team Providers Care Hospitality Housekeeper Name Role Phone Sai Soler MD Primary Care Provider [phone] Encounter Details Date Type Department Care Team (Late st Contact Info) Description 09/30/2023 Telephone [facility] [address] [place] [address] Sai Soler MD [address] [place] [address] Allergies Active Allergy Reactions Criticality Noted Date Comments Dexamethasone High 01/30/2022 Other reaction(s): EYES BECAME RED AND ITCHY Other - Drugs 07/04/2007 An eye ointment for blephritis, name unknown Sulfamethoxazole-Trimethoprim High 2015 Other reaction(s): Itching Tobramycin-Dexamethasone 09/04/2012 Eyes become red and itchy documented as of this encounter (statuses as of 12/30/2023) Medications Medication Sig Dispensed Refills Start Date [...] drops per eye as needed Active Nystatin 076806 UNIT/GM External Powder (Nystop)Indications: Cutaneous candidiasis Apply topically to affected area 3 times a day. 30 g 3 07/12/2020 Active Clotrimazole 1 % External Cream (Lotrimin)Indication s:Yeast dermatitis Apply to affected areas (suspect for yeast infection) once or twice daily until resolved 45 g 5 07/21/2020 Active Additional Information Patient not taking.Reported on 09/10/2023 Triamcinolone Acetonide 0.1 % External Cream (Aristocort)Indicati ons:Venous stasis dermatitis of left lower extremity Apply to rash on the left lower leg twice daily as needed for flares and itching. 80 g 3 11/11/2020 Active Melatonin 5 MG Oral Tablet Chewable Take 10 mg by mouth daily as needed. Active Fluticasone Propionate 50 MCG/ACT Nasal Suspension (Flonase)Indications :Seasonal allergic rhinitis, unspecified trigger 1 spray each nopstril 2 times daily 48 mL 3 05/15/2021 Active Meclizine HCl 25 MG Oral Tablet (Antivert)Indication s:Benign paroxysmal positional vertigo, unspecified laterality Take 0.5-1 Tablets by mouth 3 times a day as needed for Dizziness. 30 Tablet 1 05/15/2021 Active Sod Citrate-Citric Acid 500-334 MG/5ML Oral Solution (Bicitra) 45 ML BY MOUTH TWICE DAILY 10/20/2021 Active Omeprazole 20 MG Oral Capsule Delayed Release (PriLOSEC)Indication s:Gastroesophageal reflux disease without esophagitis TAKE 1 CAPSULE EVERY MORNING ONE HOUR BEFORE THE FIRST MEAL OF THE DAY 90 Capsule 2 09/30/2022 Active Potassium 99 MG Oral Tablet Take 1 Tablet by mouth in the morning. Active Citalopram Hydrobromide 20 MG Oral Tablet (CeleXA)Indications: JO ANN (generalized anxiety disorder) TAKE 1 AND 1/2 TABLETS EVERY DAY 135 Tablet 2 04/30/2023 Active oxyCODONE-Acetaminop hen 5-325 MG Oral Tablet (Percocet)Indication s:Generalized osteoarthritis Take 1 Tablet by mouth every 4 hours as needed for Pain, Moderate. 20 Tablet 05/14/2023 Active busPIRone HCl 10 MG Oral Tablet (Buspar)Indications: Adjustment disorder with anxiety Take 1 Tablet by mouth 2 times a day as needed for Anxiety. 30 Tablet 5 05/14/2023 Active Ammonium Lactate 12 % External Lotion (Lac-Hydrin) Apply topically to affected area as needed for Dry Skin. Apply to body twice daily 222 mL 11 2023 Active Ventolin HFA 108 (90 Base) MCG/ACT Inhalation Aerosol SolutionIndications: Acute URI,SOB (shortness of breath),Wheezing Inhale 2 Puffs by mouth every 4 hours as needed for Wheezing or Dyspnea. 1 g 1 07/12/2023 Active amLODIPine Besylate 5 MG Oral Tablet (Norvasc)Indications :HTN, goal below 140/90 TAKE 1 TABLET EVERY DAY 90 Tablet 1 09/04/2023 Active Metoprolol Tartrate 100 MG Oral Tablet (Lopressor)Indicatio ns:Paroxysmal atrial fibrillation (HCC) TAKE 1 TABLET IN THE MORNING AND 1 TABLET BEFORE BEDTIME. 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 documented as of this encounter (statuses as of 12/30/2023) Immunizations Name Administration Dates Next Due COVID-19 [...] encounter Miscellaneous Notes * Telephone Encounter - Jeniffer Mayberry OSA - 09/30/2023 12:52 PM EDT Paperwork needed 09/30/23 Paperwork rec from [employer] that needs to be completed for pt. Please see comments section on paperwork. Fax back to [phone] Paperwork placed in provider's mail bin. documented in this encounter Plan of Treatment Upcoming Encounters Date Type Department Care Team (Late st Contact Info) Description 01/13/2024 9:30 AM EDT Anticoagulation Pharmacy, [place] [address] [place] [address] [facility] [address] [place] [address] 01/23/2024 1:30 PM EDT Office Visit Cardiology, [facility] [address] [place] [address] Sai Lovelace PA-C [address] [place] [address] 02/06/2024 1:15 PM EDT Telemedicine General Surgery, [facility] [address], [place] [id number] Amol Espino MD [address] [place], [place] [id number] 03/13/2024 2:00 PM EDT [facility] [address] [place] [phone] Sai Soler MD [address] [place] [address] Health Maintenance Due Date Last Done Comments Zoster Vaccines (2 of 3) 12/25/2008 10/30/2008 COVID-19 Vaccine ( season) 2023 05/09/2023, 01/11/2022, 06/01/2021, Additional history exists GFR 04/21/2024 10/21/2023, 04/01, 10/22/2022, Additional history exists Depression Screening 09/09/2024 09/10/2023 Albumin/Creatinine Ratio 10/20/2024 10/21/2023 CKD HGB USE SMARTSET 69580 10/20/202410/20, 04/25/2023, 10/22/2022, Additional history exists CKD PHOS USE SMARTSET 98388 10/20/202409/30, 12/28/2013, 12/27/2013, Additional history exists DXA Scan 08/01/2026 08/01/2022, 08/01/2022 DTaP,Tdap,and Td Vaccines (2 - Td or Tdap) 07/12/2030 07/12/2020, 08/10/1996 Pneumococcal Vaccine: 65+ Years Completed 01/11/2022, 05/18/2015, 07/27/2014 Influenza Vaccine (FLU shot) Completed 05/2023, 05/09/2022, 03/18/2021, Additional history exists GARDASIL-HPV IMMUNIZATION SERIES Aged Out No longer eligible based on patient's age to complete this topic Hepatitis B Aged Out No longer eligi ble based on patient's age to complete this [...] 2:42 PM 07/11/2007 2:07 PM Care Teams Hospitality Housekeeper Relationship Specialty Start Date End Date Sai Soler MD [address] [place] [address] PCP - General Family Medicine 03/15/20 documented as of this encounter
--- OUTSIDE RECORDS SUMMARY | 2024-04-02 10:30 | External Medical Summary | Summary of Care ---
Author Name Unknown Organization [facility] Address [address] [place] [address] Phone [phone] Care Team Providers Care Postal Service Window Clerk Name Role Phone Sai Soler MD Primary Care Provider [phone] Reason for Visit * Reason Comments Dosage Adjustment In Person (Anticoag Cl inic) Encounter Details Date Type Department Care Team (Latest Contact Info) Description 01/13/2024 9:30 AM EDT Anticoagulation Pharmacy, [place] [address] [place] [address] [facility] [address] [place] [address] Anticoagulation management encounter*; Paroxysmal atrial fibrillation (HCC) [...] drops per eye as needed Active Nystatin 989455 UNIT/GM External Powder (Nystop)Indications :Cutaneous candidiasis Apply [...] with target LDL less than 100 05/2024 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 0 09/10/2023 Paroxysmal atrial fibrillation 02/16/2022 Pulmonary sarcoidosis 06/23/2020 Chronic rhinitis 06/23/2020 Sicca syndrome 06/23/2020 History of nonmelanoma skin cancer 05/31/2016 Overview: BCC right hand 04/13 L[facility] right knuckle 12/14 Controlled substance agreement signed [...] Sign Reading Time Taken Comments Blood Pressure - - Pulse - - Temperature - - Respiratory Rate - - Oxygen Saturation - - Inhaled Oxygen Concentration - - Weight 115.7 kg (255 lb) 01/13/2024 9:33 AM EDT Height - - Body Mass Index 49.8 05/14/2023 2:22 PM EST documented in this [...] Progress Notes * Ciara Mart RPh - 01/13/2024 9:31 AM EDT Medication Therapy Disease Management - Anticoagulation Patient: Priya Tapia | : 1940 Subjective Patient-Reported Symptoms: Patient Findings Negatives: Signs/symptoms of thrombosis, Signs/symptoms of bleeding, Change in health, Change in alcohol use, Change in activity, Upcoming invasive procedure, Missed doses, Extra doses, Change in medications, Change in diet/appetite, Bruising Objective Current Warfarin Dose As of 01/13/2024 Warfarin maintenance plan: 5 mg (5 mg x 1) every Mon; 2.5 mg (5 mg x 0.5) all other days INR Result As of 01/13/2024 INR goal: 2.0-3.0 INR used for dosin.9 (01/13/2024) Assessment & Plan Warfarin Plan As of 01/13/2024 Full warfarin instructions: 5 mg every Mon; 2.5 mg all other days No change documented: Ciara Mart RPh Next INR check: 02/24/2024 Repeat PT/INR in 6 week(s) Weekly dose: not changed Additional Dosing Information: Description Spoke to patient about DOAC therapy 01/13/24 - provided [facility] number for her to call and requested she look into it prior to her appt with cardiology on 01/22 Ciara Mart RPh Clinical Pharmacist 01/13/2024, 9:31 AM documented in this encounter Plan of Treatment Upcoming Encounters Date Type Department Care Team (Late st Contact Info) Description 01/23/2024 1:30 PM EDT Office Visit Cardiology, [facility] [address] [place] [address] Sai Lovelace, PA-C [address] [place] [address] 02/06/2024 1:15 PM EDT Telemedicine General Surgery, [place] [address] [place] [address] Amol Espino MD [address] [place], [place] [phone] 02/24/2024 9:30 AM EDT Anticoagulation Pharmacy, [place] [address] [place] [address] [facility] [address] [place] [address] 03/13/2024 2:00 PM EDT Office Visit Family Practice, [place] [address] [place] [phone] Sai Soler MD [address], [place] [phone] Health Maintenance Due Date Last Done Comments Zoster Vaccines (2 of 3) 12/25/2008 10/30/2008 COVID-19 Vaccine (2022- season) 2023 05/09/2023, 01/11/2022, 06/01/2021, Additional history exists Influenza Vaccine (FLU shot) (#1) 2024 04/10/2023, 05/09/2022, 03/18/2021, Additional history exists GFR 04/21/2024 10/21/2023, 04/01, 10/22/2022, Additional history exists Depression Screening 09/09/2024 09/10/2023 Albumin/Creatinine Ratio 10/20/2024 10/21/2023 CKD HGB USE SMARTSET 01832 10/20/202410/20, 04/25/2023, 10/22/2022, Additional history exists CKD PHOS USE SMARTSET 59397 10/20/202409/30, 12/28/2013, 12/27/2013, Additional history exists DXA [...] Comments INR FINGERSTICK, POINT OF CARE STAT 01/13/2024 9:35 AM EDT Paroxysmal atrial fibrillation (HCC) Anticoagulation management encounter documented in this encounter Results * INR FINGERSTICK, POINT OF CARE (01/13/2024 9:35 AM EDT) Fingerstick INR 2.9 INR 9:37 AM EDT LABORATORY [facility]-01 Blood 01/13/2024 9:35 AM EDT 01/13/2024 9:37 AM EDT [facility]ative [facility] - 01/13/2024 9:37 AM EDT Therapeutic ranges for non-operative patients: Prophylaxsis/treatment of DVT: (Range:2.0-3.0) Treatment of pulmonary embolism:(Range:2.0-3.0) Prevention of systemic embolism from: -tissue heart valves -acute myocardial infarction -valvular heart disease -atrial fibrillation (Range: 2.0-3.0) Mechanical prosthetic valves: (Range: 2.5-3.5) Ciara Mart [facility] POINT OF CARE TEST DOCKED DEVICE UNSOLICITED RESULTS RICH[facility] 56-[address] [place] [address] documented in this encounter Visit Diagnoses Diagnosis [...] 2:42 PM 07/11/2007 2:07 PM Care Teams Postal Service Window Clerk Relationship Specialty Start Date End Date Sai Soler MD [address] [place] [address] PCP - General Family Medicine 03/15/20 documented as of this encounter"
--- OUTSIDE RECORDS SUMMARY | 2024-04-02 10:30 | External Medical Summary | Summary of Care ---
Author Name Unknown Organization [facility] Address [address] [place] [address] Phone [phone] Care Team Providers Care Auto Crane Driver Name Role Phone Sai Soler MD Primary Care Provider [phone] Reason for Visit * Reason Onset Date Comments Returning Call 12/06/2023 Encounter Details Date Type Department Care Team (Late st Contact Info) Description 12/06/2023 Telephone [facility] [address] [place] [address] Sai Soler MD [address] [place] [address] Returning Call Allergies Active Allergy Reactions Criticality Noted Date Comments Dexamethasone High 01/30/2022 Other reaction(s): EYES BECAME RED AND ITCHY Other - Drugs 07/04/2007 An eye ointment for blephritis, name unknown Sulfamethoxazole-Trimethoprim High 2015 Other reaction(s): Itching Tobramycin-Dexamethasone 09/04/2012 Eyes become red and itchy documented as of this encounter (statuses as of 12/06/2023) Medications Medication Sig Dispensed Refills Start Date [...] drops per eye as needed Active Nystatin 069605 UNIT/GM External Powder (Nystop)Indications :Cutaneous candidiasis Apply [...] anticoagulation clinic 15 Tablet 5 11/01/2023 Active Cephalexin 500 MG Oral Capsule (Keflex)Indications :Suspected urinary tract infection Take 1 Capsule by mouth in the morning and 1 Capsule at noon and 1 Capsule in the evening and 1 Capsule before bedtime. Do all this for 7 days. 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 documented as of this encounter (statuses as of 12/06/2023) Immunizations Name Administration Dates Next Due COVID-19 [...] encounter Miscellaneous Notes * Telephone Encounter - Mere Murrieta CPhT - 12/06/2023 2:00 PM EDT Pt returning call regarding UTI- warm transferred to [facility] Thank you, Mere Murrieta CPhT II [facility] 12/06/2023, 2:00 PM documented in this encounter Plan of Treatment Upcoming Encounters Date Type Department Care Team (Late st Contact Info) Description 12/12/2023 9:50 AM EDT Anticoagulation Pharmacy, [place] [address] [place] [address] [facility] [address] [place] [address] 01/23/2024 1:30 PM EDT Office Visit Cardiology, [facility] [address] [facility] [place] [address] Sai Lovelace PA-C [address] [place] [address] 02/06/2024 1:15 PM EDT Telemedicine General Surgery, [place] [address] [place] [address] Amol Espino MD [address] [place] [address] 03/13/2024 2:00 PM EDT [facility] [address] [place] [facility] [place] [phone] Sai Soler MD [address] [place] [address] Health Maintenance Due Date Last Done Comments Zoster Vaccines (2 of 3) 12/25/2008 10/30/2008 COVID-19 Vaccine ( season) 2023 01/11/2022, 06/01/2021, 08/31/2020, Additional history exists Influenza Vaccine (FLU shot) (Season Ended) 2024 05/09/2022, 03/18/2021, 03/15/2020, Additional history exists GFR 04/21/2024 10/21/2023, 04/01, 10/22/2022, Additional history exists Depression Screening 09/09/2024 09/10/2023 Albumin/Creatinine Ratio 10/20/2024 10/21/2023 CKD HGB USE SMARTSET 81308 10/20/202410/20, 04/25/2023, 10/22/2022, Additional history exists CKD PHOS USE SMARTSET 06577 10/20/202409/30, 12/28/2013, 12/27/2013, Additional history exists DXA Scan 08/01/2026 08/01/2022, 08/01/2022 DTaP,Tdap,and Td Vaccines (2 - Td or Tdap) 07/12/2030 07/12/2020, 08/10/1996 Pneumococcal Vaccine: 65+ Years Completed 01/11/2022, 05/18/2015, 07/27/2014 GARDASIL-HPV IMMUNIZATION SERIES Aged Out No longer [...] 2:42 PM 07/11/2007 2:07 PM Care Teams Auto Crane Driver Relationship Specialty Start Date End Date Sai Soler MD [address] [place] [address] PCP - General Family Medicine 03/15/20 documented as of this encounter
--- OUTSIDE RECORDS SUMMARY | 2024-04-02 10:30 | External Medical Summary ---
Author Name Unknown Address Unknown Organization : Laboratory Report Ordering Provider Test Date Status ROSARIO KIMBALL 12/09/2023 09:50:07 Final Therapeutic ranges for non-o perative patients:
Prophylaxsis/treatment of DVT: (Range:2.0-3.0)
Treatment of pulmonary embolism:(Range:2.0-3.0)
Prevention of systemic embolism from:
-tissue heart valves
-acute myocardial infarction
-valvular heart disease
-atrial fibrillation
(Range: 2.0-3.0)
Mechanical prosthetic valves: (Range: 2.5-3.5) Observation Date Value Abnormality Reference (Units ) Status INR in Capillary blood by Coagulation assay 12/09/2023 09:50:07 2.6 (INR) Final Performing Location
--- OUTSIDE RECORDS SUMMARY | 2024-04-02 10:30 | External Medical Summary ---
Author Name Unknown Address Unknown Organization : Laboratory Report Ordering Provider Test Date Status ROSARIO KIMBALL 11/14/2023 09:32:27 Final Therapeutic ranges for non-o perative patients:
Prophylaxsis/treatment of DVT: (Range:2.0-3.0)
Treatment of pulmonary embolism:(Range:2.0-3.0)
Prevention of systemic embolism from:
-tissue heart valves
-acute myocardial infarction
-valvular heart disease
-atrial fibrillation
(Range: 2.0-3.0)
Mechanical prosthetic valves: (Range: 2.5-3.5) Observation Date Value Abnormality Reference (Units ) Status INR in Capillary blood by Coagulation assay 11/14/2023 09:32:27 3.3 (INR) Final Performing Location
--- OUTSIDE RECORDS SUMMARY | 2024-04-02 10:30 | External Medical Summary | Summary of Care ---
Author Name Unknown Organization [facility] Address [address] [place] [address] Phone [phone] Care Team Providers Care Electronic Equipment Installer Name Role Phone Sai Soler MD Primary Care Provider [phone] Reason for Visit * Reason Onset Date Comments Order Request 01/13/2024 Port flush Encounter Details Date Type Department Care Team (Late st Contact Info) Description 01/13/2024 Telephone [facility] [address] [place] [address] Sai Soler MD [address] [place] [address] Order Request (Port flush) Allergies [...] drops per eye as needed Active Nystatin 917192 UNIT/GM External Powder (Nystop)Indications :Cutaneous candidiasis Apply [...] with target LDL less than 100 05/2024 senior care current use of anticoagulant therapy 0 09/10/2023 [...] Telephone Encounter - Vivian Nguyen LPN - 01/15/2024 11:35 AM EDT Message is taken care of and faxed. * Telephone Encounter - Sai Soler MD - 01/13/2024 10:10 AM EDT Please note "miscellaneous " order 01/07/24 in chart. Maybe it needs sent to [facility] * Telephone Encounter - Vivian Nguyen LPN - 01/13/2024 9:47 AM EDT Pt needs a new order for a port flush in her chart so she can get them at the [facility]. Pt would like a call when done thanks. documented in this encounter Plan of Treatment Upcoming Encounters Date Type Department Care Team (Late st Contact Info) Description 01/23/2024 1:30 PM EDT Office Visit Cardiology, [facility] [place] [address] Sai Lovelace PA-C [address] [place] [address] 02/06/2024 1:15 PM EDT Telemedicine General Surgery, [place] [address] [place] [address] Amol Espino MD [address] [place] [address] 02/24/2024 9:30 AM EDT Anticoagulation Pharmacy, [place] [address] [place] [address] [facility] [address] [place] [address] 03/13/2024 2:00 PM EDT Office Visit Family [facility], [place] [address] [place] [phone] Sai Soler MD [address] [place] [address] Health Maintenance Due Date Last Done Comments Zoster Vaccines (2 of 3) 12/25/2008 10/30/2008 COVID-19 Vaccine ( season) 2023 05/09/2023, 01/11/2022, 06/01/2021, Additional history exists Influenza Vaccine (FLU shot) (#1) 2024 04/10/2023, 05/09/2022, 03/18/2021, Additional history exists GFR 04/21/2024 10/21/2023, 04/01, 10/22/2022, Additional history exists Depression Screening 09/09/2024 09/10/2023 Albumin/Creatinine Ratio 10/20/2024 10/21/2023 CKD HGB USE SMARTSET 94304 10/20/202410/20, 04/25/2023, 10/22/2022, Additional history exists CKD PHOS USE SMARTSET 14352 10/20/202409/30, 12/28/2013, 12/27/2013, Additional history exists DXA [...] 2:42 PM 07/11/2007 2:07 PM Care Teams Electronic Equipment Installer Relationship Specialty Start Date End Date Sai Soler MD [address] [place] [address] PCP - General Family Medicine 03/15/20 documented as of this encounter
--- OUTSIDE RECORDS SUMMARY | 2024-04-02 10:30 | External Medical Summary | Summary of Care ---
Author Name Unknown Organization [facility] Address [address] [place] [address] Phone [phone] Care Team Providers Care Medical Research Associate Name Role Phone Kassie Soler MD Primary Care Provider [phone] Reason for Visit * Reason Onset Date Comments Medication Refill 10/31/2023 Encounter Details Date Type Department Care Team (Late st Contact Info) Description 10/31/2023 Refill [facility] [address] [place] [address] Kassie Soler MD [address] [place] [address] Paroxysmal atrial fibrillation (HCC) Allergies Active Allergy Reactions Criticality Noted Date Comments Dexamethasone High 01/30/2022 Other reaction(s): EYES BECAME RED AND ITCHY Other - Drugs 07/04/2007 An eye ointment for blephritis, name unknown Sulfamethoxazole-Trimethoprim High 2015 Other reaction(s): Itching Tobramycin-Dexamethasone 09/04/2012 Eyes become red and itchy documented as of this encounter (statuses as of 11/01/2023) Medications Medication Sig Dispensed Refills Start Date End Date Status ASPIRIN 81 MG PO TABS 1 x daily 0 Active Cholecalciferol (VITAMIN D) 2000 UNITS Tablet 1 tablet daily 0 Active Ostomy Supplies (OSTOMY DRAINABLE POUCH/FLANGE) MISC Ostomy Drainable Pouch/Flange Miscellaneous USE DIRECTED. Quantity: 30; Refills: 12 Sawyer Orourke M.D.; Started 18-May-2011 Active 0 1 Active Magnesium 250 MG Tablet Take by mouth daily. 1 twice daily 0 Active Artificial Tear Solution (SOOTHE XP XTRA PROTECTION) SOLN Instill into eye. 1-2 drops per eye as needed 0 Active Nystatin 826339 UNIT/GM External Powder (Nystop)Indication s:Cutaneous candidiasis Apply [...] 10 mg by mouth daily as needed. 0 Active Fluticasone Propionate 50 MCG/ACT Nasal Suspension [...] (Bicitra) 45 ML BY MOUTH TWICE DAILY 0 2 Active Omeprazole 20 MG Oral Capsule Delayed Release (PriLOSEC)Indicati ons:Gastroesophage al reflux disease without esophagitis TAKE 1 CAPSULE EVERY MORNING ONE HOUR BEFORE THE FIRST MEAL OF THE DAY 90 Capsule 2 3 Active Potassium 99 MG Oral Tablet Take 1 Tablet by mouth in the morning. 0 Active Citalopram Hydrobromide 20 MG Oral Tablet (CeleXA)Indication s:JO ANN (generalized anxiety disorder) TAKE 1 AND 1/2 TABLETS EVERY DAY 135 Tablet 2 3 Active oxyCODONE-Acetamin ophen 5-325 MG Oral Tablet (Percocet)Indicati ons:Generalized osteoarthritis Take 1 Tablet by mouth every 4 hours as needed for Pain, Moderate. 20 Tablet 0 3 Active busPIRone HCl 10 MG Oral Tablet (Buspar)Indication s:Adjustment disorder with anxiety Take 1 Tablet by mouth 2 times a day as needed for Anxiety. 30 Tablet 5 3 Active Ammonium Lactate 12 % External Lotion (Lac-Hydrin) Apply topically to affected area as needed for Dry Skin. Apply to body twice daily 222 mL 11 3 Active Ventolin HFA 108 (90 Base) MCG/ACT Inhalation Aerosol SolutionIndication s:Acute URI,SOB (shortness of breath),Wheezing Inhale 2 Puffs by mouth every 4 hours as needed for Wheezing or Dyspnea. 1 g 1 4 Active amLODIPine Besylate 5 MG Oral Tablet (Norvasc)Indicatio ns:HTN, goal below 140/90 TAKE 1 TABLET EVERY DAY 90 Tablet 1 4 Active Metoprolol Tartrate 100 MG Oral Tablet (Lopressor)Indicat ions:Paroxysmal atrial fibrillation (HCC) TAKE 1 TABLET IN THE MORNING AND 1 TABLET BEFORE BEDTIME. 180 Tablet 1 4 Active oxyBUTYnin Chloride 5 MG Oral Tablet (Ditropan)Indicati ons:PERCY (stress urinary incontinence, female) TAKE 1 TABLET AT BEDTIME 90 Tablet 3 4 Active Atorvastatin Calcium 40 MG Oral Tablet (Lipitor) TAKE 1 TABLET EVERY EVENING 90 Tablet 1 4 Active Warfarin Sodium 5 MG Oral Tablet (Coumadin)Indicati ons:Paroxysmal atrial fibrillation (HCC) Take 1/2 tablet by mouth every day or as directed by anticoagulation clinic 15 Tablet 5 4 Active Warfarin Sodium 5 MG Oral Tablet (Coumadin)Indicati ons:Paroxysmal atrial fibrillation (HCC) Take 1/2 tablet by mouth every day or as directed by anticoagulation clinic 15 Tablet 5 3 10/31/19 24 Discontinu ed(Refill) documented as of this encounter (statuses as of 11/01/2023) Active Problems Problem Noted Date Diagnosed Date Anticoagulation management encounter 10/21/2023 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 LDL less than 100 05/2024 prison current use of anticoagulant therapy 0 09/10/2023 Paroxysmal atrial fibrillation 02/16/2022 Chronic kidney disease, stage 3a 06/12/2021 Overview: Per CKD protocol Pulmonary sarcoidosis 06/23/2020 Chronic rhinitis 06/23/2020 Sicca [...] as of this encounter (statuses as of 11/01/2023) Resolved Problems Problem Noted Date Diagnosed Date Resolved Date Chronic diastolic heart failure 06/23/2020 11/13/2021 Prediabetes 04/11/2020 12/13/2022 Overview: Per Prediabetes protocol HTN, goal to be determined 1 07/23/2008 Overview: Modified per HTN protocol #16. documented as of this encounter (statuses as of 11/01/2023) Immunizations Name Administration Dates Next Due COVID-19 [...] encounter Miscellaneous Notes * Telephone Encounter - Prema Richard [facility] - 11/01/2023 12:54 PM EDT Signed Prescriptions: Disp Refills Warfarin Sodium 5 MG Oral Tablet (Coumadin)15 Tab*5 Sig: Take 1/2 tablet by mouth every day or as directed by anticoagulation clinic Authorizing Provider: KASSIE SOLER Ordering User: PREMA RICHARD * Telephone Encounter - Prema Richard [facility] - 11/01/2023 12:54 PM EDT Warfarin Plan As of 10/21/2023 Full warfarin instructions: 5 mg every Mon; 2.5 mg all other days * Telephone Encounter - Priyanka Mcclain CPhT - 10/31/2023 3:27 PM EDT Did you pend patient's preferred pharmacy and medication before forwarding?yes Pharmacy: [facility] [address] [address] [address] Pending Prescriptions: Disp Refills Warfarin Sodium 5 MG Oral Tablet (Coumadi*15 Tab*5 Sig: Take 1/2 tablet by mouth every day or as directed by anticoagulation clinic Last Visit: 09/10/2023 (in office), Visit date not found (telemedicine) Next Visit: 03/13/2024 If no future appointments scheduled, and last appointment is greater than a year ago, please schedule patient for a follow-up appointment Last date the medication was ordered: 05/16/2023 Is this request for a controlled substance?No [...] 02:59 PM TSH 1.67 03/15/2020 10:38 AM LDLCALC 67 10/21/2023 09:56 AM LDLDIRECT 92 05/19/2021 08:58 AM LDLDIRECT 100 03/15/2020 10:38 AM ALT 23 10/21/2023 09:56 AM ALT 26 03/15/2020 10:38 AM HGBA1C 5.4 10/21/2023 09:56 AM HGBA1C 5.8 (H) 03/15/2020 10:38 AM documented in this encounter Plan of Treatment Upcoming Encounters Date Type Department Care Team (Late st Contact Info) Description 11/14/2023 9:30 AM EDT Anticoagulation Pharmacy, [place] [address] [place] [address] [facility] [address] [facility] [place] [address] 01/23/2024 1:30 PM EDT Office Visit Cardiology, [facility] [address] [address] Kassie Lovelace PA-C [address] [place] [address] 02/06/2024 1:15 PM EDT Telemedicine General Surgery, [place] [address] [place] [address] Amol Espino MD [address] [place] [address] 03/13/2024 2:00 PM EDT Office Visit [facility] [address] [place] [phone] Kassie Soler MD [address] [place] [address] Health Maintenance Due Date Last Done Comments Zoster Vaccines (2 of 3) 12/25/2008 10/30/2008 COVID-19 Vaccine ( season) 2023 01/11/2022, 06/01/2021, 08/31/2020, Additional history exists Influenza Vaccine (FLU shot) (Season Ended) 2024 05/09/2022, 03/18/2021, 03/15/2020, Additional history exists GFR 04/21/2024 10/21/2023, 04/01, 10/22/2022, Additional history exists Depression Screening 09/09/2024 09/10/2023 Albumin/Creatinine Ratio 10/20/2024 10/21/2023 CKD HGB USE SMARTSET 94077 10/20/202410/20, 04/25/2023, 10/22/2022, Additional history exists CKD PHOS USE SMARTSET 73148 10/20/202409/30, 12/28/2013, 12/27/2013, Additional history exists DXA [...] as of this encounter Visit Diagnoses Diagnosis Paroxysmal atrial fibrillation (HCC) Atrial fibrillation documented in this encounter Advance Directives Latest Code Status on File Code Status Date Activated Date Inactivated Comments Full Code 01/05/2015 12:44 PM 01/05/2015 6:36 PM This o rder reflects the patients wishes and were consensually agreed upon. Code Status History Code Status Date Activated Date Inactivated Comments Full Code 01/05/2015 10:38 AM 01/05/2015 12:44 PM This order reflects the patients wishes and were consensually agreed upon. Full Code 12/16/2013 7:43 AM 12/28/2013 4:24 PM This order reflects the patients wishes and were consensually agreed upon. Question Answer Comments Discussion of Advance Directives occurred with: Not Discussed Does the patient have a Living Will? No Does the patient have Health Care Power of Diver Tender? No No Code 09/03/2012 12:21 AM 09/08/2012 9:58 PM This order reflects the patients wishes and were consensually agreed upon. Question Answer Comments Discussion of Advance Directives occurred with: Patient Does the patient have a Living Will? No Does the patient have Health Care Power of Diver Tender? No Full Code 07/09/2007 2:42 PM 07/11/2007 2:07 PM Care Teams Medical Research Associate Relationship Specialty Start Date End Date Kassie Soler MD [address] [place] [address] PCP - General Family Medicine 03/15/20 documented as of this encounter
--- OUTSIDE RECORDS SUMMARY | 2024-04-02 10:30 | External Medical Summary | Summary of Care ---
Author Name Unknown Organization [facility] Address [address] [place] [address] Phone [phone] Care Team Providers Care Collector Of Internal Revenue Name Role Phone Sai Soler MD Primary Care Provider [phone] Reason for Visit * Reason Comments Dosage Adjustment In Person (Anticoag Cl inic) Encounter Details Date Type Department Care Team (Latest Contact Info) Description 11/14/2023 9:30 AM EDT Anticoagulation Pharmacy, [place] [address] [place] [address] [facility] [address] [place] [address] Anticoagulation management encounter*; Paroxysmal atrial fibrillation (HCC) Allergies Active Allergy Reactions Criticality Noted Date Comments Dexamethasone High 01/30/2022 Other reaction(s): EYES BECAME RED AND ITCHY Other - Drugs 07/04/2007 An eye ointment for blephritis, name unknown Sulfamethoxazole-Trimethoprim High 2015 Other reaction(s): Itching Tobramycin-Dexamethasone 09/04/2012 Eyes become red and itchy documented as of this encounter (statuses as of 11/14/2023) Medications Medication Sig Dispensed Refills Start Date End Date Status ASPIRIN 81 MG PO TABS 1 x daily 0 Active Cholecalciferol (VITAMIN D) 2000 UNITS Tablet 1 tablet daily 0 Active Ostomy Supplies (OSTOMY DRAINABLE POUCH/FLANGE) [facility] Ostomy Drainable Pouch/Flange Miscellaneous USE DIRECTED. Quantity: 30; Refills: 12 Sawyer Orourke M.D.; Started 18-May-2011 Active 0 05/18/2011 Active Magnesium 250 MG Tablet Take by mouth daily. 1 twice daily 0 Active Artificial Tear Solution (SOOTHE XP XTRA PROTECTION) SOLN Instill into eye. 1-2 drops per eye as needed 0 Active Nystatin 187030 UNIT/GM External Powder (Nystop)Indications :Cutaneous candidiasis Apply [...] 45 ML BY MOUTH TWICE DAILY 0 10/20/2021 Active Omeprazole 20 MG Oral Capsule [...] needed for Pain, Moderate. 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 documented as of this encounter (statuses as of 11/14/2023) Immunizations Name Administration Dates Next Due COVID-19 [...] 1:41 PM EDT Sexual Orientation Straight 10/20/2021 2 :53 PM EDT Job Start Date Occupation Industry [...] shopping? (15 years old or older) No 04/10/20 16 Cognitive Status Response Date of Assessm ent Because of a physical, menta l, or emotional condition, do you have serious difficulty concentrating, remembering, or making decisions? (5 years old or older) No 10/09/2015 documented as of this encounter Progress Notes * Ciara Mart RPh - 11/14/2023 9:28 AM EDT Images from the original note were not included. Medication Therapy Disease Management - Anticoagulation Patient: Priya Tapia | : 1940 Subjective Patient-Reported Symptoms: Patient Findings Negatives: Signs/symptoms of thrombosis, Signs/symptoms of bleeding, Change in health, Change in alcohol use, Change in activity, Upcoming invasive procedure, Missed doses, Extra doses, Change in medications, Change in diet/appetite, Bruising Objective Current Warfarin Dose As of 11/14/2023 Warfarin maintenance plan: 5 mg (5 mg x 1) every Mon; 2.5 mg (5 mg x 0.5) all other days INR Result As of 11/14/2023 INR goal: 2.0-3.0 INR used for dosin.3 (11/14/2023) Assessment & Plan Warfarin Plan As of 11/14/2023 Full warfarin instructions: 11/13: Hold; Otherwise 5 mg every Mon; 2.5 mg all other days Next INR check: 12/12/2023 Repeat PT/INR in 4 week(s) Weekly dose: not changed Additional Dosing Information: Ciara Mart [facility] Clinical Pharmacist 11/14/2023, 9:28 AM documented in this encounter Plan of Treatment Upcoming Encounters Date Type Department Care Team (Late st Contact Info) Description 12/12/2023 9:50 AM EDT [address] [address] [place] [address] [facility] [address] 01/23/2024 1:30 PM EDT Office Visit Cardiology, [facility] [address] [place] [address] Sai Lovelace PA-C [address] [place] [address] 02/06/2024 1:15 PM EDT Telemedicine General Surgery, [place] [address] [place], [place] [phone] Amol Espino MD [address] [place] [address] 03/13/2024 2:00 PM EDT Office Visit Family [facility] [address] [place] [phone] Sai Soler MD [address] [place] [address] Health Maintenance Due Date Last Done Comments Zoster Vaccines (2 of 3) 12/25/2008 10/30/2008 COVID-19 Vaccine ( season) 2023 01/11/2022, 06/01/2021, 08/31/2020, Additional history exists Influenza Vaccine (FLU shot) (Season Ended) 2024 05/09/2022, 03/18/2021, 03/15/2020, Additional history exists GFR 04/21/2024 10/21/2023, 04/01, 10/22/2022, Additional history exists Depression Screening 09/09/2024 09/10/2023 Albumin/Creatinine Ratio 10/20/2024 10/21/2023 CKD HGB USE SMARTSET 94627 10/20/202410/20, 04/25/2023, 10/22/2022, Additional history exists CKD PHOS USE SMARTSET 84946 10/20/202409/30, 12/28/2013, 12/27/2013, Additional history exists DXA [...] Comments INR FINGERSTICK, POINT OF CARE STAT 11/14/2023 9:32 AM EDT Paroxysmal atrial fibrillation (HCC) Anticoagulation management encounter documented in this encounter Results * INR FINGERSTICK, POINT OF CARE (11/14/2023 9:32 AM EDT) Fingerstick INR 3.3 INR 9:34 AM EDT [facility]- Blood 11/14/2023 9:32 AM EDT 11/14/2023 9:33 AM EDT Narrative [facility]01 - 11/14/2023 9:34 AM EDT Therapeutic ranges for non-operative patients: Prophylaxsis/treatment of DVT: (Range:2.0-3.0) Treatment of pulmonary embolism:(Range:2.0-3.0) Prevention of systemic embolism from: -tissue heart valves -acute myocardial infarction -valvular heart disease -atrial fibrillation (Range: 2.0-3.0) Mechanical prosthetic valves: (Range: 2.5-3.5) Ciara Mart [facility] LAB POINT OF CARE TEST DOCKED DEVICE UNSOLICITED RESULTS [facility] [address] [place] [address] documented in this encounter Visit Diagnoses Diagnosis [...] the patient have Health Care Power of Security System Installer? No No Code 09/03/2012 12:21 AM 09/08/2012 9:58 PM This order reflects the patients wishes and were consensually agreed upon. Question Answer Comments Discussion of Advance Directives occurred with: Patient Does the patient have a Living Will? No Does the patient have Health Care Power of Security System Installer? No Full Code 07/09/2007 2:42 PM 07/11/2007 2:07 PM Care Teams Collector Of Internal Revenue Relationship Specialty Start Date End Date Sai Soler MD [address] [place] [address] PCP - General Family Medicine 03/15/20 documented as of this encounter"
--- OUTSIDE RECORDS SUMMARY | 2024-04-02 10:30 | External Medical Summary | Summary of Care ---
Author Name Unknown Organization [facility] Address [address] [place] [address] Phone [phone] Care Team Providers Care Machine Inspector Name Role Phone Sai Soler MD Primary Care Provider [phone] Reason for Visit * Reason Comments Dosage Adjustment In Person (Anticoag Cl inic) Encounter Details Date Type Department Care Team (Latest Contact Info) Description 12/09/2023 9:50 AM EDT Anticoagulation Pharmacy, [place] [address] [place] [address] [facility] [address] [place] [address] Anticoagulation management encounter*; Paroxysmal atrial fibrillation (HCC) Allergies Active Allergy Reactions Criticality Noted Date Comments Dexamethasone High 01/30/2022 Other reaction(s): EYES BECAME RED AND ITCHY Other - Drugs 07/04/2007 An eye ointment for blephritis, name unknown Sulfamethoxazole-Trimethoprim High 2015 Other reaction(s): Itching Tobramycin-Dexamethasone 09/04/2012 Eyes become red and itchy documented as of this encounter (statuses as of 12/09/2023) Medications Medication Sig Dispensed Refills Start Date [...] drops per eye as needed Active Nystatin 714463 UNIT/GM External Powder (Nystop)Indications :Cutaneous candidiasis Apply [...] as of this encounter (statuses as of 12/09/2023) Active Problems Problem Noted Date Diagnosed Date Chronic kidney disease, stage 3b 11/11/2023 Overview: Per CKD protocol Anticoagulation management encounter 10/21/2023 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 LDL less than 100 05/2024 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 documented as of this encounter (statuses as of 12/09/2023) Immunizations Name Administration Dates Next Due COVID-19 [...] this encounter Progress Notes * Ciara Mart RP - 12/09/2023 9:47 AM EDT Medication Therapy Disease Management - Anticoagulation Patient: Priya Tapia | : 1940 Subjective Patient-Reported Symptoms: Patient Findings Negatives: Signs/symptoms of thrombosis, Signs/symptoms of bleeding, Change in health, Change in alcohol use, Change in activity, Upcoming invasive procedure, Missed doses, Extra doses, Change in medications, Change in diet/appetite, Bruising Objective Current Warfarin Dose As of 12/09/2023 Warfarin maintenance plan: 5 mg (5 mg x 1) every Mon; 2.5 mg (5 mg x 0.5) all other days INR Result As of 12/09/2023 INR goal: 2.0-3.0 INR used for dosin.6 (12/09/2023) Assessment & Plan Warfarin Plan As of 12/09/2023 Full warfarin instructions: 5 mg every Mon; 2.5 mg all other days Next INR check: 01/13/2024 Repeat PT/INR in 4 week(s) Weekly dose: not changed Additional Dosing Information: Ciara Mart [facility] Clinical Pharmacist 12/09/2023, 9:47 AM documented in this encounter Plan of Treatment Upcoming Encounters Date Type Department Care Team (Late st Contact Info) Description 01/13/2024 9:30 AM EDT Anticoagulation Pharmacy, [address] [place] [address] [place], [facility] [address] [facility] [address] 01/23/2024 1:30 PM EDT Office Visit Cardiology, [facility] [address] [place] [address] Sai Lovelace PA-C [address] [place] [address] 02/06/2024 1:15 PM EDT Telemedicine General Surgery, [place] [address] [place] [address] Amol Espino MD [address] [place] [address] 03/13/2024 2:00 PM EDT Office Visit Family [facility] [address] [place] [phone] Sai Soler MD [address] [place] [address] Health Maintenance Due Date Last Done Comments Zoster Vaccines (2 of 3) 12/25/2008 10/30/2008 COVID-19 Vaccine (2022- season) 2023 05/09/2023, 01/11/2022, 06/01/2021, Additional history exists GFR 04/21/2024 10/21/2023, 04/01, 10/22/2022, Additional history exists Depression Screening 09/09/2024 09/10/2023 Albumin/Creatinine Ratio 10/20/2024 10/21/2023 CKD HGB USE SMARTSET 79495 10/20/202410/20, 04/25/2023, 10/22/2022, Additional history exists CKD PHOS USE SMARTSET 94494 10/20/202409/30, 12/28/2013, 12/27/2013, Additional history exists DXA [...] Comments INR FINGERSTICK, POINT OF CARE STAT 12/09/2023 9:50 AM EDT Paroxysmal atrial fibrillation (HCC) Anticoagulation management encounter documented in this encounter Results * INR FINGERSTICK, POINT OF CARE (12/09/2023 9:50 AM EDT) Fingerstick INR 2.6 INR 9:52 AM EDT [facility] Blood 12/09/2023 9:50 AM EDT 12/09/2023 9:52 AM EDT Narrative [facility]- - 12/09/2023 9:52 AM EDT Therapeutic ranges for non-operative patients: Prophylaxsis/treatment of DVT: (Range:2.0-3.0) Treatment of pulmonary embolism:(Range:2.0-3.0) Prevention of systemic embolism from: -tissue heart valves -acute myocardial infarction -valvular heart disease -atrial fibrillation (Range: 2.0-3.0) Mechanical prosthetic valves: (Range: 2.5-3.5) Ciara Mart [facility] LAB POINT OF CARE TEST DOCKED DEVICE UNSOLICITED RESULTS [facility] [address] [place] [address] documented in this encounter Visit Diagnoses Diagnosis [...] 2:42 PM 07/11/2007 2:07 PM Care Teams Machine Inspector Relationship Specialty Start Date End Date Sai Soler MD [address] [facility] [place] [address] PCP - General Family Medicine 03/15/20 documented as of this encounter"
--- OUTSIDE RECORDS SUMMARY | 2024-04-02 10:30 | External Medical Summary ---
Author Name Unknown Address Unknown Organization : Laboratory Report Ordering Provider Test Date Status ROSARIO KIMBALL 01/13/2024 09:35:58 Final Therapeutic ranges for non-o perative patients:
Prophylaxsis/treatment of DVT: (Range:2.0-3.0)
Treatment of pulmonary embolism:(Range:2.0-3.0)
Prevention of systemic embolism from:
-tissue heart valves
-acute myocardial infarction
-valvular heart disease
-atrial fibrillation
(Range: 2.0-3.0)
Mechanical prosthetic valves: (Range: 2.5-3.5) Observation Date Value Abnormality Reference (Units ) Status INR in Capillary blood by Coagulation assay 01/13/2024 09:35:58 2.9 (INR) Final Performing Location
--- OUTSIDE RECORDS SUMMARY | 2024-04-02 10:31 | External Medical Summary | Summary of Care ---
Author Name Unknown Organization [facility] Address [address] [place] [address] Phone [phone] Care Team Providers Care Home Care Companion Name Role Phone Sai Soler MD Primary Care Provider [phone] Reason for Referral * Opinion/Recommendation - Change # of Visits to 1 (Within 30 days (routine)) - Authorized Specialty Diagnoses / Procedures Referred By Madhu herrmann Referred To Contact ANTI-COAG CLINIC / Pharmacy Diagnoses Paroxysmal atrial fibrillation (HCC) Anticoagulation management encounter Sai Lovelace PA-C [address] [place] [address] Referral ID Status Reason Start Date Expiration Date Visits Requested Visits Authorized [id number] Authorized Specialty Services Required 10/21/2023 04/18/2024 99 99 Question Answer Referral Priority Within 30 days (routine) Where should this appointment be scheduled? Dong Comments Anticoagulation referral for management of: Warfarin Indication and INR goal for Warfarin Management: Stroke Prevention: Paroxysmal afib 2.0 - 3.0 Relevant History: N/A Enoxaparin bridging required? No Minimum frequency patient should be seen in person for medication management: as appropriate per clinical condition and patient status By my signature, I understand that my patient Priya Tapia will have her medication therapy managed by the [facility] Medication Therapy Disease Management Clinic ([facility]) per established policies, procedures, and protocols. I also certify that this referral may serve as an initiation of service for the management of drug therapy in the above noted patient. [facility] providers will be responsible for scheduling patient visits, obtaining appropriate laboratory studies, and adjusting medication management therapy per patient's need, in addition to those roles spelled out in the clinic policy, procedures, and drug management protocols. I understand that the service provided by the [facility] is voluntary and have informed patient that they can refuse the service at their discretion. I am aware that the [facility] Clinic will provide me with a copy of the patient encounter via my [place] [employer]. I authorize the [facility] to carry out these activities on my behalf. I consider this program to be a necessary part of the patient's medical care. aSi Lovelace PA-C Department of Cardiology Reason for Visit * Reason Onset Date Comments Referral 10/21/2023 Encounter Details Date Type Department Care Team (Late st Contact Info) Description 10/21/[address] [address] Ciara Mart, [facility] [address] [place] [address] Referral Allergies Active Allergy Reactions Criticality Noted Date Comments Dexamethasone High 01/30/2022 Other reaction(s): EYES BECAME RED AND ITCHY Other - Drugs 07/04/2007 An eye ointment for blephritis, name unknown Sulfamethoxazole-Trimethoprim High 2015 Other reaction(s): Itching Tobramycin-Dexamethasone 09/04/2012 Eyes become red and itchy documented as of this encounter (statuses as of 10/22/2023) Medications Medication Sig Dispensed Refills Start Date [...] per eye as needed 0 Active Nystatin 914686 UNIT/GM External Powder (Nystop)Indications :Cutaneous candidiasis Apply [...] for Anxiety. 30 Tablet 5 05/14/2023 Active Warfarin Sodium 5 MG Oral Tablet (Coumadin)Indicatio ns:Paroxysmal atrial fibrillation (HCC) Take 1/2 tablet by mouth every day or as directed by anticoagulation clinic 15 Tablet 5 05/16/2023 Active Ammonium Lactate 12 % External Lotion [...] as of this encounter (statuses as of 10/22/2023) Active Problems Problem Noted Date Diagnosed Date Anticoagulation management encounter 10/21/2023 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 LDL less than 100 05/2024 [facility] current use of anticoagulant therapy 0 09/10/2023 [...] as of this encounter (statuses as of 10/22/2023) Resolved Problems Problem Noted Date Diagnosed Date Resolved Date Chronic diastolic heart failure 06/23/2020 11/13/2021 Prediabetes 04/11/2020 12/13/2022 Overview: Per Prediabetes protocol HTN, goal to be determined 1 07/23/2008 Overview: Modified per HTN protocol #16. documented as of this encounter (statuses as of 10/22/2023) Immunizations Name Administration Dates Next Due COVID-19 [...] encounter Miscellaneous Notes * Telephone Encounter - Papi Olvera OSA - 10/22/2023 1:28 PM EDT Called patient, she is setup with Sai Lovelace, spenser Tran patient. Dec Arrive by 1:15 PM Appt at 1:30 PM (30 min) She is aware of the date and time. * Telephone Encounter - Rossana Wade CMA - 10/21/2023 2:40 PM EDT Please assist with Cardiology f/u - last seen > [address] Tran. Has also seen Lena Dhillon in the past. * Telephone Encounter - Sai Lovelace PA-C - 10/21/2023 11:45 AM EDT Chart reviewed. Patient unknown to the undersigned. Continue anticoagulation Referral signed. Recommend Cardiology follow-up (last seen by Dr. Tran in September 2022) Sai Lovelace PA-C Department of Cardiology * Telephone Encounter - Ciara Mart RPh - 10/21/2023 10:50 AM EDT Please sign updated referral for patient for anticoagulation management- previous referral was under Dr. Bravo, although per that referral, duration of antiocoagulation therapy was to be determined by cardiology, as she was in afib during hospitalization at [facility], but then returned to [facility]. Last cardiology appt was with Dr. Tran, and she does not have one rescheduled. Routing to PCP + cardiology provider pool to see if patient needs to be seen sooner to further assess if anticoagulation is still to be continued. Thanks! Ciara Mart, PharmD, BCACP Clinical Pharmacist Medication Therapy Disease Management 10/21/2023, 10:51 AM documented in this encounter Plan of Treatment Upcoming Encounters Date Type Department Care Team (Late st Contact Info) Description 11/14/2023 9:30 AM EDT Anticoagulation Pharmacy, [place] [address] [place] [address] [facility] [address] [place] [address] 01/23/2024 1:30 PM EDT Office Visit Cardiology, [facility] [address] [place] [address] Sai Lovelace PA-Giselle [address] [place] [address] 02/06/2024 1:15 PM EDT [facility] [address], [place] [phone] Amol Espino MD [address] [place], [place] [phone] 03/13/2024 2:00 PM EDT Office Visit [facility] [address] [place] [phone] Sai Soler MD [address] [place] [address] Scheduled Referrals Name Type Priority Associated Diagnoses Orde r Schedule ANTI-COAGULATION REFERRAL OP Referral Within 30 days (routine) Paroxysmal atrial fibrillation (HCC) Anticoagulation management encounter Ordered: 10/21/2023 Health Maintenance Due Date Last Done Comments Zoster Vaccines (2 of 3) 12/25/2008 10/30/2008 COVID-19 Vaccine ( season) 2023 01/11/2022, 06/01/2021, 08/31/2020, Additional history exists Influenza Vaccine (FLU shot) (Season Ended) 2024 05/09/2022, 03/18/2021, 03/15/2020, Additional history exists GFR 04/21/2024 10/21/2023, 04/01, 10/22/2022, Additional history exists Depression Screening 09/09/2024 09/10/2023 Albumin/Creatinine Ratio 10/20/2024 10/21/2023 CKD HGB USE SMARTSET 17486 10/20/202410/20, 04/25/2023, 10/22/2022, Additional history exists CKD PHOS USE SMARTSET 26069 10/20/202409/30, 12/28/2013, 12/27/2013, Additional history exists DXA [...] as of this encounter Visit Diagnoses Diagnosis Anticoagulation management [...] the patient have Health Care Power of Supply Aide? No No Code 09/03/2012 12:21 AM 09/08/2012 9:58 PM This order reflects the patients wishes and were consensually agreed upon. Question Answer Comments Discussion of Advance Directives occurred with: Patient Does the patient have a Living Will? No Does the patient have Health Care Power of Supply Aide? No Full Code 07/09/2007 2:42 PM 07/11/2007 2:07 PM Care Teams Home Care Companion Relationship Specialty Start Date End Date Sai Soler MD [address] [place] [address] PCP - General Family Medicine 03/15/20 documented as of this encounter
--- OUTSIDE RECORDS SUMMARY | 2024-04-02 10:31 | External Medical Summary | Summary of Care ---
Author Name Unknown Organization [facility] Address [address] [place] [address] Phone [phone] Care Team Providers Care Field Talent Qualification Specialist Name Role Phone Sai Soler MD Primary Care Provider [phone] Reason for Referral * Opinion/Recommendation - Change # of Visits to 1 (Within 30 days (routine)) - Authorized Specialty Diagnoses / Procedures Referred By Madhu herrmann Referred To Contact ANTI-COAG CLINIC / Pharmacy Diagnoses Paroxysmal atrial fibrillation (HCC) Anticoagulation management encounter Sai Lovelace PA-C [address] [place] [address] Referral ID Status Reason Start Date Expiration Date Visits Requested Visits Authorized [id number] Authorized Specialty Services Required 10/21/2023 04/18/2024 99 [...] have her medication therapy managed by the [facility] Medication Therapy Disease Management Clinic ([facility]) per established policies, procedures, and protocols. I also certify that this referral may serve as an initiation of service for the management of drug therapy in the above noted patient. [facility] providers will be responsible for scheduling patient visits, obtaining appropriate laboratory studies, and adjusting medication management therapy per patient's need, in addition to those roles spelled out in the clinic policy, procedures, and drug management protocols. I understand that the service provided by the [facility] is voluntary and have informed patient that they can refuse the service at their discretion. I am aware that the [facility] Clinic will provide me with a copy of the patient encounter via my [place] [employer]. I authorize the [facility] to carry out these activities on my behalf. I consider this program to be a necessary part of the patient's medical care. Sai Lovelace PA-C Department of Cardiology Reason for Visit * Reason Onset Date Comments Referral 10/21/2023 Encounter Details Date Type Department Care Team (Late st Contact Info) Description 10/21/[address] [address] Ciara Mart, [facility] [address] [place] [address] Referral Allergies Active Allergy Reactions Criticality Noted Date Comments Dexamethasone High 01/30/2022 Other reaction(s): EYES BECAME RED AND ITCHY Other - Drugs 07/04/2007 An eye ointment for blephritis, name unknown Sulfamethoxazole-Trimethoprim High 2015 Other reaction(s): Itching Tobramycin-Dexamethasone 09/04/2012 Eyes become red and itchy documented as of this encounter (statuses as of 10/21/2023) Medications Medication Sig Dispensed Refills Start Date [...] per eye as needed 0 Active Nystatin 269776 UNIT/GM External Powder (Nystop)Indications :Cutaneous candidiasis Apply [...] as of this encounter (statuses as of 10/21/2023) Active Problems Problem Noted Date Diagnosed Date Anticoagulation management encounter 10/21/2023 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 LDL less than 100 05/2024 [facility] current use of anticoagulant therapy 0 09/10/2023 [...] as of this encounter (statuses as of 10/21/2023) Resolved Problems Problem Noted Date Diagnosed Date Resolved Date Chronic diastolic heart failure 06/23/2020 11/13/2021 Prediabetes 04/11/2020 12/13/2022 Overview: Per Prediabetes protocol HTN, goal to be determined 1 07/23/2008 Overview: Modified per HTN protocol #16. documented as of this encounter (statuses as of 10/21/2023) Immunizations Name Administration Dates Next Due COVID-19 [...] Miscellaneous Notes * Telephone Encounter - Sai Lovelace PA-C - 10/21/2023 11:45 AM EDT Chart reviewed. Patient unknown to the undersigned. Continue anticoagulation Referral signed. Recommend Cardiology follow-up (last seen by Dr. Tran in September 2022) Sai Lovelace PA-C Department of Cardiology * Telephone Encounter - Ciara Mart london - 10/21/2023 10:50 AM EDT Please sign updated referral for patient for anticoagulation management- previous referral was under Dr. Bravo, although per that referral, duration of antiocoagulation therapy was to be determined by cardiology, as she was in afib during hospitalization at [facility], but then returned to [facility]. Last cardiology appt was with Dr. Tran, [...] Description 11/14/2023 9:30 AM EDT Anticoagulation Pharmacy, [address] [address] [facility] [address] [place] [address] 02/06/2024 1:15 PM EDT Telemedicine General Surgery, [place] [address] [place] [address] Amol Espino MD [address] [place] [address] 03/13/2024 2:00 PM EDT Office Visit [facility], [address] [address] Sai Soler MD [address] [place] [address] Scheduled Referrals Name Type Priority Associated Diagnoses Orde r Schedule ANTI-COAGULATION REFERRAL OP Referral Within 30 days (routine) Paroxysmal atrial fibrillation (HCC) Anticoagulation management encounter Ordered: 10/21/2023 Health Maintenance Due Date Last Done Comments Albumin/Creatinine Ratio 1960 Zoster Vaccines (2 of 3) 12/25/2008 10/30/2008 CKD PHOS USE SMARTSET 15117 12/28/201412/01, 12/27/2013, 12/26/2013, Additional history exists COVID-19 Vaccine ( season) 2023 01/11/2022, 06/01/2021, 08/31/2020, Additional history exists GFR 10/25/2023 04/25/2023, 09/30, 02/06/2022, Additional history exists Influenza Vaccine (FLU shot) (Season Ended) 2024 05/09/2022, 03/18/2021, 03/15/2020, Additional history exists CKD HGB USE SMARTSET 26281 04/25/202404/25, 10/22/2022, 06/06/2022, Additional history exists Depression Screening 09/09/2024 09/10/2023 DXA Scan 08/01/2026 08/01/2022, 08/01/2022 DTaP,Tdap,and Td [...] the patient have Health Care Power of Licensed Massage Therapist? No No Code 09/03/2012 12:21 AM 09/08/2012 9:58 PM This order reflects the patients wishes and were consensually agreed upon. Question Answer Comments Discussion of Advance Directives occurred with: Patient Does the patient have a Living Will? No Does the patient have Health Care Power of Licensed Massage Therapist? No Full Code 07/09/2007 2:42 PM 07/11/2007 2:07 PM Care Teams Field Talent Qualification Specialist Relationship Specialty Start Date End Date Sai Soler MD [address] [place] [address] PCP - General Family Medicine 03/15/20 documented as of this encounter
--- OUTSIDE RECORDS SUMMARY | 2024-04-02 10:31 | External Medical Summary ---
Author Name Unknown Address Unknown Organization K01:[facility] - [address] [facility] [address] Laboratory Report Ordering Provider Test Date Status KATRINA FERNANDOARCELIA 10/21/2023 09:56:23 Final Observation Date Value Abnormality Reference (Units ) Status HbA1C 10/21/2023 09:56:23 5.4 4.0-5.6 (% ) Final The use of HbA1c to monitor glycemic status is based on normal hemoglobin and HbA composition. This test should not be used in patients with abnormal hemoglobin that affects the half life of the red blood cell or the in vivo glycation rates. Glucose, estimated average 10/21/2023 09:56:23 108 <126 (mg/dL) Final Performing Location [facility] [address] [facility] [address]
--- OUTSIDE RECORDS SUMMARY | 2024-04-02 10:31 | External Medical Summary | Summary of Care ---
Author Name Unknown Organization [facility] Address [address] [place] [address] Phone [phone] Care Team Providers Care Grain Elevator Motor Starter Name Role Phone Sai Soler MD Primary Care Provider [phone] Reason for Visit * Reason Comments Dosage Adjustment In Person (Anticoag Cl inic) Encounter Details Date Type Department Care Team (Latest Contact Info) Description 10/21/2023 9:40 AM EDT Anticoagulation Pharmacy, [place] [address] [place] [address] [facility] [address] [place] [address] Anticoagulation management encounter*; Paroxysmal atrial fibrillation (HCC) [...] 0 Active Ostomy Supplies (OSTOMY DRAINABLE POUCH/FLANGE) [facility] Ost[facility] Drainable Pouch/Flange Miscellaneous USE DIRECTED. Quantity: 30; Refills: 12 Sawyer Orourke M.D.; Started 18-May-2011 Active 0 05/18/2011 Active Magnesium 250 MG Tablet Take by mouth daily. 1 twice daily 0 Active Artificial Tear Solution (SOOTHE XP XTRA PROTECTION) SOLN Instill into eye. 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 Medication Therapy Disease Management - Anticoagulation Patient: Priya Tapia | : 1940 Subjective Patient-Reported Symptoms: Patient Findings Positives: Other complaints (patient did have a fall the other day- did not hit her head, no bruising or bleeding, EMT did show up to assess her, but findings unremarkable. she states she stood up too fast) Negatives: Signs/symptoms of thrombosis, Signs/symptoms of bleeding, Change in health, Change in alcohol use, Change in activity, Upcoming invasive procedure, Missed doses, Extra doses, Change in medications, Change in diet/appetite, Bruising Objective Current Warfarin Dose As of 10/21/2023 Warfarin maintenance plan: 2.5 mg (5 mg x 0.5) every day INR Result As of 10/21/2023 INR goal: 2.0-3.0 INR used for dosin.8 (10/21/2023) Assessment & Plan Warfarin Plan As of 10/21/2023 Full warfarin instructions: 5 mg every Mon; 2.5 mg all other days Next INR check: 11/14/2023 Repeat PT/INR in 3 week(s) Weekly dose: increased Additional Dosing Information: Ciara Mart RPh Clinical Pharmacist 10/21/2023, 9:42 AM documented in this encounter Plan of Treatment Upcoming Encounters Date Type Department Care Team (Late st Contact Info) Description 11/14/2023 9:30 AM EDT Anticoagulation Pharmacy, [address] [address] [facility] [address] [place] [address] 02/06/2024 1:15 PM EDT Telemedicine General Surgery, [place] [address] [place] [address] Amol Espino MD [address] [place] [address] 03/13/2024 2:00 PM EDT Office Visit [facility] [address] [place] [address] Sai Soler MD [address] [place], [place] [id number] Scheduled Orders Name Type Priority Associated Diagnoses Orde r Schedule PT INR Lab Routine Paroxysmal atrial fibrillation (HCC) Anticoagulation management encounter 26 Occurrences starting 10/21/2023 until 10/20/2024 INR FINGERSTICK, POINT OF CARE Point of Care Testing - Unsolicited Results STAT Paroxysmal atrial fibrillation (HCC) Anticoagulation management encounter Every 2 Weeks for 26 Occurrences starting 10/21/2023 until 10/20/2024, 1 completed Health Maintenance Due Date Last Done Comments Albumin/Creatinine Ratio 1960 Zoster Vaccines (2 of 3) 12/25/2008 10/30/2008 CKD PHOS USE SMARTSET 02347 12/28/201412/01, 12/27/2013, 12/26/2013, Additional history exists COVID-19 Vaccine (2022- season) 2023 01/11/2022, 06/01/2021, 08/31/2020, Additional history exists GFR 10/25/2023 04/25/2023, 09/30, 02/06/2022, Additional history exists Influenza Vaccine (FLU shot) (Season Ended) 2024 05/09/2022, 03/18/2021, 03/15/2020, Additional history exists CKD HGB USE SMARTSET 03940 04/25/202404/25, 10/22/2022, 06/06/2022, Additional history exists Depression [...] Comments INR FINGERSTICK, POINT OF CARE STAT 10/21/2023 9:46 AM EDT Paroxysmal atrial fibrillation (HCC) Anticoagulation management encounter documented in this encounter Results * INR FINGERSTICK, POINT OF CARE (10/21/2023 9:46 AM EDT) Fingerstick INR 1.8 INR 9:48 AM EDT [facility] Blood 10/21/2023 9:46 AM EDT 10/21/2023 9:48 AM EDT Narrative [facility] - 10/21/2023 9:48 AM EDT Therapeutic ranges for non-operative patients: Prophylaxsis/treatment of DVT: (Range:2.0-3.0) Treatment of pulmonary embolism:(Range:2.0-3.0) Prevention of systemic embolism from: -tissue heart valves -acute myocardial infarction -valvular heart disease -atrial fibrillation (Range: 2.0-3.0) Mechanical prosthetic valves: (Range: 2.5-3.5) Ciara Mart [facility] POINT OF CARE TEST DOCKED DEVICE UNSOLICITED RESULTS [facility] [place] [address] documented in this encounter Visit Diagnoses Diagnosis [...] the patient have Health Care Power of Housing Management Officer? No No Code 09/03/2012 12:21 AM 09/08/2012 9:58 PM This order reflects the patients wishes and were consensually agreed upon. Question Answer Comments Discussion of Advance Directives occurred with: Patient Does the patient have a Living Will? No Does the patient have Health Care Power of Housing Management Officer? No Full Code 07/09/2007 2:42 PM 07/11/2007 2:07 PM Care Teams Grain Elevator Motor Starter Relationship Specialty Start Date End Date Sai Soler MD [address] [place] [address] PCP - General Family Medicine 03/15/20 documented as of this encounter"
--- OUTSIDE RECORDS SUMMARY | 2024-04-02 10:31 | External Medical Summary | Summary of Care ---
Author Name Unknown Organization [facility] Address [address] [place] [address] Phone [phone] Care Team Providers Care Superintendent Production Name Role Phone Sai Soler MD Primary Care Provider [phone] Reason for Referral * Opinion/Recommendation - Change # of Visits to 1 (Within 30 days (routine)) - Authorized Specialty Diagnoses / Procedures Referred By Madhu herrmann Referred To Contact ANTI-COAG CLINIC / Pharmacy Diagnoses Paroxysmal atrial fibrillation (HCC) Anticoagulation management encounter Sai Lovelace PA-C [address] [place] [address] Referral ID Status Reason Start Date Expiration Date Visits Requested Visits Authorized [id number] Authorized Specialty Services Required 10/21/2023 04/18/2024 99 [...] have her medication therapy managed by the [facility] ([facility]) per established policies, procedures, and protocols. I also certify that this referral may serve as an initiation of service for the management of drug therapy in the above noted patient. [facility] providers will be responsible for scheduling patient visits, obtaining appropriate laboratory studies, and adjusting medication management therapy per patient's need, in addition to those roles spelled out in the clinic policy, procedures, and drug management protocols. I understand that the service provided by the [facility] is voluntary and have informed patient that they can refuse the service at their discretion. I am aware that the [facility] Clinic will provide me with a copy of the patient encounter via my [email or web address] In[employer] Visionet. I authorize the [facility] to carry out these activities on my behalf. I consider this program to be a necessary part of the patient's medical care. Sai Lovelace PA-C Department of Cardiology Reason for Visit * Reason Onset Date Comments Referral 10/21/2023 Encounter Details Date Type Department Care Team (Late st Contact Info) Description 10/21/[address] [address] [place], [facility] [address] [place] [address] Referral Allergies Active Allergy Reactions Criticality Noted [...] per eye as needed 0 Active Nystatin 943782 UNIT/GM External Powder (Nystop)Indications :Cutaneous candidiasis Apply [...] with target LDL less than 100 05/2024 detention current use of anticoagulant therapy 0 09/10/2023 [...] encounter Miscellaneous Notes * Telephone Encounter - Rossana Wade CMA - 10/21/2023 2:40 PM EDT Please assist with Cardiology f/u - last seen > [address] Tran. Has also seen Lena Jacquie in the past. * Telephone Encounter - Sai Lovelace PA-C - 10/21/2023 11:45 AM EDT Chart reviewed. Patient unknown to the undersigned. Continue anticoagulation Referral signed. Recommend Cardiology follow-up (last seen by Dr. Tran in September 2022) Sai Lovelace PA-C Department of Cardiology * Telephone Encounter - Ciara Mart [facility] - 10/21/2023 10:50 AM EDT Please sign updated referral for patient for anticoagulation management- previous referral was under Dr. Bravo, although per that referral, duration of antiocoagulation therapy was to be determined by cardiology, as she was in afib during hospitalization at [facility], but then returned to [facility]. Last cardiology appt was with [...] 11/14/2023 9:30 AM EDT [address]tico[address]acy, [address] [address] [place], [facility] [address] [facility] [address] 02/06/2024 1:15 PM EDT Telemedicine General Surgery[address] [place] [address] Amol Espino MD [address] [place] [address] 03/13/2024 2:00 PM EDT Office Visit [facility] [address] [place] [address] Sai Soler MD [address] [place] [address] Scheduled Referrals Name Type Priority [...] Additional history exists Depression Screening 09/09/2024 09/10/2023 CKD HGB USE SMARTSET 82576 10/20/202410/20, 04/25/2023, 10/22/2022, Additional history exists CKD PHOS USE SMARTSET 73350 10/20/202409/30, 12/28/2013, 12/27/2013, Additional history exists DXA [...] the patient have Health Care Power of Tree Farmer? No No Code 09/03/2012 12:21 AM 09/08/2012 9:58 PM This order reflects the patients wishes and were consensually agreed upon. Question Answer Comments Discussion of Advance Directives occurred with: Patient Does the patient have a Living Will? No Does the patient have Health Care Power of Tree Farmer? No Full Code 07/09/2007 2:42 PM 07/11/2007 2:07 PM Care Teams Superintendent Production Relationship Specialty Start Date End Date Sai Soler MD [address] [place] [address] PCP - General Family Medicine 03/15/20 documented as of this encounter
--- OUTSIDE RECORDS SUMMARY | 2024-04-02 10:31 | External Medical Summary ---
Author Name Unknown Address Unknown Organization [id number]:[facility] [place] [address] [facility] [address] Laboratory Report Ordering Provider Test Date Status MARIA DEL CARMEN FERNANDO 10/21/2023 09:56:23 Final Observation Date Value Abnormality Reference (Units ) Status Triglyceride 10/21/2023 09:56:23 149 <=174 ( mg/dL) Final Triglyceride Reference Range s (mg/dL):
<150 Acceptable
150-174 Borderline high
175-499 High
>=500 Very high Cholesterol 10/21/2023 09:56:23 174 <200 (mg /dL) Final Total Cholesterol Reference Ranges (mg/dL):
<200 Desirable
200-239 Borderline high
>=240 High HDL 10/21/2023 09:56:23 77 >49 (mg/dL ) Final HDL Cholesterol Reference Ra nges (mg/dL):
>=60 High (Desirable)
<50 Low (Undesirable) For Females
<40 Low (Undesirable) For Males NON-HDL CHOLESTEROL 10/21/2023 09:56:23 97 <=159 (mg/dL) Final Non-HDL Cholesterol Referenc e Range (mg/dL):
<100 Target level for high risk ASCVD patient
<130 Optimal for general population
130-159 Near optimal for general population
160-189 Borderline High
190-219 High
>=220 Very High LDL, (calculated) 10/21/2023 09:56:23 67 <= 129 (mg/dL) Final LDL Cholesterol Reference Ra nges (mg/dL):
<70 Target level for high risk ASCVD patient
<100 Optimal for general population
100-129 Near optimal for general population
130-159 Borderline high
160-189 High
>=190 Very high Performing Location [facility] [place] [address] [facility] [address]
--- OUTSIDE RECORDS SUMMARY | 2024-04-02 10:31 | External Medical Summary ---
Author Name Unknown Address Unknown Organization [id number]:LABORATORY [facility] [place] - [facility] [address] [facility] [address] Laboratory Report Ordering Provider Test Date Status MARIA DEL CARMEN FERNANDO 10/21/2023 09:56:23 Final Observation Date Value Abnormality Reference (Units ) Status WBC, Total 10/21/2023 09:56:23 5.51 4.00-10.80 (K/uL) Final RBC 10/21/2023 09:56:23 4.27 3.85-5.15 (M/uL) Final Hemoglobin 10/21/2023 09:56:23 13.2 12.0-15.3 (g/dL) Final HCT 10/21/2023 09:56:23 42.5 36.0-45.2 (%) Final MCV 10/21/2023 09:56:23 99.5 81.5-97.5 (fL) Final MCH 10/21/2023 09:56:23 30.9 27.0-34.0 (pg) Final MCHC 10/21/2023 09:56:23 31.1 32.0-36.0 (g/dL) Final RDW 10/21/2023 09:56:23 13.2 11.5-15.5 (%) Final Platelets 10/21/2023 09:56:23 186 140-400 (K/uL) Final MPV 10/21/2023 09:56:23 12.2 6.6-11.1 (fL) Final Nucleated erythrocytes/100 leukocytes [Ratio] in Blood by Automated count 10/21/2023 09:56:23 0 <=0 (/100 WBCs) Final Performing Location LABORATORY [facility] - [address] [place] [address]
--- OUTSIDE RECORDS SUMMARY | 2024-04-02 10:31 | External Medical Summary ---
Author Name Unknown Address Unknown Organization [id number]:LABORATORY [facility] [place] - [address] [place] [address] Laboratory Report Ordering Provider Test Date Status MARIA DEL CARMEN FERNANDO 10/21/2023 09:56:23 Final Normal: <30 mg/g creatinine< br/>High: 30-300 mg/g creatinine
Very High: >300 mg/g creatinine
Nephrotic: >2200 mg/g creatinine Observation Date Value Abnormality Reference (Units ) Status Albumin, Urine 10/21/2023 09:56:23 3.15 (mg/dL) Final Creatinine, Urine 10/21/2023 09:56:23 271 (mg/dL) Final Albumin/Creatinine [Mass Ratio] in Urine 10/21/2023 09:56:23 12 <30 (mg/g Creat) Final Performing Location LABORATORY [facility] [place] - [address] [place] [address]
--- OUTSIDE RECORDS SUMMARY | 2024-04-02 10:31 | External Medical Summary ---
Author Name Unknown Address Unknown Organization K01:LABORATORY [facility] - [address] [place] [place] [address] Laboratory Report Ordering Provider Test Date Status MARIA DEL CARMEN FERNANDO 10/21/2023 09:56:23 Final Observation Date Value Abnormality Reference (Units ) Status Phosphate 10/21/2023 09:56:23 3.7 2.5-4.8 (m g/dL) Final Performing Location LABORATORY [facility] - [address] [place] [address]
--- OUTSIDE RECORDS SUMMARY | 2024-04-02 10:31 | External Medical Summary | Summary of Care ---
Author Name Unknown Organization [facility] Address [address] [place] [address] Phone [phone] Care Team Providers Care Doctor Of Radiology Name Role Phone Sai Soler MD Primary Care Provider [phone] Reason for Visit * Reason Comments Outpatient Testing Encounter Details Date Type Department Care Team (Late st Contact Info) Description 10/21/2023 10:10 AM EDT Laboratory Laboratory, [place] [address] [place] [address] [facility] [address] [place] [address] Chronic kidney disease, unspecified CKD stage; 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 LDL less than 100; Hyperglycemia; residential current use of anticoagulant therapy; Encounter for long-term (current) use of medications Allergies Active Allergy Reactions Criticality Noted Date [...] x daily 0 Active Cholecalciferol (VITAMIN D) 1999 UNITS Tablet 1 tablet daily 0 Active [...] per eye as needed 0 Active Nystatin 718909 UNIT/GM External Powder (Nystop)Indications :Cutaneous candidiasis Apply [...] with target LDL less than 100 05/2024 residential current use of anticoagulant therapy 0 09/10/2023 [...] No 10/09/2015 documented as of this encounter Plan of Treatment Upcoming Encounters Date Type Department Care Team (Late st Contact Info) Description 11/14/2023 9:30 AM EDT Anticoagulation Pharmacy, [place] [address] [place] [address] [place], [facility] [address] [place] [address] 02/06/2024 1:15 PM EDT Telemedicine General Surgery, [place] [address] [place] [address] Amol Espino MD [address] [place] [address] 03/13/2024 2:00 PM EDT Office Visit Family [facility] [address] [place] [address] Sai Soler MD [address] [place] [address] Pending Results Name Type Priority Associated Diagnoses Date /Time PHOSPHORUS Lab Routine Chronic kidney disease, unspecified CKD stage 10/21/2023 9:56 AM EDT ALBUMIN / CREATININE RATIO, URINE Lab Routine Chronic kidney disease, unspecified CKD stage 10/21/2023 9:56 AM EDT COMPREHENSIVE METABOLIC PANEL Lab Routine Chronic kidney disease, unspecified CKD stage 10/21/2023 9:56 AM EDT LIPID PANEL WITH DIRECT LDL IF TG IS HIGH Lab Routine 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 LDL less than 100 10/21/2023 9:56 AM EDT HEMOGLOBIN A1C Lab Routine Hyperglycemia 10/21/2023 9:56 AM EDT CBC 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 10/21/2023 9:56 AM EDT VITAMIN B12 Lab Routine Encounter for long-term (current) use of medications 10/21/2023 9:56 AM EDT Health Maintenance Due Date Last Done Comments Albumin/Creatinine Ratio 1958 Zoster Vaccines (2 of 3) 12/25/2008 10/30/2008 CKD PHOS USE SMARTSET 98182 12/28/201412/01, 12/27/2013, 12/26/2013, Additional history exists COVID-19 Vaccine ( season) 2023 01/11/2022, 06/01/2021, 08/31/2020, Additional history exists GFR 10/25/2023 04/25/2023, 09/30, 02/06/2022, Additional history exists Influenza Vaccine (FLU shot) (Season Ended) 2024 05/09/2022, 03/18/2021, 03/15/2020, Additional history exists CKD HGB USE SMARTSET 38560 04/25/202404/25, 10/22/2022, 06/06/2022, Additional history exists Depression [...] as of this encounter Visit Diagnoses Diagnosis Chronic kidney disease, unspecified CKD stage 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 LDL less than 100 Other and unspecified hyperlipidemia Hyperglycemia Other abnormal glucose 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 No No Code 09/03/2012 12:21 AM 09/08/2012 9:58 PM This order reflects the patients wishes and were consensually agreed upon. Question Answer Comments Discussion of Advance Directives occurred with: Patient Does the patient have a Living Will? No Does the patient have Health Care Power of Explosive Operator Fuse? No Full Code 07/09/2007 2:42 PM 07/11/2007 2:07 PM Care Teams Doctor Of Radiology Relationship Specialty Start Date End Date Sai Soler MD [address] [place] [address] PCP - General Family Medicine 03/15/20 documented as of this encounter
--- OUTSIDE RECORDS SUMMARY | 2024-04-02 10:31 | External Medical Summary | Summary of Care ---
Author Name Unknown Organization [facility] Address [address] [place] [address] Phone [phone] Care Team Providers Care Staffing Administrator Name Role Phone Sai Soler MD Primary Care Provider [phone] Reason for Referral * Opinion/Recommendation - Change # of Visits to 1 (Within 30 days (routine)) - Authorized Specialty Diagnoses / Procedures Referred By Madhu herrmann Referred To Contact ANTI-COAG CLINIC / Pharmacy Diagnoses Paroxysmal atrial fibrillation (HCC) Anticoagulation management encounter Sai Lovelace PA-C [address] [place] [address] Referral ID Status Reason Start Date Expiration Date Visits Requested Visits Authorized [id number] Authorized Specialty Services Required 10/21/2023 04/18/2024 99 [...] by the [facility] Medication Therapy Disease Management [facility] ([facility]) per established policies, procedures, and protocols. I also certify that this referral may serve as an initiation of service for the management of drug therapy in the above noted patient. [facility] providers will be responsible for scheduling patient visits, obtaining appropriate laboratory studies, and adjusting medication management therapy per patient's need, in addition to those roles spelled out in the clinic policy, procedures, and drug management protocols. I understand that the service provided by the [facility] is voluntary and have informed patient that they can refuse the service at their discretion. I am aware that the [facility] Clinic will provide me with a copy of the patient encounter via my [employer] Diagn[employer]et. I authorize the [facility] to carry out these activities on my behalf. I consider this program to be a necessary part of the patient's medical care. Sai Lovelace PA-C Department of Cardiology Reason for Visit * Reason Onset Date Comments Referral 10/21/2023 Encounter Details Date Type Department Care Team (Late st Contact Info) Description 10/21/[address] [address] [place], [facility] [address] [place] [address] Referral Allergies Active Allergy Reactions Criticality Noted [...] per eye as needed 0 Active Nystatin 922869 UNIT/GM External Powder (Nystop)Indications :Cutaneous candidiasis Apply [...] Cardiology * Telephone Encounter - Ciara Mart [facility] - 10/21/2023 10:50 AM EDT Please sign updated referral for patient for anticoagulation management- previous referral was under Dr. Bravo, although per that referral, duration of antiocoagulation therapy was to be determined by cardiology, as she was in afib during hospitalization at [facility], but then returned to [facility]. Last cardiology appt was with Dr. [...] Description 11/14/2023 9:30 AM EDT Anticoagulation Pharmacy, [address] [address] [place], [facility] [address] [facility] [address] 02/06/2024 1:15 PM EDT Telemedicine General Surgery[address] [place] [address] Amol Espino MD [address] [place] [address] 03/13/2024 2:00 PM EDT Office Visit [facility] [address] [place] [address] Sai Soler MD [address] [place] [address] Scheduled Referrals Name Type Priority Associated Diagnoses Orde r Schedule ANTI-COAGULATION REFERRAL OP Referral Within 30 days (routine) Paroxysmal atrial fibrillation (HCC) Anticoagulation management encounter Ordered: 10/21/2023 Health Maintenance Due Date Last Done Comments Albumin/Creatinine Ratio 1960 Zoster Vaccines (2 of 3) 12/25/2008 10/30/2008 CKD PHOS USE SMARTSET 38688 12/28/201412/01, 12/27/2013, 12/26/2013, Additional history exists COVID-19 Vaccine ( season) 2023 01/11/2022, 06/01/2021, 08/31/2020, Additional history exists GFR 10/25/2023 04/25/2023, 09/30, 02/06/2022, Additional history exists Influenza Vaccine (FLU shot) (Season Ended) 2024 05/09/2022, 03/18/2021, 03/15/2020, Additional history exists CKD HGB USE SMARTSET 13355 04/25/202404/25, 10/22/2022, 06/06/2022, Additional history exists Depression [...] the patient have Health Care Power of Weapons Designer? No No Code 09/03/2012 12:21 AM 09/08/2012 9:58 PM This order reflects the patients wishes and were consensually agreed upon. Question Answer Comments Discussion of Advance Directives occurred with: Patient Does the patient have a Living Will? No Does the patient have Health Care Power of Weapons Designer? No Full Code 07/09/2007 2:42 PM 07/11/2007 2:07 PM Care Teams Staffing Administrator Relationship Specialty Start Date End Date Sai Soler MD [address] [place] [address] PCP - General Family Medicine 03/15/20 documented as of this encounter
--- OUTSIDE RECORDS SUMMARY | 2024-04-02 10:32 | External Medical Summary ---
Author Name Unknown Address Unknown Organization : Laboratory Report Ordering Provider Test Date Status ROSARIO KIMBALL 10/21/2023 09:46:31 Final Therapeutic ranges for non-o perative patients:
Prophylaxsis/treatment of DVT: (Range:2.0-3.0)
Treatment of pulmonary embolism:(Range:2.0-3.0)
Prevention of systemic embolism from:
-tissue heart valves
-acute myocardial infarction
-valvular heart disease
-atrial fibrillation
(Range: 2.0-3.0)
Mechanical prosthetic valves: (Range: 2.5-3.5) Observation Date Value Abnormality Reference (Units ) Status INR in Capillary blood by Coagulation assay 10/21/2023 09:46:31 1.8 (INR) Final Performing Location
--- OUTSIDE RECORDS SUMMARY | 2024-04-02 10:32 | External Medical Summary | Summary of Care ---
Author Name Unknown Organization [facility] Address [address] [place] [address] Phone [phone] Care Team Providers Care Lifestyle Director Name Role Phone Sai Soler MD Primary Care Provider [phone] Reason for Visit * Reason Onset Date Comments Abnormal Test Results 07/15/2023 Encounter Details Date Type Department Care Team (Late st Contact Info) Description 07/15/2023 Telephone [facility] [address] [place] [address] Sai Soler MD [address] [place] [address] Abnormal Test Results Allergies Active Allergy Reactions Criticality Noted Date Comments Dexamethasone High 01/30/2022 Other reaction(s): EYES BECAME RED AND ITCHY Other - Drugs 07/04/2007 An eye ointment for blephritis, name unknown Sulfamethoxazole-Trimethoprim High 2015 Other reaction(s): Itching Tobramycin-Dexamethasone 09/04/2012 Eyes become red and itchy documented as of this encounter (statuses as of 10/14/2023) Medications Medication Sig Dispensed Refills Start Date [...] per eye as needed 0 Active Nystatin 632806 UNIT/GM External Powder (Nystop)Indications :Cutaneous candidiasis Apply [...] or Dyspnea. 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 documented as of this encounter (statuses as of 10/14/2023) Immunizations Name Administration Dates Next Due COVID-19 [...] encounter Miscellaneous Notes * Telephone Encounter - Katlyn Tenorio LPN - 07/15/2023 11:31 AM EST Patient was contacted and given message from result notes. Patient verbalized understanding and had no further questions. * Telephone Encounter - Mathieu Veronica OSA - 07/15/2023 9:44 AM EST Patient calling in regarding test results. Were the test results abnormal? (Y/N) Y If yes, no results were given by PCC. If no, did the patient have questions regarding the normal/negative results? (Y/N) Pt wants to knowresults Patient's Please return patient's call. documented in this encounter Plan of Treatment Upcoming Encounters Date Type Department Care Team (Late st Contact Info) Description 10/16/2023 1:30 PM EDT Anticoagulation Pharmacy, [place] [address] [place] [address] [facility] [address] [place], [place] [id number] 02/06/2024 1:15 PM EDT [facility] [address] [place], [place] [address] Amol Espino MD [address] [place], [place] [address] 03/13/2024 2:00 PM EDT Office Visit Family [facility] [address] [place] [address] Sai Soler MD [address] [place], [place] [phone] Health Maintenance Due Date Last Done Comments Albumin/Creatinine Ratio 1960 Zoster Vaccines (2 of 3) 12/25/2008 10/30/2008 CKD PHOS USE SMARTSET 94559 12/28/201412/01, 12/27/2013, 12/26/2013, Additional history exists COVID-19 Vaccine ( season) 2023 01/11/2022, 06/01/2021, 08/31/2020, Additional history exists GFR 10/25/2023 04/25/2023, 0409/2022, 02/06/2022, Additional history exists Influenza Vaccine (FLU shot) (Season Ended) 2024 05/09/2022, 03/18/2021, 03/15/2020, Additional history exists CKD HGB USE SMARTSET 72767 04/25/202404/25, 10/22/2022, 06/06/2022, Additional history exists Depression [...] Not on filedocumented as of this encounter Additional Health Concerns Infection Onset Date Last Indicated Resolved Time RSV 07/12/2023 07/12/2023 08/02/2023 12:1 9 AM EST documented as of this encounter Advance Directives Latest Code Status [...] the patient have Health Care Power of Supercalender Operator Helper? No No Code 09/03/2012 12:21 AM 09/08/2012 9:58 PM This order reflects the patients wishes and were consensually agreed upon. Question Answer Comments Discussion of Advance Directives occurred with: Patient Does the patient have a Living Will? No Does the patient have Health Care Power of Supercalender Operator Helper? No Full Code 07/09/2007 2:42 PM 07/11/2007 2:07 PM Care Teams Lifestyle Director Relationship Specialty Start Date End Date Sai Soler MD [address] [place] [address] PCP - General Family Medicine 03/15/20 documented as of this encounter
--- OUTSIDE RECORDS SUMMARY | 2024-04-02 10:32 | External Medical Summary ---
Author Name Unknown Address Unknown Organization K01:[facility] [address] [place] [address] Laboratory Report Ordering Provider Test Date Status MARIA DEL CARMEN FERNANDO 10/21/2023 09:56:23 Final Observation Date Value Abnormality Reference (Units ) Status Vitamin B12 10/21/2023 09:56:23 [phone] (pg/mL) Final Performing Location LAB[facility]ATORY [facility] - [address] [place] [address]
--- OUTSIDE RECORDS SUMMARY | 2024-04-02 10:32 | External Medical Summary ---
Author Name Unknown Address Unknown Organization [id number]:[facility] [place] [address] [place] [id number] Laboratory Report Ordering Provider Test Date Status MARIA DEL CARMEN FERNANDO 10/21/2023 09:56:23 Final Observation Date Value Abnormality Reference (Units ) Status BUN 10/21/2023 09:56:23 27 Above high normal 6-20 (mg/dL) Final Creatinine 10/21/2023 09:56:23 1.5 Above high normal 0.5-1.0 (mg/dL) Final Glomerular filtration rate/1.73 sq M.predicted [Volume Rate/Area] in Serum, Plasma or Blood by Creatinine-based formula (CKD-EPI) 10/21/2023 09:56:23 35 Below low normal >=60 (mL/min) Final eGFR is calculated based on the CKD-EPI 2020 equation Sodium 10/21/2023 09:56:23 140 135-146 (m mol/L) Final Potassium 10/21/2023 09:56:23 4.4 3.5-5.1 (m mol/L) Final Cl 10/21/2023 09:56:23 104 98-107 (mm ol/L) Final CO2 10/21/2023 09:56:23 23 22-32 (mmo l/L) Final Anion gap 10/21/2023 09:56:23 13 7-15 (mmol /L) Final Glucose 10/21/2023 09:56:23 99 70-120 (mg /dL) Final Albumin 10/21/2023 09:56:23 4.1 3.8-5.0 (g /dL) Final AST (Aspartate aminotransferase) 10/21/2023 09:56:23 16 10-35 (U/L) Final Alk Phos 10/21/2023 09:56:23 77 35-130 (U/ L) Final Bilirubin, Total 10/21/2023 09:56:23 0.5 <=1 .2 (mg/dL) Final Calcium 10/21/2023 09:56:23 9.5 8.4-10.2 ( mg/dL) Final Protein 10/21/2023 09:56:23 6.8 6.0-8.3 (g /dL) Final ALT (Alanine aminotransferase) 10/21/2023 09:56:23 23 10-35 (U/L) Final Performing Location [facility] [place] [address] [facility] [id number]
[2024-04-02] MEDS: amLODIPine BESYLATE 5 MG TAB PO SCH (11:28)
[2024-04-02] MEDS: METOPROLOL TARTRATE 50 MG TAB PO SCH (11:29)
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
[2024-04-02] MEDS: oxyCODONE HCL IR 5 MG TAB (IMMEDIATE RELEASE) PO PRN (12:38)
[2024-04-02 13:45] LABS: INR 3.4 (0.9-1.1); Prothrombin Time 33.5 Seconds (9.0-12.0)
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
[2024-04-02] MEDS: oxyBUTYnin chloride 5 MG TAB PO SCH (21:09)
[2024-04-02] MEDS: ATORVASTATIN 40 MG TAB PO SCH (21:10)
[2024-04-03] MEDS: HEPARIN 100 UNIT/ML 5ML FLUSH FLUSH PRN (07:43)
[2024-04-03 07:59] LABS: Hemoglobin 9.7 g/dl (12.0-16.0); Mean Corpuscular Hemoglobin 30.7 pg (25.0-34.0); Mean Corpuscular Hgb Conc 32.3 g/dL (32.0-36.0); Mean Corpuscular Volume 94.9 fL (80.0-100.0); Mean Platelet Volume 11.3 fL (9.4-12.4); Platelet Count 125 K/uL (130-400); RDW Coefficient of Variation 13.1 % (11.5-14.5); RDW Standard Deviation 45.7 fL (36.4-46.3); Red Blood Count 3.16 M/uL (4.20-5.40); White Blood Count 7.52 K/ul (4.8-10.8)
[2024-04-03 08:14] LABS: BUN Creatinine Ratio 24.5 (10-20); Calcium 8.6 mg/dl (8.6-10.3); Magnesium 1.6 mg/dl (1.7-2.4); Potassium 4.4 mmol/L (3.5-5.1)
[2024-04-03 08:19] LABS: INR 1.9 (0.9-1.1); Prothrombin Time 19.4 Seconds (9.0-12.0)
[2024-04-03] MEDS: MAGNESIUM SULFATE / D5W 1 GM/100 ML BAG IV SCH (10:02)
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
[2024-04-03] MEDS ORDERED: MICONAZOLE NITRATE POWDER 85 GM EXT PRN (19:57)
[2024-04-04] MEDS: NITROGLYCERIN SL 0.4 MG/TAB TAB SL STA (00:04)
[2024-04-04] MEDS: hydrOXYzine HCl 10 MG TAB PO PRN (00:36)
[2024-04-04 00:43] LABS: Hematocrit (blood only) 28.4 % (37.0-47.0); Hemoglobin 9.4 g/dl (12.0-16.0)
[2024-04-04 01:23] LABS: INR 1.7 (0.9-1.1); Prothrombin Time 17.7 Seconds (9.0-12.0)
[2024-04-04 01:26] LABS: Partial Thromboplastin Ratio 4.9
[2024-04-04 01:41] LABS: Partial Thromboplastin Time 131 Seconds (21-31)
[2024-04-04 07:55] LABS: Hematocrit (blood only) 29.2 % (37.0-47.0); Hemoglobin 9.5 g/dl (12.0-16.0); Mean Corpuscular Hemoglobin 30.6 pg (25.0-34.0); Mean Corpuscular Hgb Conc 32.5 g/dL (32.0-36.0); Mean Corpuscular Volume 94.2 fL (80.0-100.0); Mean Platelet Volume 11.9 fL (9.4-12.4); Platelet Count 134 K/uL (130-400); RDW Coefficient of Variation 13.1 % (11.5-14.5); RDW Standard Deviation 44.7 fL (36.4-46.3); White Blood Count 6.66 K/ul (4.8-10.8)
[2024-04-04 08:11] LABS: BUN Creatinine Ratio 25.6 (10-20); Calcium 8.7 mg/dl (8.6-10.3); Creatinine Clr Calc Pharmacy 31.2 ml/min; Magnesium 2.1 mg/dl (1.7-2.4); Potassium 4.3 mmol/L (3.5-5.1)
[2024-04-04 08:16] LABS: Troponin I High Sensitivity 7.9 pg/ml (0-14)
[2024-04-04 08:30] LABS: INR 1.5 (0.9-1.1)
--- NOTE | 2024-04-04 10:46 | Electrocardiogram Report ---
Test Reason : Blood Pressure : */* mmHG Vent. Rate : 84 BPM Atrial Rate : 84 BPM P-R Int : 222 ms QRS Dur : 74 ms QT Int : 392 ms P-R-T Axes : 60 -5 45 degrees QTcB Int : 463 ms Sinus rhythm with 1st degree A-V block Otherwise normal ECG When compared with ECG of 30-Jan-2022 18:29, LA interval has increased Confirmed by Mark Deluca ([id number]) on 04/04/2024 10:45:33 AM Referred By: REFERRED SELF Confirmed By: Mark Deluca
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
[2024-04-04] MEDS: Heparin IV Adult Wt-Based Low-Dose *NO* INITIAL Bolus Protocol IV STA (17:12)
[2024-04-04] MEDS: HEPARIN SODIUM/DEXTROSE 25,000 UNITS/500 ML BAG IV SCH (17:42)
[2024-04-04] MEDS: WARFARIN SOD 2.5 MG TAB PO SCH (17:56)
[2024-04-05 07:37] VITALS: PULSE 64; RESP 20; TEMP 98.2
[2024-04-05 07:38] VITALS: BP 147/66; O2SAT 96
[2024-04-05 08:38] LABS: Hematocrit (blood only) 29.9 % (37.0-47.0); Hemoglobin 9.7 g/dl (12.0-16.0); Mean Corpuscular Hemoglobin 30.6 pg (25.0-34.0); Mean Corpuscular Hgb Conc 32.4 g/dL (32.0-36.0); Mean Corpuscular Volume 94.3 fL (80.0-100.0); Mean Platelet Volume 11.8 fL (9.4-12.4); Platelet Count 146 K/uL (130-400); RDW Standard Deviation 44.9 fL (36.4-46.3); Red Blood Count 3.17 M/uL (4.20-5.40); White Blood Count 6.28 K/ul (4.8-10.8)
[2024-04-05 08:54] LABS: BUN Creatinine Ratio 29.4 (10-20); Creatinine Clr Calc Pharmacy 40.6 ml/min; Potassium 4.3 mmol/L (3.5-5.1)
[2024-04-05 09:03] LABS: ANTI-Xa, UFH(UnfractionatedHep 0.67 IU/ml (0.3-0.7); INR 1.3 (0.9-1.1)
[2024-04-05] MEDS ORDERED: ENOXAPARIN 1 MG/KG SQ SCH (11:15)
--- NOTE | 2024-04-05 11:25 | Discharge Summary ---
Date of Service April 05, 2024 Admission HPI Per Admitting Provider History obtained from patient, family, and records. Medical history significant for chronic diastolic heart failure, PAF on Coumadin, hypertension, hyperlipidemia, PVD, pulmonary sarcoidosis, CARISSA, GERD, Crohn's disease status post surgery, CRI (baseline creatinine 1.6), prediabetes, skin cancer status post surgery, urge incontinence as per records, mood disorder, sicca syndrome. 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 Patient found to have new onset A-fib during confinement. Discharged on Coumadin course. Patient was riding her scooter when she fell off her porch. Patient landed on both knees. No head trauma. Achy knee pain and leg bruising. No unusual headache symptoms. Denies chest pain, SOB, abdominal pain. Patient brought to ER for evaluation. Spontaneous bleeding from the lips noted at the ER as per daughter. 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 Admission Exam Per Admitting Provider GENERAL: Comfortable, slightly anxious, morbidly obese, no respiratory distress SKIN: Normal color, warm HEENT: Waller palpebral conjunctivae, no ptosis, dried blood over lip NECK : Supple, short neck, no tenderness CHEST : Decreased breath sounds, no tenderness HEART : RRR, no obvious murmurs ABDOMEN: Some distention, ostomy in place EXTREMITIES : Bilateral LE swelling with ecchymoses with minimal tenderness, no other conspicuous deformities noted NEUROLOGIC : Coherent, no facial asymmetry, no other gross focality Principal Diagnosis Mechanical fall Ambulatory dysfunction Right knee pain, right knee joint effusion Supratherapeutic INR Bilateral lower extremity bruising secondary to Coumadin coagulopathy Discharge Exam GENERAL: Comfortable, morbidly obese, no respiratory distress SKIN: Normal color, warm HEENT: Waller palpebral conjunctivae, no ptosis NECK : Supple, short neck, no tenderness CHEST : Decreased breath sounds, no tenderness HEART : RRR, no obvious murmurs ABDOMEN: Some distention, ostomy in place EXTREMITIES : Bilateral LE swelling with ecchymoses with minimal tenderness, no other conspicuous deformities noted . Rt Knee ROM non painful and improving. NEUROLOGIC : Coherent, no facial asymmetry, no other gross focality Discharge Data Allergies Allergy/AdvReac Type Severity Reaction Status Date / Time dexamethasone Allergy Intermediate EYES Verified 09/25/23 11:01 BECAME RED AND ITCHY sulfamethoxazole Allergy Intermediate ITCHING Verified 09/25/23 11:01 tobramycin Allergy Intermediate EYES Verified 09/25/23 11:01 BECAME RED AND ITCHY trimethoprim Allergy Intermediate ITCHING Verified 09/25/23 11:01 Consultations 04/02/24 00:25 ED Decision to Admit Stat 04/02/24 08:47 Consult Orthopedic Surgery Routine 04/03/24 23:56 Consult Behavioral Health Liaison Routine Hospital Course (1) Ambulatory dysfunction: Plan 83-year-old lady with PMH of chronic diastolic heart failure, PAF on Coumadin [5 mg on Saturday, 2.5 mg daily for the rest of the days per patient], HTN, HLD, PVD, pulmonary sarcoidosis, CARISSA, GERD, Crohn's disease status post surgery, CKD [baseline creatinine of 1.6], prediabetes, skin cancer status post surgery, urge incontinence, mood disorder, sicca syndrome presented to the ED 04/02 after fall. Patient reports she was riding her scooter when she fell off her porch and landed on both knees and presented with achy knee pain and leg bruising. Patient denies hitting head, no unusual headache symptoms, denied chest pain or shortness of breath or abdominal pain. She was managed for the following: Mechanical fall Ambulatory dysfunction Right knee pain, right knee joint effusion Supratherapeutic INR: INR at presentation 4.7, received vitamin K IV certifier 04/02. Bilateral lower extremity bruising secondary to Coumadin coagulopathy: aspirin and coumadin on hold. Patient comes in with fall, landed on both knees. Admitting bilateral ankle and bilateral knee and CXR with no acute fracture. Right knee x-ray with joint effusion moderate in size. Patient had increased right knee pain, especially worse with weightbearing, minimal tender on exam at presentation. Ortho evaled, conservative Mx. Rt knee pain improved. PT/OT, likely will need rehab. Hb has been stable, Rt knee pain has been better, anticoagulation has been resumed. Pt stable. Pt will be dc'd [facility] w/ lovenox bridge and warfarin, pt to have daily pt/inr and active management of lovenox bridge /coumadin dose adjustment at [facility]. Other chronic medical conditions: Continue with/resume home meds as and when able. A-fib chronic diastolic heart failure, patient euvolemic hypertension, stable hyperlipidemia, on statin Rx hx PVD pulmonary sarcoidosis, no recent follow-up with [facility] oracle manager Crohn's disease status post surgery, patient with ostomy CRI, creatinine at baseline prediabetes, hemoglobin A1c of 5.03 October 2023 DVT prophylaxis. SCDs while Coumadin on hold if INR less than 2 Full code Patient daughter Ms. Shy Tapia, contact #[phone]. Updated pt's dtr at bedside 04/02. Discharge plan of care was discussed with the patient and patient's son at bedside. Patient is being discharged to [facility] with following instruction at the point of discharge: Follow-up with your primary care physician within a week time and likely you will need labs CBC/CMP/magnesium/phosphorus. You presented with fall and lower extremity bruising and right knee pain. You were also noted to have supratherapeutic INR. Continue with PT/OT at rehab. You will be discharged on your prior to arrival Coumadin dose along with Lovenox bridge, you will need to have daily PT/INR monitored and Coumadin doses needs to be adjusted with a goal of PT/INR of 2-3. Take your medications as prescribed. Please make sure that you are able to get your medications today by calling your pharmacy before you leave the hospital so that your treatment continuity is not broken. Text document was generated using [employer] voice recognition software. It may contain grammatical or spelling errors. Kindly contact undersigned for clarification of any documentation item in question. Home Health Attestation I certify that this patient is under my care and that I, or a physicians respiratory care assistant working with me, had a face to-face encounter that meets the home health [id number] encounter requirements with this patient. The encounter with the patient was in whole, or in part, for the following medical condition, which is the primary reason for home health care (list medical condition): I certify that, based on my findings, the following services are medically necessary home health services: My clinical findings support the need for the above services because: Further, I certify that my clinical findings support that this patient is homebound (i.e. absences from home require considerable and taxing effort and are for medical reasons or yarsani services or infrequently or of short duration when for other reasons) because: Certification for Home Health Services: Based on the above findings, I certify that this patient is confined to the home and needs intermittent fdc care, physical therapy and/or speech therapy or continues to need occupational therapy. The patient is under my care, and I have initiated the establishment of the plan of care. This patient will be followed by a physician who will periodically review the plan of care. Total Time Total Time Spent Total Time Spent (In Minutes): 40 Discharge Plan Discharge Items Patient Disposition: Transfer Inpatient Rehab Fac Reason For Visit: LE PAIN, FALL Discharge Diagnosis: Mechanical fall Ambulatory dysfunction Right knee pain, right knee joint effusion Supratherapeutic INR Bilateral lower extremity bruising secondary to Coumadin coagulopathy Activity: Resume your previous activity Non-emergency contact: Primary Care Provider Call non-emergency contact if: you have any medication questions, your symptoms worsen and your temperature is above 101 Follow-up/Referrals: Sai Soler MD [Primary Care Provider] - Diet: Heart Healthy Addtl Attending Provider Instructions: Follow-up with your primary care physician within a week time and likely you will need labs CBC/CMP/magnesium/phosphorus. You presented with fall and lower extremity bruising and right knee pain. You were also noted to have supratherapeutic INR. Continue with PT/OT at rehab. You will be discharged on your prior to arrival Coumadin dose along with Lovenox bridge, you will need to have daily PT/INR monitored and Coumadin doses needs to be adjusted with a goal of PT/INR of 2-3. Take your medications as prescribed. Please make sure that you are able to get your medications today by calling your pharmacy before you leave the hospital so that your treatment continuity is not broken. Pending Studies at Discharge: No Stand-Alone Forms: My [facility] Skilled Items Patient informed of condition?: Yes DNR: No Discharge Level of Care: Acute rehab Communicable Disease: No Discharge Prognosis: Stable Lines: None Urinary Catheter: No Medications and DC Order Prescriptions: New enoxaparin 30 mg/0.3 mL syringe 110 mg subcut BID Qty: 4.4 0RF Continued fluticasone propionate 50 mcg/actuation spray,suspension 2 spray intranasal DAILY PRN (Reason: allergy symptoms) Qty: 48 1RF atorvastatin 40 mg tablet 40 mg PO HS Qty: 90 1RF sodium citrate-citric acid 500-334 mg/5 mL solution 45 ml PO BID Qty: 3000 5RF magnesium 250 mg tablet 250 mg PO QAM meclizine 25 mg tablet 25 mg PO DAILY PRN (Reason: Dizziness) melatonin 5 mg capsule 5 mg PO HS PRN (Reason: Sleep) nystatin 100,000 unit/gram powder 1 applic topical TID PRN (Reason: Skin Irritation) triamcinolone acetonide 0.1 % cream 1 applic topical DAILY PRN (Reason: Skin Irritation) albuterol sulfate [Ventolin HFA] 90 mcg/actuation HFA aerosol inhaler 1 inh inhalation QID PRN (Reason: Shortness Of Breath Or Wheezing) artifi.tears(hypromellose)(PF) 0.3 % drops 1 drp ophthalmic (eye) DAILY PRN (Reason: dry eye(s)) Qty: 10 0RF ammonium lactate 12 % cream 1 appln topical BID PRN (Reason: Skin Cleansing) clotrimazole-betamethasone 1-0.05 % cream 1 appln topical .COMPLEX Patient Comments: 1 applic topical apply and rub in a thin film to affected areas 2-3 times daily Rx Instructions: 1 applic topical apply and rub in a thin film to affected areas 2-3 times daily cholecalciferol (vitamin D3) 2,000 unit capsule 2,000 units PO QAM aspirin [Gallo Low Dose Aspirin] 81 mg Tablet,Delayed Release (Dr/Ec) 81 mg PO QAM oxycodone-acetaminophen 5-325 mg Tablet 1 tab PO Q4H PRN (Reason: Pain) amlodipine 5 mg tablet 5 mg PO QAM oxybutynin chloride 5 mg tablet 5 mg PO QPM Rx Instructions: 5 mg PO 1-2 hours before bedtime citalopram 20 mg tablet 30 mg PO QAM warfarin 5 mg tablet 5 mg PO DIRECTED Rx Instructions: MON 1 TAB, 1/2 TAB TUE-SUN omeprazole 20 mg capsule,delayed release(DR/EC) 20 mg PO QAM buspirone 10 mg tablet 10 mg PO BID Changed metoprolol tartrate 100 mg tablet 50 mg PO BID Qty: 30 0RF Discharge Orders: Discharge Order (Routine); Ordered 04/05/24 Ordered By: Nito Owens Admission Data Admit Date/Time: 04/03/24 14:54 Attending Provider: Nito Owens Admit Provider: Liam Zacarias Primary Care Provider: Sai Soler Other Providers: Liam Zacarias; Adrian Raplh; [facility]
[2024-04-05] MEDS: ENOXAPARIN INJ 120 MG/0.8 ML SYR SQ SCH (12:09)
[2024-04-06] MEDS ORDERED: WARFARIN SOD 5 MG TAB PO SCH (16:00)
== END 2024-04-05 12:15 | DRG 92 ==
LOC: ED 20:49 → 3N 20:49

== ENCOUNTER 2025-01-27 18:57 | Inpatient (IN) ==
[2025-01-27] MEDS: MoRPHine SULFATE 4 MG/ML 1 ML CARP\\VIAL IV STA (19:39)
[2025-01-27] MEDS: diphenhydrAMINE 50 MG/ML VIAL IV STA (19:39)
[2025-01-27 19:54] LABS: Base Excess VBG -6.4 mEq/L; HCO3 VBG 19 mmol/L; Oxygen Saturation VBG 78.7 %; PCO2 VBG 37 mmHg (38-50); PO2 VBG 43 mmHg; pH VBG 7.32 (7.36-7.41)
[2025-01-27 19:59] LABS: Hematocrit (blood only) 33.9 % (37.0-47.0); Hemoglobin 11.2 g/dl (12.0-16.0); Immature Granulocytes # (auto) 0.12 K/uL (0.01-0.20); Immature Granulocytes % (auto) 0.7 %; Mean Corpuscular Hemoglobin 30.1 pg (25.0-34.0); Mean Corpuscular Volume 91.1 fL (80.0-100.0); Platelet Count 164 K/uL (130-400); RDW Standard Deviation 46.5 fL (36.4-46.3); Red Blood Count 3.72 M/uL (4.20-5.40); White Blood Count 17.24 K/ul (4.8-10.8)
[2025-01-27] MEDS: ONDANSETRON INJ 2 MG/ML 2 ML VIAL IV STA (20:04)
[2025-01-27 20:17] LABS: Alanine Aminotransferase 17 U/L (7-52); Albumin Globulin Ratio 1.0 (0.9-2); Alkaline Phosphatase 61 U/L (34-104); Anion Gap 7 (3-11); Bilirubin,Total 1.0 mg/dl (0.2-1.0); Blood Urea Nitrogen 52 mg/dl (6-23); Calcium 8.7 mg/dl (8.6-10.3); Carbon Dioxide 20 mmol/L (21-32); Chloride 105 mmol/L (98-107); Globulin 3.3 gm/dl (2.5-4.0); Glucose 132 mg/dl (70-99(Fasting)); Potassium 4.8 mmol/L (3.5-5.1); Sodium 132 mmol/L (136-145); Total Protein 6.5 gm/dl (6.0-8.3)
[2025-01-27 20:25] LABS: INR 1.3 (0.9-1.1); Prothrombin Time 14.2 Seconds (9.0-12.0)
--- NOTE | 2025-01-27 20:35 | XRay Report ---
Exam(s): XR CXR 2 VIEWS EXAM: XR Chest, 2 Views CLINICAL HISTORY: Reason for exam: Dyspnea. TECHNIQUE: Frontal and lateral views of the chest. COMPARISON: Chest radiograph on 04/02/2024 FINDINGS: Hardware: Left-sided Port-A-Cath terminates in the region of the lower SVC. Lungs/pleura: Normal. No focal consolidation. No pleural effusion or pneumothorax. Heart/mediastinum: Mild enlargement of the cardiac silhouette. Atherosclerotic changes in the aorta. Soft tissues: Unremarkable. Bones: No acute fracture. Degenerative changes of the shoulders and spine. Upper abdomen: Normal. IMPRESSION: No acute disease identified. Electronically signed by: Damien Carey M.D. 01/27/25 20:34 PM
[2025-01-27 21:27] LABS: Chlamydia pneumoniae PCR Not Detected (NotDetected); Coronavirus 229E PCR Not Detected (NotDetected); Coronavirus CoV-2 (COVID19)PCR Not Detected (NotDetected); Coronavirus HKU1 PCR Not Detected (NotDetected); Coronavirus NL63 PCR Not Detected (NotDetected); Coronavirus OC43PCR Not Detected (NotDetected); Human Metapneumovirus PCR Not Detected (NotDetected); Parainfluenza Virus 1 PCR Not Detected (NotDetected); Parainfluenza Virus 2 PCR Not Detected (NotDetected); Parainfluenza Virus 3 PCR Not Detected (NotDetected); Parainfluenza Virus 4 PCR Not Detected (NotDetected); Respiratory Syncytial VirusPCR Not Detected (NotDetected); Rhinovirus/Enterovirus PCR Not Detected (NotDetected)
--- NOTE | 2025-01-27 21:37 | Emergency Department Note ---
Impression & Plan Adverse effect of fluorouracil, Cellulitis, Acute and chronic respiratory failure with hypoxia, SIRS (systemic inflammatory response syndrome), Acute hyponatremia ED Provider Note NAME: HERO MELENDEZ AGE: 84 SEX: F : 1940 ARRIVES VIA: Walk-In INFORMANT: Patient, family/caregiver ED PROVIDER(S): Juan Miguel Blancas DO CHIEF COMPLAINT: rash, SOB HPI: This is a 84-year-old female with the PMHx of HTN, HLD, pulmonary sarcoidosis, pAfib on chronic anticoagulation with Coumadin, morbid obesity, sicca syndrome, crohns disease s/p ileostomy, CKD, OA and urinary incontinence presenting to [facility] for further evaluation of diffuse rash. Patient is accompanied by family who provide additional history. the patient was recently seen in the emergency department in the prior day. She was found to have a rash that was likely related to fluorouracil that she is taking for precancerous skin changes on her upper extremities. This was prescribed by dermatology. It was recommended by the emergency medicine team to hold Coumadin and she received vitamin K. She was also started on topical moisturizer and barrier cream. It was thought that this medication was likely causing her skin changes. Family states they cannot provide care for her. She has severe pain. Patient reports severe swelling of her upper extremities and redness. She reports that she has not had any fevers but has become progressively short of breath. Patient states that she is unable to get comfortable. She continues to have scabs and open areas of her upper extremities. She states she intermittently has issues with bleeding. She states this is from her Coumadin levels. Patient states that she is unable to return home due to the severity of her condition. Patient states that she feels that she is severely ill at this time. They deny fever or chills. No cough or congestion. Denies chest pain or palpitations. They deny abdominal pain, nausea and vomiting. No urinary complaints. No recent changes in bowel movements. Patient denies recent changes in medications or OTC supplements. Patient offers no other complaints, today. ADDITIONAL HISTORY OBTAINED: Per HPI Chronic Medical/Social Conditions Affecting Care: Per HPI PAST MEDICAL HISTORY: See Below PAST SURGICAL HISTORY: See Below FAMILY HISTORY: See Below SOCIAL HISTORY: See Below HOME MEDICATIONS: See Below ALLERGIES: See Below VITALS: See Below PHYSICAL EXAMINATION: GENERAL: Sitting up in bed, alert, obese, mild distress from pain / irritation of the UEs, non-toxic EYE EXAM: normal conjunctiva. PERRL and EOM's grossly intact. OROPHARYNX: no exudate, no erythema, lips, buccal mucosa, and tongue normal and mucous membranes are moist NECK: supple, no nuchal rigidity, no adenopathy, non-tender LUNGS: Decreased breath sounds in all lung bee. The patient is congested. Normal chest wall mechanics HEART: no murmurs, tachycardic rate, regular rhythm ABDOMEN: abdomen soft, non-tender, normo-active bowel sounds, no masses, no rebound or guarding. BACK: Back is symmetrical on inspection and there is no deformity, no midline tenderness, no CVA tenderness. SKIN: no rashes and no bruising UPPER EXTREMITIES: diffuse erythema with scabs and crust as well as ulceration extending from the hands to the shoulder bilaterally. Significant swelling and what appears to be irritated soft tissues of the bilateral upper extremities. Extremities are still neurovascularly intact. 2+ radial pulses with brisk capillary refill. LOWER EXTREMITIES: No pitting edema. NEURO EXAM: Normal sensorium, GCS 15, no gross weakness of arms, no gross weakness of legs. MEDICAL DECISION MAKING: Differential diagnoses includes but not limited to medication side effect, sepsis, viral URI, CHF exacerbation, pneumothorax, pneumonia, pleural effusion, pulmonary edema, bacteremia, cellulitis, PE, ACS, dysrhythmia In summary, this is a 84 year old female who presented with rash and shortness of breath. Differential as above. Nursing notes and pertinent past medical records reviewed. Vital signs reviewed and the patient is tachycardic but otherwise afebrile hemodynamically stable. History and presentation revealed patient recently started on fluorouracil as an outpatient by dermatology. Patient recently seen in this emergency department the prior day. I reviewed the documentation. It was thought that this rash was related to the fluorouracil which is a known cause of skin irritation. I do agree that this is likely related to the fluorouracil. Patient now presents tachycardic with worsening pain and shortness of breath. Her upper extremities look worse than they did in prior day. Will plan for evaluation with labs including inflammatory markers. Will consider treating for overlying cellulitis. While she is short of breath, I do believe this is a combination of her anxiety and presentation with the rash. She does appear mildly hypervolemic. For this reason we will not provide IV fluid resuscitation. I do feel that she could have a pulmonary embolism but I think this is very unlikely. She was just supratherapeutic with her INR in the prior day wire understand that she had vitamin K and held her Coumadin, I doubt that she developed a acute blood clot within 24 hours. Patient does not have symptoms of angina to suggest ACS but will continue to evaluate with BNP and troponin levels as well as an EKG. Plan for chest x-ray. No other imaging is necessary at this time. Diagnostics interpreted by me include EKG and cardiac monitoring as listed below: -Cardiac Monitoring: An order was placed for continuous cardiac monitoring. The monitor shows a rate of 100-120 with regular rhythm. -ECG: EKG independently interpreted by me reveals sinus tachycardia at a rate of [address] segment changes suggest STEMI. Intervals otherwise within normal limits. Patient completed laboratory studies and imaging. Results independently interpreted by me are New leukocytosis. The patient is mildly anemic. Patient had elevated inflammatory markers with an ESR of 41, CRP of 16 and a procalcitonin of 1.17. She does have acute hyponatremia at 132. Her kidney function is not an MILI but is much worse than it has been previously. EKG is reassuring as well as symptoms. Troponin reassurance that this is not ACS or significant dysrhythmia with normal troponin level. BNP mildly elevated and fits with picture of mild hypervolemia on exam. CXR independently interpreted by me reveals no evidence of focal consolidation to suggest pna. No large pneumothorax or pleural effusion. Viral swab was negative. Do not feel the patient has a viral URI or pneumonia. The patient was managed with Benadryl, morphine and antiemetics with improvement in her symptoms. Patient has severe dermatitis, erythema and warmth to the bilateral upper extremities. I do believe this is likely from the fluorouracil cream that she has been using at the direction of dermatology. Patient has now on her second ED visit. She is short of breath, tachycardic and having significant pain. Patient does not have a fever. Patient does have a leukocytosis and elevated inflammatory markers. She does meet criteria for SIRS response with her tachycardia and leukocytosis. Do believe again that this is likely secondary to the medication but cannot rule out overlying soft tissue infection. We will place the patient on cefazolin. Plan for admission for symptom control and further evaluation. Ultimately, the decision was made to admit the patient for likely medication side effect but concerns for possible SIRS response in the setting of an overlying cellulitis, subtherapeutic INR, worsening kidney dysfunction, acute hypoxic respiratory failure and hyponatremia. I discussed the case with the hospitalist service via [employer] and they are agreeable to admit the patient to their services. Based on the above, including the patient's age, coexisting illnesses, labs, imaging, and exam findings the decision to treat as an inpatient. I discussed the patient with the hospitalist team who recommended admission to their services. They received the medications, treatments, interventions indicated above and their condition remained guarded. I discussed my findings with the patient and their family and they understand and agree with the treatment plan. All patient / family questions were answered to their satisfaction. Consults/Care Managements Discussions: Per MDM ER treatment provided: See above Procedures:none Critical Care: None The chart was completed utilizing [employer] Speech voice recognition software. Grammatical errors, random word insertions, pronoun errors, and incomplete sentences are an occasional consequence of this system due to software limitations, ambient noise, and hardware issues. Any formal questions or concerns about the content, text, or information contained within the body of this dictation should be directly addressed to the physician for clarification. Past Med/Surg History Problem List (Updated 01/29/25 @ 17:35 by Juan Miguel Blancas DO) Acute hyponatremia (Acute) SIRS (systemic inflammatory response syndrome) (Acute) Acute and chronic respiratory failure with hypoxia (Acute) Cellulitis (Acute) Adverse effect of fluorouracil (Acute) Erythematous rash Elevated INR (Acute) Headache (Acute) Rash (Acute) Dermatitis Supratherapeutic INR (Acute) Ambulatory dysfunction (Acute) Right ankle sprain (Acute) Contusion of left knee (Acute) Contusion of right knee (Acute) Fall (Acute) Chronic kidney disease with active medical management without dialysis, stage 3 (moderate) Encounter for pre-operative examination Cervical strain (Acute) Head injury (Acute) Fall (Acute) Cervical strain (Acute) Fall (Acute) Obese (Chronic) Lumbar strain (Acute) Lumbar strain (Acute) Vitamin D deficiency (Acute) Urinary incontinence (Acute) Trigger ring finger of left hand (Acute) Spinal stenosis (Acute) Sleep apnea (Acute) Shortness of breath (Acute) Pyelonephritis, unspecified (Acute) Postmenopausal bleeding (Acute) Peritoneal adhesions (Acute) Numbness of fingers of both hands (Acute) Nephrolithiasis (Acute) Morbid obesity (Acute) Intestinal occlusion (Acute) Intertrigo (Acute) Hypomagnesemia (Acute) Hypocalcemia (Acute) Hypertension (Acute) Hyperlipemia (Acute) Hypercholesterolemia (Acute) Right sided abdominal pain (Acute) Renal colic (Acute) Hydronephrosis (Acute) Elevated lactic acid level (Acute) Acute kidney injury Delirium Afib HTN (hypertension) Kidney stones (Chronic) Hypertension (Chronic) Chronic kidney disease, stage II (mild) (Chronic) Medical History Crohn's disease Encounter for insertion of venous access port Atrial fibrillation Sleep apnea Surgical History History of knee replacement History of creation of ostomy H/O neck surgery H/O colectomy Family History Mother Kidney failure Denies family history of Ovarian cancer Prostate cancer Myocardial infarction Breast cancer Colorectal cancer Social History Smoking Status: Unknown if ever smoked Tobacco Type: Cigarettes Second Hand Exposure: No; Do You Dip or Chew Tobacco: No; Hx Alcohol Use: No Hx Substance Use: No Preferred Language: Mauritanian Communication Ability: Effective Visual Impairment: No Limitations Hearing Ability: Normal Theater Manager Required: No Beliefs That Will Affect Care: None marital status: Current Living Situation: Family Current Living Situation Comment: daughter current occupational status: retired Feels Safe at Home: Yes Diet: other Diet Comment: watching calories and portions caffeine: No Physical Activity Frequency: Does not Exercise Seatbelt Use: always Assistive Devices: Cane, Scooter/Electric Scooter, Walker and Other Allergies Allergies Allergy/AdvReac Type Severity Reaction Status Date / Time dexamethasone Allergy Intermediate EYES Verified 01/27/25 20:40 BECAME RED AND ITCHY sulfamethoxazole Allergy Intermediate ITCHING Verified 01/27/25 20:40 tobramycin Allergy Intermediate EYES Verified 01/27/25 20:40 BECAME RED AND ITCHY trimethoprim Allergy Intermediate ITCHING Verified 01/27/25 20:40 Home Meds Home Medications Medication Instructions Recorded Confirmed aspirin 81 mg tablet,delayed 81 mg PO QAM 12/23/19 01/27/25 release (Gallo Low Dose Aspirin) amlodipine 5 mg tablet 5 mg PO QAM 01/30/22 01/27/25 oxybutynin chloride 5 mg tablet 5 mg PO QPM 01/30/22 01/27/25 citalopram 20 mg tablet 30 mg PO QAM 02/20/22 01/27/25 omeprazole 20 mg capsule,delayed 20 mg PO QAM 02/20/22 01/27/25 release buspirone 10 mg tablet 10 mg PO BID PRN Anxiety 10/23/24 01/27/25 warfarin 5 mg tablet 2.5 mg PO QPM 10/23/24 01/27/25 hydroxyzine HCl 25 mg tablet 25 mg PO TID PRN Anxiety 01/25/25 01/27/25 Previous Rx's Medication Instructions Recorded atorvastatin 40 mg tablet 40 mg PO HS #90 tabs 05/19/20 metoprolol tartrate 100 mg tablet 50 mg (1/2 x 100 mg) PO BID #30 04/05/24 tabs sodium citrate-citric acid 500 45 ml PO BID #3,000 mL 04/22/24 mg-334 mg/5 mL oral solution Results & Data (ED) Vital Signs Vital Signs - 24 hr 01/27/25 18:58 01/27/25 19:13 01/27/25 19:13 Temperature 36.7 C Temperature Source Oral Pulse Rate 118 H Pulse Rate [Apical] Pulse Rhythm Regular Pulse Strength Normal Respiratory Rate 22 Respiratory Effort / Characteristics Non-Labored Spontaneous Respiratory Depth Normal Respiratory Pattern Regular Blood Pressure [Right Arm] 150/61 H Blood Pressure Mean [Right Arm] 90 Blood Pressure Position Sitting Pulse Oximetry 92 92 Oxygen Delivery Method Room Air Room Air Oxygen Flow Rate Sepsis Recent Fever Within 48 Hours No Sepsis New/Unexplained Change in Mental Status N/A Sepsis Action Taken by Nursing No Action Required Oxygen Flow Rate - Titration Pulse Oximetry Post Tiitration 01/27/25 19:22 01/27/25 20:00 01/27/25 20:11 Temperature Temperature Source Pulse Rate 108 H Pulse Rate [Apical] Pulse Rhythm Pulse Strength Respiratory Rate Respiratory Effort / Characteristics Respiratory Depth Respiratory Pattern Blood Pressure [Right Arm] Blood Pressure Mean [Right Arm] Blood Pressure Position Pulse Oximetry 89 L 89 L Oxygen Delivery Method Room Air Room Air Oxygen Flow Rate Sepsis Recent Fever Within 48 Hours Sepsis New/Unexplained Change in Mental Status Sepsis Action Taken by Nursing Oxygen Flow Rate - Titration 2 2 Pulse Oximetry Post Tiitration 94 94 01/27/25 21:00 Temperature Temperature Source Pulse Rate Pulse Rate [Apical] 110 H Pulse Rhythm Pulse Strength Respiratory Rate 20 Respiratory Effort / Characteristics Non-Labored Spontaneous Respiratory Depth Normal Respiratory Pattern Regular Blood Pressure [Right Arm] 105/51 L Blood Pressure Mean [Right Arm] 69 Blood Pressure Position Pulse Oximetry 94 Oxygen Delivery Method Nasal Cannula Oxygen Flow Rate 2 Sepsis Recent Fever Within 48 Hours Sepsis New/Unexplained Change in Mental Status Sepsis Action Taken by Nursing Oxygen Flow Rate - Titration Pulse Oximetry Post Tiitration Laboratory Data 01/29/25 05:48 01/29/25 05:48 Lab Results 01/27/25 01/27/25 Range/Units 19:36 20:26 WBC 17.24 H (4.8-10.8) K/ul RBC 3.72 L (4.20-5.40) M/uL Hgb 11.2 L (12.0-16.0) g/dl Hct 33.9 L (37.0-47.0) % MCV 91.1 (80.0-100.0) fL MCH 30.1 (25.0-34.0) pg MCHC 33.0 (32.0-36.0) g/dL RDW Std Deviation 46.5 H (36.4-46.3) fL RDW Coeff of Nino 13.9 (11.5-14.5) % Plt Count 164 (130-400) K/uL MPV 10.7 (9.4-12.4) fL Immature Gran % (Auto) 0.7 % Neut % (Auto) 82.4 % Lymph % (Auto) 7.9 % [place] % (Auto) 7.9 % Eos % (Auto) 0.9 % Baso % (Auto) 0.2 % Neut # (Auto) 14.21 H (1.40-6.50) K/uL Lymph # (Auto) 1.36 (1.20-3.40) K/uL [place] # (Auto) 1.36 H (0.11-0.59) K/uL Eos # (Auto) 0.15 (0.00-0.50) K/uL Baso # (Auto) 0.04 (0.00-0.20) K/uL Immature Gran # (Auto) 0.12 (0.01-0.20) K/uL ESR 41 H (0-30) mm/hr PT 14.2 H (9.0-12.0) Seconds INR 1.3 H (0.9-1.1) VBG pH 7.32 L (7.36-7.41) VBG pCO2 37 L (38-50) mmHg VBG pO2 43 mmHg VBG HCO3 19 mmol/L VBG O2 Saturation 78.7 % VBG Base Excess -6.4 mEq/L Sodium 132 L (136-145) mmol/L Potassium 4.8 (3.5-5.1) mmol/L Chloride 105 (98-107) mmol/L Carbon Dioxide 20 L (21-32) mmol/L Anion Gap 7 (3-11) BUN 52 H (6-23) mg/dl Creatinine 1.78 H (0.6-1.2) mg/dl Est Cr Clr Drug Dosing Not Reportable eGFR 28.16 BUN/Creatinine Ratio 29.2 H (10-20) Glucose 132 H (70-99(Fasting)) mg/dl Lactate 0.9 (0.4-2.0) mmol/L Calcium 8.7 (8.6-10.3) mg/dl Total Bilirubin 1.0 (0.2-1.0) mg/dl AST 25 (13-39) U/L ALT 17 (7-52) U/L Alkaline Phosphatase 61 (34-104) U/L Troponin I High Sens 11.9 (0-14) pg/ml C-Reactive Protein 16.72 H (0-0.5) mg/dl B-Natriuretic Peptide 150 H (0-100) pg/ml Total Protein 6.5 (6.0-8.3) gm/dl Albumin 3.2 L (3.4-5.0) gm/dl Globulin 3.3 (2.5-4.0) gm/dl Albumin/Globulin Ratio 1.0 (0.9-2) Procalcitonin 1.17 H (0-0.5) ng/ml Adenovirus (PCR) Not Detected (NotDetected) B. pertussis DNA (PCR) Not Detected (NotDetected) B.parapertussis DNA PCR Not Detected (NotDetected) C. pneumoniae DNA (PCR) Not Detected (NotDetected) Coronavirus OC43 (PCR) Not Detected (NotDetected) Coronavirus HKU1 (PCR) Not Detected (NotDetected) Coronavirus 229E (PCR) Not Detected (NotDetected) SARS-CoV-2 (PCR) Not Detected (NotDetected) Coronavirus NL63 (PCR) Not Detected (NotDetected) Human Metapneumovir PCR Not Detected (NotDetected) Influenza Type A (PCR) Not Detected (NotDetected) Influenza Type B (PCR) Not Detected (NotDetected) M. pneumoniae (PCR) Not Detected (NotDetected) Parainfluenza 1 (PCR) Not Detected (NotDetected) Parainfluenza 2 (PCR) Not Detected (NotDetected) Parainfluenza 3 (PCR) Not Detected (NotDetected) Parainfluenza 4 (PCR) Not Detected (NotDetected) RSV (PCR) Not Detected (NotDetected) Entero/Rhino (PCR) Not Detected (NotDetected) Administered Medications Acetaminophen (Acetaminophen 325 Mg Tab) 650 mg PO Q4H PRN PRN Reason: Pain or Fever Stop: 02/27/25 03:13 Last Admin: 01/28/25 16:04 Dose: 650 mg Documented By: Admin: 01/28/25 06:01 Dose: 650 mg Documented By: KAILEE Amlodipine Besylate (Amlodipine Besylate 5 Mg Tab) 5 mg PO [facility] Stop: 02/27/25 08:59 Last Admin: 01/29/25 08:05 Dose: 5 mg Documented By: Admin: 01/28/25 08:23 Dose: Not Given Documented By: JAMA Aspirin (Aspirin 81 Mg Ectab) 81 mg PO [facility] Stop: 02/27/25 08:59 Last Admin: 01/29/25 08:05 Dose: 81 mg Documented By: Admin: 01/28/25 08:23 Dose: 81 mg Documented By: JAMA Atorvastatin Calcium (Atorvastatin 40 Mg Tab) 40 mg PO [facility] Stop: 02/27/25 20:59 Last Admin: 01/28/25 20:16 Dose: 40 mg Documented By: CR Buspirone HCl (Buspirone 5 Mg Tab) 10 mg PO BID PRN PRN Reason: Anxiety Stop: 02/27/25 03:13 Last Admin: 01/28/25 08:22 Dose: 10 mg Documented By: JAMA Calamine/Phenol (Menthol-Zinc Oxide 360 Appln/120 Gm Tube) 1 appln EXT BID [facility] Stop: 02/27/25 23:14 Last Admin: 01/29/25 08:06 Dose: 1 appln Documented By: Admin: 01/29/25 00:34 Dose: 1 appln Documented By: SAMANTHA Citalopram Hydrobromide (Citalopram 20 Mg Tab) 30 mg PO QAM [facility] Stop: 02/27/25 08:59 Last Admin: 01/29/25 08:05 Dose: 30 mg Documented By: Admin: 01/28/25 08:22 Dose: 30 mg Documented By: JAMA Citric Acid/Sodium Citrate (Citric Acid/Sodium Citrate 15 Ml Udc) 45 ml PO BID [facility] Stop: 02/27/25 08:59 Last Admin: 01/29/25 08:05 Dose: 45 ml Documented By: Admin: 01/28/25 20:16 Dose: 45 ml Documented By: Admin: 01/28/25 08:18 Dose: 45 ml Documented By: JAMA Hydroxyzine HCl (Hydroxyzine Hcl 25 Mg Tab) 25 mg PO TID PRN PRN Reason: Anxiety Stop: 02/27/25 03:13 Last Admin: 01/28/25 20:16 Dose: 25 mg Documented By: Admin: 01/28/25 03:43 Dose: 25 mg Documented By: KAILEE Heparin Sodium/Dextrose (Heparin 30598 Unit/500 Ml D5w) 25,000 units in 500 mls @ 12 mls/hr IV .Q24H [facility]; Protocol Stop: 02/27/25 00:59 Last Titration: 01/29/25 12:04 Dose: 600 units/hr, 12 mls/hr Documented By: SANTI Co-signed By: BERNABE Titration: 01/29/25 07:09 Dose: 0 units/hr, 0 mls/hr Documented By: SANTI Co-signed By: SAMANTHA Titration: 01/29/25 06:44 Dose: 0 units/hr, 0 mls/hr Documented By: SAMANTHA Co-signed By: SKS Admin: 01/29/25 03:17 Dose: 1,000 units/hr, 20 mls/hr Documented By: SAMANTHA Co-signed By: PAUL Titration: 01/29/25 03:17 Dose: Infused Documented By: SAMANTHA Co-signed By: PAUL Titration: 01/28/25 19:18 Dose: 1,000 units/hr, 20 mls/hr Documented By: SAMANTHA Co-signed By: SKCori Titration: 01/28/25 08:28 Dose: 1,000 units/hr, 20 mls/hr Documented By: JAMA Co-signed By: WARREN Admin: 01/28/25 01:35 Dose: 900 units/hr, 18 mls/hr Documented By: KAILEE Co-signed By: PIERCE Cefazolin Sodium (Ancef 2000mg) 2,000 mg in 15 mls @ 3.75 mls/min IV Q8H [facility] Stop: 02/04/25 05:59 Last Admin: 01/29/25 14:16 Dose: 3.75 mls/min Documented By: Admin: 01/29/25 05:52 Dose: 3.75 mls/min Documented By: Admin: 01/28/25 21:21 Dose: 3.75 mls/min Documented By: Admin: 01/28/25 14:14 Dose: 3.75 mls/min Documented By: Admin: 01/28/25 05:56 Dose: 3.75 mls/min Documented By: KAILEE Metoprolol Tartrate (Metoprolol Tartrate 50 Mg Tab) 50 mg PO BID [facility] Stop: 02/27/25 08:59 Last Admin: 01/29/25 08:05 Dose: 50 mg Documented By: Admin: 01/28/25 20:16 Dose: 50 mg Documented By: Admin: 01/28/25 08:22 Dose: Not Given Documented By: JAMA Oxybutynin Chloride (Oxybutynin Chloride 5 Mg Tab) 5 mg PO QPM [facility] Stop: 02/27/25 20:59 Last Admin: 01/28/25 20:16 Dose: 5 mg Documented By: SAMANTHA Pantoprazole Sodium (Pantoprazole 40 Mg Tab) 40 mg PO QAM [facility] Stop: 02/27/25 08:59 Last Admin: 01/29/25 08:05 Dose: 40 mg Documented By: Admin: 01/28/25 08:21 Dose: 40 mg Documented By: JAMA Warfarin Sodium (Warfarin Sod 2.5 Mg Tab) 2.5 mg PO DAILY@1600 [facility] Stop: 02/27/25 15:59 Last Admin: 01/29/25 16:15 Dose: 2.5 mg Documented By: Admin: 01/28/25 16:03 Dose: 2.5 mg Documented By: SANTI Discontinued Medications Diphenhydramine HCl (Diphenhydramine 50 Mg/Ml Vial) 25 mg IV NOW STA Stop: 01/27/25 19:20 Last Admin: 01/27/25 19:39 Dose: 25 mg Documented By: LINNETTE Heparin Sodium/Dextrose (Heparin Iv Adult Wt-Based Low-Dose *No* Initial Bolus Protocol) 1 each IV Q15M [facility]; Protocol Stop: 01/28/25 02:00 Last Admin: 01/28/25 01:44 Dose: Not Given Documented By: KAILEE Cefazolin Sodium (Ancef 2000mg) 2,000 mg in 15 mls @ 3.75 mls/min IV Q8H [facility] Stop: 01/29/25 21:44 Last Admin: 01/27/25 23:33 Dose: 3.75 mls/min Documented By: KAILEE Sodium Chloride (Nss) 1,000 mls @ 75 mls/hr IV .[id number] [facility] Stop: 01/28/25 16:33 Last Infusion: 01/28/25 16:27 Dose: Infused Documented By: Admin: 01/28/25 03:44 Dose: 75 mls/hr Documented By: KAILEE Magnesium Sulfate/Dextrose (Magnesium Sulfate / D5w) 1 gm in 100 mls @ 50 mls/hr IV Q2H [facility] Stop: 01/29/25 10:44 Last Infusion: 01/29/25 11:39 Dose: Infused Documented By: Admin: 01/29/25 09:09 Dose: 50 mls/hr Documented By: Infusion: 01/29/25 09:09 Dose: Infused Documented By: Admin: 01/29/25 07:19 Dose: 50 mls/hr Documented By: SANTI Lactic Acid (Ammonium Lactate 12% Lotion 225 Gm Btl) 1 gm EXT BID [facility] Stop: 02/28/25 10:59 Last Admin: 01/29/25 11:52 Dose: 1 gm Documented By: SANTI Metoprolol Tartrate (Metoprolol Tartrate 50 Mg Tab) 50 mg PO NOW STA Stop: 01/28/25 00:43 Last Admin: 01/28/25 01:27 Dose: 50 mg Documented By: KAILEE Metoprolol Tartrate (Metoprolol Tartrate 1 Mg/Ml Vial) 2.5 mg IV NOW STA Stop: 01/29/25 02:04 Last Admin: 01/29/25 02:31 Dose: 2.5 mg Documented By: CR Metoprolol Tartrate (Metoprolol Tartrate 1 Mg/Ml Vial) 2.5 mg IV NOW STA Stop: 01/29/25 05:32 Last Admin: 01/29/25 05:51 Dose: 2.5 mg Documented By: SAMANTHA Morphine Sulfate (Morphine Sulfate 4 Mg/Ml 1 Ml Carp\Vial) 4 mg IV NOW STA Stop: 01/27/25 19:19 Last Admin: 01/27/25 19:39 Dose: 4 mg Documented By: LINNETTE Morphine Sulfate (Morphine Sulfate 4 Mg/Ml 1 Ml Carp\Vial) 3 mg IV NOW STA Stop: 01/28/25 01:12 Last Admin: 01/28/25 01:28 Dose: 3 mg Documented By: KAILEE Olanzapine (Olanzapine Zydis 5 Mg Orally Dis. Tab) 5 mg PO NOW STA Stop: 01/29/25 00:45 Last Admin: 01/29/25 01:22 Dose: 5 mg Documented By: SAMANTHA Ondansetron HCl (Ondansetron Inj 2 Mg/Ml 2 Ml Vial) 4 mg IV NOW STA Stop: 01/27/25 19:47 Last Admin: 01/27/25 20:04 Dose: 4 mg Documented By: LINNETTE Warfarin Sodium (Warfarin Sod 2.5 Mg Tab) 2.5 mg PO NOW STA Stop: 01/28/25 00:37 Last Admin: 01/28/25 01:27 Dose: 2.5 mg Documented By: KAILEE Imaging Data Radiologist's Impression: Chest X-Ray 01/27/25 19:13 Exam(s): XR CXR 2 VIEWS EXAM: XR Chest, 2 Views CLINICAL HISTORY: Reason for exam: Dyspnea. TECHNIQUE: Frontal and lateral views of the chest. COMPARISON: Chest radiograph on 04/02/2024 FINDINGS: Hardware: Left-sided Port-A-Cath terminates in the region of the lower SVC. Lungs/pleura: Normal. No focal consolidation. No pleural effusion or pneumothorax. Heart/mediastinum: Mild enlargement of the cardiac silhouette. Atherosclerotic changes in the aorta. Soft tissues: Unremarkable. Bones: No acute fracture. Degenerative changes of the shoulders and spine. Upper abdomen: Normal. IMPRESSION: No acute disease identified. Electronically signed by: Damien Carey M.D. 01/27/25 20:34 PM Discharge Plan Visit Data Chief Complaint: Swelling/Edema to Extremity Stated Complaint: EDEMA, BOTH ARMS SWOLLEN, CHEST PAIN, SOB ED Provider: Juan Miguel Blancas Discharge Problem: Adverse effect of fluorouracil, Cellulitis, Acute and chronic respiratory failure with hypoxia, SIRS (systemic inflammatory response syndrome), Acute hyponatremia Patient Disposition: Admitted As Inpatient Condition: Fair Discharge Instructions Interventions: ED Discharge Assessment Last Done: 01/28/25 03:14
--- NOTE | 2025-01-28 00:46 | History & Physical Report ---
Date of Service January 28, 2025 Assessment & Plan (1) Erythematous rash: Plan: 84-year-old female with past med history significant for hyperlipidemia, pulmonary sarcoidosis, chronic rhinitis, hypertension, paroxysmal atrial fibrillation, morbid obesity, sicca syndrome, crohns disease status post ileostomy, CKD stage III, urge incontinence of urine, osteoarthritis, history of bowel obstructions, urinary incontinence, lives with her daughter and ambulates without support comes because of rash in bilateral upper extremities and also having some tachycardia and shortness of breath. Patient reports significant rash in bilateral upper extremities from applying fluorouracil cream for actinic keratosis. Rash is itchy.Patient was in the ER on 01/25/2025 for the rash of the upper extremities and thought to be from fluorouracil cream and advised to follow-up with PCP and dermatology. Saw PCP yesterday advised to apply Vaseline ointment and contact fitter hand. And today she also felt palpitations and shortness of breath and some chest discomfort when taking deep breaths and came to the ER. When she was in the ER last time her INR was supratherapeutic and was given vitamin K and advised to hold Coumadin. She also followed with anticoagulation clinic and advised to hold Coumadin for 1 more day. Poor appetite last few days. Denies any fevers. No nausea or vomiting. No abdominal pain. No runny nose or sore throat. In the ER she was somewhat tachycardic. She was 89% on room air requiring 2 L oxygen. Erythematous rash Bilateral upper extremities with itching and edema Started after applying fluorouracil cream Possible superimposed infection with leukocytosis. Elevated procalcitonin and CRP. Lactic acid okay ER started on Ancef which will be continued Can consider steroid cream after discussing with dermatology Monitor Tachycardia Shortness of breath Chest discomfort taking deep breath Requiring oxygen 2 L Chest x-ray looks okay EKG sinus tachycardia Will follow serial cardiac enzymes and echo Continue home metoprolol Will follow VQ scan. History of A-fib Will continue metoprolol On warfarin which was held because of INR being 6.2 on 01/25/25 and also received vitamin K INR is 1.3 today Will give a dose of warfarin and start on low-dose IV heparin follow inr Bilateral lower EXTR edema Will follow Dopplers and echo Hypertension On amlodipine and metoprolol Will monitor Depression anxiety On citalopram, buspirone as needed and hydroxyzine as needed GERD On omeprazole Pulmonary sarcoidosis Follows with pulmonary Crohn's disease Status post bowel resection end ileostomy in 1991 MILI on CKD stage III Baseline creatinine around 1.4-1.5 Creatinine 1.7 We will follow repeat labs DVT prophylaxis On IV heparin Disposition Telemetry Full code. History of Present Illness Chief Complaint: Bilateral upper extremity rash, tachycardia Primary Care Provider: Sai Soler MD 84-year-old female with past med history significant for hyperlipidemia, pulmonary sarcoidosis, chronic rhinitis, hypertension, paroxysmal atrial fibrillation, morbid obesity, sicca syndrome, Crohn disease status post ileostomy, CKD stage III, urge incontinence of urine, osteoarthritis, history of bowel obstructions, urinary incontinence, lives with her daughter and ambulates without support comes because of rash in bilateral upper extremities and also having some tachycardia and shortness of breath. Patient reports significant rash in bilateral upper extremities from applying fluorouracil cream for actinic keratosis. Rash is itchy.Patient was in the ER on 01/25/2025 for the rash of the upper extremities and thought to be from fluorouracil cream and advised to foll ow-up with PCP and dermatology. Saw PCP yesterday advised to apply Vaseline ointment and contact fitter hand. And today she also felt palpitations and shortness of breath and some chest discomfort when taking deep breaths and came to the ER. When she was in the ER last time her INR was supratherapeutic and was given vitamin K and advised to hold Coumadin. She also followed with anticoagulation clinic and advised to hold Coumadin for 1 more day. Poor appetite last few days. Denies any fevers. No nausea or vomiting. No abdominal pain. No runny nose or sore throat. In the ER she was somewhat tachycardic. She was 89% on room air requiring 2 L oxygen. Past medical history. As mentioned above Past surgical history. Bilateral knee replacements. Bilateral carpal tunnel surgery. Colonoscopy with cystoscopy. Dilatation and curettage. EGD. Exploratory laparotomy. Revision of ileostomy. Lysis of adhesions and repair of parastomal hernia. Colectomy with ileostomy. Social history. . Living with her daughter. No smoking. No alcohol. No drug use. Family history. Father had AAA. Mother had kidney failure. Allergies Allergy/AdvReac Type Severity Reaction Status Date / Time dexamethasone Allergy Intermediate EYES Verified 01/27/25 20:40 BECAME RED AND ITCHY sulfamethoxazole Allergy Intermediate ITCHING Verified 01/27/25 20:40 tobramycin Allergy Intermediate EYES Verified 01/27/25 20:40 BECAME RED AND ITCHY trimethoprim Allergy Intermediate ITCHING Verified 01/27/25 20:40 Home Medications Medication Instructions Recorded Confirmed Type aspirin 81 mg tablet,delayed 81 mg PO QAM 12/23/19 01/27/25 History release (Gallo Low Dose Aspirin) atorvastatin 40 mg tablet 40 mg PO HS #90 tabs 05/19/20 01/27/25 Rx amlodipine 5 mg tablet 5 mg PO QAM 01/30/22 01/27/25 History oxybutynin chloride 5 mg tablet 5 mg PO QPM 01/30/22 01/27/25 History citalopram 20 mg tablet 30 mg PO QAM 02/20/22 01/27/25 History omeprazole 20 mg capsule,delayed 20 mg PO QAM 02/20/22 01/27/25 History release metoprolol tartrate 100 mg tablet 50 mg (1/2 x 100 mg) PO BID #30 04/05/24 01/27/25 Rx tabs sodium citrate-citric acid 500 45 ml PO BID #3,000 mL 04/22/24 01/27/25 Rx mg-334 mg/5 mL oral solution buspirone 10 mg tablet 10 mg PO BID PRN Anxiety 10/23/24 01/27/25 History warfarin 5 mg tablet 2.5 mg PO QPM 10/23/24 01/27/25 History hydroxyzine HCl 25 mg tablet 25 mg PO TID PRN Anxiety 01/25/25 01/27/25 History Past Med/Surg History Problem List (Updated 01/28/25 @ 01:03 by Augustus Medellin MD) Erythematous rash Elevated INR (Acute) Headache (Acute) Rash (Acute) Dermatitis Supratherapeutic INR (Acute) Ambulatory dysfunction (Acute) Right ankle sprain (Acute) Contusion of left knee (Acute) Contusion of right knee (Acute) Fall (Acute) Chronic kidney disease with active medical management without dialysis, stage 3 (moderate) Encounter for pre-operative examination Cervical strain (Acute) Head injury (Acute) Fall (Acute) Cervical strain (Acute) Fall (Acute) Obese (Chronic) Lumbar strain (Acute) Lumbar strain (Acute) Vitamin D deficiency (Acute) Urinary incontinence (Acute) Trigger ring finger of left hand (Acute) Spinal stenosis (Acute) Sleep apnea (Acute) Shortness of breath (Acute) Pyelonephritis, unspecified (Acute) Postmenopausal bleeding (Acute) Peritoneal adhesions (Acute) Numbness of fingers of both hands (Acute) Nephrolithiasis (Acute) Morbid obesity (Acute) Intestinal occlusion (Acute) Intertrigo (Acute) Hypomagnesemia (Acute) Hypocalcemia (Acute) Hypertension (Acute) Hyperlipemia (Acute) Hypercholesterolemia (Acute) Right sided abdominal pain (Acute) Renal colic (Acute) Hydronephrosis (Acute) Elevated lactic acid level (Acute) Acute kidney injury Delirium Afib HTN (hypertension) Kidney stones (Chronic) Hypertension (Chronic) Chronic kidney disease, stage II (mild) (Chronic) Medical History Crohn's disease Encounter for insertion of venous access port Atrial fibrillation Sleep apnea Surgical History History of knee replacement History of creation of ostomy H/O neck surgery H/O colectomy Family History Mother Kidney failure Denies family history of Ovarian cancer Prostate cancer Myocardial infarction Breast cancer Colorectal cancer Social History Smoking Status: Never smoker Tobacco Type: Cigarettes Second Hand Exposure: No; Do You Dip or Chew Tobacco: No; Hx Alcohol Use: No Hx Substance Use: No Preferred Language: Ethiopian Communication Ability: Effective Visual Impairment: No Limitations Hearing Ability: Normal Carbon Setter Required: No Beliefs That Will Affect Care: None marital status: Current Living Situation: Spouse current occupational status: retired Feels Safe at Home: Yes Diet: other Diet Comment: watching calories and portions caffeine: No Physical Activity Frequency: Does not Exercise Seatbelt Use: always Assistive Devices: Cane, Scooter/Electric Scooter and Walker Review of Systems Review of Systems: All systems reviewed & are unremarkable except as noted in HPI & below Physical Exam Physical Exam: General- Not in distress. Head- atraumatic Eyes- PERRL. ENT- oropharynx clear Neck- supple, no JVD. Lungs- clear to auscultation no wheezing or crackles Heart- regular rhythm; no murmur, no gallop. a port seen Abdomen- normal bowel sounds, soft, nontender, no distension ileostomy seen Extremities- erythematous rash with edema upper extremity, b/l lower extremity edema Neuro- alert, oriented PERRL, no facial palsy; no dysarthria; moves extremities Results & Data Results & Data Vital Signs (Past 12 Hours) Vital Signs Temp Pulse Pulse Resp BP Pulse Ox O2 Del Method 01/27/25 23:59 110 H 01/27/25 23:00 108 H 24 142/61 H 94 Nasal Cannula 01/27/25 21:00 110 H 20 105/51 L 94 Nasal Cannula 01/27/25 20:11 89 L Room Air 01/27/25 20:00 89 L Room Air 01/27/25 19:22 108 H 01/27/25 19:13 92 Room Air 01/27/25 19:13 150/61 H 01/27/25 18:58 36.7 C 118 H 22 92 Room Air O2 Flow Rate 01/27/25 23:59 01/27/25 23:00 2 01/27/25 21:00 2 01/27/25 20:11 01/27/25 20:00 01/27/25 19:22 01/27/25 19:13 01/27/25 19:13 01/27/25 18:58 Diagnostic Findings Laboratory Results WBC 17.24 K/ul (4.8-10.8) H 01/27/25 19:36 RBC 3.72 M/uL (4.20-5.40) L 01/27/25 19:36 Hgb 11.2 g/dl (12.0-16.0) L 01/27/25 19:36 Hct 33.9 % (37.0-47.0) L 01/27/25 19:36 MCV 91.1 fL (80.0-100.0) 01/27/25 19:36 MCH 30.1 pg (25.0-34.0) 01/27/25 19:36 MCHC 33.0 g/dL (32.0-36.0) 01/27/25 19:36 RDW Std Deviation 46.5 fL (36.4-46.3) H 01/27/25 19:36 RDW Coeff of Nino 13.9 % (11.5-14.5) 01/27/25 19:36 Plt Count 164 K/uL (130-400) 01/27/25 19:36 MPV 10.7 fL (9.4-12.4) 01/27/25 19:36 Immature Gran % (Auto) 0.7 % 01/27/25 19:36 Neut % (Auto) 82.4 % 01/27/25 19:36 Lymph % (Auto) 7.9 % 01/27/25 19:36 Gage % (Auto) 7.9 % 01/27/25 19:36 Eos % (Auto) 0.9 % 01/27/25 19:36 Baso % (Auto) 0.2 % 01/27/25 19:36 Neut # (Auto) 14.21 K/uL (1.40-6.50) H 01/27/25 19:36 Lymph # (Auto) 1.36 K/uL (1.20-3.40) 01/27/25 19:36 Gage # (Auto) 1.36 K/uL (0.11-0.59) H 01/27/25 19:36 Eos # (Auto) 0.15 K/uL (0.00-0.50) 01/27/25 19:36 Baso # (Auto) 0.04 K/uL (0.00-0.20) 01/27/25 19:36 Immature Gran # (Auto) 0.12 K/uL (0.01-0.20) 01/27/25 19:36 ESR 41 mm/hr (0-30) H 01/27/25 19:36 PT 14.2 Seconds (9.0-12.0) H 01/27/25 19:36 INR 1.3 (0.9-1.1) H 01/27/25 19:36 VBG pH 7.32 (7.36-7.41) L 01/27/25 19:36 VBG pCO2 37 mmHg (38-50) L 01/27/25 19:36 VBG pO2 43 mmHg 01/27/25 19:36 VBG HCO3 19 mmol/L 01/27/25 19:36 VBG O2 Saturation 78.7 % 01/27/25 19:36 VBG Base Excess -6.4 mEq/L 01/27/25 19:36 Sodium 132 mmol/L (136-145) L 01/27/25 19:36 Potassium 4.8 mmol/L (3.5-5.1) 01/27/25 19:36 Chloride 105 mmol/L (98-107) 01/27/25 19:36 Carbon Dioxide 20 mmol/L (21-32) L 01/27/25 19:36 Anion Gap 7 (3-11) 01/27/25 19:36 BUN 52 mg/dl (6-23) H 01/27/25 19:36 Creatinine 1.78 mg/dl (0.6-1.2) H 01/27/25 19:36 Est Cr Clr Drug Dosing Not Reportable 01/27/25 19:36 eGFR 28.16 01/27/25 19:36 BUN/Creatinine Ratio 29.2 (10-20) H 01/27/25 19:36 Glucose 132 mg/dl (70-99(Fasting)) H 01/27/25 19:36 Lactate 0.9 mmol/L (0.4-2.0) 01/27/25 20:26 Calcium 8.7 mg/dl (8.6-10.3) 01/27/25 19:36 Total Bilirubin 1.0 mg/dl (0.2-1.0) 01/27/25 19:36 AST 25 U/L (13-39) 01/27/25 19:36 ALT 17 U/L (7-52) 01/27/25 19:36 Alkaline Phosphatase 61 U/L (34-104) 01/27/25 19:36 Troponin I High Sens 11.9 pg/ml (0-14) 01/27/25 19:36 C-Reactive Protein 16.72 mg/dl (0-0.5) H 01/27/25 19:36 B-Natriuretic Peptide 150 pg/ml (0-100) H 01/27/25 19:36 Total Protein 6.5 gm/dl (6.0-8.3) 01/27/25 19:36 Albumin 3.2 gm/dl (3.4-5.0) L 01/27/25 19:36 Globulin 3.3 gm/dl (2.5-4.0) 01/27/25 19:36 Albumin/Globulin Ratio 1.0 (0.9-2) 01/27/25 19:36 Procalcitonin 1.17 ng/ml (0-0.5) H 01/27/25 19:36 Adenovirus (PCR) Not Detected (NotDetected) 01/27/25 20:26 B. pertussis DNA (PCR) Not Detected (NotDetected) 01/27/25 20:26 B.parapertussis DNA PCR Not Detected (NotDetected) 01/27/25 20:26 C. pneumoniae DNA (PCR) Not Detected (NotDetected) 01/27/25 20:26 Coronavirus OC43 (PCR) Not Detected (NotDetected) 01/27/25 20:26 Coronavirus HKU1 (PCR) Not Detected (NotDetected) 01/27/25 20:26 Coronavirus 229E (PCR) Not Detected (NotDetected) 01/27/25 20:26 SARS-CoV-2 (PCR) Not Detected (NotDetected) 01/27/25 20:26 Coronavirus NL63 (PCR) Not Detected (NotDetected) 01/27/25 20:26 Human Metapneumovir PCR Not Detected (NotDetected) 01/27/25 20:26 Influenza Type A (PCR) Not Detected (NotDetected) 01/27/25 20:26 Influenza Type B (PCR) Not Detected (NotDetected) 01/27/25 20:26 M. pneumoniae (PCR) Not Detected (NotDetected) 01/27/25 20:26 Parainfluenza 1 (PCR) Not Detected (NotDetected) 01/27/25 20:26 Parainfluenza 2 (PCR) Not Detected (NotDetected) 01/27/25 20:26 Parainfluenza 3 (PCR) Not Detected (NotDetected) 01/27/25 20:26 Parainfluenza 4 (PCR) Not Detected (NotDetected) 01/27/25 20:26 RSV (PCR) Not Detected (NotDetected) 01/27/25 20:26 Entero/Rhino (PCR) Not Detected (NotDetected) 01/27/25 20:26 Impressions Chest X-Ray 01/27/25 19:13 Exam(s): XR CXR 2 VIEWS EXAM: XR Chest, 2 Views CLINICAL HISTORY: Reason for exam: Dyspnea. TECHNIQUE: Frontal and lateral views of the chest. COMPARISON: Chest radiograph on 04/02/2024 FINDINGS: Hardware: Left-sided Port-A-Cath terminates in the region of the lower SVC. Lungs/pleura: Normal. No focal consolidation. No pleural effusion or pneumothorax. Heart/mediastinum: Mild enlargement of the cardiac silhouette. Atherosclerotic changes in the aorta. Soft tissues: Unremarkable. Bones: No acute fracture. Degenerative changes of the shoulders and spine. Upper abdomen: Normal. IMPRESSION: No acute disease identified. Electronically signed by: Damien Carey M.D. 01/27/25 20:34 PM ECG Additional Comments: ECG. Sinus tach rate of 113. No acute ST changes seen. QTc 447. Code Status & VTE Plan VTE Prophylaxis Plan VTE Prophylaxis will be ordered: Yes
[2025-01-28] MEDS: WARFARIN SOD 2.5 MG TAB PO STA (01:27)
[2025-01-28] MEDS: METOPROLOL TARTRATE 50 MG TAB PO STA (01:27)
[2025-01-28] MEDS: MoRPHine SULFATE 4 MG/ML 1 ML CARP\\VIAL IV STA (01:28)
[2025-01-28] MEDS: HEPARIN 25000 UNIT/500 ML D5W 25,000 UNITS/500 ML BAG IV SCH (01:35)
[2025-01-28] MEDS: Heparin IV Adult Wt-Based Low-Dose *NO* INITIAL Bolus Protocol IV SCH (01:44)
[2025-01-28] MEDS ORDERED: ACETAMINOPHEN 1,000 MG/100 ML VIAL IV PRN (03:14)
[2025-01-28] MEDS ORDERED: POLYETHYLENE (MIRALAX) 17 GM PACK PO PRN (03:14)
[2025-01-28] MEDS ORDERED: NITROGLYCERIN SL 0.4 MG/TAB TAB SL PRN (03:14)
[2025-01-28] MEDS: SODIUM CHLORIDE 0.9% 1,000 ML IV SCH (03:44)
[2025-01-28 04:42] LABS: Anion Gap 7 (3-11); Blood Urea Nitrogen 48 mg/dl (6-23); Calcium 8.7 mg/dl (8.6-10.3); Carbon Dioxide 19 mmol/L (21-32); Chloride 105 mmol/L (98-107); Creatinine Clr Calc Pharmacy 30.9 ml/min; Glucose 104 mg/dl (70-99(Fasting)); Magnesium 1.6 mg/dl (1.7-2.4); Sodium 131 mmol/L (136-145)
[2025-01-28] MEDS: ACETAMINOPHEN 325 MG TAB PO PRN (06:01)
--- NOTE | 2025-01-28 06:08 | Ultrasound Report ---
EXAM: US venous doppler LE BI CLINICAL HISTORY: b/l ,lower ext edema. dvt? TECHNIQUE: Grayscale ultrasound, with and without compression, and color Doppler spectral waveform analysis were performed of the deep veins of the bilateral lower extremities from the level of the common femoral veins to the level of the popliteal veins. The posterior tibial and peroneal veins were also scanned. COMPARISON: No FINDINGS: Bilateral external iliac, common femoral veins, superficial and femoral veins and popliteal veins are compressible and opacify at color Doppler evaluation with no evidence of deep vein thrombosis. There is no evidence of DVT in the visualized portions of the posterior tibial and peroneal veins. IMPRESSION: 1. Negative for deep vein thrombosis. Electronically signed by Ameya Mireles 01-28-2025 06:08 AM
[2025-01-28 07:43] LABS: Hematocrit (blood only) 30.5 % (37.0-47.0); Hemoglobin 10.4 g/dl (12.0-16.0); Immature Granulocytes # (auto) 0.09 K/uL (0.01-0.20); Immature Granulocytes % (auto) 0.6 %; Mean Corpuscular Hemoglobin 31.3 pg (25.0-34.0); Mean Corpuscular Volume 91.9 fL (80.0-100.0); Platelet Count 158 K/uL (130-400); RDW Standard Deviation 46.6 fL (36.4-46.3); Red Blood Count 3.32 M/uL (4.20-5.40); White Blood Count 14.89 K/ul (4.8-10.8)
[2025-01-28 07:47] LABS: ANTI-Xa, UFH(UnfractionatedHep 0.25 IU/ml (0.3-0.7)
[2025-01-28 07:57] LABS: INR 1.3 (0.9-1.1); Prothrombin Time 13.9 Seconds (9.0-12.0)
[2025-01-28] MEDS: CITRIC ACID/SODIUM CITRATE 15 ML UDC PO SCH (08:18)
[2025-01-28] MEDS: busPIRone 5 MG TAB PO PRN (08:22)
[2025-01-28] MEDS: METOPROLOL TARTRATE 50 MG TAB PO SCH (08:22)
[2025-01-28] MEDS: CITALOPRAM 20 MG TAB PO SCH (08:22)
[2025-01-28] MEDS: ASPIRIN 81 MG ECTAB PO SCH (08:23)
--- NOTE | 2025-01-28 10:24 | Nuclear Medicine Report ---
NUCLEAR PULMONARY PERFUSION SCAN CLINICAL HISTORY: Dyspnea and tachycardia. COMPARISON STUDY: Chest x-ray dated 01/27/2025. Abdominal CT dated 01/30/2022. TECHNIQUE: Nuclear pulmonary perfusion images of both lungs were obtained following the IV administra tion of 5.5 mCi of technetium 99m MAA. Images were acquired in the anterior, posterior, and oblique p rojections. FINDINGS: A chest x-ray performed 01/27/2025 shows cardiomegaly. No airspace consolidation or pleural effusion i s seen. Pulmonary perfusion is heterogeneous. No segmental perfusion defects are clearly seen to indicate pul monary embolus. IMPRESSION: Heterogeneous perfusion with no segmental defects identified to suggest a large pulmonary embolus. If there is strong clinical concern for pulmonary embolus then a CT angiogram of the chest should be obtained. ACT 112: Negative or not required by law. Electronically signed by: Jeremy Carr M.D. 01/28/2025 10:22 AM
[2025-01-28 13:22] LABS: ANTI-Xa, UFH(UnfractionatedHep 0.29 IU/ml (0.3-0.7)
--- NOTE | 2025-01-28 15:11 | Communication Note ---
Date of Service: January 28, 2025 The patient was seen and examined in the emergency room. She is an 84-year-old female obese with significant past medical history including pulmonary sarcoi dosis, hypertension, paroxysmal atrial fibrillation on Coumadin, sicca syndrome, Crohn's disease status post ileostomy, CKD stage III apparently was seen in the ER on 01/25/2025 with worsening rash involving the upper extremities, headache and elevated INR. She was given vitamin K intravenously and was sent home. Her 5-fluorouracil cream which she has been taking since Saturday last was discontinue d. She came back yesterday evening with increasing redness and swelling involving the upper extremities, palpitation with shortness of breath and some chest discomfort and also noted to have UA suggestive of infection. Her white count noted to be elevated at 17,000 and her INR was 1.3. She was started with intravenous cefazolin to cover the cellulitis involving the upper extremities with a rash and also UTI. She had a VQ scan that ruled out pulmonary embolism and she was started with intravenous heparin with Coumadin administration to maintain INR She will have a full progress note tomorrow. Dr Lloyd Canales
[2025-01-28 15:21] LABS: ANTI-Xa, UFH(UnfractionatedHep 0.32 IU/ml (0.3-0.7)
[2025-01-28] MEDS: WARFARIN SOD 2.5 MG TAB PO SCH (16:03)
[2025-01-28] MEDS: ATORVASTATIN 40 MG TAB PO SCH (20:16)
[2025-01-29] MEDS: MENTHOL-ZINC OXIDE 360 APPLN/120 GM TUBE EXT SCH (00:34)
[2025-01-29] MEDS: METOPROLOL TARTRATE 1 MG/ML VIAL IV STA ×2 (02:31→05:51)
[2025-01-29 05:59] LABS: Hematocrit (blood only) 33.7 % (37.0-47.0); Hemoglobin 11.1 g/dl (12.0-16.0); Immature Granulocytes # (auto) 0.08 K/uL (0.01-0.20); Immature Granulocytes % (auto) 0.6 %; Mean Corpuscular Hemoglobin 29.9 pg (25.0-34.0); Mean Corpuscular Volume 90.8 fL (80.0-100.0); Platelet Count 180 K/uL (130-400); RDW Standard Deviation 45.9 fL (36.4-46.3); Red Blood Count 3.71 M/uL (4.20-5.40); White Blood Count 13.07 K/ul (4.8-10.8)
[2025-01-29 06:19] LABS: Anion Gap 8.0 (3-11); Blood Urea Nitrogen 37.0 mg/dl (6-23); Calcium 8.6 mg/dl (8.6-10.3); Carbon Dioxide 23.0 mmol/L (21-32); Chloride 110.0 mmol/L (98-107); Creatinine Clr Calc Pharmacy 33.6 ml/min; Glucose 102.0 mg/dl (70-99(Fasting)); Magnesium 1.5 mg/dl (1.7-2.4); Potassium 4.3 mmol/L (3.5-5.1); Sodium 141.0 mmol/L (136-145)
[2025-01-29 06:42] LABS: ANTI-Xa, UFH(UnfractionatedHep > 1.50 IU/ml (0.3-0.7); INR 1.8 (0.9-1.1); Prothrombin Time 19.0 Seconds (9.0-12.0)
[2025-01-29] MEDS: MAGNESIUM SULFATE / D5W 1 GM/100 ML BAG IV SCH (07:19)
[2025-01-29 10:05] LABS: ANTI-Xa, UFH(UnfractionatedHep > 1.50 IU/ml (0.3-0.7)
[2025-01-29 10:59] LABS: ANTI-Xa, UFH(UnfractionatedHep 0.35 IU/ml (0.3-0.7)
[2025-01-29] MEDS: AMMONIUM LACTATE 12% LOTION 225 GM BTL EXT SCH (11:52)
--- NOTE | 2025-01-29 13:10 | Hospitalist Progress Note ---
Date of Service January 29, 2025 Assessment & Plan (1) Erythematous rash: Plan: 84-year-old female with past med history significant for hyperlipidemia, pulmonary sarcoidosis, chronic rhinitis, hypertension, paroxysmal atrial fibrillation, morbid obesity, sicca syndrome, crohns disease status post ileostomy, CKD stage III, urge incontinence of urine, osteoarthritis, history of bowel obstructions, urinary incontinence, lives with her daughter and ambulates without support comes because of rash in bilateral upper extremities and also having some tachycardia and shortness of breath. Patient reports significant rash in bilateral upper extremities from applying fluorouracil cream for actinic keratosis. Rash is itchy.Patient was in the ER on 01/25/2025 for the rash of the upper extremities and thought to be from fluorouracil cream and advised to follow-up with PCP and dermatology. 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 And today she also felt palpitations and shortness of breath and some chest discomfort when taking deep breaths and came to the ER. When she was in the ER last time her INR was supratherapeutic and was given vitamin K and advised to hold Coumadin. She also followed with anticoagulation clinic and advised to hold Coumadin for 1 more day. Poor appetite last few days. Denies any fevers. No nausea or vomiting. No abdominal pain. No runny nose or sore throat. In the ER she was somewhat tachycardic. She was 89% on room air requiring 2 L oxygen. Erythematous rash Bilateral upper extremities with itching and edema Secondary to use of fluorouracil cream over her upper extremities since Saturday last Possible superimposed infection with leukocytosis. Elevated procalcitonin and CRP. Lactic acid okay ER started on Ancef which will be continued Appreciate wound care input and recommendation of using Vaseline lotion Wound has been improving with improvement of generalized erythema Will avoid any steroid cream locally Will have appointment with the furnace liner on discharge Tachycardia Shortness of breath Chest discomfort taking deep breath Requiring oxygen 2 L Chest x-ray looks okay EKG sinus tachycardia and does not have any arrhythmias Serial cardiac enzymes have been negative for any ACS Echo of the heart showed LV is normal in size, moderate concentric LVH, LV wall motion is normal, EF 60 to 65%, LA moderately dilated, moderate mitral annular calcification, trace mitral regurgitation, atrial fibrillation rate is 95 200 bpm Continue home metoprolol Will follow VQ scan.- showed minimal suspicion for pulmonary embolism Tachycardia is resolved History of A-fib Will continue metoprolol On warfarin which was held because of INR being 6.2 on 01/25/25 and also received vitamin K INR is 1.3 today Will give a dose of warfarin and start on low-dose IV heparin INR is 1.8 today and will continue intravenous heparin for today and give extra dose of Coumadin this afternoon Bilateral lower EXTR edema Will follow Dopplers and echo- negative for DVT and echo as above Hypertension On amlodipine and metoprolol Will monitor Depression anxiety On citalopram, buspirone as needed and hydroxyzine as needed GERD On omeprazole Pulmonary sarcoidosis Follows with pulmonary Crohn's disease Status post bowel resection end ileostomy in 1991 Ileostomy site is intact and functioning MILI on CKD stage III Baseline creatinine around 1.4-1.5 Creatinine 1.7 We will follow repeat labs-kidney function remains stable with BUN of 37 and creatinine 1.57 which is better. Magnesium was replaced DVT prophylaxis On IV heparin Disposition Telemetry Full code. Admission and Anticipated Discharge Date Admission Date: January 28, 2025 Subjective 01/29/2025 The patient was seen and examined in telemetry unit in presence of the family members She was admitted with increasing dermatitis/cellulitis involving upper extremities Also complains some shortness of breath but no chest pain or palpitation She has been feeling little better since admission Review of Systems Review of Systems: All systems reviewed and are unremarkable except as noted below Physical Exam Physical Exam: Lying in bed without any acute distress Constitutional: well developed, well nourished and + ill appearing; no acute distress Eyes: PERRL, conjunctivae normal, anicteric sclerae ENMT: external ear and nose normal, oropharynx normal Neck: trachea midline, no thyromegaly Respiratory: no respiratory distress Auscultation: + diminished lung sounds; no crackles Cardiovascular: Rate/Rhythm: regular rate, regular rhythm and + tachycardic Heart Sounds: normal S1 and normal S2; no murmur Extremities: + edema (1+ edema bilaterally with lymphedema) Gastrointestinal (Abdomen): Inspection/Auscultation: normal bowel sounds; abdomen not distended Percussion/Palpation: abdomen soft; abdomen nontender Musculoskeletal: No acute arthritis involving any of the joint Skin: Erythematous rash involving both upper extremities with a few scabs continue Neurologic: normal touch/pain/proprioception and moves all extremities; no focal motor deficits Lymphatic: no cervical or axillary lymphadenopathy Results & Data Results & Data Vital Signs (Past 12 Hours) Vital Signs Temp Pulse Pulse Resp BP BP Pulse Ox 01/29/25 12:45 01/29/25 10:34 36.7 C 86 20 110/66 92 01/29/25 07:29 36.6 C 112 H 18 130/92 94 01/29/25 06:06 110 H 140/68 01/29/25 05:51 117 H 145/72 H 01/29/25 03:14 01/29/25 02:46 115 H 148/70 H 01/29/25 02:31 120 H 156/70 H Pulse Ox O2 Del Method O2 Del Method O2 Flow Rate 01/29/25 12:45 Room Air 01/29/25 10:34 Room Air 01/29/25 07:29 Room Air 01/29/25 06:06 01/29/25 05:51 01/29/25 03:14 95 Nasal Cannula 2 01/29/25 02:46 01/29/25 02:31 Laboratory Results Short CBC 01/29/25 Range/Units 05:48 WBC 13.07 H (4.8-10.8) K/ul Hgb 11.1 L (12.0-16.0) g/dl Hct 33.7 L (37.0-47.0) % Plt Count 180 (130-400) K/uL BMP 01/29/25 05:48 Sodium 141 D Potassium 4.3 Chloride 110 H Carbon Dioxide 23 BUN 37 H Creatinine 1.57 H Glucose 102 H Calcium 8.6 Home neurologic:
[2025-01-29 20:29] LABS: ANTI-Xa, UFH(UnfractionatedHep > 1.50 IU/ml (0.3-0.7)
[2025-01-29 22:12] LABS: ANTI-Xa, UFH(UnfractionatedHep < 0.10 IU/ml (0.3-0.7)
[2025-01-29] MEDS: HEPARIN SOD (PORCINE) 1000 UNIT/ML IV ONE (23:27)
--- NOTE | 2025-01-30 05:40 | Electrocardiogram Report ---
Test Reason : Blood Pressure : */* mmHG Vent. Rate : 113 BPM Atrial Rate : 113 BPM P-R Int : 188 ms QRS Dur : 82 ms QT Int : 326 ms P-R-T Axes : 92 6 76 degrees QTcB Int : 447 ms Sinus tachycardia Premature atrial complexes Otherwise normal ECG When compared with ECG of 25-Jan-2025 16:31, Vent. rate has increased by 46 bpm Confirmed by Stef Hooper ([id number]) on 01/30/2025 5:40:06 AM Referred By: Confirmed By: Stef Hooper
--- NOTE | 2025-01-30 05:40 | Electrocardiogram Report ---
Test Reason : Blood Pressure : */* mmHG Vent. Rate : 118 BPM Atrial Rate : 118 BPM P-R Int : 178 ms QRS Dur : 76 ms QT Int : 310 ms P-R-T Axes : 86 2 86 degrees QTcB Int : 434 ms Sinus tachycardia Nonspecific ST and T wave abnormality Abnormal ECG When compared with ECG of 27-Jan-2025 19:13, Premature atrial complexes are no longer Present Confirmed by Stef Hooper ([id number]) on 01/30/2025 5:40:35 AM Referred By: REFERRED SELF Confirmed By: Stef Hooper
--- NOTE | 2025-01-30 05:44 | Electrocardiogram Report ---
Test Reason : Blood Pressure : */* mmHG Vent. Rate : 114 BPM Atrial Rate : 114 BPM P-R Int : 208 ms QRS Dur : 74 ms QT Int : 282 ms P-R-T Axes : * -17 73 degrees QTcB Int : 388 ms Atrial fibrillation with rapid ventricular response Septal infarct , age undetermined Abnormal ECG When compared with ECG of 27-Jan-2025 23:04, Atrial fibrillation has replaced Sinus rhythm Confirmed by Stef Hooper ([id number]) on 01/30/2025 5:43:57 AM Referred By: REFERRED SELF Confirmed By: Stef Hooper
[2025-01-30 06:12] LABS: ANTI-Xa, UFH(UnfractionatedHep 0.32 IU/ml (0.3-0.7)
[2025-01-30 06:14] LABS: INR 2.0 (0.9-1.1); Prothrombin Time 20.1 Seconds (9.0-12.0)
[2025-01-30 08:47] LABS: Hematocrit (blood only) 32.6 % (37.0-47.0); Hemoglobin 11.3 g/dl (12.0-16.0); Immature Granulocytes # (auto) 0.06 K/uL (0.01-0.20); Immature Granulocytes % (auto) 0.5 %; Mean Corpuscular Hemoglobin 31.2 pg (25.0-34.0); Mean Corpuscular Volume 90.1 fL (80.0-100.0); Platelet Count 218 K/uL (130-400); RDW Standard Deviation 44.5 fL (36.4-46.3); Red Blood Count 3.62 M/uL (4.20-5.40); White Blood Count 12.61 K/ul (4.8-10.8)
[2025-01-30] MEDS ORDERED: BENZONATATE 100 MG CAPSULE PO PRN (09:26)
[2025-01-30 09:28] LABS: Anion Gap 9.0 (3-11); Blood Urea Nitrogen 32.0 mg/dl (6-23); Calcium 9.2 mg/dl (8.6-10.3); Carbon Dioxide 23.0 mmol/L (21-32); Chloride 110.0 mmol/L (98-107); Creatinine Clr Calc Pharmacy 35.5 ml/min; Glucose 104.0 mg/dl (70-99(Fasting)); Magnesium 2.1 mg/dl (1.7-2.4); Potassium 4.0 mmol/L (3.5-5.1); Sodium 142.0 mmol/L (136-145)
--- NOTE | 2025-01-30 11:30 | Hospitalist Progress Note ---
Date of Service January 30, 2025 Assessment & Plan (1) Erythematous rash: Plan: 84-year-old female with past med history significant for hyperlipidemia, pulmonary sarcoidosis, chronic rhinitis, hypertension, paroxysmal atrial fibrillation, morbid obesity, sicca syndrome, crohns disease status post ileostomy, CKD stage III, urge incontinence of urine, osteoarthritis, history of bowel obstructions, urinary incontinence, lives with her daughter and ambulates without support comes because of rash in bilateral upper extremities and also having some tachycardia and shortness of breath. Patient reports significant rash in bilateral upper extremities from applying fluorouracil cream for actinic keratosis. Rash is itchy.Patient was in the ER on 01/25/2025 for the rash of the upper extremities and thought to be from fluorouracil cream and advised to follow-up with PCP and dermatology. 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 And today she also felt palpitations and shortness of breath and some chest discomfort when taking deep breaths and came to the ER. When she was in the ER last time her INR was supratherapeutic and was given vitamin K and advised to hold Coumadin. She also followed with anticoagulation clinic and advised to hold Coumadin for 1 more day. Poor appetite last few days. Denies any fevers. No nausea or vomiting. No abdominal pain. No runny nose or sore throat. In the ER she was somewhat tachycardic. She was 89% on room air requiring 2 L oxygen. Erythematous rash Bilateral upper extremities with itching and edema Secondary to use of fluorouracil cream over her upper extremities since Saturday last Possible superimposed infection with leukocytosis. Elevated procalcitonin and CRP. Lactic acid okay ER started on Ancef which will be continued Appreciate wound care input and recommendation of using Vaseline lotion Wound has been improving with improvement of generalized erythema Will avoid any steroid cream locally Will have appointment with the field crop ii farmworker on discharge Erythematous rash in the upper extremities has been improving with decreasing redness, swelling and tenderness No evidence of any oozing from the wounds Tachycardia Shortness of breath Chest discomfort taking deep breath Requiring oxygen 2 L Chest x-ray looks okay EKG sinus tachycardia and does not have any arrhythmias Serial cardiac enzymes have been negative for any ACS Echo of the heart showed LV is normal in size, moderate concentric LVH, LV wall motion is normal, EF 60 to 65%, LA moderately dilated, moderate mitral annular calcification, trace mitral regurgitation, atrial fibrillation rate is 95 200 bpm Continue home metoprolol Will follow VQ scan.- showed minimal suspicion for pulmonary embolism Tachycardia is resolved Heart rate remains elevated at 101 and will increase the metoprolol tartrate to succinate with 75 mg twice daily History of A-fib Will continue metoprolol On warfarin which was held because of INR being 6.2 on 01/25/25 and also received vitamin K INR is 1.3 today Will give a dose of warfarin and start on low-dose IV heparin INR is 1.8 today and will continue intravenous heparin for today and give extra dose of Coumadin this afternoon INR is 2.0 today and will discontinue heparin Bilateral lower EXTR edema Will follow Dopplers and echo- negative for DVT and echo as above Edema seems to be improving Hypertension On amlodipine and metoprolol Will monitor Depression anxiety On citalopram, buspirone as needed and hydroxyzine as needed GERD On omeprazole Pulmonary sarcoidosis Follows with pulmonary Crohn's disease Status post bowel resection end ileostomy in 1991 Ileostomy site is intact and functioning MILI on CKD stage III Baseline creatinine around 1.4-1.5 Creatinine 1.7 We will follow repeat labs-kidney function remains stable with BUN of 37 and creatinine 1.57 which is better. Magnesium was replaced DVT prophylaxis On IV heparin-discontinued today and will continue Coumadin Disposition Telemetry Full code. Will get PT OT evaluation prior to discharge Admission and Anticipated Discharge Date Admission Date: January 28, 2025 Subjective 01/29/2025 The patient was seen and examined in telemetry unit in presence of the family members She was admitted with increasing dermatitis/cellulitis involving upper extremit ies Also complains some shortness of breath but no chest pain or palpitation She has been feeling little better since admission 01/30/2025 The patient was seen and examined in the telemetry unit She has been coughing following taking medications all at once Denies any shortness of breath and saturating normally on room air Her rash in the upper extremities has been improving Review of Systems Review of Systems: All systems reviewed and are unremarkable except as noted below Physical Exam Physical Exam: Lying in bed without any acute distress Constitutional: well developed, well nourished and + ill appearing; no acute distress Eyes: PERRL, conjunctivae normal, anicteric sclerae ENMT: external ear and nose normal, oropharynx normal Neck: trachea midline, no thyromegaly Respiratory: no respiratory distress Auscultation: + diminished lung sounds; no crackles Cardiovascular: Rate/Rhythm: regular rate, regular rhythm and + tachycardic Heart Sounds: normal S1 and normal S2; no murmur Extremities: + edema (1+ edema bilaterally with lymphedema) Gastrointestinal (Abdomen): Inspection/Auscultation: normal bowel sounds; abdomen not distended Percussion/Palpation: abdomen soft; abdomen nontender Skin: Erythematous rash over both upper extremities with scabs has been improving Neurologic: normal touch/pain/proprioception and moves all extremities; no focal motor deficits Lymphatic: no cervical or axillary lymphadenopathy Results & Data Results & Data Vital Signs (Past 12 Hours) Vital Signs Temp Pulse Resp BP Pulse Ox O2 Del Method O2 Del Method 01/30/25 08:00 36.3 C L 101 H 18 181/74 H 94 Room Air 01/30/25 03:49 36.6 C 84 18 170/67 H 97 Room Air 01/30/25 03:00 Room Air Laboratory Results Short CBC 01/30/25 Range/Units 05:29 WBC 12.61 H (4.8-10.8) K/ul Hgb 11.3 L (12.0-16.0) g/dl Hct 32.6 L (37.0-47.0) % Plt Count 218 (130-400) K/uL BMP 01/30/25 08:10 Sodium 142 Potassium 4.0 Chloride 110 H Carbon Dioxide 23 BUN 32 H Creatinine 1.50 H Glucose 104 H Calcium 9.2 Medications Administered Current Inpatient Medications Acetaminophen (Acetaminophen 325 Mg Tab) 650 mg PO Q4H PRN PRN Reason: Pain or Fever Stop: 02/27/25 03:13 Last Admin: 01/30/25 00:48 Dose: 650 mg Amlodipine Besylate (Amlodipine Besylate 5 Mg Tab) [facility] [place] Stop: 02/27/25 08:59 Last Admin: 01/30/25 08:47 Dose: 5 mg Aspirin (Aspirin 81 Mg Ectab) 81 mg [facility] [place] Stop: 02/27/25 08:59 Last Admin: 01/30/25 08:47 Dose: 81 mg Atorvastatin Calcium (Atorvastatin 40 Mg Tab) 40 mg PO [facility] Stop: 02/27/25 20:59 Last Admin: 01/29/25 20:00 Dose: 40 mg Benzonatate (Benzonatate 100 Mg Capsule) 100 mg PO Q6H PRN PRN Reason: Cough Stop: 03/01/25 09:25 Buspirone HCl (Buspirone 5 Mg Tab) 10 mg PO BID PRN PRN Reason: Anxiety Stop: 02/27/25 03:13 Last Admin: 01/30/25 08:49 Dose: 10 mg Calamine/Phenol (Menthol-Zinc Oxide 360 Appln/120 Gm Tube) 1 appln EXT BID [facility] Stop: 02/27/25 23:14 Last Admin: 01/30/25 08:50 Dose: 1 appln Citalopram Hydrobromide (Citalopram 20 Mg Tab) 30 mg PO QAM [facility] Stop: 02/27/25 08:59 Last Admin: 01/30/25 08:49 Dose: 30 mg Citric Acid/Sodium Citrate (Citric Acid/Sodium Citrate 15 Ml Udc) 45 ml PO BID [facility] Stop: 02/27/25 08:59 Last Admin: 01/30/25 08:47 Dose: 45 ml Heparin Sodium (Porcine) (Heparin 100 Unit/Ml 5ml Flush) 5 ml FLUSH PRN PRN PRN Reason: Flush Stop: 02/28/25 05:34 Hydroxyzine HCl (Hydroxyzine Hcl 25 Mg Tab) 25 mg PO TID PRN PRN Reason: Anxiety Stop: 02/27/25 03:13 Last Admin: 01/30/25 08:50 Dose: 25 mg Heparin Sodium/Dextrose (Heparin 41884 Unit/500 Ml D5w) 25,000 units in 500 mls @ 17 mls/hr IV .Q24H [facility]; Protocol Stop: 02/27/25 00:59 Last Admin: 01/30/25 08:46 Dose: Not Given Cefazolin Sodium (Ancef 2000mg) 2,000 mg in 15 mls @ 3.75 mls/min IV Q8H [facility] Stop: 02/04/25 05:59 Last Admin: 01/30/25 05:58 Dose: 3.75 mls/min Acetaminophen (Ofirmev) 1,000 mg in 100 mls @ 400 mls/hr IV Q8H PRN PRN Reason: Pain or Fever Stop: 01/31/25 03:13 Metoprolol Tartrate (Metoprolol Tartrate 50 Mg Tab) 50 mg PO BID [facility] Stop: 02/27/25 08:59 Last Admin: 01/30/25 08:50 Dose: 50 mg Nitroglycerin (Nitroglycerin Sl 0.4 Mg/Tab Tab) 0.4 mg SL Q5M PRN PRN Reason: Chest Pain Stop: 02/27/25 03:13 Oxybutynin Chloride (Oxybutynin Chloride 5 Mg Tab) 5 mg PO QPM [facility] Stop: 02/27/25 20:59 Last Admin: 01/29/25 20:01 Dose: 5 mg Pantoprazole Sodium (Pantoprazole 40 Mg Tab) 40 mg PO QAM [facility] Stop: 02/27/25 08:59 Last Admin: 01/30/25 08:50 Dose: 40 mg Polyethylene Glycol (Polyethylene (Miralax) 17 Gm Pack) 17 gm PO DAILY PRN PRN Reason: Constipation Stop: 02/27/25 03:13 Warfarin Sodium (Warfarin Sod 2.5 Mg Tab) 2.5 mg PO DAILY@1600 [facility] Stop: 02/27/25 15:59 Last Admin: 01/29/25 16:15 Dose: 2.5 mg
--- NOTE | 2025-01-30 12:13 | Electrocardiogram Report ---
Test Reason : Blood Pressure : */* mmHG Vent. Rate : 86 BPM Atrial Rate : 86 BPM P-R Int : 184 ms QRS Dur : 80 ms QT Int : 384 ms P-R-T Axes : 81 -4 42 degrees QTcB Int : 459 ms Sinus rhythm with Premature atrial complexes Poor R wave progression, consider anterior MN vs. lead placement vs. LVH Abnormal ECG When compared with ECG of 29-Jan-2025 04:55, No significant change was found Confirmed by Sawyer Hendrickson ([id number]) on 01/30/2025 12:12:36 PM Referred By: REFERRED SELF Confirmed By: Sawyer Hendrickson
[2025-01-30] MEDS: METOPROLOL SUCC 25MG EXT REL TAB PO SCH (20:01)
[2025-01-31 06:47] LABS: INR 3.0 (0.9-1.1); Prothrombin Time 29.5 Seconds (9.0-12.0)
[2025-01-31 06:53] LABS: ANTI-Xa, UFH(UnfractionatedHep 0.44 IU/ml (0.3-0.7)
--- NOTE | 2025-01-31 11:52 | Hospitalist Progress Note ---
Date of Service January 31, 2025 Assessment & Plan (1) Erythematous rash: Plan: 84-year-old female with past med history significant for hyperlipidemia, pulmonary sarcoidosis, chronic rhinitis, hypertension, paroxysmal atrial fibrillation, morbid obesity, sicca syndrome, crohns disease status post ileostomy, CKD stage III, urge incontinence of urine, osteoarthritis, history of bowel obstructions, urinary incontinence, lives with her daughter and ambulates without support comes because of rash in bilateral upper extremities and also having some tachycardia and shortness of breath. Patient reports significant rash in bilateral upper extremities from applying fluorouracil cream for actinic keratosis. Rash is itchy.Patient was in the ER on 01/25/2025 for the rash of the upper extremities and thought to be from fluorouracil cream and advised to follow-up with PCP and dermatology. Saw PCP yesterday advised to apply Vaseline ointment and contact finger lift operator. And today she also felt palpitations and shortness of breath and some chest discomfort when taking deep breaths and came to the ER. When she was in the ER last time her INR was supratherapeutic and was given vitamin K and advised to hold Coumadin. She also followed with anticoagulation clinic and advised to hold Coumadin for 1 more day. Poor appetite last few days. Denies any fevers. No nausea or vomiting. No abdominal pain. No runny nose or sore throat. In the ER she was somewhat tachycardic. She was 89% on room air requiring 2 L oxygen. Erythematous rash Bilateral upper extremities with itching and edema Secondary to use of fluorouracil cream over her upper extremities since Saturday last Possible superimposed infection with leukocytosis. Elevated procalcitonin and CRP. Lactic acid okay ER started on Ancef which will be continued Appreciate wound care input and recommendation of using Vaseline lotion Wound has been improving with improvement of generalized erythema Will avoid any steroid cream locally Will have appointment with the finger lift operator on discharge Erythematous rash in the upper extremities has been improving with decreasing redness, swelling and tenderness No evidence of any oozing from the wounds Bilateral upper extremity rashes are much improved and the redness is improved too Tachycardia Shortness of breath Chest discomfort taking deep breath Requiring oxygen 2 L Chest x-ray looks okay EKG sinus tachycardia and does not have any arrhythmias Serial cardiac enzymes have been negative for any ACS Echo of the heart showed LV is normal in size, moderate concentric LVH, LV wall motion is normal, EF 60 to 65%, LA moderately dilated, moderate mitral annular calcification, trace mitral regurgitation, atrial fibrillation rate is 95 200 bpm Continue home metoprolol Will follow VQ scan.- showed minimal suspicion for pulmonary embolism Tachycardia is resolved Heart rate remains elevated at 101 and will increase the metoprolol tartrate to succinate with 75 mg twice daily Tachycardia has resolved with increasing dose of beta-wu and will be continued History of A-fib Will continue metoprolol On warfarin which was held because of INR being 6.2 on 01/25/25 and also received vitamin K INR is 1.3 today Will give a dose of warfarin and start on low-dose IV heparin INR is 1.8 today and will continue intravenous heparin for today and give extra dose of Coumadin this afternoon INR is 2.0 today and will discontinue heparin INR remains elevated at 3.0 and will hold Coumadin for tonight Bilateral lower EXTR edema Will follow Dopplers and echo- negative for DVT and echo as above Edema seems to be improving Hypertension On amlodipine and metoprolol Will monitor Depression anxiety On citalopram, buspirone as needed and hydroxyzine as needed GERD On omeprazole Pulmonary sarcoidosis Follows with pulmonary Crohn's disease Status post bowel resection end ileostomy in 1991 Ileostomy site is intact and functioning MILI on CKD stage III Baseline creatinine around 1.4-1.5 Creatinine 1.7 We will follow repeat labs-kidney function remains stable with BUN of 37 and creatinine 1.57 which is better. Magnesium was replaced DVT prophylaxis On IV heparin-discontinued today and will continue Coumadin Disposition Telemetry Full code. Will get PT OT evaluation prior to discharge Clinically much better and will get PT OT evaluation prior to discharge Admission and Anticipated Discharge Date Admission Date: January 28, 2025 Subjective 01/29/2025 The patient was seen and examined in telemetry unit in presence of the family members She was admitted with increasing dermatitis/cellulitis involving upper extremities Also complains some shortness of breath but no chest pain or palpitation She has been feeling little better since admission 01/30/2025 The patient was seen and examined in the telemetry unit She has been coughing following taking medications all at once Denies any shortness of breath and saturating normally on room air Her rash in the upper extremities has been improving PrePLUS status 01/31/2025 The patient was seen and examined in telemetry unit She has been much better today and the cough is resolved Her bilateral upper extremity rashes are improving as well No fever no chills Review of Systems Review of Systems: All systems reviewed and are unremarkable except as noted below Physical Exam Physical Exam: Lying in bed without any acute distress Constitutional: well developed, well nourished and + ill appearing; no acute distress Eyes: PERRL, conjunctivae normal, anicteric sclerae ENMT: external ear and nose normal, oropharynx normal Neck: trachea midline, no thyromegaly Respiratory: no respiratory distress Auscultation: + diminished lung sounds; no crackles Cardiovascular: Rate/Rhythm: regular rate, regular rhythm and + tachycardic Heart Sounds: normal S1 and normal S2; no murmur Extremities: + edema (1+ edema bilaterally with lymphedema) Gastrointestinal (Abdomen): Inspection/Auscultation: normal bowel sounds; abdomen not distended Percussion/Palpation: abdomen soft; abdomen nontender Neurologic: normal touch/pain/proprioception and moves all extremities; no foc al motor deficits Lymphatic: no cervical or axillary lymphadenopathy Results & Data Results & Data Vital Signs (Past 12 Hours) Vital Signs Temp Pulse Resp BP Pulse Ox O2 Del Method O2 Del Method 01/31/25 11:43 36.5 C 74 18 150/74 H 96 Room Air 01/31/25 08:00 66 16 167/65 H 97 Room Air 01/31/25 03:39 36.9 C 72 18 168/94 H Room Air 01/31/25 03:00 Room Air 01/31/25 00:27 36.4 C L 85 18 170/78 H 96 Room Air O2 Flow Rate 01/31/25 11:43 01/31/25 08:00 01/31/25 03:39 96 01/31/25 03:00 01/31/25 00:27 Medications Administered Current Inpatient Medications Acetaminophen (Acetaminophen 325 Mg Tab) 650 mg PO Q4H PRN PRN Reason: Pain or Fever Stop: 02/27/25 03:13 Last Admin: 01/30/25 00:48 Dose: 650 mg Amlodipine Besylate (Amlodipine Besylate 5 Mg Tab) 5 mg PO [facility] Stop: 02/27/25 08:59 Last Admin: 01/31/25 08:42 Dose: 5 mg Aspirin (Aspirin 81 Mg Ectab) 81 mg PO [facility] Stop: 02/27/25 08:59 Last Admin: 01/31/25 08:42 Dose: 81 mg Atorvastatin Calcium (Atorvastatin 40 Mg Tab) 40 mg PO HS [facility] Stop: 02/27/25 20:59 Last Admin: 01/30/25 20:00 Dose: 40 mg Benzonatate (Benzonatate 100 Mg Capsule) 100 mg PO Q6H PRN PRN Reason: Cough Stop: 03/01/25 09:25 Buspirone HCl (Buspirone 5 Mg Tab) 10 mg PO BID PRN PRN Reason: Anxiety Stop: 02/27/25 03:13 Last Admin: 01/31/25 08:44 Dose: 10 mg Calamine/Phenol (Menthol-Zinc Oxide 360 Appln/120 Gm Tube) 1 appln EXT BID [facility] Stop: 02/27/25 23:14 Last Admin: 01/31/25 08:43 Dose: 1 appln Citalopram Hydrobromide (Citalopram 20 Mg Tab) 30 mg PO QAM [facility] Stop: 02/27/25 08:59 Last Admin: 01/31/25 08:43 Dose: 30 mg Citric Acid/Sodium Citrate (Citric Acid/Sodium Citrate 15 Ml Udc) 45 ml PO BID [facility] Stop: 02/27/25 08:59 Last Admin: 01/31/25 08:41 Dose: 45 ml Heparin Sodium (Porcine) (Heparin 100 Unit/Ml 5ml Flush) 5 ml FLUSH PRN PRN PRN Reason: Flush Stop: 02/28/25 05:34 Hydroxyzine HCl (Hydroxyzine Hcl 25 Mg Tab) 25 mg PO TID PRN PRN Reason: Anxiety Stop: 02/27/25 03:13 Last Admin: 01/30/25 19:59 Dose: 25 mg Cefazolin Sodium (Ancef 2000mg) 2,000 mg in 15 mls @ 3.75 mls/min IV Q8H [facility] Stop: 02/04/25 05:59 Last Admin: 01/31/25 06:12 Dose: 3.75 mls/min Metoprolol Succinate (Metoprolol Succ 25mg Ext Rel Tab) 75 mg PO BID [facility] Stop: 03/01/25 20:59 Last Admin: 01/31/25 08:43 Dose: 75 mg Nitroglycerin (Nitroglycerin Sl 0.4 Mg/Tab Tab) 0.4 mg SL Q5M PRN PRN Reason: Chest Pain Stop: 02/27/25 03:13 Oxybutynin Chloride (Oxybutynin Chloride 5 Mg Tab) 5 mg PO QPM [facility] Stop: 02/27/25 20:59 Last Admin: 01/30/25 19:59 Dose: 5 mg Pantoprazole Sodium (Pantoprazole 40 Mg Tab) 40 mg PO QAM [facility] Stop: 02/27/25 08:59 Last Admin: 01/31/25 08:45 Dose: 40 mg Polyethylene Glycol (Polyethylene (Miralax) 17 Gm Pack) 17 gm PO DAILY PRN PRN Reason: Constipation Stop: 02/27/25 03:13 Warfarin Sodium (Warfarin Sod 2.5 Mg Tab) 2.5 mg PO DAILY@1600 [facility] Stop: 02/27/25 15:59 Last Admin: 01/30/25 15:49 Dose: 2.5 mg
[2025-02-01 06:01] LABS: Hematocrit (blood only) 32.1 % (37.0-47.0); Hemoglobin 10.9 g/dl (12.0-16.0); Immature Granulocytes # (auto) 0.25 K/uL (0.01-0.20); Immature Granulocytes % (auto) 1.9 %; Mean Corpuscular Hemoglobin 31.0 pg (25.0-34.0); Mean Corpuscular Volume 91.2 fL (80.0-100.0); Platelet Count 207 K/uL (130-400); RDW Standard Deviation 46.2 fL (36.4-46.3); Red Blood Count 3.52 M/uL (4.20-5.40); White Blood Count 13.28 K/ul (4.8-10.8)
[2025-02-01 06:16] LABS: Anion Gap 6.0 (3-11); Blood Urea Nitrogen 30.0 mg/dl (6-23); Calcium 8.5 mg/dl (8.6-10.3); Carbon Dioxide 27.0 mmol/L (21-32); Chloride 109.0 mmol/L (98-107); Creatinine Clr Calc Pharmacy 37.5 ml/min; Glucose 92.0 mg/dl (70-99(Fasting)); Potassium 4.3 mmol/L (3.5-5.1); Sodium 142.0 mmol/L (136-145)
[2025-02-01 06:29] LABS: INR 3.8 (0.9-1.1); Prothrombin Time 36.9 Seconds (9.0-12.0)
--- NOTE | 2025-02-01 10:53 | Hospitalist Progress Note ---
Date of Service February 01, 2025 Assessment & Plan (1) Erythematous rash: Plan: 84-year-old female with past med history significant for hyperlipidemia, pulmonary sarcoidosis, chronic rhinitis, hypertension, paroxysmal atrial fibrillation, morbid obesity, sicca syndrome, crohns disease status post ileostomy, CKD stage III, urge incontinence of urine, osteoarthritis, history of bowel obstructions, urinary incontinence, lives with her daughter and ambulates without support comes because of rash in bilateral upper extremities and also having some tachycardia and shortness of breath. Patient reports significant rash in bilateral upper extremities from applying fluorouracil cream for actinic keratosis. Rash is itchy.Patient was in the ER on 01/25/2025 for the rash of the upper extremities and thought to be from fluorouracil cream and advised to follow-up with PCP and dermatology. Saw PCP yesterday advised to apply Vaseline ointment and contact health education assistant. And today she also felt palpitations and shortness of breath and some chest discomfort when taking deep breaths and came to the ER. When she was in the ER last time her INR was supratherapeutic and was given vitamin K and advised to hold Coumadin. She also followed with anticoagulation clinic and advised to hold Coumadin for 1 more day. Poor appetite last few days. Denies any fevers. No nausea or vomiting. No abdominal pain. No runny nose or sore throat. In the ER she was somewhat tachycardic. She was 89% on room air requiring 2 L oxygen. Erythematous rash Bilateral upper extremities with itching and edema Secondary to use of fluorouracil cream over her upper extremities since Saturday last Possible superimposed infection with leukocytosis. Elevated procalcitonin and CRP. Lactic acid okay ER started on Ancef which will be continued Appreciate wound care input and recommendation of using Vaseline lotion Wound has been improving with improvement of generalized erythema Will avoid any steroid cream locally Will have appointment with the health education assistant on discharge Erythematous rash in the upper extremities has been improving with decreasing redness, swelling and tenderness No evidence of any oozing from the wounds Bilateral upper extremity rashes are much improved and the redness is improved too Clinically much better with improvement of overall general condition including rash of the upper extremities Tachycardia Shortness of breath Chest discomfort taking deep breath Requiring oxygen 2 L Chest x-ray looks okay EKG sinus tachycardia and does not have any arrhythmias Serial cardiac enzymes have been negative for any ACS Echo of the heart showed LV is normal in size, moderate concentric LVH, LV wall motion is normal, EF 60 to 65%, LA moderately dilated, moderate mitral annular calcification, trace mitral regurgitation, atrial fibrillation rate is 95 200 bpm Continue home metoprolol Will follow VQ scan.- showed minimal suspicion for pulmonary embolism Tachycardia is resolved Heart rate remains elevated at 101 and will increase the metoprolol tartrate to succinate with 75 mg twice daily Tachycardia has resolved with increasing dose of beta-wu and will be continued Denies any more cardiac symptoms in the radius controlled History of A-fib Will continue metoprolol On warfarin which was held because of INR being 6.2 on 01/25/25 and also received vitamin K INR is 1.3 today Will give a dose of warfarin and start on low-dose IV heparin INR is 1.8 today and will continue intravenous heparin for today and give extra dose of Coumadin this afternoon INR is 2.0 today and will discontinue heparin INR remains elevated at 3.0 and will hold Coumadin for tonight Will hold Coumadin as INR is elevated at 3.8 today Bilateral lower EXTR edema Will follow Dopplers and echo- negative for DVT and echo as above Edema seems to be improving Hypertension On amlodipine and metoprolol Will monitor Depression anxiety On citalopram, buspirone as needed and hydroxyzine as needed GERD On omeprazole Pulmonary sarcoidosis Follows with pulmonary Crohn's disease Status post bowel resection end ileostomy in 1991 Ileostomy site is intact and functioning MILI on CKD stage III Baseline creatinine around 1.4-1.5 Creatinine 1.7 We will follow repeat labs-kidney function remains stable with BUN of 37 and creatinine 1.57 which is better. Magnesium was replaced Kidney function remains stable with BUN of 30 and creatinine 1.41 DVT prophylaxis On IV heparin-discontinued today and will continue Coumadin Disposition Telemetry Full code. Will get PT OT evaluation prior to discharge Clinically much better and will get PT OT evaluation prior to discharge Has had PT evaluation and recommended home Admission and Anticipated Discharge Date Admission Date: January 28, 2025 Subjective 01/29/2025 The patient was seen and examined in telemetry unit in presence of the family members She was admitted with increasing dermatitis/cellulitis involving upper extremities Also complains some shortness of breath but no chest pain or palpitation She has been feeling little better since admission 01/30/2025 The patient was seen and examined in the telemetry unit She has been coughing following taking medications all at once Denies any shortness of breath and saturating normally on room air Her rash in the upper extremities has been improving PrePLUS status 01/31/2025 The patient was seen and examined in telemetry unit She has been much better today and the cough is resolved Her bilateral upper extremity rashes are improving as well No fever no chills 02/01/2025 The patient was seen and examined in telemetry unit She has been feeling even better today with upper extremities redness and swelling has improved a lot Denies any other significant symptoms has had PT evaluation and recommended home and likely discharge tomorrow Review of Systems Review of Systems: All systems reviewed and are unremarkable except as noted below Physical Exam Physical Exam: Lying in bed without any acute distress Constitutional: well developed, well nourished and + ill appearing; no acute distress Eyes: PERRL, conjunctivae normal, anicteric sclerae ENMT: external ear and nose normal, oropharynx normal Neck: trachea midline, no thyromegaly Respiratory: no respiratory distress Auscultation: + diminished lung sounds; no crackles Cardiovascular: Rate/Rhythm: regular rate, regular rhythm and + tachycardic Heart Sounds: normal S1 and normal S2; no murmur Extremities: + edema (1+ edema bilaterally with lymphedema) Gastrointestinal (Abdomen): Inspection/Auscultation: normal bowel sounds; abdomen not distended Percussion/Palpation: abdomen soft; abdomen nontender Skin: Bilateral upper extremity redness swelling and elevations have improved a lot Neurologic: normal touch/pain/proprioception and moves all extremities; no focal motor deficits Lymphatic: no cervical or axillary lymphadenopathy Results & Data Results & Data Vital Signs (Past 12 Hours) Vital Signs Temp Pulse Resp BP BP Pulse Ox Pulse Ox 02/01/25 07:00 36.6 C 74 20 145/66 H 97 02/01/25 03:55 36.7 C 77 24 150/77 H 93 02/01/25 02:51 96 01/31/25 23:46 36.6 C 01/31/25 23:03 37.5 C 78 20 153/61 H 95 O2 Del Method O2 Del Method 02/01/25 07:00 Room Air 02/01/25 03:55 Room Air 02/01/25 02:51 Room Air 01/31/25 23:46 01/31/25 23:03 Room Air Laboratory Results Short CBC 02/01/25 Range/Units 05:35 WBC 13.28 H (4.8-10.8) K/ul Hgb 10.9 L (12.0-16.0) g/dl Hct 32.1 L (37.0-47.0) % Plt Count 207 (130-400) K/uL BMP 02/01/25 05:35 Sodium 142 Potassium 4.3 Chloride 109 H Carbon Dioxide 27 BUN 30 H Creatinine 1.41 H Glucose 92 Calcium 8.5 L Medications Administered Current Inpatient Medications Acetaminophen (Acetaminophen 325 Mg Tab) 650 mg PO Q4H PRN PRN Reason: Pain or Fever Stop: 02/27/25 03:13 Last Admin: 01/31/25 23:10 Dose: 650 mg Amlodipine Besylate (Amlodipine Besylate 5 Mg Tab) 5 mg PO QAM [facility] Stop: 02/27/25 08:59 Last Admin: 02/01/25 09:09 Dose: 5 mg Aspirin (Aspirin 81 Mg Ectab) 81 mg PO QAM [facility] Stop: 02/27/25 08:59 Last Admin: 02/01/25 09:09 Dose: 81 mg Atorvastatin Calcium (Atorvastatin 40 Mg Tab) 40 mg PO HS [facility] Stop: 02/27/25 20:59 Last Admin: 01/31/25 20:17 Dose: 40 mg Benzonatate (Benzonatate 100 Mg Capsule) 100 mg PO Q6H PRN PRN Reason: Cough Stop: 03/01/25 09:25 Buspirone HCl (Buspirone 5 Mg Tab) 10 mg PO BID PRN PRN Reason: Anxiety Stop: 02/27/25 03:13 Last Admin: 02/01/25 09:08 Dose: 10 mg Calamine/Phenol (Menthol-Zinc Oxide 360 Appln/120 Gm Tube) 1 appln EXT BID [facility] Stop: 02/27/25 23:14 Last Admin: 02/01/25 09:09 Dose: 1 appln Citalopram Hydrobromide (Citalopram 20 Mg Tab) 30 mg PO QAM [facility] Stop: 02/27/25 08:59 Last Admin: 02/01/25 09:07 Dose: 30 mg Citric Acid/Sodium Citrate (Citric Acid/Sodium Citrate 15 Ml Udc) 45 ml PO BID [facility] Stop: 02/27/25 08:59 Last Admin: 02/01/25 09:07 Dose: 45 ml Heparin Sodium (Porcine) (Heparin 100 Unit/Ml 5ml Flush) 5 ml FLUSH PRN PRN PRN Reason: Flush Stop: 02/28/25 05:34 Hydroxyzine HCl (Hydroxyzine Hcl 25 Mg Tab) 25 mg PO TID PRN PRN Reason: Anxiety Stop: 02/27/25 03:13 Last Admin: 02/01/25 02:13 Dose: 25 mg Cefazolin Sodium (Ancef 2000mg) 2,000 mg in 15 mls @ 3.75 mls/min IV Q8H [facility] Stop: 02/04/25 05:59 Last Admin: 02/01/25 05:17 Dose: 3.75 mls/min Metoprolol Succinate (Metoprolol Succ 25mg Ext Rel Tab) 75 mg PO BID [facility] Stop: 03/01/25 20:59 Last Admin: 02/01/25 09:08 Dose: 75 mg Nitroglycerin (Nitroglycerin Sl 0.4 Mg/Tab Tab) 0.4 mg SL Q5M PRN PRN Reason: Chest Pain Stop: 02/27/25 03:13 Oxybutynin Chloride (Oxybutynin Chloride 5 Mg Tab) 5 mg PO QPM [facility] Stop: 02/27/25 20:59 Last Admin: 01/31/25 20:19 Dose: 5 mg Pantoprazole Sodium (Pantoprazole 40 Mg Tab) 40 mg PO QAM [facility] Stop: 02/27/25 08:59 Last Admin: 02/01/25 09:08 Dose: 40 mg Polyethylene Glycol (Polyethylene (Miralax) 17 Gm Pack) 17 gm PO DAILY PRN PRN Reason: Constipation Stop: 02/27/25 03:13 Warfarin Sodium (Warfarin Sod 2.5 Mg Tab) 2.5 mg PO DAILY@1600 [facility] Stop: 02/27/25 15:59 Last Admin: 01/30/25 15:49 Dose: 2.5 mg
[2025-02-02] MEDS: MELATONIN 3 MG TAB PO PRN (00:52)
[2025-02-02 02:53] VITALS: PULSE 73
[2025-02-02 08:10] LABS: INR 2.4 (0.9-1.1); Prothrombin Time 23.7 Seconds (9.0-12.0)
[2025-02-02 09:00] VITALS: RESP 19; TEMP 97.9; O2SAT 94
--- NOTE | 2025-02-02 11:10 | Hospitalist Progress Note ---
Date of Service February 02, 2025 Assessment & Plan (1) Erythematous rash: Plan: 84-year-old female with past med history significant for hyperlipidemia, pulmonary sarcoidosis, chronic rhinitis, hypertension, paroxysmal atrial fibrillation, morbid obesity, sicca syndrome, crohns disease status post ileostomy, CKD stage III, urge incontinence of urine, osteoarthritis, history of bowel obstructions, urinary incontinence, lives with her daughter and ambulates without support comes because of rash in bilateral upper extremities and also having some tachycardia and shortness of breath. Patient reports significant rash in bilateral upper extremities from applying fluorouracil cream for actinic keratosis. Rash is itchy.Patient was in the ER on 01/25/2025 for the rash of the upper extremities and thought to be from fluorouracil cream and advised to follow-up with PCP and dermatology. Saw PCP yesterday advised to apply Vaseline ointment and contact internet network specialist. And today she also felt palpitations and shortness of breath and some chest discomfort when taking deep breaths and came to the ER. When she was in the ER last time her INR was supratherapeutic and was given vitamin K and advised to hold Coumadin. She also followed with anticoagulation clinic and advised to hold Coumadin for 1 more day. Poor appetite last few days. Denies any fevers. No nausea or vomiting. No abdominal pain. No runny nose or sore throat. In the ER she was somewhat tachycardic. She was 89% on room air requiring 2 L oxygen. Erythematous rash Bilateral upper extremities with itching and edema Secondary to use of fluorouracil cream over her upper extremities since Saturday last Possible superimposed infection with leukocytosis. Elevated procalcitonin and CRP. Lactic acid okay ER started on Ancef which will be continued Appreciate wound care input and recommendation of using Vaseline lotion Wound has been improving with improvement of generalized erythema Will avoid any steroid cream locally Will have appointment with the internet network specialist on discharge Erythematous rash in the upper extremities has been improving with decreasing redness, swelling and tenderness No evidence of any oozing from the wounds Bilateral upper extremity rashes are much improved and the redness is improved too Clinically much better with improvement of overall general condition including rash of the upper extremities Bilateral upper extremity cellulitis/rash has improved She will be given oral Keflex to finish the course of antibiotic and applying Vaseline lotion 2 times a day Advised to get an appointment with the internet network specialist Tachycardia Shortness of breath Chest discomfort taking deep breath Requiring oxygen 2 L Chest x-ray looks okay EKG sinus tachycardia and does not have any arrhythmias Serial cardiac enzymes have been negative for any ACS Echo of the heart showed LV is normal in size, moderate concentric LVH, LV wall motion is normal, EF 60 to 65%, LA moderately dilated, moderate mitral annular calcification, trace mitral regurgitation, atrial fibrillation rate is 95 200 bpm Continue home metoprolol Will follow VQ scan.- showed minimal suspicion for pulmonary embolism Tachycardia is resolved Heart rate remains elevated at 101 and will increase the metoprolol tartrate to succinate with 75 mg twice daily Tachycardia has resolved with increasing dose of beta-wu and will be continued Denies any more cardiac symptoms in the [facility] controlled History of A-fib Will continue metoprolol On warfarin which was held because of INR being 6.2 on 01/25/25 and also received vitamin K INR is 1.3 today Will give a dose of warfarin and start on low-dose IV heparin INR is 1.8 today and will continue intravenous heparin for today and give extra dose of Coumadin this afternoon INR is 2.0 today and will discontinue heparin INR remains elevated at 3.0 and will hold Coumadin for tonight Will hold Coumadin as INR is elevated at 3.8 today INR is therapeutic today and she will be discharged home this afternoon Bilateral lower EXTR edema Will follow Dopplers and echo- negative for DVT and echo as above Edema seems to be improving Hypertension On amlodipine and metoprolol Will monitor Depression anxiety On citalopram, buspirone as needed and hydroxyzine as needed GERD On omeprazole Pulmonary sarcoidosis Follows with pulmonary Crohn's disease Status post bowel resection end ileostomy in 1991 Ileostomy site is intact and functioning MILI on CKD stage III Baseline creatinine around 1.4-1.5 Creatinine 1.7 We will follow repeat labs-kidney function remains stable with BUN of 37 and creatinine 1.57 which is better. Magnesium was replaced Kidney function remains stable with BUN of 30 and creatinine 1.41 DVT prophylaxis On IV heparin-discontinued today and will continue Coumadin Disposition Telemetry Full code. Will get PT OT evaluation prior to discharge Clinically much better and will get PT OT evaluation prior to discharge Has had PT evaluation and recommended home-Home with home health Admission and Anticipated Discharge Date Admission Date: January 28, 2025 Subjective 01/29/2025 The patient was seen and examined in telemetry unit in presence of the family members She was admitted with increasing dermatitis/cellulitis involving upper extremities Also complains some shortness of breath but no chest pain or palpitation She has been feeling little better since admission 01/30/2025 The patient was seen and examined in the telemetry unit She has been coughing following taking medications all at once Denies any shortness of breath and saturating normally on room air Her rash in the upper extremities has been improving PrePLUS status 01/31/2025 The patient was seen and examined in telemetry unit She has been much better today and the cough is resolved Her bilateral upper extremity rashes are improving as well No fever no chills 02/01/2025 The patient was seen and examined in telemetry unit She has been feeling even better today with upper extremities redness and swelling has improved a lot Denies any other significant symptoms has had PT evaluation and recommended home and likely discharge tomorrow 02/02/2025 The patient was seen and examined in telemetry unit She has been feeling much better Denies any cough and no shortness of breath Her rash involving the upper extremities has improved a lot She will be discharged home this afternoon Review of Systems Review of Systems: All systems reviewed and are unremarkable except as noted below Physical Exam Physical Exam: Lying in bed without any acute distress Constitutional: well developed, well nourished and + ill appearing; no acute distress Eyes: PERRL, conjunctivae normal, anicteric sclerae ENMT: external ear and nose normal, oropharynx normal Neck: trachea midline, no thyromegaly Respiratory: no respiratory distress Auscultation: + diminished lung sounds; no crackles Cardiovascular: Rate/Rhythm: regular rate, regular rhythm and + tachycardic Heart Sounds: normal S1 and normal S2; no murmur Extremities: + edema (1+ edema bilaterally with lymphedema) Gastrointestinal (Abdomen): Inspection/Auscultation: normal bowel sounds; abdomen not distended Percussion/Palpation: abdomen soft; abdomen nontender Skin: Bilateral upper extremity rash and swelling and redness have improved a lot Neurologic: normal touch/pain/proprioception and moves all extremities; no focal motor deficits Lymphatic: no cervical or axillary lymphadenopathy Results & Data Results & Data Vital Signs (Past 12 Hours) Vital Signs Temp Pulse Resp BP BP Pulse Ox Pulse Ox 02/02/25 09:57 02/02/25 08:00 36.6 C 73 19 145/52 H 94 02/02/25 02:52 36.7 C 73 18 149/73 H 93 02/02/25 02:39 97 O2 Del Method O2 Del Method 02/02/25 09:57 Room Air 02/02/25 08:00 Room Air 02/02/25 02:52 Room Air 02/02/25 02:39 Room Air Medications Administered Current Inpatient Medications Acetaminophen (Acetaminophen 325 Mg Tab) 650 mg PO Q4H PRN PRN Reason: Pain or Fever Stop: 02/27/25 03:13 Last Admin: 01/31/25 23:10 Dose: 650 mg Amlodipine Besylate (Amlodipine Besylate 5 Mg Tab) 5 mg PO QAM [facility] Stop: 02/27/25 08:59 Last Admin: 02/02/25 08:09 Dose: 5 mg Aspirin (Aspirin 81 Mg Ectab) 81 mg PO QAM [facility] Stop: 02/27/25 08:59 Last Admin: 02/02/25 08:09 Dose: 81 mg Atorvastatin Calcium (Atorvastatin 40 Mg Tab) 40 mg PO HS [facility] Stop: 02/27/25 20:59 Last Admin: 02/01/25 20:09 Dose: 40 mg Benzonatate (Benzonatate 100 Mg Capsule) 100 mg PO Q6H PRN PRN Reason: Cough Stop: 03/01/25 09:25 Buspirone HCl (Buspirone 5 Mg Tab) 10 mg PO BID PRN PRN Reason: Anxiety Stop: 02/27/25 03:13 Last Admin: 02/02/25 08:08 Dose: 10 mg Calamine/Phenol (Menthol-Zinc Oxide 360 Appln/120 Gm Tube) 1 appln EXT BID [facility] Stop: 02/27/25 23:14 Last Admin: 02/02/25 08:09 Dose: 1 appln Citalopram Hydrobromide (Citalopram 20 Mg Tab) 30 mg PO QAM [facility] Stop: 02/27/25 08:59 Last Admin: 02/02/25 08:05 Dose: 30 mg Citric Acid/Sodium Citrate (Citric Acid/Sodium Citrate 15 Ml Udc) 45 ml PO BID [facility] Stop: 02/27/25 08:59 Last Admin: 02/02/25 08:05 Dose: 45 ml Heparin Sodium (Porcine) (Heparin 100 Unit/Ml 5ml Flush) 5 ml FLUSH PRN PRN PRN Reason: Flush Stop: 02/28/25 05:34 Hydroxyzine HCl (Hydroxyzine Hcl 25 Mg Tab) 25 mg PO TID PRN PRN Reason: Anxiety Stop: 02/27/25 03:13 Last Admin: 02/01/25 20:55 Dose: 25 mg Cefazolin Sodium (Ancef 2000mg) 2,000 mg in 15 mls @ 3.75 mls/min IV Q8H [facility] Stop: 02/04/25 05:59 Last Admin: 02/02/25 05:16 Dose: 3.75 mls/min Melatonin (Melatonin 3 Mg Tab) 6 mg PO HS PRN PRN Reason: Sleep Stop: 03/04/25 00:48 Last Admin: 02/02/25 00:52 Dose: 6 mg Metoprolol Succinate (Metoprolol Succ 25mg Ext Rel Tab) 75 mg PO BID [facility] Stop: 03/01/25 20:59 Last Admin: 02/02/25 08:06 Dose: 75 mg Nitroglycerin (Nitroglycerin Sl 0.4 Mg/Tab Tab) 0.4 mg SL Q5M PRN PRN Reason: Chest Pain Stop: 02/27/25 03:13 Oxybutynin Chloride (Oxybutynin Chloride 5 Mg Tab) 5 mg PO QPM [facility] Stop: 02/27/25 20:59 Last Admin: 02/01/25 20:12 Dose: 5 mg Pantoprazole Sodium (Pantoprazole 40 Mg Tab) 40 mg PO QAM [facility] Stop: 02/27/25 08:59 Last Admin: 02/02/25 08:07 Dose: 40 mg Polyethylene Glycol (Polyethylene (Miralax) 17 Gm Pack) 17 gm PO DAILY PRN PRN Reason: Constipation Stop: 02/27/25 03:13 Warfarin Sodium (Warfarin Sod 2.5 Mg Tab) 2.5 mg PO DAILY@1600 [facility] Stop: 02/27/25 15:59 Last Admin: 01/30/25 15:49 Dose: 2.5 mg
[2025-02-02] MEDS ORDERED: HEPARIN 100 UNIT/ML 5ML FLUSH FLUSH PRN (12:23)
[2025-02-02 12:38] VITALS: BP 149/73
[2025-02-02] MEDS: HEPARIN 100 UNIT/ML 5ML FLUSH FLUSH PRN (13:03)
--- NOTE | 2025-02-02 17:09 | Discharge Summary ---
Date of Service February 02, 2025 Admission HPI Per Admitting Provider 84-year-old female with past med history significant for hyperlipidemia, pulmonary sarcoidosis, chronic rhinitis, hypertension, paroxysmal atrial fibrillation, morbid obesity, sicca syndrome, Crohn disease status post i leostomy, CKD stage III, urge incontinence of urine, osteoarthritis, history of bowel obstructions, urinary incontinence, lives with her daughter and ambulates without support comes because of rash in bilateral upper extremities and also having some tachycardia and shortness of breath. Patient reports significant rash in bilateral upper extremities from applying fluorouracil cream for actinic keratosis. Rash is itchy.Patient was in the ER on 01/25/2025 for the rash of the upper extremities and thought to be from fluorouracil cream and advised to follow-up with PCP and dermatology. Saw PCP yesterday advised to apply Vaseline ointment and contact bundle tier and labeler. And today she also felt palpitations and shortness of breath and some chest discomfort when taking deep breaths and came to the ER. When she was in the ER last time her INR was supratherapeutic and was given vitamin K and advised to hold Coumadin. She also followed with anticoagulation clinic and advised to hold Coumadin for 1 more day. Poor appetite last few days. Denies any fevers. No nausea or vomiting. No abdominal pain. No runny nose or sore throat. In the ER she was somewhat tachycardic. She was 89% on room air requiring 2 L oxygen. Past medical history. As mentioned above Past surgical history. Bilateral knee replacements. Bilateral carpal tunnel surgery. Colonoscopy with cystoscopy. Dilatation and curettage. EGD. Exploratory laparotomy. Revision of ileostomy. Lysis of adhesions and repair of parastomal hernia. Colectomy with ileostomy. Social history. . Living with her daughter. No smoking. No alcohol. No drug use. Family history. Father had AAA. Mother had kidney failure. Admission Exam Per Admitting Provider Physical Exam: General- Not in distress. Head- atraumatic Eyes- PERRL. ENT- oropharynx clear Neck- supple, no JVD. Lungs- clear to auscultation no wheezing or crackles Heart- regular rhythm; no murmur, no gallop. a port seen Abdomen- normal bowel sounds, soft, nontender, no distension ileostomy seen Extremities- erythematous rash with edema upper extremity, b/l lower extremity edema Neuro- alert, oriented PERRL, no facial palsy; no dysarthria; moves extremities Principal Diagnosis Bilateral upper extremity rash/cellulitis, atrial fibrillation on Coumadin Discharge Exam Lying in bed without any acute distress Constitutional well developed, well nourished and + ill appearing; no acute distress Eyes PERRL, conjunctivae normal, anicteric sclerae ENMT external ear and nose normal, oropharynx normal Neck trachea midline, no thyromegaly Respiratory no respiratory distress Auscultation: + diminished lung sounds; no crackles Cardiovascular Rate/Rhythm: regular rate, regular rhythm and + tachycardic Heart Sounds: normal S1 and normal S2; no murmur Extremities: + edema (1+ edema bilaterally with lymphedema) Gastrointestinal (Abdomen) Inspection/Auscultation: normal bowel sounds; abdomen not distended Percussion/Palpation: abdomen soft; abdomen nontender Neurologic normal touch/pain/proprioception and moves all extremities; no focal motor deficits Lymphatic no cervical or axillary lymphadenopathy Discharge Data Allergies Allergy/AdvReac Type Severity Reaction Status Date / Time dexamethasone Allergy Intermediate EYES Verified 01/27/25 20:40 BECAME RED AND ITCHY sulfamethoxazole Allergy Intermediate ITCHING Verified 01/27/25 20:40 tobramycin Allergy Intermediate EYES Verified 01/27/25 20:40 BECAME RED AND ITCHY trimethoprim Allergy Intermediate ITCHING Verified 01/27/25 20:40 Consultations 01/27/25 22:06 ED Decision to Admit Stat Ordered Studies 01/28/25 03:[address] [facility] Routine Hospital Course (1) Erythematous rash: 84-year-old female with past med history significant for hyperlipidemia, pulmonary sarcoidosis, chronic rhinitis, hypertension, paroxysmal atrial fibrillation, morbid obesity, sicca syndrome, crohns disease status post ileostomy, CKD stage III, urge incontinence of urine, osteoarthritis, history of bowel obstructions, urinary incontinence, lives with her daughter and ambulates without support comes because of rash in bilateral upper extremities and also having some tachycardia and shortness of breath. Patient reports significant rash in bilateral upper extremities from applying fluorouracil cream for actinic keratosis. Rash is itchy.Patient was in the ER on 01/25/2025 for the rash of the upper extremities and thought to be from fluorouracil cream and advised to follow-up with PCP and dermatology. Saw PCP yesterday advised to apply Vaseline ointment and contact bundle tier and labeler. And today she also felt palpitations and shortness of breath and some chest discomfort when taking deep breaths and came to the ER. When she was in the ER last time her INR was supratherapeutic and was given vitamin K and advised to hold Coumadin. She also followed with anticoagulation clinic and advised to hold Coumadin for 1 more day. Poor appetite last few days. Denies any fevers. No nausea or vomiting. No abdominal pain. No runny nose or sore throat. In the ER she was somewhat tachycardic. She was 89% on room air requiring 2 L oxygen. Erythematous rash Bilateral upper extremities with itching and edema Secondary to use of fluorouracil cream over her upper extremities since Saturday last Possible superimposed infection with leukocytosis. Elevated procalcitonin and CRP. Lactic acid okay ER started on Ancef which will be continued Appreciate wound care input and recommendation of using Vaseline lotion Wound has been improving with improvement of generalized erythema Will avoid any steroid cream locally Will have appointment with the bundle tier and labeler on discharge Erythematous rash in the upper extremities has been improving with decreasing redness, swelling and tenderness No evidence of any oozing from the wounds Bilateral upper extremity rashes are much improved and the redness is improved too Clinically much better with improvement of overall general condition including rash of the upper extremities Bilateral upper extremity cellulitis/rash has improved She will be given oral Keflex to finish the course of antibiotic and applying Vaseline lotion 2 times a day Advised to get an appointment with the bundle tier and labeler Tachycardia Shortness of breath Chest discomfort taking deep breath Requiring oxygen 2 L Chest x-ray looks okay EKG sinus tachycardia and does not have any arrhythmias Serial cardiac enzymes have been negative for any ACS Echo of the heart showed LV is normal in size, moderate concentric LVH, LV wall motion is normal, EF 60 to 65%, LA moderately dilated, moderate mitral annular calcification, trace mitral regurgitation, atrial fibrillation rate is 95 200 bpm Continue home metoprolol Will follow VQ scan.- showed minimal suspicion for pulmonary embolism Tachycardia is resolved Heart rate remains elevated at 101 and will increase the metoprolol tartrate to succinate with 75 mg twice daily Tachycardia has resolved with increasing dose of beta-wu and will be continued Denies any more cardiac symptoms in the [facility] controlled History of A-fib Will continue metoprolol On warfarin which was held because of INR being 6.2 on 01/25/25 and also received vitamin K INR is 1.3 today Will give a dose of warfarin and start on low-dose IV heparin INR is 1.8 today and will continue intravenous heparin for today and give extra dose of Coumadin this afternoon INR is 2.0 today and will discontinue heparin INR remains elevated at 3.0 and will hold Coumadin for tonight Will hold Coumadin as INR is elevated at 3.8 today INR is therapeutic today and she will be discharged home this afternoon Bilateral lower EXTR edema Will follow Dopplers and echo- negative for DVT and echo as above Edema seems to be improving Hypertension On amlodipine and metoprolol Will monitor Depression anxiety On citalopram, buspirone as needed and hydroxyzine as needed GERD On omeprazole Pulmonary sarcoidosis Follows with pulmonary Crohn's disease Status post bowel resection end ileostomy in 1991 Ileostomy site is intact and functioning MILI on CKD stage III Baseline creatinine around 1.4-1.5 Creatinine 1.7 We will follow repeat labs-kidney function remains stable with BUN of 37 and creatinine 1.57 which is better. Magnesium was replaced Kidney function remains stable with BUN of 30 and creatinine 1.41 DVT prophylaxis On IV heparin-discontinued today and will continue Coumadin Disposition Telemetry Full code. Will get PT OT evaluation prior to discharge Clinically much better and will get PT OT evaluation prior to discharge Has had PT evaluation and recommended home-Home with home health Total Time Total Time Spent Total Time Spent (In Minutes): 40 Minutes Discharge Plan Discharge Items Patient Disposition: Home - Home Health Services Reason For Visit: B/L UPPER EXTREMITY RASH, TACHYCARDIA Discharge Diagnosis: Bilateral upper extremity rash/cellulitis, atrial fibrillation on Coumadin Condition on Discharge: Fair Activity: Resume your previous activity Non-emergency contact: Primary Care Provider Call non-emergency contact if: you have any medication questions and your symptoms worsen Follow-up/Referrals: Sai Soler MD [Primary Care Provider] - 02/05/25 3:00 pm Diet: Heart Healthy Addtl Attending Provider Instructions: Please take precautions to's Finish the course of antibiotic We can try a probiotic with the antibiotic Take your medications as advised You will need to have follow-up with coagulation clinic to maintain your INR and Coumadin doses Please keep follow-up appointment with your healthcare providers Pending Studies at Discharge: No Stand-Alone Forms: My [employer], Smoking Cessation Medications and DC Order Prescriptions: New metoprolol succinate [Toprol XL] 50 mg tablet extended release 24 hr 75 mg PO BID Qty: 90 0RF cephalexin 500 mg capsule 500 mg PO Q8H 3 Days Qty: 9 0RF Continued atorvastatin 40 mg tablet 40 mg PO HS Qty: 90 1RF sodium citrate-citric acid 500-334 mg/5 mL solution 45 ml PO BID Qty: 3000 5RF aspirin [Gallo Low Dose Aspirin] 81 mg Tablet,Delayed Release (Dr/Ec) 81 mg PO QAM amlodipine 5 mg tablet 5 mg PO QAM oxybutynin chloride 5 mg tablet 5 mg PO QPM Rx Instructions: 5 mg PO 1-2 hours before bedtime citalopram 20 mg tablet 30 mg PO QAM omeprazole 20 mg capsule,delayed release(DR/EC) 20 mg PO QAM warfarin 5 mg tablet 2.5 mg PO QPM Rx Instructions: DO NOT TAKE 01/27/25 START 01/28/25 WITH 2.5 MG Q EVENING. hydroxyzine HCl 25 mg tablet 25 mg PO TID PRN (Reason: Anxiety) buspirone 10 mg tablet 10 mg PO BID PRN (Reason: Anxiety) Discontinued metoprolol tartrate 100 mg tablet 50 mg PO BID Qty: 30 0RF Discharge Orders: Discharge Order- CHF (Routine); Ordered 02/02/25 Ordered By: Bright Rivera/Other Patient Handouts: CKD Dc, Hyponatremia Dc Admission Data Admit Date/Time: 01/28/25 00:33 Attending Provider: Bright Canales Admit Provider: Augustus Medellin Primary Care Provider: Sai Soler Other Providers: [facility] [place]; [facility] Fax Other Interventions: Discharge Summary Assessment (RN) Last Done: 02/02/25 12:37
== END 2025-02-02 13:37 | disposition home health service (06) | DRG 607 ==
LOC: ED 18:57 → EDINP 01-28 00:33 → 2E 01-28 03:14